=== PATIENT | male | born 1940 | race Caucasian/White ===

== ENCOUNTER → 2018-02-15 07:06 | Outpatient (CLI) | payer MEDICARE, BC, SELFPAY ==
[2018-02-15 09:54] LABS: Absolute Lymphocyte Count 3.13 X10^3/ul (0.83-4.51); Absolute Neutrophil Count 1.2 X10^3/uL (2.0-7.7); Basophil# 0.04 X10^3/uL; Basophil% 0.7 % (0-1); Eosinophil# 0.61 X10^3/uL; Eosinophils% 10.9 % (0-5); Hematocrit 41.2 % (40-54); Hemoglobin 14.2 g/dl (13.0-16.5); Lymphocyte # 3.13 X10^3/ul (4.0); Lymphocyte % 55.9 % (19-41); Mean Corp Hgb Conc 34.5 g/gl (32-36); Mean Corpuscular Hgb 31.6 pg (27.0-32.0); Mean Corpuscular Volume 91.8 fL (80-94); Mean Platelet Vol. 11.6 fl (6.2-12.0); Monocyte# 0.62 X10^3/uL; Monocyte% 11.1 % (0-10); Neutrophil # 1.18 X10^3/uL (2.7-7.7); Platelet Count 236 K/mm3 (150-450); RBC Distribution Width SD 43.1 fl (35.1-43.9); Red Blood Count 4.49 M/mm3 (4.6-6.2); White Blood Count 5.6 K/mm3 (4.4-11.0)
[2018-02-15 10:14] LABS: POSITIVE COUNT NO; POSITIVE DIFFERENTIAL NO; POSITIVE MORPHOLOGY NO
[2018-02-15 10:21] LABS: AST(SGOT) 29 U/L (15-37); Alanine Aminotransfer ALT/SGPT 26 U/L (16-61); Albumin, Serum 3.8 g/dL (3.2-5.0); Alkaline Phosphatase 76 U/L (45-117); Anion Gap 9 (5-15); BUN 24 mg/dL (7-18); BUN/Creat Ratio 23.3 RATIO (10-20); Calcium,Total 8.8 mg/dL (8.5-10.1); Chloride 104 mmol/L (98-107); Cholesterol 222 mg/dL (200); Creatinine, Serum 1.03 mg/dL (0.70-1.30); EST Glomerular Filtration Rate 75 mL/min (>60); Est Glom Filt Rate - Afr Amer 90 mL/min (>60); Globulin 3.8 g/dL (2.2-4.2); Glucose 103 mg/dL (74-106); High Density Lipoprotein 67 mg/dL; Potassium 4.1 mmol/L (3.5-5.1); Protein, Total 7.6 g/dL (6.4-8.2); Sodium Level 140 mmol/L (136-145); Triglycerides 67 mg/dL; Very Low Density Lipoprotein 13 mg/dL (5-40)
== END ==
PROVIDERS: Family Provider Family Medicine; PCP Family Medicine; Visit Provider Family Medicine
DX: I10 Essential (primary) hypertension (principal); E78.5 Hyperlipidemia, unspecified
CPT/HCPCS: 36415; 80053; 80061; 85025

== ENCOUNTER → 2019-01-31 07:01 | Outpatient (CLI) | payer MEDICARE, BC, SELFPAY ==
[2019-01-31 10:26] LABS: Basophil% 0.7 % (0-1); Eosinophils% 10.5 % (0-5); Hematocrit 38.6 % (40-54); Hemoglobin 12.7 g/dl (13.0-16.5); Lymphocyte # 2.52 X10^3/ul (4.0); Lymphocyte % 44.7 % (19-41); Mean Corp Hgb Conc 32.9 g/gl (32-36); Mean Corpuscular Hgb 29.4 pg (27.0-32.0); Mean Corpuscular Volume 89.4 fL (80-94); Mean Platelet Vol. 11.8 fl (6.2-12.0); Monocyte% 8.5 % (0-10); Neutrophil % 35.4 % (47-70); Platelet Count 255 K/mm3 (150-450); RBC Distribution Width CV 13.9 % (11.6-14.6); RBC Distribution Width SD 45.9 fl (35.1-43.9); Red Blood Count 4.32 M/mm3 (4.6-6.2); White Blood Count 5.6 K/mm3 (4.4-11.0)
[2019-01-31 10:27] LABS: Absolute Lymphocyte Count 2.52 X10^3/ul (0.83-4.51); Basophil# 0.04 X10^3/uL; Eosinophil# 0.59 X10^3/uL; Monocyte# 0.48 X10^3/uL; POSITIVE COUNT NO; POSITIVE DIFFERENTIAL NO; POSITIVE MORPHOLOGY NO
[2019-01-31 10:46] LABS: AST(SGOT) 25 U/L (15-37); Alanine Aminotransfer ALT/SGPT 23 U/L (16-61); Albumin, Serum 3.5 g/dL (3.2-5.0); Alkaline Phosphatase 100 U/L (45-117); Anion Gap 5 (5-15); BUN 22 mg/dL (7-18); BUN/Creat Ratio 23.7 RATIO (10-20); Calcium,Total 8.7 mg/dL (8.5-10.1); Chloride 109 mmol/L (98-107); Cholesterol 181 mg/dL (200); Creatinine, Serum 0.93 mg/dL (0.70-1.30); EST Glomerular Filtration Rate 84 mL/min (>60); Est Glom Filt Rate - Afr Amer 101 mL/min (>60); Globulin 3.5 g/dL (2.2-4.2); Glucose 93 mg/dL (74-106); High Density Lipoprotein 57 mg/dL; PSA,Total - Annual Screen 2.22 ng/mL (0.00-4.00); Sodium Level 143 mmol/L (136-145); Triglycerides 59 mg/dL; Very Low Density Lipoprotein 12 mg/dL (5-40)
== END ==
PROVIDERS: Family Provider Family Medicine; PCP Family Medicine; Referring Provider Family Medicine; Visit Provider Family Medicine
DX: M10.9 Gout, unspecified (principal); I10 Essential (primary) hypertension; E78.5 Hyperlipidemia, unspecified; Z12.5 Encounter for screening for malignant neoplasm of prostate
CPT/HCPCS: 36415; 80053; 80061; 84153; 84550; 85025; G0103

== ENCOUNTER → 2019-03-15 07:31 | Outpatient (CLI) | payer MEDICARE, BC, SELFPAY ==
[2017-03-15 02:50] VITALS: BMI 26.9
[2019-03-15 10:07] LABS: Uric Acid 6.2 mg/dL (3.5-7.2)
== END ==
PROVIDERS: Family Provider Family Medicine; PCP Family Medicine; Referring Provider Family Medicine; Visit Provider Family Medicine
DX: M10.9 Gout, unspecified (principal)
CPT/HCPCS: 36415; 84550

== ENCOUNTER → 2019-03-17 | Outpatient (CLI) | payer MEDICARE, BC, SELFPAY ==
[2017-03-15 02:50] VITALS: BMI 26.9
[2019-03-17 15:47] LABS: Absolute Lymphocyte Count 2.94 X10^3/ul (0.83-4.51); Absolute Neutrophil Count 2.3 X10^3/uL (2.0-7.7); Basophil# 0.04 X10^3/uL; Basophil% 0.7 % (0-1); Eosinophil# 0.31 X10^3/uL; Eosinophils% 5.1 % (0-5); Hematocrit 39.9 % (40-54); Hemoglobin 13.3 g/dl (13.0-16.5); Lymphocyte # 2.94 X10^3/ul (4.0); Lymphocyte % 48.3 % (19-41); Mean Corp Hgb Conc 33.3 g/gl (32-36); Mean Corpuscular Hgb 30.6 pg (27.0-32.0); Mean Corpuscular Volume 91.9 fL (80-94); Mean Platelet Vol. 11.3 fl (6.2-12.0); Monocyte% 8.2 % (0-10); Neutrophil # 2.29 X10^3/uL (2.7-7.7); Neutrophil % 37.5 % (47-70); Platelet Count 245 K/mm3 (150-450); RBC Distribution Width CV 14.8 % (11.6-14.6); RBC Distribution Width SD 49.8 fl (35.1-43.9); Red Blood Count 4.34 M/mm3 (4.6-6.2); White Blood Count 6.1 K/mm3 (4.4-11.0)
[2019-03-17 15:51] LABS: POSITIVE COUNT NO; POSITIVE DIFFERENTIAL NO; POSITIVE MORPHOLOGY NO
== END | disposition home or self-care (01) ==
LOC: LAB.FUTURE 13:34
PROVIDERS: Family Provider Family Medicine; PCP Family Medicine; Visit Provider Family Medicine
DX: D64.9 Anemia, unspecified (principal)
CPT/HCPCS: 36415; 85025

== ENCOUNTER → 2020-03-30 10:31 | Outpatient (CLI) | payer MEDICARE, BC, SELFPAY ==
[2020-03-30 12:17] LABS: Absolute Lymphocyte Count 3.31 X10^3/uL (0.83-4.51); Absolute Neutrophil Count 3.6 X10^3/uL (2.0-7.7); Basophil# 0.05 X10^3/uL; Basophil% 0.6 % (0-1); Eosinophil# 0.53 X10^3/uL; Eosinophils% 6.4 % (0-5); Hematocrit 41.4 % (40-54); Hemoglobin 13.9 g/dL (13.0-16.5); Lymphocyte # 3.31 X10^3/ul (4.0); Lymphocyte % 40.2 % (19-41); Mean Corp Hgb Conc 33.6 g/dL (32-36); Mean Corpuscular Hgb 32.2 pg (27.0-32.0); Mean Corpuscular Volume 95.8 fL (80-94); Mean Platelet Vol. 11.7 fl (6.2-12.0); Monocyte% 8.5 % (0-10); NRBC Flagged by Analyzer 0 % (0-5); Neutrophil # 3.62 X10^3/uL (2.7-7.7); Neutrophil % 44.1 % (47-70); Platelet Count 260 K/mm3 (150-450); RBC Distribution Width CV 12.9 % (11.6-14.6); RBC Distribution Width SD 44.3 fl (35.1-43.9); Red Blood Count 4.32 M/mm3 (4.6-6.2); White Blood Count 8.2 K/mm3 (4.4-11.0)
[2020-03-30 15:39] LABS: AST(SGOT) 21 U/L (15-37); Alanine Aminotransfer ALT/SGPT 29 U/L (16-61); Albumin, Serum 3.9 g/dL (3.2-5.0); Alkaline Phosphatase 85 U/L (45-117); Anion Gap 8 (5-15); BUN 23 mg/dL (7-18); BUN/Creat Ratio 22.1 RATIO (10-20); Calcium,Total 9.3 mg/dL (8.5-10.1); Chloride 105 mmol/L (98-107); Cholesterol 209 mg/dL (200); Creatinine, Serum 1.04 mg/dL (0.70-1.30); EST Glomerular Filtration Rate 73 mL/min (>60); Est Glom Filt Rate - Afr Amer 89 mL/min (>60); Globulin 3.8 g/dL (2.2-4.2); Glucose 100 mg/dL (74-106); High Density Lipoprotein 65 mg/dL; Potassium 4.2 mmol/L (3.5-5.1); Protein, Total 7.7 g/dL (6.4-8.2); Sodium Level 139 mmol/L (136-145); Triglycerides 110 mg/dL; Uric Acid 5.6 mg/dL (3.5-7.2); Very Low Density Lipoprotein 22 mg/dL (5-40)
== END ==
PROVIDERS: PCP Family Medicine; Visit Provider Family Medicine
DX: M10.9 Gout, unspecified (principal); I10 Essential (primary) hypertension; E78.5 Hyperlipidemia, unspecified; D64.9 Anemia, unspecified
CPT/HCPCS: 36415; 80053; 80061; 84550; 85025

== ENCOUNTER 2020-12-10 08:09 | Outpatient (RCR) | payer MEDICARE, BC, SELFPAY ==
[2017-03-15 02:50] VITALS: BMI 26.9
== END 2020-12-10 23:59 ==
LOC: IMMUN 08:09
PROVIDERS: PCP Family Medicine; Referring Provider Family Medicine; Visit Provider Family Medicine
DX: Z23 Encounter for immunization (principal)
CPT/HCPCS: 0011A; 0012A

== ENCOUNTER → 2021-05-03 10:50 | Outpatient (CLI) | payer MEDICARE, BC, SELFPAY ==
[2017-03-15 02:50] VITALS: BMI 26.9
[2021-05-05 08:07] LABS: PSA, Free 0.53 ng/mL; PSA, Free % 11.5 % (.); PSA, Total Ultrasensitive 4.6 ng/mL (0.0-4.0)
== END ==
PROVIDERS: PCP Family Medicine; Referring Provider Family Medicine; Visit Provider Family Medicine
DX: R97.20 Elevated prostate specific antigen [PSA] (principal)
CPT/HCPCS: 36415; 84153; 84154

== ENCOUNTER → 2022-04-22 | Outpatient (CLI) | payer MEDICARE, BC, SELFPAY ==
[2022-04-22 07:21] LABS: Absolute Lymphocyte Count 3.76 X10^3/uL (0.83-4.51); Absolute Neutrophil Count 2.2 X10^3/uL (2.0-7.7); Basophil# 0.07 X10^3/uL; Eosinophil# 0.55 X10^3/uL; Eosinophils% 7.6 % (0-5); Hematocrit 41.9 % (40-54); Hemoglobin 14.1 g/dL (13.0-16.5); Lymphocyte # 3.76 X10^3/ul (0.83-4.51); Mean Corp Hgb Conc 33.7 g/dL (32-36); Mean Corpuscular Hgb 31.7 pg (27.0-32.0); Mean Corpuscular Volume 94.2 fL (80-94); Mean Platelet Vol. 11.5 fl (6.2-12.0); Monocyte# 0.62 X10^3/uL; Monocyte% 8.6 % (0-10); NRBC Flagged by Analyzer 0 % (0-5); Neutrophil # 2.21 X10^3/uL (2.7-7.7); Neutrophil % 30.5 % (47-70); Platelet Count 240 K/mm3 (150-450); RBC Distribution Width CV 13.7 % (11.6-14.6); RBC Distribution Width SD 47.4 fl (35.1-43.9); Red Blood Count 4.45 M/mm3 (4.6-6.2); White Blood Count 7.2 K/mm3 (4.4-11.0)
[2022-04-22 07:49] LABS: ALB/GLOB Ratio 0.9 RATIO (0.9-2.4); AST(SGOT) 17 U/L (15-37); Alanine Aminotransfer ALT/SGPT 22 U/L (16-61); Albumin, Serum 3.5 g/dL (3.2-5.0); Alkaline Phosphatase 90 U/L (45-117); Anion Gap 6 (5-15); BUN 19 mg/dL (7-18); BUN/Creat Ratio 18.8 RATIO (10-20); Chloride 106 mmol/L (98-107); Cholesterol 240 mg/dL (200); Creatinine, Serum 1.01 mg/dL (0.70-1.30); EST Glomerular Filtration Rate 76 mL/min (>60); Est Glom Filt Rate - Afr Amer 91 mL/min (>60); Globulin 3.7 g/dL (2.2-4.2); Glucose 106 mg/dL (74-106); High Density Lipoprotein 56 mg/dL; Potassium 4.3 mmol/L (3.5-5.1); Protein, Total 7.2 g/dL (6.4-8.2); Sodium Level 140 mmol/L (136-145); Triglycerides 125 mg/dL; Uric Acid 6.2 mg/dL (3.5-7.2); Very Low Density Lipoprotein 25 mg/dL (5-40)
[2022-04-23 16:17] LABS: PSA, Free % 11.5 % (.); PSA, Total Ultrasensitive 6.1 ng/mL (0.0-4.0)
== END | disposition home or self-care (01) ==
PROVIDERS: PCP Family Medicine; Referring Provider Family Medicine; Visit Provider Family Medicine
DX: M10.9 Gout, unspecified (principal); I10 Essential (primary) hypertension; E78.5 Hyperlipidemia, unspecified; D64.9 Anemia, unspecified; R97.20 Elevated prostate specific antigen [PSA]
CPT/HCPCS: 36415; 80053; 80061; 84153; 84154; 84550; 85025

== ENCOUNTER → 2023-01-27 | Outpatient (CLI) | payer MEDICARE, BC, SELFPAY ==
--- NOTE | 2023-01-27 08:00 | VDLE_ITS ---
Reason For Study: LEG PAIN RIGHT LEFT CFV is compressible, spontaneous, phasic, GSV is normal. competent and demonstrates normal CFV is compressible, spontaneous, phasic, augmentation. competent, and demonstrates normal Procedure augmentation. This is a venous duplex using B-mode, color FV is compressible, spontaneous, phasic, flow and spectral Doppler. competent and demonstrates normal Exam performed in department. augmentation. The exam was diagnostic. POP V is compressible, spontaneous, phasic, competent and demonstrates normal augmentation. T/P Trunk is compressible. PTV is compressible. LT PerV is compressible. VL/Venous Duplex US, Unilateral Interpretation Summary Deep veins of the left lower extremity are patent and compressible segmentally. There is no evidence of left lower extremity deep vein thrombosis. The left great saphenous vein geena ears patent and compressible segmentally. Ordering Physician: aCndice Song Referring Physician: Candice Song Performed By: Sancho Christopher RVT
--- NOTE | 2023-01-27 08:03 | ART_ITS ---
Reason For Study: LEG PAIN Procedure A bilateral lower extremity continuous wave Doppler with analog waveform analysis and ankle brachial indexes. Left Segmental Pressures Left brachial= 162mmHg. Left posterior tibial artery = 89mmHg. Left dorsalis pedis artery = 94mmHg. Left digit = 47 mmHg. The left posterior tibial artery waveforms are monophasic. The left dorsalis pedis waveforms are monophasic. Right Segmental Pressures Right brachial= 165mmHg. Right posterior tibial artery = 172mmHg. Right dorsalis pedis artery = 190mmHg. Right digit = 95 mmHg. The right posterior tibial artery waveforms are triphasic. The right dorsalis pedis waveforms are triphasic. Indices The right ankle brachial index by the posterior tibial artery is 1.04. The right ankle brachial index by the dorsalis pedis is 1.15. The right digital-brachial index is 0.58. The left ankle brachial index by the posterior tibial artery is 0.54. The left ankle brachial index by the dorsalis pedis is 0.57. The left digital-brachial index is 0.28. VL/Ankle Brachial Index Interpretation Summary Right BIMAL 1.15, normal. Doppler/PVR waveforms of the right leg normal at rest. 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 Left BIMAL 0.57, severe arterial insufficiency. Doppler/PVR waveforms of the left ankle severely diminished at rest. Ordering Physician: Candice Song Referring Physician: CANDICE SONG MD Performed By: Sancho Christopher RVT
== END | disposition home or self-care (01) ==
LOC: CVS 07:54
PROVIDERS: PCP Family Medicine; Referring Provider Family Medicine; Visit Provider Family Medicine
DX: M79.662 Pain in left lower leg (principal); I73.9 Peripheral vascular disease, unspecified
CPT/HCPCS: 93922; 93971

== ENCOUNTER → 2023-02-11 | Outpatient (CLI) | payer MEDICARE, BC, SELFPAY ==
[2023-02-11 11:44] LABS: Creatinine, Serum 0.98 mg/dL (0.70-1.30); EST Glomerular Filtration Rate 78 mL/min (>60); Est Glom Filt Rate - Afr Amer 94 mL/min (>60)
== END | disposition home or self-care (01) ==
LOC: LAB 09:55
PROVIDERS: PCP Family Medicine; Referring Provider Physician Assistant; Visit Provider Physician Assistant
DX: I77.1 Stricture of artery (principal); E78.5 Hyperlipidemia, unspecified; I10 Essential (primary) hypertension
CPT/HCPCS: 36415; 82565

== ENCOUNTER → 2023-02-25 | Outpatient (CLI) | payer MEDICARE, BC, SELFPAY ==
--- NOTE | 2023-02-25 07:56 | CT_ITS ---
STUDY: CTA OF THE ABDOMINAL AORTA AND BILATERAL LOWER EXTREMITIES REASON FOR EXAM: Male, 82 years old. Claudication, acute onset LLE pain RADIATION DOSAGE (If Supplied By Facility): CTDIvol = ( 7.51 ) mGy, DLP = ( 1274.71 ) mGycm TECHNIQUE: Axial CT angiography multi-detector data acquisition was obtained from the dome of the liver to the level of the ankles following intravenous administration of IV 100mL Isovue-370. Axial images and MIP images were reconstructed from the axial data set. Post-processing of the angiographic images was performed, with multiplanar reformation and 3D reconstruction. Individualized dose optimization techniques were used for this CT. TECHNICAL QUALITY: Good COMPARISON: None. Descriptors of Narrowing: None (0%) Mild (< 50%) Moderate (50-70%) Severe (70-90%) Subtotal/Total Occlusion (90-100%) Non-Evaluable (technically non-diagnostic FINDINGS: Increased markings at the lung bases suggestive of bibasilar Diffuse fatty infiltration of the liver. There is a 6.8 cm x 6.1 cm cyst in the lower pole of the left kidney. Prostatic enlargement with indentation of the bladder base. Prostatic calcification. Prior left inguinal hernia repair. Small right inguinal hernia containing fat. Abdominal aorta: Atherosclerotic plaque formation of the abdominal aorta without evidence of aneurysmal dilatation. Celiac and superior mesenteric arteries: Mild atherosclerotic plaque at the origin of the superior mesenteric artery Inferior mesenteric artery: No demonstrated narrowing. Right renal artery(arteries): No demonstrated narrowing. Left renal artery(arteries): Mildly stenotic plaque formation at the origin of the left renal artery. Right common iliac artery: Scattered nonobstructive right common iliac artery plaque formation. Right external iliac artery: No demonstrated narrowing. Right internal iliac artery: No demonstrated narrowing. Left common iliac artery: Mild degree of nonstenotic calcific plaques. Left external iliac artery: No demonstrated narrowing. Left internal iliac artery: No demonstrated narrowing. RIGHT LOWER EXTREMITY Right common femoral artery: No demonstrated narrowing. Right profundus femoris: No demonstrated narrowing. Right superficial femoral: No demonstrated narrowing. Right popliteal artery: No demonstrated narrowing. Right tibioperoneal trunk: No demonstrated narrowing. Right anterior tibial artery: No demonstrated narrowing. Right posterior tibial artery: Mildly stenotic calcific plaques at its origin. Right peroneal artery: Stenotic plaques at the origin of the peroneal artery. LEFT LOWER EXTREMITY Left common femoral artery: No demonstrated narrowing. Left profundus femoris: No demonstrated narrowing. Left superficial femoral: No demonstrated narrowing. Left popliteal artery: Tight focal stenosis at the origin of the left popliteal artery. Left tibioperoneal trunk: No demonstrated narrowing. Left anterior tibial artery: Scattered stenotic sites in the mid and distal portion. Left posterior tibial artery: No demonstrated narrowing. Left peroneal artery: No demonstrated narrowing. CT/CTA Abd w/Runoff W/WO Contrast IMPRESSION: Tight stenosis in the proximal aspect of the left popliteal artery. Three-vessel runoff to both lower extremities. Electronically Signed: Ronen Panda MD at 15:39 EDT ,
== END | disposition home or self-care (01) ==
LOC: CT 07:52
PROVIDERS: PCP Family Medicine; Referring Provider Physician Assistant; Visit Provider Physician Assistant
DX: I73.9 Peripheral vascular disease, unspecified (principal); I77.1 Stricture of artery; I70.292 Other atherosclerosis of native arteries of extremities, left leg; I73.00 Raynaud's syndrome without gangrene
CPT/HCPCS: 75635; Q9967

== ENCOUNTER 2023-04-01 08:46 | Day surgery (SDC) | payer MEDICARE, BC, SELFPAY ==
[2023-03-31 08:04] VITALS: BMI 27.5
[2023-04-01] VITALS (9 sets, daily range): BP systolic 123–156; BP diastolic 57–68; PULSE 59–67; RESP 16; TEMP 36.5; O2SAT 98–100
[2023-04-01 08:59] LABS: Hematocrit 41.3 % (40-54); Hemoglobin 13.5 g/dL (13.0-16.5); Mean Corp Hgb Conc 32.7 g/dL (32-36); Mean Corpuscular Hgb 30.8 pg (27.0-32.0); Mean Corpuscular Volume 94.1 fL (80-94); Platelet Count 299 K/mm3 (150-450); RBC Distribution Width CV 13.2 % (11.6-14.6); RBC Distribution Width SD 44.7 fl (35.1-43.9); Red Blood Count 4.39 M/mm3 (4.6-6.2); White Blood Count 9.8 K/mm3 (4.4-11.0)
[2023-04-01 09:13] LABS: Anion Gap 2 (5-15); BUN 25 mg/dL (7-18); BUN/Creat Ratio 26.4 RATIO (10-20); Calcium,Total 9.3 mg/dL (8.5-10.1); Chloride 110 mmol/L (98-107); Creatinine, Serum 0.95 mg/dL (0.70-1.30); EST Glomerular Filtration Rate 81 mL/min (>60); Est Glom Filt Rate - Afr Amer 98 mL/min (>60); Estimated Creatinine Clearance 66.94 ml/min; Glucose 98 mg/dL (74-106); Potassium 4.4 mmol/L (3.5-5.1); Sodium Level 139 mmol/L (136-145)
--- NOTE | 2023-04-01 13:25 | OP.PCM_ITS ---
Report of Operation Date of Procedure: 04/01/23 Pre-Operative Diagnosis: atherosclerosis with claudication, left lower extremity Post-Operative Diagnosis: same Surgery/Procedure Performed:: aortogram, LLE runoff IVUS left TP trunk, SFA/popliteal artery atherectomy/angioplasty left popliteal Surgeon: Tevin Lopez Type of Anesthesia: Local and Sedation,Conscious Estimated Blood Loss (mL): 5 Description of Procedure: HPI: Patient is an 82-year-old male with abrupt onset short distance claudication and short segment popliteal artery occlusion felt to be potentially in situ thrombosis of plaque. He is taken now for angiography with possible intervention. Description of procedure: Upon obtaining form consent and verification correct patient procedure site patient taken to the [facility] where he was positioned prepped and draped in usual sterile fashion. Time was performed conscious sedation administered with Versed and fentanyl. Skin overlying the right common femoral artery is anesthetized with 1% lidocaine and the vessel accessed in retrograde fashion with micropuncture needle and wire under ultrasound guidance. Through the micropuncture sheath injection angiogram was performed revealed satisfactory placement with no extravasation or dissection. Through the micropuncture sheath a J-wire was advanced into the aorta and the micropuncture sheath exchanged for short 6 Peruvian sheath. Through the 6 [place]uvian sheath and Omni Flush catheter advanced abdominal aorta. Digital traction aortogram pelvic angiogram was performed and a Glidewire advanced through the catheter and used to navigate in the contralateral iliac system. The catheter was then advanced into the distal external iliac artery from which position sequential subtraction angiography left lower extremity was performed. This revealed short segment near total occlusion with proximal 99% stenosis of the above-knee popliteal artery with reconstitution of the popliteal and intact popliteal trifurcation. [place] this lesion was amenable to endovascular intervention so the patient was heparinized lasted over 3 minutes. The J-wire then advanced via the catheter and navigated into the proximal superficial femoral artery. The catheter and 6 short 6 Peruvian sheath were then withdrawn and a 6 Peruvian Ansell sheath advanced over the wire position the proximal superficial femoral artery. From this position a command 14 wire and a quick cross catheter we were able to navigate across the lesion maintaining position within true lumen. Once the catheter was advanced beyond the lesion the wire withdrawn hand-injection angiography performed confirming position with a true lumen beyond the lesion. Intravascular sound probe was then advanced over the wire and recorded pullback performed of the tibioperoneal trunk, SFA popliteal artery. This confirmed focal high-grade stenosis approximately 99% with plaque morphology which suggested soft atherosclerosis with no thrombus or significant calcification. An 0.014 Laurel wire was then catheter position in the the [employer] Laurel rotational atherectomy device was then brought in field prepped for manufactures instructions. This was advanced over the wire and engaged across the lesion for 2 passes. The device was then withdrawn and repeat angiography revealed satisfactory lesion response with no extravasation or dissection. Next a 6 mm x 20 angio sculpt scoring balloon was advanced over the wire and inflated for multiple inflations across the lesion. The balloon was then deflated and withdrawn and repeat angiography revealed satisfactory lesion response with no significant residual stenosis and no extravasation or dissection. Next a [employer] StellaRex paclitaxel coated angioplasty balloon was advanced in position, 6 mm x 40, and inflated to nominal for 2 minutes and then deflated withdrawn. Completion angiography revealed satisfactory lesion resolution with no extravasation or dissection. There is preserved runoff from the popliteal trifurcation. Next the long 6 Peruvian sheath was exchanged for a short 6 Peruvian sheath and a minx closure device deployed followed by 2 minutes of manual pressure. Patient was taken to the PCU for bedrest before discharged home.
[2023-04-01 14:15] LABS: ACT Activated Clotting Time 263 sec (74-137)
== END 2023-04-01 17:48 | disposition home or self-care (01) ==
LOC: CLSP 08:47 → PCU 13:45
PROVIDERS: PCP Family Medicine; Referring Provider Surgery Trauma Surgery; Visit Provider Surgery Trauma Surgery
DX: I70.222 Atherosclerosis of native arteries of extremities with rest pain, left leg (principal); M10.9 Gout, unspecified; E78.5 Hyperlipidemia, unspecified; I10 Essential (primary) hypertension; Z87.891 Personal history of nicotine dependence
CPT/HCPCS: 36200; 36245; 36415; 37225; 37252; 37253; 75625; 75710; 76937; 80048; 85027; 85347; 99152; 99153; C1724; C1725; C1753; C1760; C2623; J7040; Q9967; C1769; C1887

== ENCOUNTER → 2023-04-28 | Outpatient (CLI) | payer MEDICARE, BC, SELFPAY ==
--- NOTE | 2023-04-28 08:45 | ART_ITS ---
Reason For Study: S/P LLE angioplasty Procedure A bilateral lower extremity continuous wave Doppler with analog waveform analysis and ankle brachial indexes. Left Segmental Pressures Left brachial= 144mmHg. Left posterior tibial artery = 136mmHg. Left dorsalis pedis artery = 146mmHg. Left digit = 95 mmHg. The left dorsalis pedis waveforms are triphasic. The left posterior tibial artery waveforms are triphasic. Right Segmental Pressures Right brachial= 142mmHg. Right posterior tibial artery = 171mmHg. Right dorsalis pedis artery = 173mmHg. Right digit = 146 mmHg. The right dorsalis pedis waveforms are triphasic. The right posterior tibial artery waveforms are triphasic. Indices The right ankle brachial index by the dorsalis pedis is 1.2. The right ankle brachial index by the posterior tibial artery is 1.19. The right digital-brachial index is 1.01. The left ankle brachial index by the dorsalis pedis is 1.01. The left ankle brachial index by the posterior tibial artery is .94. The left digital-brachial index is .66. VL/Ankle Brachial Index Interpretation Summary Right BIMAL 1.2, normal. TBI and Doppler/PVR waveforms of the right leg normal at rest. Left BIMAL 1.01, normal. Doppler/PVR waveforms of the left leg normal at rest. TB I diminished, pedal/digit disease Ordering Physician: Kavitha Baca Performed By: Salomón Hummel RVT
--- NOTE | 2023-04-28 08:45 | ADUL_ITS ---
Reason For Study: S/P LLE angioplasty Left Velocities Ext Iliac Artery, dist = 84.9 cm./sec. Common Femoral Artery, mid = 76.6 cm./sec. Supf. Femoral Artery, prox = 103.9 cm./sec. Supf. Femoral Artery, mid = 194.5 cm./sec. Supf. Femoral Artery, dist = 97.9 cm./sec. Profunda Femoral Artery = 72.0 cm./sec. Popliteal Artery, mid = 77.8 cm./sec. Ant.Tibial Artery, prox = 62.2 cm./sec. Ant Tibial Artery, mid = 50.1 cm./sec. Ant. Tibial Artery, distal = 36.9 cm./sec. Post. Tibial Artery, prox = 51.2 cm./sec. Post Tibial Artery, mid = 24.8 cm./sec. Post Tibial Artery, dist. = 19.3 cm./sec. Peroneal Artery, prox = 89.7 cm./sec. Peroneal Artery, mid = 96.3 cm./sec. Peroneal Artery,dist. = 65.5 cm./sec. /US Art Duplex Unilat Lower Ext Interpretation Summary Left lower extremity arteries patent with normal velocities and no evidence of stenosis. Ordering Physician: Kavitha Baca Referring Physician: Kavitha Baca Performed By:
--- NOTE | 2023-04-28 08:45 | CDU_ITS ---
Reason For Study: carotid bruit Rt. Velocities/BP Lt. Velocities/BP Prox CCA 67.4/8.8 cm/sec. Prox CCA 74.0/7.7 cm/sec. Mid CCA 78.7/13.5 cm/sec. Mid CCA 70.4/10.2 cm/sec. Dist CCA 66.4/10.7 cm/sec. Dist CCA 58.1/6.5 cm/sec. Prox ICA 70.7/17.9 cm/sec. Prox ICA 326.8/91.4 cm/sec. Mid ICA 104.7/26.2 cm/sec. Mid ICA 363.5/66.4 cm/sec. Dist ICA 79.0/79.0/18.8 cm/sec. Dist ICA 102.8/20.6 cm/sec. Rt. ICA/CCA = 1.3. Lt. ICA/CCA = 5.2. Prox ECA 382.1/33.9 cm/sec. Prox ECA 77.7/5.3 cm/sec. Rt. Vert. 48.3/6.5 cm/sec. Lt. Vert. 59.6/14.2 cm/sec. Right Extracranial There is intimal thickening but no significant atherosclerotic plaque noted in the right common carotid artery. There is heterogeneous, irregular atherosclerotic plaque noted in the right internal carotid artery. There is heterogeneous, irregular atherosclerotic plaque noted in the right external carotid artery. Antegrade flow is noted in the right vertebral artery. Left Extracranial There is intimal thickening but no significant atherosclerotic plaque noted in the left common carotid artery. There is heterogeneous, irregular atherosclerotic plaque noted in the left internal carotid artery. There is heterogeneous, irregular atherosclerotic plaque noted in the left external carotid artery. Antegrade flow is noted in the left vertebral artery. Procedure Carotid Duplex 13424. This is a Carotid Duplex examination using B-mode, color flow and specral Doppler. The exam was diagnostic. Prelim called to Kavitha Baca's office. Exam performed in department. VL/Carotid Duplex Ultrasound Interpretation Summary Mild (<50%) stenosis right extracranial internal carotid. Severe (>70%) stenosis left extracranial internal carotid. Patent and antegrade vertebrals bilaterally. Ordering Physician: Kavitha Baca Performed By: Salomón Hummel RVT
== END | disposition home or self-care (01) ==
PROVIDERS: PCP Family Medicine; Referring Provider Physician Assistant; Visit Provider Physician Assistant
DX: I70.222 Atherosclerosis of native arteries of extremities with rest pain, left leg (principal); R09.89 Other specified symptoms and signs involving the circulatory and respiratory systems
CPT/HCPCS: 93880; 93922; 93926

== ENCOUNTER → 2023-05-20 | Outpatient (CLI) | payer MEDICARE, BC, SELFPAY ==
[2023-05-20 16:00] LABS: EST Glomerular Filtration Rate 62 mL/min (>60); Est Glom Filt Rate - Afr Amer 75 mL/min (>60)
== END | disposition home or self-care (01) ==
LOC: LAB 15:01
PROVIDERS: PCP Family Medicine; Referring Provider Surgery Trauma Surgery; Visit Provider Surgery Trauma Surgery
DX: I65.22 Occlusion and stenosis of left carotid artery (principal)
CPT/HCPCS: 36415; 82565

== ENCOUNTER → 2023-05-28 | Outpatient (CLI) | payer MEDICARE, BC, SELFPAY ==
--- NOTE | 2023-05-28 07:56 | CT_ITS ---
STUDY: CTA HEAD AND NECK WITH CONTRAST REASON FOR EXAM: Male, 82 years old. carotid stenosis RADIATION DOSAGE (If Supplied By Facility): CTDIvol = ( 31.25 ) mGy, DLP = ( 1624.74 ) mGycm TECHNIQUE: CT angiography was performed with a multi-detector CT scanner. Data acquisition was obtained from the skull base through the vertex following intravenous administration of IV 75mL Isovue-370. MIP images were reconstructed from the axial data set. Post-processing of the angiographic images was performed, with multiplanar reformation and 3D reconstruction. Individualized dose optimization techniques were used for this CT. COMPARISON: No relevant priors. FINDINGS: Normal bilateral petrous carotid arteries. There is calcified plaque formation of the right cavernous carotid artery, with a mild stenosis (less than 50%). There is calcified plaque formation of the left cavernous carotid artery, with a mild stenosis (less than 50%). Normal right A1 segments of the anterior cerebral artery. Normal left A1 segments of the anterior cerebral artery. Normal intact anterior communicating artery (ACOM). Normal bilateral A2 segments of the anterior cerebral arteries. Normal right M1 and M2 segments of the middle cerebral arteries, with a normal M1 bifurcation. Normal left M1 and M2 segments of the middle cerebral arteries, with a normal M1 bifurcation. Normal right posterior communicating artery (PCOM). Normal left posterior communicating artery (PCOM). Normal bilateral vertebral arteries. Normal basilar artery with a normal basilar bifurcation. The visualized bilateral superior cerebellar (SCA) arteries are normal. Normal bilateral P1, P2 and visualized P3 segments of the posterior cerebral arteries. There is no demonstrated aneurysm of the [place] of [place]. Partial opacification of the right maxillary sinus. Mild degree of cerebral atrophy. There is evidence of a cavum septum lucidum. This is a normal variant. Mild cerebellar atrophy. AORTIC ARCH: There is atherosclerotic calcific plaque formation of the aortic arch and great vessels arising from the aortic arch, without a hemodynamically significant stenosis. There is a normal origin of the brachiocephalic, left common carotid, and left subclavian arteries. RIGHT CAROTID ARTERIES: Normal right common carotid artery (CCA). Normal right common carotid bulb. There is extensive atherosclerotic plaque formation of the origin of the right internal carotid artery with an estimated stenosis of greater than 70%. Normal visualized cervical portion of the right internal carotid artery. Normal origin of the right external carotid artery (ECA). LEFT CAROTID ARTERIES: Calcific plaque is seen at the origin of the left common carotid artery. Normal left common carotid bulb. There is severe atherosclerotic plaque formation of the origin of the left internal carotid artery with a near complete occlusion. Normal visualized cervical portion of the left internal carotid artery. Normal origin of the left external carotid artery (ECA). VERTEBRAL ARTERIES: There is enhancement within the bilateral vertebral arteries with a small right vertebral artery, and a dominant left vertebral artery. CT/CTA Head AND Neck W/ Contrast IMPRESSION: Tight stenosis at the origin of the left internal carotid artery caused by combination of soft plaque and calcific plaque. 70% narrowing at the origin of the right internal carotid artery caused by calcified plaques. Electronically Signed: Ronen Panda MD at 10:30 EDT ,
== END | disposition home or self-care (01) ==
LOC: CT 07:49
PROVIDERS: PCP Family Medicine; Referring Provider Surgery Trauma Surgery; Visit Provider Surgery Trauma Surgery
DX: I65.29 Occlusion and stenosis of unspecified carotid artery (principal)
CPT/HCPCS: 70496; 70498; Q9967; A4216

== ENCOUNTER → 2023-06-26 | Outpatient (CLI) | payer MEDICARE, BC, SELFPAY ==
[2023-06-26 07:02] LABS: Absolute Lymphocyte Count 3.58 X10^3/uL (0.83-4.51); Absolute Neutrophil Count 3.2 X10^3/uL (2.0-7.7); Basophil# 0.04 X10^3/uL; Basophil% 0.5 % (0-1); Eosinophil# 0.47 X10^3/uL; Eosinophils% 5.9 % (0-5); Hematocrit 38.8 % (40-54); Hemoglobin 12.9 g/dL (13.0-16.5); Lymphocyte # 3.58 X10^3/ul (0.83-4.51); Lymphocyte % 45.2 % (19-41); Mean Corp Hgb Conc 33.2 g/dL (32-36); Mean Corpuscular Hgb 30.8 pg (27.0-32.0); Mean Corpuscular Volume 92.6 fL (80-94); Mean Platelet Vol. 11.3 fl (6.2-12.0); Monocyte# 0.57 X10^3/uL; Monocyte% 7.2 % (0-10); NRBC Flagged by Analyzer 0 % (0-5); Neutrophil # 3.24 X10^3/uL (2.7-7.7); Neutrophil % 40.9 % (47-70); Platelet Count 252 K/mm3 (150-450); RBC Distribution Width CV 13.4 % (11.6-14.6); RBC Distribution Width SD 45.6 fl (35.1-43.9); Red Blood Count 4.19 M/mm3 (4.6-6.2); White Blood Count 7.9 K/mm3 (4.4-11.0)
[2023-06-26 07:54] LABS: ALB/GLOB Ratio 0.9 RATIO (0.9-2.4); AST(SGOT) 32 U/L (15-37); Alanine Aminotransfer ALT/SGPT 53 U/L (16-61); Albumin, Serum 3.4 g/dL (3.2-5.0); Alkaline Phosphatase 99 U/L (45-117); Anion Gap 2 (5-15); BUN 22 mg/dL (7-18); BUN/Creat Ratio 23.5 RATIO (10-20); Calcium,Total 9.1 mg/dL (8.5-10.1); Chloride 109 mmol/L (98-107); Cholesterol 130 mg/dL (200); Creatinine, Serum 0.94 mg/dL (0.70-1.30); EST Glomerular Filtration Rate 82 mL/min (>60); Est Glom Filt Rate - Afr Amer 99 mL/min (>60); Globulin 3.6 g/dL (2.2-4.2); Glucose 103 mg/dL (74-106); High Density Lipoprotein 46 mg/dL; Potassium 4.1 mmol/L (3.5-5.1); Sodium Level 139 mmol/L (136-145); Triglycerides 77 mg/dL; Uric Acid 5.2 mg/dL (3.5-7.2); Very Low Density Lipoprotein 15 mg/dL (5-40)
[2023-06-27 11:08] LABS: PSA, Free 0.93 ng/mL; PSA, Free % 12.2 % (.)
== END | disposition home or self-care (01) ==
LOC: LAB 05:59
PROVIDERS: PCP Family Medicine; Referring Provider Family Medicine; Visit Provider Family Medicine
DX: M10.9 Gout, unspecified (principal); I10 Essential (primary) hypertension; E78.5 Hyperlipidemia, unspecified; D64.9 Anemia, unspecified; R97.20 Elevated prostate specific antigen [PSA]
CPT/HCPCS: 36415; 80053; 80061; 84153; 84154; 84550; 85025

== ENCOUNTER 2023-07-14 08:49 | Inpatient (IN) | payer MEDICARE, BC, SELFPAY ==
--- NOTE | 2023-07-02 08:31 | EKG12_ITS ---
Test Reason : PRE OP Blood Pressure : / mmHG Vent. Rate : 058 BPM Atrial Rate : 058 BPM P-R Int : 254 ms QRS Dur : 096 ms QT Int : 402 ms P-R-T Axes : 007 -06 040 degrees QTc Int : 394 ms Sinus bradycardia with 1st degree A-V block Low voltage QRS Inferior infarct , age undetermined Abnormal ECG Confirmed by RASHEEDA BURNS, COLIN ([id number]), video effects editor BERTA KUHN ([id number]) on 07/06/2023 1:56:12 PM Referred By: LUZ MARINA Confirmed By:COLIN VANESSA MD
[2023-07-02 09:09] LABS: Prothrombin Time (Protime)PT. 13.7 SECONDS (11.7-14.9)
[2023-07-02 09:10] LABS: Partial Thromboplast Time 29.3 Seconds (24.1-36.2)
[2023-07-14] VITALS (15 sets, daily range): BP systolic 89–123; BP diastolic 32–55; PULSE 41–69; RESP 10–17; TEMP 36.1–37.7; O2SAT 89–100; BMI 26.2; BMI 27.0
[2023-07-14] MEDS: Lactated Ringers 1,000 ML 15 ML IV ×2 (09:39→16:52)
[2023-07-14] MEDS: 0.9% Normal Saline (1000mL) 1,000 ML IV (09:58)
--- NOTE | 2023-07-14 11:00 | PLAQ_PTH ---
PATIENT: LENNIE MAXWELL LOC: ICU U#:[id number] AGE/SX: 82/M ROOM: ICU05 RE07/14/[address]: Dr. Tevin Lopez MD : 1940 BED: 1 DIS: 07/15/2023 SPEC #: [id number] RECD: 07/14/23 18:40 STATUS: MINNIE REDilan #: [id number] JONATHAN: 07/14/23 11:[address]: Tevin Lopez DEPT: SURGICAL PATHOLOGY RECD BY: Geovanny Zaman ENTERED: 07/15/23 10:44 SP TYPE: PLAQUE OTHR DR: Dr. Candice Song MD Tissues: PLAQUE Procedures: Decalcification bone/plaque Surgery Specimen Level III HEADER OPERATION: Carotid endarterectomy PRE-OP DIAGNOSIS: Left carotid stenosis TISSUE SUBMITTED: Left carotid plaque MICROSCOPIC DIAGNOSIS Left carotid artery plaque, endarterectomy: Calcified atheromatous plaque consistent with severe stenosis. AM:gin 07/20/2023 GROSS DESCRIPTION Received in fixative is one container labeled with the patient's name and designated left carotid plaque. The specimen consists of a previously opened Y-shaped piece of olguin-yellow indurated tissue measuring 3.5 cm in length and up to 0.8 cm in diameter. The specimen cuts with gritty sensation. Also present in the container are multiple pieces of olguin-yellow, indurated tissue measuring in aggregate 1.5 x 0.3 x 0.1 cm. Vp Data sections are submitted in one cassette after decalcification. / SJ:gin 07/15/2023 TC:5 CPT: 23890, 93134
--- NOTE | 2023-07-14 12:00 | NURSING ---
PT AND FAMILY UPDATED WITH SURGERY TIME
--- NOTE | 2023-07-14 13:14 | PCM.HP.STD ---
[facility] - General General Date of Admission: 07/14/23 HPI Narrative LENNIE MAXWELL, is a 82 M who presents with asymptomatic left ICA stenosis >70%. CTA confirmed degree of stenosis and revealed lesion accessible for CEA. He has not other high risk anatomic concerns so he presents now for left CEA for stroke risk reduction. [facility] Medical History (Updated 07/01/23 @ 10:48 by Joana Garcia) Anemia (~2018) Basal cell carcinoma Cancer Elevated PSA (~2020) Former smoker Gout High cholesterol History of diverticulitis Hyperlipemia Hypertension Prostate disease Raynaud disease (~2018) Wears glasses Home Medications lisinopril 10 mg tablet 10 mg PO DAILY HYPERTENSION 02/17/14 [History Last Taken 07/14/23] aspirin 81 mg chewable tablet 81 mg PO DAILY@0800 HEART HEALTH 03/15/17 [History Last Taken 07/13/23] multivitamin (Multiple Vitamins tablet) 1 ea PO DAILY SUPPLEMENT 03/15/17 [History Last Taken Unknown] clopidogrel 75 mg tablet (Plavix) 75 mg PO DAILY BLOOD THINNER #90 tabs 04/01/23 [Rx Last Taken 07/13/23] allopurinol 100 mg tablet 100 mg PO DAILY GOUT 07/01/23 [History Last Taken Unknown] cilostazol 50 mg tablet 50 mg PO BID VASODILATOR 07/01/23 [History Last Taken Unknown] rosuvastatin 10 mg tablet (Crestor) 10 mg PO DAILY HYPERLIPIDEMIA 07/01/23 [History Last Taken Unknown] Allergy/AdvReac Type Severity Reaction Status Date / Time No Known Allergies Allergy Verified 07/01/23 10:33 Family History Mother Cancer Father Myocardial infarction Heart disease Brother Afib DVT (deep venous thrombosis) Sister Afib Surgical History (Updated 07/01/23 @ 10:48 by Joana Garcia) H/O hernia repair History of angioplasty (~2020) History of appendectomy Hx of tonsillectomy Social History Smoking Status: Former smoker ROS Constitutional Constitutional: Denies chills, fever(s), frequent falls, lethargy or weakness Eyes Eyes: Denies blind spots, change in vision or loss of vision ENT HEENT: Denies bleeding gums, hoarseness or sore throat Cardiovascular Cardiovascular: Denies abdominal pain, bluish discoloration of hand/feet, chest pain with activity, claudication, cold extremities, cyanosis, dyspnea on exertion, erythema on extremities, irregular heart rhythm, leg edema, leg ulcers, numbness in extremities or weakness in extremities Respiratory/Chest Respiratory/Chest: Denies cough, excessive phlegm production, shortness of breath at rest, shortness of breath with exertion or wheezing Gastrointestinal Gastrointestinal: Denies anorexia, change in stool character, constipation, diarrhea, melena or rectal bleeding Genitourinary Genitourinary: Denies dysuria or hematuria Musculoskeletal Musculoskeletal: Denies abnormal gait Integumentary Integumentary: Reports other Details: ; Denies erythema, non-healing lesions or wounds Neurologic Neurologic: Denies abnormal speech, focal weakness, headache(s), loss of vision, numbness, paresthesias or sensory deficit Hematologic/Lymphatic Hematologic/Lymphatic: Denies easy bleeding, easy bruising or lymphadenopathy Vital Signs Vital Signs Vital Signs: 07/14/23 09:32 07/14/23 09:32 Temperature 97.0 F L Temperature Source Temporal Pulse Rate 69 Respiratory Rate 16 Respiratory Pattern Normal Blood Pressure 117/55 L Blood Pressure Mean 75 Blood Pressure Source Monitor Blood Pressure Position Semi-Fowlers Blood Pressure Location Left Arm Pulse Ox 100 Oxygen Delivery Method Room Air Weight Weight: 192 lb 14.472 oz Body Mass Index (BMI) 26.2 Physical Exam Const alert, oriented x3, no apparent distress and healthy appearing General Appearance: cooperative; Negative for combative or lethargic Orientation / Consciousness: awake Exam Limitations: no limitations HEENT Head and Scalp: normocephalic and atraumatic Eyes EOMs intact bilaterally General Eye: normal appearance of both eyes Neck full ROM and thyroid normal General: trachea midline; Negative for lymphadenopathy Thyroid: thyroid normal Resp normal respiratory effort and no use of accessory muscles Effort and Inspection: Negative for labored, stridor or audible wheezes Cardio regular rate and regular rhythm Back/Spine Cervical Spine: cervical ROM normal Extremity full ROM, normal capillary refill and no clubbing, cyanosis or edema Skin no rashes or lesions noted and no wounds Neuro oriented x3, CN's II-XII intact bilaterally, no focal motor deficits and no sensory deficits noted Psych thought process normal, cooperative, affect normal, speech normal and activity/motor behavior normal Assessment & Plan Assessment/Plan (1) Carotid stenosis, left: PLAN: -left CEA
[2023-07-14] MEDS: Heparin Injection (Vial) 5,000 UNIT/ML VIAL 5000 UNIT (13:30)
[2023-07-14] MEDS: Cefazolin 2 GM in 0.9% Normal Saline (100mL Bag) 100 ML IV (13:35)
[2023-07-14] MEDS: Bupivacaine Mpf 0.5% 30 ML VIAL (15:55)
--- NOTE | 2023-07-14 15:55 | PCM.OPRPT ---
Report of Operation Date of Procedure: 07/14/23 Pre-Operative Diagnosis: left carotid stenosis Post-Operative Diagnosis: same Surgery/Procedure Performed:: left carotid endarterectomy Surgeon: Tevin Lopez Type of Anesthesia: General Drains: 15 Fr PAULETTE Estimated Blood Loss (mL): 40 Fluids Replaced: 1500 Description of Procedure: HPI: Patient is an 82-year-old male with an asymptomatic left carotid artery stenosis which meets threshold for endarterectomy for stroke reduction. He presents now for elective left carotid endarterectomy. Description of procedure: Upon obtaining form consent and verification correct patient procedure site patient taken the operating where he was placed under general anesthesia. He was then positioned prepped and draped in usual sterile fashion and timeout was performed. Oblique incision made along the anterior border sternocleidomastoid but electrocautery was dissect down through the subcutaneous tissue to the level of platysma which was then divided.. Self-retaining retractors then put in position and further dissection carried down to the sternocleidomastoid which was freed along its anterior border exposing the jugular vein. Sharp dissection was then used to dissect free the anterior border the jugular vein with the facial vein identified, ligated with silk ties, and divided. The jugular vein was then retracted laterally exposing the carotid vessels. Sharp dissection was used to dissect free the common carotid artery with care taken to identify and protect the vagus nerve. A right angle was placed Vesseloops around the proximal vessel and attention turned to the distal vessels. Sharp dissection used to dissect free the internal carotid artery with care taken to identify and protect the hypoglossal and vagus nerve. The writing was placed a vessel loop on the distal internal carotid artery and the patient in heparinized allowed to circulate for 3 minutes. Sharp section and used dissect free the external carotid artery and a right angle used to place a vessel loop. Heparin dosing was then repeated based on ACT results and the vessel was clamped first the internal followed by the common external. A longitudinal arteriotomy was created 11 blade extended Zambrano scissors onto the internal carotid artery beyond the area of plaque. A 10 [place] shunt was then placed first distally in the internal then all the backbleed before placing into the common carotid artery. Patient was then interrogated Doppler found to be patent low resistance signal. We then performed her endarterectomy with a freer elevator with satisfactory endpoint distally on the internal and eversion endarterectomy of the external. The limb was then flushed with heparinized saline to clear debris in the distal endpoint tacked with 7-0 Prolene interrupted sutures. A bovine pericardial patch was brought in the field and secured in position with a 6-0 Prolene in a running fashion. Prior to completing suture line the shunt was removed and the vessels backbled. After completing suture line of the internal carotid artery was released allowed to backbleed into the bifurcation then reoccluded as origin. Clamps were then removed from the external and common carotid allowing 10 heartbeats of antegrade flow to flush into the external before reestablishing flow into the internal carotid artery. After clamps removed the vessel was inspected and satisfactory stasis observed. The patient was then reversed with protamine and a 15 [place] channel PAULETTE placed through a separate stab incision. The vessels were interrogated with Doppler with low resistance signal in the internal carotid artery and patent appropriate signal in the external carotid artery. The incision was again inspected hemostasis and then closed with 2-0 Vicryl, 3-0 Vicryl, 4 Monocryl and Dermabond for the skin. At the inclusion of case patient was awake from anesthesia moving all extremities to command. He was then taken the recovery room with dissipate admission in the intensive care unit for hemodynamic and neurologic monitoring.
[2023-07-14] MEDS: 0.9% Normal Saline (1000mL) 1,000 ML 100 ML IV (17:56)
[2023-07-14] MEDS: Acetaminophen 500 MG Tablet 1000 MG PO (20:36)
[2023-07-14] MEDS: Cefazolin 1 GM/50 ML BAG IV (20:38)
[2023-07-14] MEDS: Atorvastatin Calcium 20 MG Tablet PO (20:38)
[2023-07-15] VITALS (20 sets, daily range): BP systolic 94–135; BP diastolic 36–52; PULSE 45–63; RESP 11–18; TEMP 35.9–37; O2SAT 96–100; BMI 27.3; BMI 27.1
[2023-07-15] MEDS: Tamsulosin HCl 0.4 MG Capsule PO ×2 (00:33→16:54)
[2023-07-15] MEDS: 0.9% Normal Saline (1000mL) 1,000 ML 100 ML IV (05:58)
[2023-07-15] MEDS: Cefazolin 1 GM/50 ML BAG IV (06:00)
[2023-07-15] MEDS: Acetaminophen 500 MG Tablet 1000 MG PO ×2 (06:01→15:20)
[2023-07-15 08:43] LABS: ACT Activated Clotting Time 135 sec (74-137)
[2023-07-15 08:45] LABS: ACT Activated Clotting Time 257 sec (74-137)
[2023-07-15 08:47] LABS: ACT Activated Clotting Time 233 sec (74-137)
[2023-07-15] MEDS: Enoxaparin 40 MG/0.4 ML Syringe SC (09:45)
[2023-07-15] MEDS: Multivitamins,Therapeutic Tablet 1 TABLET PO (09:45)
[2023-07-15] MEDS: Clopidogrel Bisulfate 75 MG Tablet PO (09:45)
[2023-07-15] MEDS: Allopurinol 100 MG Tablet PO (09:45)
[2023-07-15] MEDS: Cilostazol 50 MG Tablet PO (09:45)
[2023-07-15] MEDS: Aspirin 81 MG TAB.CHEW PO (09:46)
--- NOTE | 2023-07-15 11:30 | CASEMGMT ---
RN?CM?SAMPLE MAKER ORIGINAL?CM?to room to meet with patient for initial transition planning/care coordination?assessment.?RN?CM?introduced self and role at [facility].? Pt voices understanding and consents to?assessment?at this time.? Pt sitting up in chair in room in no distress at this time.? Pt is A/O at this time and answers all questions appropriately.?? Care providers, pharmacy, and demographics verified/updated at this time. PCP:Dr Song Specialists: Dr Lopez-vascular, Dr Dunn-urology Preferred Pharmacy: [facility] [place] Insurance: Lucio GARCIA Prescription Benefit:?Yes-[employer] Living Will/HPOA:? Pt does not have a LW, but does have HCPOA, who is his , Darlene. Pt made aware if wishes to complete LW, SW can assist w/this. He denies wanting to complete at this time. LNOK: , Darlene Living Arrangements: Lives w/his , Darlene, in one-story home w/2 steps to enter w/railing on one side. . Denies difficulty w/stairs. Indep w/ADL's and manages his medications. Pt and share home mgnt tasks. They both get groceries. Transportation:?Pt states drives self and states no transportation concerns at this time.? also drives. DME: ? Denies using any DME and denies needs.? He states he does use a mouth guard @ HS to prevent grinding of teeth. HHC/SNF: No hx of either. Denies need for HHC and no needs identified. Pt wishes to return home and states has no concerns with going home at time of discharge.?CM?to follow for any discharge planning/needs.? Pt voices no concerns/needs at this time.? Advised pt to ask for?CM?if any questions/concerns/needs arise.? Voices understanding. PLAN:?Home ? Sana BSN?RN?CM
[2023-07-15 12:18] LABS: Hematocrit 33.7 % (40-54); Hemoglobin 11.6 g/dL (13.0-16.5); Mean Corp Hgb Conc 34.4 g/dL (32-36); Mean Corpuscular Hgb 31.6 pg (27.0-32.0); Mean Corpuscular Volume 91.8 fL (80-94); Platelet Count 179 K/mm3 (150-450); RBC Distribution Width CV 13.6 % (11.6-14.6); RBC Distribution Width SD 46.2 fl (35.1-43.9); Red Blood Count 3.67 M/mm3 (4.6-6.2); White Blood Count 5.7 K/mm3 (4.4-11.0)
[2023-07-15 12:19] LABS: Absolute Lymphocyte Count 1.25 X10^3/uL (0.83-4.51); Absolute Neutrophil Count 4.2 X10^3/uL (2.0-7.7); Basophil# 0.01 X10^3/uL; Basophil% 0.2 % (0-1); Eosinophil# 0.01 X10^3/uL; Eosinophils% 0.2 % (0-5); Lymphocyte # 1.25 X10^3/ul (0.83-4.51); Mean Platelet Vol. 11.1 fl (6.2-12.0); Monocyte# 0.15 X10^3/uL; Monocyte% 2.6 % (0-10); NRBC Flagged by Analyzer 0 % (0-5); Neutrophil # 4.24 X10^3/uL (2.7-7.7); Neutrophil % 74.8 % (47-70)
--- NOTE | 2023-07-15 13:06 | PCM.PN.SRG ---
Subjective Subjective Patient is doing well today. He reports minimal pain at the incision site. He denies any GARLAND, vision changes, difficulty eating/speaking, weakness, sensory deficit. He did have difficulty urinating overnight and a rogers catheter was placed. The catheter was removed again about 1 hour ago and he has not yet been able to urinate, no strong urge yet. He does have some difficulty with urination at baseline at home. His blood pressures were a bit low overnight, lisinopril was held today and they have improved. He denies any dizziness/lightheadedness. No issues getting up to the chair/ambulating. Objective Data Objective Data Vital Signs: Vital Signs Temp Pulse Resp BP Pulse Ox O2 Del Method O2 Flow Rate 96.7 F L 53 L 15 98/45 L 100 Room Air 2 07/15/23 12:00 07/15/23 12:00 07/15/23 12:00 07/15/23 12:00 07/15/23 12:00 07/15/23 12:00 07/15/23 03:06 Oxygen Flow Rate (L/min) 2 Oxygen Delivery Method Room Air Weight: 199 lb 11.821 oz Body Mass Index (BMI) 27.1 Intake & Output: Intake and Output for Last 24 Hours 07/13/23 07/14/23 07/15/23 23:59 23:59 23:59 Intake Total 1541.63 / 1761.63 1490 / 1490 Output Total 1000 / 1160 1210 / 1210 Balance 541.63 / 601.63 280 / 280 Lab / Micro Data 07/15/23 03:05 Labs: Laboratory Results - last 24 hr 07/14/23 13:56: Activated Clotting Time 135 07/14/23 14:26: Activated Clotting Time 257 H 07/14/23 14:52: Activated Clotting Time 233 H 07/15/23 03:05: WBC 5.7, RBC 3.67 L, Hgb 11.6 L, Hct 33.7 L, MCV 91.8, MCH 31.6, MCHC 34.4, RDW Std Deviation 46.2 H, RDW Coeff of Betzaida 13.6, Plt Count 179, MPV 11.1, Immature Gran % (Auto) 0.200, Neut % (Auto) 74.8 H, Lymph % (Auto) 22.0, [place] % (Auto) 2.6, Eos % (Auto) 0.2, Baso % (Auto) 0.2, Absolute Neuts (auto) 4.2, Absolute Lymphs (auto) 1.25, Nucleated RBC % 0 Physical Exam Const alert, oriented x3 and no apparent distress General Appearance: cooperative and comfortable HEENT normocephalic, head/scalp atraumatic, hearing grossly normal bilaterally and external ears normal Nose: external nose normal Eyes EOMs intact bilaterally General Eye: normal appearance of both eyes Neck Neck Narrative: L neck incision site with surgical glue intact. Minimal PAULETTE drain output. Mild expected swelling. No erythema, drainage, ecchymosis. Resp normal respiratory effort, no retractions and no use of accessory muscles Effort and Inspection: able to speak in complete sentences Cardio regular rhythm Rate: bradycardia Extremity no clubbing, cyanosis or edema Skin no rashes or lesions noted Trauma: no lacerations or abrasions Neuro oriented x3, CN's II-XII intact bilaterally, moves all extremities, no focal motor deficits and no sensory deficits noted Speech: speech normal Psych mental status grossly normal Appearance: grossly normal Attitude: calm and engaged Activity / Motor Behavior: appropriate eye contact Speech: normal speech Assessment & Plan Assessment/Plan (1) Carotid stenosis, left: PLAN: He is s/p L carotid endarterectomy 07/14/23. PAULETTE drain was removed without issue. Incision site is satisfactory in appearance. His pain is well controlled. Tolerating normal diet. Ambulating without difficulty. Will continue to hold lisinopril due to his lower blood pressures. Will plan to hold at discharge and have patient monitor pressures at home. Continue voiding trials and flomax. If unable to void, will replace rogers for discharge and will follow-up with this as an outpatient. Anticipate discharge this afternoon.
--- NOTE | 2023-07-15 16:18 | PCM.DC.SUM ---
Providers Date of Admission: 07/14/23 Primary Care Physician: Dr. Candice Song MD Reason For Visit: Carotid Endarterectomy Diagnosis Discharge Diagnosis (1) Carotid stenosis, left: Status: Chronic Code(s): I65.22 - Occlusion and stenosis of left carotid artery Plan: He is s/p L carotid endarterectomy 07/14/23. PAULETTE drain was removed without issue. Incision site is satisfactory in appearance. His pain is well controlled. Tolerating normal diet. Ambulating without difficulty. Will continue to hold lisinopril due to his lower blood pressures. Will plan to hold at discharge and have patient monitor pressures at home. Continue voiding trials and flomax. If unable to void, will replace rogers for discharge and will follow-up with this as an outpatient. Anticipate discharge this afternoon. Medications at Discharge Home Medications lisinopril 10 mg tablet 10 mg PO DAILY HYPERTENSION 02/17/14 aspirin 81 mg chewable tablet 81 mg PO DAILY@0800 HEART HEALTH 03/15/17 multivitamin (Multiple Vitamins tablet) 1 ea PO DAILY SUPPLEMENT 03/15/17 clopidogrel 75 mg tablet (Plavix) 75 mg PO DAILY BLOOD THINNER #90 tabs 04/01/23 allopurinol 100 mg tablet 100 mg PO DAILY GOUT 07/01/23 cilostazol 50 mg tablet 50 mg PO BID VASODILATOR 07/01/23 rosuvastatin 10 mg tablet (Crestor) 10 mg PO DAILY HYPERLIPIDEMIA 07/01/23 oxycodone 5 mg tablet 5 mg PO Q8H PRN pain 3 days #9 tabs 07/15/23 tamsulosin 0.4 mg capsule 0.4 mg PO DAILY@1730 30 days #30 caps 07/15/23 Hospital Course Operations - (Left carotid endarterectomy) Summary of Care Provided Hospital Course: Mr. Ozuna underwent left carotid endarterectomy on 07/14/2023. The surgery was without complication. Postoperatively, he was routinely admitted to the ICU for hemodynamic and neurologic monitoring. He has had lower than usual blood pressure following surgery. We have held his home lisinopril secondary to this, but he has not required any vasopressor support. He has remained neurologically stable throughout his admission. He denies any GARLAND, difficulty eating/speaking, focal motor weakness, sensory deficit, vision changes. He has had post-operative urinary retention for which a rogers catheter was placed yesterday evening. The rogers catheter was removed this afternoon, and he was able to urinate twice following this. There were some small blood clots noted and pink or tea-colored tinge to his urine, feel this is most likely secondary to irritation from the rogers itself. He reported some discomfort when the clots passed, but otherwise reported no pain. Patient is instructed to continue to monitor at home and discussed red flag symptoms which should lead him to present to the ER. He has been ambulating and up to chair without difficulty. He has tolerated a full diet. His pain has been well controlled. He is medically stable for discharge home with outpatient follow-up in our office in 2 weeks. Weight / BMI Weight Weight: 199 lb 11.821 oz Body Mass Index (BMI) 27.1 ABG / Lab / Microbiology Data 07/15/23 03:05 Laboratory: Laboratory Results - last 24 hr 07/14/23 13:56: Activated Clotting Time 135 07/14/23 14:26: Activated Clotting Time 257 H 07/14/23 14:52: Activated Clotting Time 233 H 07/15/23 03:05: WBC 5.7, RBC 3.67 L, Hgb 11.6 L, Hct 33.7 L, MCV 91.8, MCH 31.6, MCHC 34.4, RDW Std Deviation 46.2 H, RDW Coeff of Betza[place] 13.6, Plt Count 179, MPV 11.1, Immature Gran % (Auto) 0.200, Neut % (Auto) 74.8 H, Lymph % (Auto) 22.0, [place] % (Auto) 2.6, Eos % (Auto) 0.2, Baso % (Auto) 0.2, Absolute Neuts (auto) 4.2, Absolute Lymphs (auto) 1.25, Nucleated RBC % 0 D/C Instructions Discharge Diet: No restrictions May shower in (days): 1 Weight Bearing Status: Weight bearing as tolerated Lifting Restricted to (Lbs): 20 Lifting Restrictions: Do not lift greater than 20 pounds for 3 weeks Call your doctor if your incision/area has: Sudden Increased Bleeding, Increased Pain/ Swelling and Foul Smelling Discharge Call your doctor if you observe: Fever of 101 or Higher and Uncontrolled pain Additional Instructions: You have a small bandage at the base of your neck which you can remove tomorrow. This was where the surgical drain was removed. If you still notice some drainage from this site, you may re-cover with a band-aid; otherwise, you may leave this open to air. The incision itself is covered with surgical glue which will protect it as it heals. You do not need to keep a dressing over this. The surgical glue will peel off on its own over the next few weeks, do not pick at it. You may shower tomorrow, it is okay for soap and water to rinse over the incision. Pat to dry. Do not allow the incision site to be submerged in water as with a bath or swimming for 3 weeks. Do not lift greater than 20 pounds for 3 weeks. You had some blood noted in your urine after the urinary catheter was removed, this is most likely secondary to irritation from the urinary catheter. However, if you have difficulty with urination/are unable to urinate once you are home or notice persistent or worsening blood in your urine then you should present to the ER. You had some difficulty with urinary retention following surgery. We started a medication called Flomax (Tamsulosin) to help with this. Will will have you continue this medication at discharge, and recommend you discuss this with your PCP in follow-up. Your blood pressures were low following surgery so we have held your lisinopril. Monitor your blood pressures at home. If your systolic blood pressure (top number) is less than 140, continue to hold your lisinopril. If your systolic blood pressure (top number) is 140 or greater then you may restart your lisinopril at your usual dose. If you have any questions or concerns about this, please contact our office. You have been prescribed oxycodone 5mg tablets to be taken every 8 hours as needed for pain. You may take Tylenol with this medication as needed. Do not take with other prescription pain medications. Please follow-up in the office in 2 weeks. If you do not already have an appointment scheduled, please call the office at [phone] to do so. Please call or return to the office sooner with any concerns. Please Follow Up With: Tevin Lopez MD When: 2 weeks Meaningful Use Info Meaningful Use Diagnoses (Choose all that apply): None applicable Discharge Plan Admission Admit Date/Time: 07/14/23 08:49 Attending Provider: Tevin Lopez Primary Care Provider: Candice Song Discharge Orders/Prescriptions Prescriptions: New tamsulosin 0.4 mg Capsule 0.4 mg PO DAILY@1730 30 Days Qty: 30 0RF Continued multivitamin [Multiple Vitamins] 1 EACH tablet 1 ea PO DAILY aspirin 81 MG tablet,chewable 81 mg PO DAILY@0800 rosuvastatin [Crestor] 10 mg tablet 10 mg PO DAILY allopurinol 100 mg tablet 100 mg PO DAILY Patient Comments: TAKE 1 TABLET BY MOUTH EVERY DAY cilostazol 50 mg tablet 50 mg PO BID Rx Instructions: TAKE 1 TABLET BY MOUTH TWICE A DAY clopidogrel [Plavix] 75 mg tablet 75 mg PO DAILY Qty: 90 1RF Held lisinopril 10 MG tablet 10 mg PO DAILY Hold Instructions: Resume on 07/19/23. Check your blood pressure daily. Continue to hold until your systolic blood pressure (top number) is greater than or equal to 140. Contact the office with any questions or concerns. Patient Comments: Other Ambulatory Orders: 12 Lead EKG (Routine) Timeframe: [id number] Location: None Selected Ordered By: Dr. Meng Ware Referrals / Follow Up: Candice Song MD [Primary Care Provider] - Disposition Disposition (needs filled in before D/C Order can be placed): Home, Self Care
== END 2023-07-15 17:50 | disposition home or self-care (01) | DRG 39 ==
LOC: ACINP 08:53 → ICU 13:48
PROVIDERS: Anesthesiology; Admitting Provider Surgery Trauma Surgery; PCP Family Medicine; Referring Provider Surgery Trauma Surgery; Visit Provider Surgery Trauma Surgery
PROC: 03CL0ZZ Extirpation of Matter from Left Internal Carotid Artery, Open Approach (ICD-10-PCS; CPT 35301; principal; 2023-07-14 10:40)
DX: I65.22 Occlusion and stenosis of left carotid artery (principal); E78.5 Hyperlipidemia, unspecified; I10 Essential (primary) hypertension; Z87.891 Personal history of nicotine dependence; Z79.82 Long term (current) use of aspirin
CPT/HCPCS: 36415; 85025; 85347; 85610; 85730; 86850; 86900; 86901; 88304; 88311; 93005; 94668; 97161; 97802; 99252; A4648; J7030; J7040; J7120; G0463; J2405

== ENCOUNTER → 2023-09-30 | Outpatient (CLI) | payer MEDICARE, BC, SELFPAY ==
--- NOTE | 2023-09-30 08:53 | ADUL_ITS ---
Reason For Study: S/P Atherectomy/angioplasty left popliteal Left Velocities Ext Iliac Artery, dist = 118.3 cm./sec. Common Femoral Artery, mid = 126.7 cm./sec. Supf. Femoral Artery, prox = 88.3 cm./sec. Supf. Femoral Artery, mid = 238.9 cm./sec. Supf. Femoral Artery, dist = 120.5 cm./sec. Profunda Femoral Artery = 85.7 cm./sec. Popliteal Artery, mid = 65.8 cm./sec. Post. Tibial Artery, prox = 74.6 cm./sec. Post Tibial Artery, mid = 28.7 cm./sec. Post Tibial Artery, dist. = 5.6 cm./sec. Peroneal Artery, prox = 111.2 cm./sec. Peroneal Artery, mid = 96.6 cm./sec. Peroneal Artery,dist. = 42.8 cm./sec. Ant.Tibial Artery, prox = 49.3 cm./sec. Ant Tibial Artery, mid = 27.8 cm./sec. Ant. Tibial Artery, distal = 26.1 cm./sec. Procedure Exam performed in department. /US Art Duplex Unilat Lower Ext Interpretation Summary Left lower extremity arteries patent with mid superficial femoral artery stenos is >50% Ordering Physician: Kavitha Alvares Referring Physician: Candice Ruth Performed By: Michelle Nova RVT
--- NOTE | 2023-09-30 08:53 | ART_ITS ---
Reason For Study: S/P Atherectomy/angioplasty left popliteal Procedure A bilateral lower extremity continuous wave Doppler with analog waveform analysis and ankle brachial indexes. Left Segmental Pressures Left brachial= 134mmHg. Left posterior tibial artery = 100mmHg. Left dorsalis pedis artery = 93mmHg. Left digit = 46 mmHg. The left dorsalis pedis waveforms are biphasic. The left posterior tibial artery waveforms are biphasic. Right Segmental Pressures Right brachial= 138mmHg. Right posterior tibial artery = 138mmHg. Right dorsalis pedis artery = 153mmHg. Right digit = 81 mmHg. The right dorsalis pedis waveforms are triphasic. The right posterior tibial artery waveforms are triphasic. Indices The right ankle brachial index by the dorsalis pedis is 1.11. The right ankle brachial index by the posterior tibial artery is 1.00. The right digital-brachial index is 0.59. The left ankle brachial index by the dorsalis pedis is 0.67. The left ankle brachial index by the posterior tibial artery is 0.72. The left digital-brachial index is 0.33. VL/Ankle Brachial Index Interpretation Summary Right BIMAL 1.11, normal. Doppler/PVR waveforms of the right ankle normal at rest . 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 Left BIMAL 0.72, moderate arterial insufficiency. Doppler/PVR waveforms of the le ft ankle moderately diminished at rest. Ordering Physician: Kavitha Alvares Referring Physician: Candice Song Performed By: Michelle Nova RVT
== END | disposition home or self-care (01) ==
LOC: CVS 08:53
PROVIDERS: PCP Family Medicine; Referring Provider Physician Assistant; Visit Provider Physician Assistant
DX: I73.9 Peripheral vascular disease, unspecified (principal); Z48.812 Encounter for surgical aftercare following surgery on the circulatory system
CPT/HCPCS: 93922; 93926

== ENCOUNTER → 2024-01-25 | Outpatient (CLI) | payer MEDICARE, BC, SELFPAY ==
--- NOTE | 2024-01-25 08:00 | CDU_ITS ---
Reason For Study: S/P Lt CEA Rt. Velocities/BP Lt. Velocities/BP Prox CCA 67.4/8.8 cm/sec. Prox CCA 80.6/10.2 cm/sec. Mid CCA 75.9/13.5 cm/sec. Mid CCA 82.8/11.3 cm/sec. Dist CCA 57/9.7 cm/sec. Dist CCA 75.1/8 cm/sec. Prox ICA 106.5/18.8 cm/sec. Prox ICA 48.5/7.8 cm/sec. Mid ICA 119.3/24.3 cm/sec. Mid ICA 124.7/24.3 cm/sec. Dist ICA 84.6/18.8 cm/sec. Dist ICA 80.9/13.3 cm/sec. Rt. ICA/CCA = 1.57. Lt. ICA/CCA = 1.51. Prox ECA 240.5 cm/sec. Prox ECA 253.1 cm/sec. Rt. Vert. 51.3/8.8 cm/sec. Lt. Vert. 59.7/13.5 cm/sec. Right Extracranial There is homogeneous, smooth atherosclerotic plaque noted in the right common carotid artery. There is heterogeneous, irregular atherosclerotic plaque noted in the right internal carotid artery. There is heterogeneous, irregular atherosclerotic plaque noted in the right external carotid artery. Antegrade flow is noted in the right vertebral artery. Left Extracranial There is homogeneous, smooth atherosclerotic plaque noted in the left common carotid artery. There is homogeneous, smooth atherosclerotic plaque noted in the left internal carotid artery. There is heterogeneous, irregular atherosclerotic plaque noted in the left external carotid artery. Antegrade flow is noted in the left vertebral artery. Procedure Carotid Duplex 14010. This is a Carotid Duplex examination using B-mode, color flow and specral Doppler. Exam performed in department. VL/Carotid Duplex Ultrasound Interpretation Summary Mild (<50%) stenosis right extracranial internal carotid. Mild (<50%) stenosis left extracranial internal carotid. Patent and antegrade vertebrals bilaterally. Ordering Physician: Kavitha Alvares Referring Physician: Candice Song Performed By: Michelle Nova RVT
== END | disposition home or self-care (01) ==
LOC: CVS 07:49
PROVIDERS: PCP Family Medicine; Visit Provider Physician Assistant
DX: Z48.812 Encounter for surgical aftercare following surgery on the circulatory system (principal)
CPT/HCPCS: 93880

== ENCOUNTER → 2024-03-23 | Outpatient (CLI) | payer MEDICARE, BC, SELFPAY ==
--- NOTE | 2024-03-23 12:48 | ART_ITS ---
Reason For Study: PAD left popliteal intervention Procedure A bilateral lower extremity continuous wave Doppler with analog waveform analysis and ankle brachial indexes. Left Segmental Pressures Left brachial= 129mmHg. Left posterior tibial artery = 94mmHg. Left dorsalis pedis artery = 99mmHg. Left digit = 89 mmHg. The left dorsalis pedis waveforms are biphasic. The left posterior tibial artery waveforms are biphasic. Right Segmental Pressures Right brachial= 138mmHg. Right posterior tibial artery = 139mmHg. Right dorsalis pedis artery = 147mmHg. Right digit = 106 mmHg. The right dorsalis pedis waveforms are triphasic. The right posterior tibial artery waveforms are triphasic. Indices The right ankle brachial index by the dorsalis pedis is 1.07. The right ankle brachial index by the posterior tibial artery is 1.01. The left ankle brachial index by the posterior tibial artery is .68. The left dorsalis pedis index post exercise is .72. VL/Ankle Brachial Index Interpretation Summary Right BIMAL 1.07, normal. Doppler/PVR waveforms of the right ankle normal at rest . Left BIMAL 0.72, moderate arterial insufficiency. Doppler/PVR waveforms of the le ft ankle moderately diminished at rest. Ordering Physician: Tevin Lopez Referring Physician: Candice Song Performed By: RENÉ MEDINA T RDMS
--- NOTE | 2024-03-23 12:48 | ADUL_ITS ---
Reason For Study: PAD, S/P ANGIOPLASTY LEFT POPLITEAL Left Velocities Ext Iliac Artery, dist = 114.9 cm./sec. Common Iliac Artery, dist = 102.1 cm./sec. Supf. Femoral Artery, prox = 100.8 cm./sec. Supf. Femoral Artery, mid = 238.9 cm./sec. Supf. Femoral Artery, dist = 120.4 cm./sec. Profunda Femoral Artery = 146.9 cm./sec. Popliteal Artery, mid = 51.2 cm./sec. Post. Tibial Artery, prox = 69.8 cm./sec. Post Tibial Artery, mid = 105.1 cm./sec. Post Tibial Artery, dist. = 15.0 cm./sec. Peroneal Artery, prox = 90.4 cm./sec. Peroneal Artery, mid = 103.9 cm./sec. Peroneal Artery,dist. = 105 cm./sec. Ant.Tibial Artery, prox = 44.6 cm./sec. Ant Tibial Artery, mid = 436.8 cm./sec. Ant. Tibial Artery, distal = 80.2 cm./sec. Procedure Exam performed in department. /US Art Duplex Unilat Lower Ext Interpretation Summary Left superficial femoral artery with 50-75% stenosis. Ordering Physician: Tevin Lopez Referring Physician: Tevin Lopez MD Performed By: Love Christopher RVT
== END | disposition home or self-care (01) ==
LOC: CVS 12:45
PROVIDERS: PCP Family Medicine; Referring Provider Surgery Trauma Surgery; Visit Provider Surgery Trauma Surgery
DX: I73.9 Peripheral vascular disease, unspecified (principal)
CPT/HCPCS: 93922; 93926

== ENCOUNTER → 2024-06-21 | Outpatient (CLI) | payer MEDICARE, BC, SELFPAY ==
[2024-06-21 12:03] LABS: Absolute Lymphocyte Count 3.53 X10^3/uL (0.83-4.51); Absolute Neutrophil Count 4.7 X10^3/uL (2.0-7.7); Basophil# 0.07 X10^3/uL; Basophil% 0.7 % (0-1); Eosinophils% 6.2 % (0-5); Hematocrit 40.7 % (40-54); Hemoglobin 13.3 g/dL (13.0-16.5); Lymphocyte # 3.53 X10^3/ul (0.83-4.51); Lymphocyte % 36.6 % (19-41); Mean Corp Hgb Conc 32.7 g/dL (32-36); Mean Corpuscular Hgb 30.5 pg (27.0-32.0); Mean Corpuscular Volume 93.3 fL (80-94); Mean Platelet Vol. 11.2 fl (6.2-12.0); Monocyte# 0.66 X10^3/uL; Monocyte% 6.8 % (0-10); NRBC Flagged by Analyzer 0 % (0-5); Neutrophil # 4.74 X10^3/uL (2.7-7.7); Neutrophil % 49.3 % (47-70); Platelet Count 215 K/mm3 (150-450); RBC Distribution Width CV 13.5 % (11.6-14.6); RBC Distribution Width SD 46.3 fl (35.1-43.9); Red Blood Count 4.36 M/mm3 (4.6-6.2); White Blood Count 9.6 K/mm3 (4.4-11.0)
[2024-06-21 12:27] LABS: ALB/GLOB Ratio 0.9 RATIO (0.9-2.4); AST(SGOT) 22 U/L (15-37); Alanine Aminotransfer ALT/SGPT 25 U/L (16-61); Albumin, Serum 3.4 g/dL (3.2-5.0); Alkaline Phosphatase 99 U/L (45-117); Anion Gap 5 (5-15); BUN 21 mg/dL (7-18); BUN/Creat Ratio 20.8 RATIO (10-20); Calcium,Total 9.5 mg/dL (8.5-10.1); Chloride 103 mmol/L (98-107); Cholesterol 172 mg/dL (200); Creatinine, Serum 1.01 mg/dL (0.70-1.30); EST Glomerular Filtration Rate 75 mL/min (>60); Est Glom Filt Rate - Afr Amer 91 mL/min (>60); Globulin 3.9 g/dL (2.2-4.2); Glucose 92 mg/dL (74-106); High Density Lipoprotein 65 mg/dL; Potassium 4.4 mmol/L (3.5-5.1); Protein, Total 7.3 g/dL (6.4-8.2); Sodium Level 138 mmol/L (136-145); Triglycerides 133 mg/dL; Uric Acid 5.6 mg/dL (3.5-7.2); Very Low Density Lipoprotein 27 mg/dL (5-40)
[2024-06-22 13:08] LABS: PSA, Free 1.12 ng/mL; PSA, Free % 12.6 % (.)
== END | disposition home or self-care (01) ==
PROVIDERS: PCP Family Medicine; Referring Provider Family Medicine; Visit Provider Family Medicine
DX: M10.9 Gout, unspecified (principal); I10 Essential (primary) hypertension; E78.5 Hyperlipidemia, unspecified; D64.9 Anemia, unspecified; R97.20 Elevated prostate specific antigen [PSA]
CPT/HCPCS: 36415; 80053; 80061; 84153; 84154; 84550; 85025

== ENCOUNTER → 2024-07-29 | Outpatient (CLI) | payer MEDICARE, BC, SELFPAY ==
--- NOTE | 2024-07-29 07:49 | CDU_ITS ---
Reason For Study: S/P Lt CEA Rt. Velocities/BP Lt. Velocities/BP Prox CCA 65.5/10.7 cm/sec. Prox CCA 80.5/8.1 cm/sec. Mid CCA 61.7/10.7 cm/sec. Mid CCA 84.9/9 cm/sec. Dist CCA 57.9/7.8 cm/sec. Dist CCA 61.3/8.1 cm/sec. Prox ICA 72.9/13.5 cm/sec. Prox ICA 41.5/6.6 cm/sec. Mid ICA 115.6/22.5 cm/sec. Mid ICA 122.9/29.8 cm/sec. Dist ICA 63/11.3 cm/sec. Dist ICA 78.4/16.8 cm/sec. Rt. ICA/CCA = 1.87. Lt. ICA/CCA = 1.45. Prox ECA 239.2 cm/sec. Prox ECA 175.9 cm/sec. Rt. Vert. 53.2/6.9 cm/sec. Lt. Vert. 59.7/16.8 cm/sec. Right Extracranial There is homogeneous, smooth atherosclerotic plaque noted in the right common carotid artery. There is heterogeneous, irregular atherosclerotic plaque noted in the right internal carotid artery. There is heterogeneous, irregular atherosclerotic plaque noted in the right external carotid artery. Antegrade flow is noted in the right vertebral artery. Left Extracranial There is homogeneous, smooth atherosclerotic plaque noted in the left common carotid artery. There is homogeneous, smooth atherosclerotic plaque noted in the left internal carotid artery. There is homogeneous, smooth atherosclerotic plaque noted in the left external carotid artery. Antegrade flow is noted in the left vertebral artery. Procedure Carotid Duplex 98892. This is a Carotid Duplex examination using B-mode, color flow and specral Doppler. Exam performed in department. VL/Carotid Duplex Ultrasound Interpretation Summary Mild (<50%) stenosis right extracranial internal carotid. Mild (<50%) stenosis left extracranial internal carotid. Patent and antegrade vertebrals bilaterally. Ordering Physician: Kavitha Alvares Referring Physician: Candice Song Performed By: Michelle Nova RVT
== END | disposition home or self-care (01) ==
LOC: CVS 07:48
PROVIDERS: PCP Family Medicine; Referring Provider Physician Assistant; Visit Provider Physician Assistant
DX: Z48.812 Encounter for surgical aftercare following surgery on the circulatory system (principal)
CPT/HCPCS: 93880

== ENCOUNTER → 2024-09-29 | Outpatient (CLI) | payer MEDICARE, BC, SELFPAY ==
--- NOTE | 2024-09-29 08:45 | ADUL_ITS ---
Reason For Study: S/P Angioplasty Lt Pop Left Velocities Common Iliac Artery, dist = 87.7 cm./sec. Common Femoral Artery, mid = 96.4 cm./sec. Supf. Femoral Artery, prox = 100.8 cm./sec. Supf. Femoral Artery, mid = 200.1 cm./sec. Supf. Femoral Artery, dist = 77.9 cm./sec. Profunda Femoral Artery = 72.2 cm./sec. Popliteal Artery, mid = 51.4 cm./sec. Post. Tibial Artery, prox = 42.8 cm./sec. Post Tibial Artery, mid = 26.4 cm./sec. Post Tibial Artery, dist. = 7.2 cm./sec. Peroneal Artery, prox = 102.1 cm./sec. Peroneal Artery, mid = 55.1 cm./sec. Peroneal Artery,dist. = 56.4 cm./sec. Ant.Tibial Artery, prox = 76.9 cm./sec. Ant Tibial Artery, mid = 361.2 cm./sec. Ant. Tibial Artery, distal = 50.2 cm./sec. Procedure Exam performed in department. /US Art Duplex Unilat Lower Ext Interpretation Summary Patent left lower extremity arteries with no focal stenosis identified. Ordering Physician: Kavitha Alvares Referring Physician: Kavitha Alvares Performed By: Michelle Nova RVT and Student
--- NOTE | 2024-09-29 08:45 | ART_ITS ---
Reason For Study: S/P Angioplasty Lt Pop Procedure A bilateral lower extremity continuous wave Doppler with analog waveform analysis and ankle brachial indexes. Left Segmental Pressures Left brachial= 136mmHg. Left posterior tibial artery = 124mmHg. Left dorsalis pedis artery = 131mmHg. The left dorsalis pedis waveforms are triphasic. The left posterior tibial artery waveforms are biphasic. Right Segmental Pressures Right brachial= 135mmHg. Right posterior tibial artery = 150mmHg. Right dorsalis pedis artery = 164mmHg. The right dorsalis pedis waveforms are triphasic. The right posterior tibial artery waveforms are triphasic. Indices The right ankle brachial index by the dorsalis pedis is 1.21. The right ankle brachial index by the posterior tibial artery is 1.10. The left ankle brachial index by the dorsalis pedis is 0.96. The left ankle brachial index by the posterior tibial artery is 0.91. VL/Ankle Brachial Index Interpretation Summary Right BIMAL 1.21, normal. Doppler/PVR waveforms of the right ankle normal at rest . Left BIMAL 0.96, mild arterial insufficiency. Doppler/PVR waveforms of the left a nkle normal at rest. Ordering Physician: Kavitha Alvares Referring Physician: Candice Song MD Performed By: Michelle Nova RVT and Student
== END | disposition home or self-care (01) ==
LOC: CVS 08:42
PROVIDERS: PCP Family Medicine; Referring Provider Physician Assistant; Visit Provider Physician Assistant
DX: Z48.812 Encounter for surgical aftercare following surgery on the circulatory system (principal); I70.222 Atherosclerosis of native arteries of extremities with rest pain, left leg
CPT/HCPCS: 93922; 93926

== ENCOUNTER → 2024-11-29 | Outpatient (CLI) | payer MEDICARE, BC, SELFPAY ==
[2024-11-29 16:11] LABS: Absolute Lymphocyte Count 2.97 X10^3/uL (0.83-4.51); Absolute Neutrophil Count 7.3 X10^3/uL (2.0-7.7); Basophil# 0.05 X10^3/uL; Basophil% 0.4 % (0-1); Eosinophil# 0.55 X10^3/uL; Eosinophils% 4.6 % (0-5); Hematocrit 40.6 % (40-54); Hemoglobin 12.9 g/dL (13.0-16.5); Lymphocyte # 2.97 X10^3/ul (0.83-4.51); Mean Corp Hgb Conc 31.8 g/dL (32-36); Mean Corpuscular Hgb 30.1 pg (27.0-32.0); Mean Corpuscular Volume 94.9 fL (80-94); Mean Platelet Vol. 11.3 fl (6.2-12.0); Monocyte# 0.98 X10^3/uL; Monocyte% 8.2 % (0-10); NRBC Flagged by Analyzer 0 % (0-5); Neutrophil # 7.32 X10^3/uL (2.7-7.7); Neutrophil % 61.5 % (47-70); Platelet Count 293 K/mm3 (150-450); RBC Distribution Width CV 13.7 % (11.6-14.6); Red Blood Count 4.28 M/mm3 (4.6-6.2); White Blood Count 11.9 K/mm3 (4.4-11.0)
[2024-11-29 16:27] LABS: Erythrocyte Sedimentation Rate 26 mm/hr (0-20)
== END | disposition home or self-care (01) ==
LOC: BFHLAB 13:29
PROVIDERS: PCP Family Medicine; Visit Provider Family Medicine
DX: M35.3 Polymyalgia rheumatica (principal)
CPT/HCPCS: 36415; 85025; 85652; 86140

== ENCOUNTER 2024-12-06 11:16 | Day surgery (SDC) | payer MEDICARE, BC, SELFPAY ==
--- NOTE | 2024-12-01 15:49 | PAT.ANE_ITS ---
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 When Was Last Pacemaker Check QUESTION #4 FULL TEXT: You/Your Family Experience fever (hyperthermia) with Anesthesia Last Oral Intake Last Oral intake: Last Oral Intake NPO since Meds taken in AM with sips of water? Meds patient instructed to take am of surgery PONV PONV - guitar technician: PONV - guitar technician Female No 12/01/24 15:29 HX of Motion Sickness No 12/01/24 15:29 HX of N/V After Surgery No 12/01/24 15:29 Non-Smoker Yes 12/01/24 15:29 Duration of Surgery greater No 12/01/24 15:29 than 60 minutes Number of Risk Factors 1 12/01/24 15:29 PONV Score Low Risk 12/01/24 15:29 Height & Weight Height & Weight: Anesthesia: Height & Weight Height 6 ft 02/26/24 08:55 Respiratory Assessment Respiratory Assessment - guitar technician: Respiratory Tract Infection Hx - guitar technician Hx Respiratory Tract Infection No 12/01/24 15:29 STOP Sleep Apnea STOP Sleep Apnea - guitar technician: STOP Sleep Apnea - guitar technician Hx Hypertension Yes: CONTROLLED ON MED 12/01/24 15:29 Hx Sleep Apnea No 12/01/24 15:29 CPAP BIPAP Do you snore loudly (louder No 12/01/24 15:29 than talking or can be heard Do you often feel tired/ No 12/01/24 15:29 fatigued/ sleepy during daytime? Has anyone observed you stop No 12/01/24 15:29 breathing during sleep? STOP Results Negative 12/01/24 15:29 QUESTION #5 FULL TEXT : Do you snore loudly (louder than talking or can be heard through closed doors)? 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 Specify any problems Hx of Preganancy in last 3 N/A 12/01/24 15:29 Months Nurse Filling Out Transfusion VCHRISTIN 12/01/24 15:29 & Questions: Date: 12/01/24 12/01/24 15:29 Time: 15:30 12/01/24 15:29 Patient unable to answer at this time (ie. confused, unrespo /Reproduction History /Reproductive History - guitar technician: /Reproductive Hx- guitar technician Hx Now Gestational Age (in weeks): EDC: Hx Hx Para Hx Section SAB PFSH Medical History (Updated 12/01/24 @ 15:29 by Iram Haddad) Alcohol use History of steroid therapy Back pain History of pain when walking Wears glasses Cancer Prostate disease High cholesterol History of diverticulitis Former smoker Carotid stenosis, left Carotid bruit Atherosclerosis of [place] arteries of extremities with rest pain, left leg Claudication of left lower extremity Basal cell carcinoma Elevated PSA (~2020) Anemia (~2019) Raynaud disease (~2019) Gout Hyperlipemia Hypertension Home Medications ?Medication ?Instructions ?Recorded ?Last Taken ?Type lisinopril 10 mg tablet 10 mg PO DAILY HYPERTENSION 02/17/14 07/14/23 History aspirin 81 mg chewable tablet 81 mg PO DAILY@0800 HEAR T HEALTH 03/15/17 12/01/24 History multivitamin (Multiple Vitamins 1 ea PO DAILY SUPPLEME NT 03/15/17 Unknown History tablet) allopurinol 100 mg tablet 100 mg PO DAILY GOUT 09/20/2 3 Unknown History hydrocortisone 2.5 % topical cream 1 applic DE BID-QID PRN 02/26/24 Unknown Rx with perineal applicator hemorrhoids #30 grams (Proctozone-HC) vitamins A,C,B-qdym-xpijju 2,148 1 tab PO BID 11/02/24 Unknown History mcg-113 mg-45 mg-17.4 mg tablet (PreserVision AREDS) prednisone 20 mg tablet 20 mg PO DAILY 12/01/24 Unkn own History Allergy/AdvReac Type Severity Reaction Status Date / Time No Known Allergies Allergy Verified 12/01/24 15:20 Family History Mother Cancer Father Myocardial infarction Heart disease Brother Afib DVT (deep venous thrombosis) Sister Afib Surgical History (Updated 12/01/24 @ 15:29 by Iram Haddad) History of carotid endarterectomy History of angioplasty (~2020) H/O hernia repair History of appendectomy Hx of tonsillectomy Social History Smoking Status: Former smoker Audit: Pertinent Findings Pertinent Findings EKG Perinent findings: sinus rhythm with 1st degree heart block Recommendation Anesthesia Recommendation Anesthesia recommendation: OPTIMIZED for anesthesia
[2024-12-06] VITALS (8 sets, daily range): BP systolic 125–152; BP diastolic 62–71; PULSE 53–87; RESP 16–18; TEMP 36.1–36.2; O2SAT 96–100; BMI 25.1
--- NOTE | 2024-12-06 12:16 | PRE.ANES_ITS ---
ASA Classification* ASA Classification ASA Classification: 3 Assessment & Plan Anesthesia* Anesthesia Assessment Anesthesia Assessment: Discussed sedation and/or anesthesia options, risks, benefits, and alternatives with patient/parents/legal guardian/POA. Questions invited. The patient/parents/legal guardian/POA seems to understand and agrees to proceed with anesthesia plan. Reviewed the physical assessment, medical history, allergy history and patient home medications list prior to surgery/procedure/anesthetic and documented any changes. Performed airway and anesthesia risk assessments. Anesthesia Type Anesthesia Type: MAC History Source History Obtained from:: Patient and Chart Anesthesia Focused Assessment* Temperature: 97.0 F Pulse Rate: 87 Blood Pressure: 152/71 Respiratory Rate: 16 Pulse Ox: 100 Oxygen Delivery Method: Room Air Airway Assessment Mouth opens: >3 cm Mallampati Score: II Teeth Condition: Caps/Crowns (Couple of crowns. They are tight.) Neck Range of motion (ROM): Full ROM Focused Labs Anesthesia Preop lab: CBC WBC 11.9 K/mm3 (4.4-11.0) H 11/29/24 13:30 5 RBC 4.28 M/mm3 (4.6-6.2) L 11/29/24 13:30 11/29/24 Hgb 12.9 g/dL (13.0-16.5) L 11/29/24 13:30 5 Hct 40.6 % (40-54) 11/29/24 13:30 11/29/24 Plt Count 293 K/mm3 (150-450) 11/29/24 13:30 11/29/24 CHEMISTRY Potassium 4.4 mmol/L (3.5-5.1) 06/21/24 09:10 06/21/24 Sodium 138 mmol/L (136-145) 06/21/24 09:10 06/21/24 BUN 21 mg/dL (7-18) H 06/21/24 09:10 06/21/24 Creatinine 1.01 mg/dL (0.70-1.30) 06/21/24 09:10 06/21/24 Glucose 92 mg/dL (74-106) 06/21/24 09:10 06/21/24 TSH 1.89 uIU/mL (0.358-3.74) 06/18/16 09:58 COAG PT 13.7 SECONDS (11.7-14.9) 07/02/23 08:44 Pre-Assessment Diagnosis/Proposed Procedure Planned Operative Procedure(s): TEMPORAL ARTERY BX?right side Anesthesia History 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 When Was Last Pacemaker Check QUESTION #4 FULL TEXT: You/Your Family Experience fever (hyperthermia) with Anesthesia Last Oral Intake Last Oral intake: Last Oral Intake NPO since 00:00 12/06/24 11:40 Meds taken in AM with sips of Yes 12/06/24 11:40 water? 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 Female No 12/01/24 15:29 HX of Motion Sickness No 12/01/24 15:29 HX of N/V After Surgery No 12/01/24 15:29 Non-Smoker Yes 12/01/24 15:29 Duration of Surgery greater No 12/01/24 15:29 than 60 minutes Number of Risk Factors 1 12/01/24 15:29 PONV Score Low Risk 12/01/24 15:29 Height & Weight Height & Weight: Anesthesia: Height & Weight Height 6 ft 12/06/24 11:40 Weight: 84 kg 12/06/24 11:40 Body Mass Index (BMI) 25.1 12/06/24 11:40 Respiratory Assessment Respiratory Assessment - advertisement compositor: Respiratory Tract Infection Hx - advertisement compositor Hx Respiratory Tract Infection No 12/01/24 15:29 STOP Sleep Apnea STOP Sleep Apnea - advertisement compositor: STOP Sleep Apnea - advertisement compositor Hx Hypertension Yes: CONTROLLED ON MED 12/01/24 15:29 Hx Sleep Apnea No 12/01/24 15:29 CPAP BIPAP Do you snore loudly (louder No 12/01/24 15:29 than talking or can be heard Do you often feel tired/ No 12/01/24 15:29 fatigued/ sleepy during daytime? Has anyone observed you stop No 12/01/24 15:29 breathing during sleep? STOP Results Negative 12/01/24 15:29 QUESTION #5 FULL TEXT : Do you snore loudly (louder than talking or can be heard through closed doors)? 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 Specify any problems Hx of Preganancy in last 3 N/A 12/01/24 15:29 Months Nurse Filling Out Transfusion VCHRISTIN 12/01/24 15:29 & Questions: Date: 12/01/24 12/01/24 15:29 Time: 15:30 12/01/24 15:29 Patient unable to answer at this time (ie. 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, left leg Claudication of left lower extremity Basal cell carcinoma Elevated PSA (~2020) Anemia (~2018) Raynaud disease (~2018) Gout Hyperlipemia Hypertension Home Medications ?Medication ?Instructions ?Recorded ?Last Taken ?Type lisinopril 10 mg tablet 10 mg PO DAILY HYPERTENSION 02/17/14 07/14/23 History aspirin 81 mg chewable tablet 81 mg PO DAILY@0800 HEAR T HEALTH 03/15/17 12/01/24 History multivitamin (Multiple Vitamins 1 ea PO DAILY SUPPLEME NT 03/15/17 Unknown History tablet) allopurinol 100 mg tablet 100 mg PO DAILY GOUT 3 Unknown History vitamins A,C,M-iydq-gsucbg 2,148 1 tab PO BID 11/02/24 Unknown History mcg-113 mg-45 mg-17.4 mg tablet (PreserVision AREDS) prednisone 20 mg tablet 20 mg PO DAILY 12/01/2411/13 History rosuvastatin 10 mg tablet 40 mg PO QDAY 12/05/24 Unkno wn History Allergy/AdvReac Type Severity Reaction Status Date / Time No Known Allergies Allergy Verified 12/06/24 11:34 Family History Mother Cancer Father Myocardial infarction Heart disease Brother Afib DVT (deep venous thrombosis) Sister Afib Surgical History History of carotid endarterectomy History of angioplasty (~2020) H/O hernia repair History of appendectomy Hx of tonsillectomy Social History Smoking Status: Former smoker Review of Systems (Anesthesia) ROS Narrative System reviewed and no additional complaints, except as documented.
--- NOTE | 2024-12-06 12:31 | PCM.HP.BLA ---
History and Physical Date of Admission: 12/06/24 Intake Vital Signs 02/26/2408:55 12/05/2508:32 Height 6 ft 6 ft Weight: 191 lb BMI 25.9 BP 180/71 H Blood Pressure Location Rt brachial Position Sitting Respiration 16 Intake Visit Reasons: TEMPORAL ARTERY Chief Complaint: temporal artery biopsy Fur Blower Operator Required: No Is patient in pain?: No Allergies No Known Allergies Allergy (Verified 12/05/24 09:33) Medications ?Medication ?Instructions ?Recorded ?Confirmed ?Type lisinopril 10 mg tablet 10 mg PO DAILY HYPERTENSION 02/17/14 12/05/24 History aspirin 81 mg chewable tablet 81 mg PO DAILY@0800 HEART HEALTH 03/15/17 12/05/24 History multivitamin (Multiple Vitamins 1 ea PO DAILY SUPPLEMENT 03/15/17 12/05/24 History tablet) allopurinol 100 mg tablet 100 mg PO DAILY GOUT 07/01/23 12/05/24 History vitamins A,C,K-hbks-dbvgai 2,148 1 tab PO BID 11/02/24 12/05/24 History mcg-113 mg-45 mg-17.4 mg tablet (PreserVision AREDS) prednisone 20 mg tablet 20 mg PO DAILY 12/01/24 12/05/24 History rosuvastatin 10 mg tablet 10 mg PO QDAY 12/05/24 12/05/24 History Have you fallen in the past year?: No PFSH Medical History (Updated 12/05/24 @ 09:[address] Rikki Clemente MD) Alcohol use History of steroid therapy Back pain History of pain when walking Wears glasses Cancer Prostate disease High cholesterol History of diverticulitis Former smoker Carotid stenosis, left Carotid bruit Atherosclerosis of [place] arteries of extremities with rest pain, left leg Claudication of left lower extremity Basal cell carcinoma Elevated PSA (~2020) Anemia (~2018) Raynaud disease (~2018) Gout Hyperlipemia Hypertension Surgical History (Updated 12/01/24 @ 15:29 by Iram Haddad) History of carotid endarterectomy History of angioplasty (~2020) H/O hernia repair History of appendectomy Hx of tonsillectomy Family History Mother CancerFather Myocardial infarction Heart diseaseBrother Afib DVT (deep venous thrombosis)Sister Afib Social History Smoking Status: Former smoker HPI HPI HPI: Patient is an 83-year-old male here for temporal artery biopsy. He is here to rule out giant cell arteritis. He is not having any vision changes or headaches. He has been started on steroids. ROS General General: No weight change, appetite, fatigue, colon cancer, breast cancer or weakness HEENT HEENT: Yes eye injury and eye surgery; No difficulty swallowing, swollen glands or hoarseness Endo Endocrine: No thyroid disease, diabetes mellitus, thyroid cancer, Hair loss, heat intolerance or cold intolerance Skin Skin: No rash or changing moles Breast Breast: No left breast lump, right breast lump, nipple discharge, breast pain, abnormal mammogram, abnormal US or breast enlargement Musc Musculoskeletal: Yes gout; No back problems, arthritis, rheumatoid arthritis or joint pain Cardio Cardiovascular: Yes high blood pressure; No murmur, pacemaker, heart disease, atrial fibrillation, heart attack, heart stent, palpitations, shortness of breat with exertion or chest pain Psych Psychiatric: No depression, anxiety or hearing voices Resp Respiratory: No shortness of breath, No sleep apnea, No cough, No COPD, No asthma, No emphysema and No wheezing Gastro Gastrointestinal: No abdominal pain, No nausea or vomiting, No diarrhea, No constipation, No blood in stool, No acid reflux, No hemorrhoids, No ulcers, No gallbladder problem and No black,tarry stools Michele Hematologic: Yes blood thinners, No blood disorders, No bleeding, No anemia and No blood clots Neuro Neurologic: No system reviewed and no additional complaints, except as documented, No as per HPI, No abnormal gait, No abnormal hearing, No abnormal movements, No abnormal speech, No behavioral changes, No burning sensations, No confusion, No convulsions, No disequilibrium, No dizziness, No localized weakness, No frequent falls, No headache(s), No lack of coordination, No loss of vision, No memory loss, No numbness, No other visual disturbances, No radicular pain, No restless legs, No sensory deficit, No syncope, No tingling, No tremor(s), No weakness and No other Exam Const General: cooperative Orientation: alert and oriented x3 HENMT Head: normal to inspection Neck Neck: normal visual inspection and full ROM Chest Chest palpation & inspection: normal inspection of the chest Resp Effort & Inspection: normal respiratory effort Auscultation: clear to auscultation bilaterally Cardio Rate: regular rate Rhythm: regular rhythm GI Inspection: non-distended Palpation: soft and nontender Skin General: no rashes or lesions noted Neuro General: patient alert and patient oriented x3 Extrem General: full ROM Psych Appearance: grossly normal Mental Status: mental status grossly normal Assessment and Plan Assessment and Plan (1) Polymyalgia rheumatica: Status: Acute Plan: The patient was diagnosed with polymyalgia rheumatica but they would like to rule out giant cell arteritis. He was sent here for temporal artery biopsy. He is not having any headaches or vision changes. I discussed performing a right temporal artery biopsy. I discussed the procedure in detail as well as the risks including but not limited to bleeding, infection, injury to nerve. Patient understands the risks and is willing to proceed. Patient is holding his aspirin. Rikki Clemente MD Pager: [facility] [address] [place] [address], [address] [place] [address] Office: I have examined the patient and the H&P has been reviewed. There are no clinical changes since date of exam.
[2024-12-06] MEDS: Lidocaine 1% (20 ml mdv) 20 ML Vial (13:25)
--- NOTE | 2024-12-06 13:34 | OP.PCM_ITS ---
Operative Report (Standard) Operative Information Date of Procedure: 12/06/24 Pre-Operative Diagnosis: Polymyalgia rheumatica Post-Operative Diagnosis: Same Surgery/Procedure Performed: Right temporal artery biopsy alteration specialist: Yes Forestry Aide: Stephy Diaz Tasks completed by first officer and flight instructor: Opening, Closing and Retracting Type of Anesthesia: Local MAC RN Documented Start/Stop Times: Operation Date: 12/06/24 14:00 Case Time Into Pre-Op 12/06/24 11:19 Anesthesia Start 12/06/24 12:58 Into Room 12/06/24 12:58 Procedure Start 12/06/24 13:13 Procedure End 12/06/24 13:28 Procedure Start Time: 13:13 Procedure Stop Time: 13:28 Select all DRAINS/GRAFTS/IMPLANTS that apply: None Estimated Blood Loss: Minimal Specimen collected: Yes Description of specimen(s) removed: Right temporal artery segment Description of surgery: Patient was brought back the operating room and MAC anesthesia was induced. The right anabaptist was inspected and shaved of hair. The ultrasound was used to localize the right temporal artery and it was marked along its course. Next the right anabaptist was prepped and draped in usual sterile fashion. An incision was marked and then injected with local anesthetic. Incision was made and deepened to the fascia which was incised. The artery was identified and at its proximal end it was clipped. At its distal end it was clipped doubly. All of his tributaries were clipped and then it was removed sharply. There was no bleeding and there was good hemostasis. The cavity was irrigated and suctioned dry. The skin was closed with interrupted 4-0 Monocryl sutures as well as a running 4-0 Monocryl suture and then Dermabond was applied. Patient was taken to PACU in stable condition and tolerated the procedure well. Surgical Findings: None Complications Complications: No Admit VTE Documentation VTE Mechan Device Prophylaxis: SCD's
--- NOTE | 2024-12-06 13:36 | DCINST_ITS ---
Discharge Instructions Diet Discharge Diet: Light diet - advance as tolerated Activity Discharge Activity: May Drive (In 2 to 3 days) and May Shower Lifting Restrictions: 15 lbs for 1 week Additional Activity Instructions:: Alternate ibuprofen and Tylenol for pain control. Resume aspirin on Dressing / Incision Call your doctor if your incision/area has: Continuous Slow Oozing, Sudden Increased Bleeding, Increased Pain/ Swelling, Increased Redness, Foul Smelling Discharge and Swelling at the incision site Call your doctor if you observe: Fever of 101 or Higher Cleanse incision/area with: Soap & Water Follow Up Care Please Follow Up With: Rikki Clemente MD When: Please call to schedule 2 week follow up appointment. [phone] Test Results: Test results from this visit will be discussed in further detail at your follow- up appointment, if applicable. Discharge Plan Admission Attending Provider: Rikki Clemente Primary Care Provider: Candice Song Instructions Print Language: Vietnamese Discharge Orders/Prescriptions Prescriptions: No Action PreserVision AREDS 2,148 mcg-113 mg-45 mg-17.4mg tablet 1 tab PO BID Rx Instructions: administer with AM and PM meals rosuvastatin 10 mg tablet 40 mg PO QDAY lisinopril 10 MG tablet 10 mg PO DAILY Patient Comments: multivitamin [Multiple Vitamins] 1 EACH tablet 1 ea PO DAILY aspirin 81 MG tablet,chewable 81 mg PO DAILY@0800 allopurinol 100 mg tablet 100 mg PO DAILY Patient Comments: TAKE 1 TABLET BY MOUTH EVERY DAY prednisone 20 mg tablet 20 mg PO DAILY Referrals / Follow Up: Candice Song MD [Primary Care Provider] - Disposition Disposition (needs filled in before D/C Order can be placed): Home, Self Care
--- NOTE | 2024-12-06 13:42 | PCM.POST.ANE ---
Anesthesia: Postop Eval I Current Vital Signs Temperature: 97.2 F Pulse Rate: 61 Blood Pressure: 127/62 Respiratory Rate: 16 Pulse Ox: 97 Oxygen Delivery Method: Room Air Assessment Airway patent: Yes Spontaneous unlabored respirations: Yes Mental status: Awake and Calm nausea: No Vomiting: No Anesthesia Complication: No Fluid Hydration Crystalloid volume administer (ml): 10 Total IV fluid infused: 10 Progress Note Anesthesia document: Postop Eval 1 completed: Yes
--- NOTE | 2024-12-06 14:00 | TEM_PTH ---
PATIENT: LENNIE MAXWELL [place] [facility] [id number] AGE/SX: 83/M ROOM: RE12/06/[address]: Dr. Rikki Clemente MD : 1940 BED: DIS: 12/06/2024 SPEC #: [id number] RECD: 12/06/24 17:01 STATUS: MINNIE RENETTA #: [id number] JONATHAN: 12/06/24 14:[address]: Rikki Clemente DEPT: SURGICAL PATHOLOGY RECD BY: Geovanny Zaman ENTERED: 12/07/24 08:32 SP TYPE: TEMPORAL OTHR DR: Dr. Candice Song MD Tissues: Temporal region Procedures: Elastin Stain (control) Special Stain Group I Surgery Specimen Level IV HEADER OPERATION: Temporal artery biopsy PRE-OP DIAGNOSIS: Polymyalgia rheumatica TISSUE SUBMITTED: Right temporal artery segment MICROSCOPIC DIAGNOSIS Right temporal artery segment, biopsy: Negative for giant cell arteritis. Mild intimal hyperplasia and medial calcifications. See comment. CHRISTIN 12/08/2024 COMMENT Elastic stain with matched control was used in the evaluation of this case. Clinical correlation and appropriate follow up are necessary. MICROSCOPIC DESCRIPTION Slides are reviewed. GROSS DESCRIPTION Received in fixative is one container labeled with the patient's name and designated Right temporal artery segment. The specimen consists of a tubular piece of olguin-pink soft tissue measuring 1.8 cm in length and 0.3 cm in diameter. The specimen is totally submitted in one cassette. 12/07/2024 TC:5 CPT:12765,56573
--- NOTE | 2024-12-06 19:02 | POSTOPAN2_ITS ---
Anesthesia Postop Eval I Sum Postop Eval Completion status Anesthesia document: Postop Eval 1 completed: Yes Anesthesia Postop Eval I Summary Anesthesia Postop Eval I Summary: Anesthesia Postop Eval I: Assessment Summary Airway patent Yes 12/06/24 13:43 PARTS SALES [email or web address] Spontaneous unlabored Yes 12/06/24 13:43 PARTS SALES COUNTERPERSON.[email or web address] respirations Mental status Awake,Calm 12/06/24 13:43 PARTS SALES COUNTERPERSON.[email or web address] nausea No 12/06/24 13:43 PARTS SALES COUNTERPERSON.[email or web address] Vomiting No 12/06/24 13:43 PARTS SALES [email or web address].[email or web address] Anesthesia Postop Eval I: Fluid Summary Crystalloid volume administer 10 12/06/24 13:43 PARTS SALES COUNTERPERSON.GDOTT (ml) Colloids volume administered ( ml) Blood Product volume administered (ml) Total IV fluid infused 10 12/06/24 13:43 PARTS SALES [email or web address].[email or web address] Anesthesia Postop Eval I: Summary Notes Anesthesia Complication No 12/06/24 13:43 PARTS SALES [email or web address].[email or web address] Anesthesia Complication Comment: Post-operative progress note Anesthesia: Postop Eval II Evaluation Mental status: Awake and Calm Pain Level: 1 nausea: No Vomiting: No Complications Anesthesia Complication: No
--- NOTE | 2024-12-06 19:02 | PCM.POSTANE2 ---
Anesthesia Postop Eval I Sum Postop Eval Completion status Anesthesia document: Postop Eval 1 completed: Yes Anesthesia Postop Eval I Summary Anesthesia Postop Eval I Summary: Anesthesia Postop Eval I: Assessment Summary Airway patent Yes 12/06/24 13:43 SOFTWARE QUALITY ASSURANCE ENGINEER.[email or web address] Spontaneous unlabored Yes 12/06/24 13:43 SOFTWARE QUALITY ASSURANCE ENGINEER.[email or web address] respirations Mental status Awake,Calm 12/06/24 13:43 SOFTWARE QUALITY ASSURANCE ENGINEER.GDOTT nausea No 12/06/24 13:43 SOFTWARE QUALITY ASSURANCE ENGINEER.GDOTT Vomiting No 12/06/24 13:43 SOFTWARE QUALITY ASSURANCE ENGINEER.GDOTT Anesthesia Postop Eval I: Fluid Summary Crystalloid volume administer 10 12/06/24 13:43 SOFTWARE QUALITY ASSURANCE ENGINEER.GDOTT (ml) Colloids volume administered ( ml) Blood Product volume administered (ml) Total IV fluid infused 10 12/06/24 13:43 SOFTWARE QUALITY ASSURANCE ENGINEER.GDOTT Anesthesia Postop Eval I: Summary Notes Anesthesia Complication No 12/06/24 13:43 SOFTWARE QUALITY ASSURANCE ENGINEER.GDOTT Anesthesia Complication Comment: Post-operative progress note Anesthesia: Postop Eval II Evaluation Mental status: Awake and Calm Pain Level: 1 nausea: No Vomiting: No Complications Anesthesia Complication: No
== END 2024-12-06 14:24 | disposition home or self-care (01) ==
LOC: SDC 11:17 → AC 11:19
PROVIDERS: PCP Family Medicine; Referring Provider Surgery; Visit Provider Surgery
PROC: (CPT 37609; principal; 2024-12-06 13:45)
DX: M35.3 Polymyalgia rheumatica (principal); E78.00 Pure hypercholesterolemia, unspecified; I10 Essential (primary) hypertension; Z87.891 Personal history of nicotine dependence
CPT/HCPCS: 37609; 00352; 88305; 88312; A4648; A4216; J2405

== ENCOUNTER → 2024-12-15 | Outpatient (CLI) | payer MEDICARE, BC, SELFPAY ==
[2024-12-15 17:50] LABS: Erythrocyte Sedimentation Rate 10 mm/hr (0-20)
[2024-12-15 18:49] LABS: CRP 5.38 mg/L (0.0-3.0)
== END | disposition home or self-care (01) ==
LOC: MTLAB 14:35
PROVIDERS: PCP Family Medicine; Referring Provider Family Medicine; Visit Provider Family Medicine
DX: M35.3 Polymyalgia rheumatica (principal)
CPT/HCPCS: 36415; 85652; 86140

== ENCOUNTER → 2025-05-26 | Outpatient (CLI) | payer MEDICARE, BC, SELFPAY ==
--- OUTSIDE RECORDS SUMMARY | 2025-05-26 06:04 | XMS RPT_ITS | CCD ---
Author Organization [facility] Team Providers Care Heel Padder Name Role Phone Dr. Candice Song Primary Care Provider [phone] Dr. Tevin Lopez Attending Provider [phone] Candice Song Referring Provider [phone] RASHAD Baca Attending Provider Dr. Candice Song Referring Provider [phone] Tevin Lopez Referring Provider [phone]) [phone] Dr. Tevin Lopez Other Provider Dr. Candice Song Primary Care Provider [phone] Dr. Tevin Lopez Attending Provider [phone] RASHAD Baca Referring Provider Dr. Candice Song Primary Care Provider [phone] Dr. Candice Song Referring Provider [phone] RASHAD Alvares Attending Provider [phone] RASHAD Alvares Referring Provider [phone] Dr. Candice Song Primary Care Provider [phone] Dr. Tevin Lopez Admit Provider Dr. Tevin Lopez Attending Provider [phone] Dr. Tevin Lopez Referring Provider [phone] Tevin Lopez Other Provider RASHAD Alvares Attending Provider [phone] Candice Song Referring Provider Dr. Candice Song Primary Care Provider [phone] Dr. Candice Song Referring Provider [phone] Dr. Tevin Lopez Attending Provider Tevin Lopez Attending Unavailable Miedel, Candice Primary Care Unavailable Loa Tevin Referring Unavailable Miedel, Candice Primary Care Unavailable Alvares, Kavitha Attending Unavailable Miedel, Candice Primary Care Unavailable Calabretta, Rikki Referring Unavailable Calabretta, Rikki Attending Unavailable Calabretta, Rikki Consulting Unavailable Miedel, Candice Primary Care Unavailable Calabretta, Rikki Attending Unavailable Miedel, Candice Referring Unavailable Miedel, Candice Primary Care Unavailable Alvares, Kavitha Attending Unavailable Alvares, Kavitha Referring Unavailable Miedel, Candice Attending Unavailable Miedel, Williamson Primary Care Unavailable Miedel, Candice Primary Care Unavailable Calabretta, Rikki Referring Unavailable Calabretta Rikki Attending Unavailable Miedel, Candice Attending Unavailable Miedel, Candice Primary Care Unavailable Miedel, Candice Referring Unavailable Miedel, Candice Primary Care Unavailable Alvares, Kavitha Referring Unavailable Alvares, Kavitha Attending Unavailable John, Tevin Attending Unavailable Miedel, Candice Primary Care Unavailable Alvares, Kavitha Referring Unavailable Miedel, Candice Primary Care Unavailable Miedel, Candice Referring Unavailable Alvares, Kavitha Attending Unavailable Miedel, Candice Primary Care Unavailable Miedel, Candice Referring Unavailable Calabretta Rikki Attending Unavailable Tevin Lopez Attending Unavailable Miedel, Candice Primary Care Unavailable Alvares, Kavitha Referring Unavailable Miedel, Candice Primary Care Unavailable Miedel, Candice Referring Unavailable Becki Portillo Attending Unavailable Tevin Lopez Attending Unavailable Miedel, Candice Primary Care Unavailable Alvares, Kavitha Referring Unavailable John, Tevin Attending Unavailable Miedel, Candice Primary Care Unavailable John Tevin Referring Unavailable Miedel, Candice Primary Care Unavailable Miedel, Candice Referring Unavailable Miedel, Candice Attending Unavailable Dr. Candice Song MD Primary Care Provider [phone] Kavitha Schafer Attending Provider [phone] Kavitha Schafer Referring Provider [phone] John BURNS, Dr. Abarca Attending Provider [phone] Nohemi BURNS, Dr. Harvey Referring Provider [phone] Nohemi BURNS, Dr. Harvey Attending Provider [phone] Chyna BURNS, Dr. Brandt Attending Provider [phone] Chyna BURNS, Dr. Brandt Referring Provider [phone] Chyna BURNS, Dr. Brandt Other Provider Medications Current Medications Medication Drug Class(es) Dates Sig (Normalized) Sig (Original) allopurinol 100 mg oral tablet (4 sources) Xanthine Oxidase Inhibitor Start: 07-01-2023 take 1 tablet by mouth once daily Allopurinol 100 mg tablet Active 100 mg PO DAILY July 01, 2023 12:00am ascorbic acid 113 mg / beta carotene 7160 mg / cuprous oxide 0.4 mg / dl-alpha tocopheryl acetate 100 unt / zinc oxide 17.4 mg oral tablet (1 source) Vitamin C Start: 11-02-2024 Vitamins A,C,A-Hicj-Zcjtbv (Preservision Areds) 2,148 mcg-113 mg-45 mg-17.4mg tablet Active 1 {tbl} PO TWICE A DAY November 02, 2024 1:00am administer with AM and PM meals aspirin 81 mg chewable tablet (11 sources) Platelet Aggregation Inhibitor, Nonsteroidal Anti-inflammatory Drug Start: 03-15-2017 take 1 tablet by mouth once daily Aspirin 81 MG tablet,chewable Active 81 mg PO DAILY@0800 March 15, 2017 12:00am lisinopril 10 mg oral tablet (11 sources) Angiotensin Converting Enzyme Inhibitor Start: 02-17-2014 take 1 tablet by mouth once daily Lisinopril 10 MG tablet Active 10 mg PO DAILY February 17, 2014 12:00am Multivitamin (Multiple Vitamins) 1 EACH tablet (11 sources) Start: 03-15-2017 take 1 tablet by mouth once daily Multivitamin (Multiple Vitamins) 1 EACH tablet Active 1 NMA PO DAILY March 15, 2017 12:00am Start: 03-15-2017 take 1 tablet by lili th once daily Multivitamin (Multiple Vitamins) 1 EACH tablet Active 1 EACH PO DAILY March 14, 2017 11:00pm Start: 03-15-2017 take 1 tablet by lili th once daily Multivitamin (Multiple Vitamins) 1 EACH tablet Active 1 EACH PO DAILY March 15, 2017 12:00am predniSONE 20 mg oral tablet (1 source) Start: 12-01-2024 take 1 tablet by mouth once daily Prednisone 20 mg tablet Active 20 mg PO DAILY December 01, 2024 1:00am rosuvastatin calcium 40 mg oral tablet (8 sources) HMG-CoA Reductase Inhibitor Start: 12-13-2024 take 1 tablet by mouth once daily Rosuvastatin 40 mg tablet Active 40 mg PO daily December 13, 2024 1:00am Start: 12-05-2024 End: 12-13-2024 take 4 tablets by mouth once daily Rosuvastatin 10 mg tablet Discontinued 40 mg PO daily December 05, 2024 1:00am December 13, 2024 3:07pm Start: 10-21-2023 End: 11-02-2024 take 1 tablet by mouth once daily Rosuvastatin (Crestor) 40 mg tablet Discontinued 40 mg PO DAILY October 21, 2023 1:00am November 02, 2024 12:53pm Start: 07-01-2023 End: 02-26-2024 take 1 tablet by mouth once daily Rosuvastatin (Crestor) 10 mg tablet Discontinued 10 mg PO DAILY July 01, 2023 12:00am February 26, 2024 8:59am Completed/Discontinued Medications Medication Drug Class(es) Dates Sig (Normalized) Sig (Original) cilostazol 50 mg oral tablet (20 sources) Phosphodiesterase 3 Inhibitor Start: 02-11-2023 End: 11-02-2024 take 1 tablet by mouth twice daily Cilostazol 50 mg tablet Discontinued 0 .ROUTE .COMPLEX 180 June 09, 2023 7:22am July 01, 2023 10:38am TAKE 1 TABLET BY MOUTH TWICE A DAY clopidogrel 75 mg oral tablet (11 sources) P2Y12 Platelet Inhibitor Start: 04-01-2023 End: 03-30-2024 take 1 tablet by mouth once daily Clopidogrel (Plavix) 75 mg tablet Discontinued 75 mg PO DAILY October 02, 2023 10:27am Ely 19th, 2024 2:48pm gemfibrozil 600 mg oral tablet (16 sources) Peroxisome Proliferator Receptor alpha Agonist Start: 02-17-2014 End: 02-11-2023 take 1 tablet by mouth once daily Gemfibrozil 600 MG tablet Discontinued 600 mg PO DAILY February 17, 2014 12:00am February 11, 2023 8:25am hydrocortisone 25 mg/ml topical cream (1 source) Corticosteroid Start: 02-26-2024 End: 12-05-2024 Hydrocortisone (Proctozone-Hc) 2.5 % cream with perineal applicator Discontinued 1 NMA RC 2 to 4 times per day as needed for hemorrhoids February 26, 2024 12:00am December 05, 2024 10:33am oxyCODONE hydrochloride 5 mg oral tablet (3 sources) Opioid Agonist Start: 07-15-2023 End: 07-18-2023 take 1 tablet by mouth every eight hours as needed for pain Oxycodone 5 mg tablet Discontinued 5 mg PO Q8H as needed for pain 06 14July 15, 2023 July 17, 2023 12:00am July 18, 2023 12:33am tamsulosin hydrochloride 0.4 mg oral capsule (3 sources) alpha-Adrenergic Rm Start: 07-15-2023 End: 07-29-2023 take 1 capsule by mouth once daily Tamsulosin 0.4 mg Capsule Discontinued 0.4 mg PO DAILY@1730 30 July 15, 2023 12:00am July 29, 2023 9:44am Problems Problem Classification Problem Date Documented Da te Episodic/Chronic Disorders of lipid metabolism (9 sources) Hyperlipidemia; Translations: [Hyperlipidemia, unspecified] 02-11-2023 Chronic Essential hypertension (9 sources) Hypertensive disorder; Translations: [Essential (primary) hypertension] 02-11-2023 Chronic Comment on above: CONTROLLED ON MED Gout and other crystal arthropathies (1 source) Gout, unspecified; Translations: [Gout, unspecified] Onset: 07-11-2024 Chronic Hemorrhoids (1 source) Hemorrhoids; Translations: [Unspecified hemorrhoids] 02-26-2024 Episodic Occlusion or stenosis of precerebral arteries (9 sources) Left carotid artery stenosis; Translations: [Occlusion and stenosis of left carotid artery] 05-20-2023 Chronic Other aftercare (7 sources) Surgical follow-up; Translations: [Encounter for surgical aftercare following surgery on the circulatory system] 04-23-2023 Episodic Other aftercare (1 source) Encounter for surgical aftercare following surgery on the circulatory system; Translations: [Encounter for surgical aftercare following surgery on the circulatory system] Onset: 11-02-2024 Episodic Other circulatory disease (9 sources) Arterial insufficiency; Translations: [Stricture of artery] 02-11-2023 Chronic Other circulatory disease (9 sources) Raynaud's disease; Translations: [Raynaud's syndrome without gangrene] 02-11-2023 Chronic Other circulatory disease (6 sources) Stricture of artery; Translations: [Stricture of artery] 02-11-2023 Chronic Other circulatory disease (2 sources) Disorder of carotid artery; Translations: [Disorder of arteries and arterioles, unspecified] 11-02-2024 Chronic Other circulatory disease (7 sources) Carotid bruit; Translations: [Other specified symptoms and signs involving the circulatory and respiratory systems] 04-23-2023 Episodic Other circulatory disease (4 sources) Other specified symptoms and signs involving the circulatory and respiratory systems; Translations: [Other symptoms involving cardiovascular system] 04-23-2023 Episodic Other connective tissue disease (1 source) Polymyalgia rheumatica; Translations: [Polymyalgia rheumatica] Onset: 12-29-2024 Chronic Other connective tissue disease (3 sources) Polymyalgia rheumatica; Translations: [Polymyalgia rheumatica] 12-05-2024 Chronic Peripheral and visceral atherosclerosis (20 sources) Intermittent claudication; Translations: [Peripheral vascular disease, unspecified] Onset: 03-30-2024 02-11-2023 Chronic Results Test Name Value Interpretation Reference Range Facility Surgery Visit Reporton 12-20 Surgery Visit Report [facility] [address] [place] [address] OFFICE VISIT Date of Service: 12/20/24 MR#: [id number] Acct: [id number] Name: LENNIE MAXWELL Rep #: [id number] : 1940 Provider: Dr. Rikki salazar MD Age/Sex: 83/M Location: [facility] Status: Signed Intake Vital Signs 12/06/24 11:40 Height 6 ft Intake Visit Reasons: S/P TEMPORAL ARTERY BIOPSY 12-06 Chief Complaint: temporal artery biopsy f/u Behavioral Health Technician Required: No Is patient in pain?: No Allergies No Known Allergies Allergy (Verified 12/20/24 13:08) Medications ???Medication ???Instructions ???Recorded ???Confirmed ???Type lisinopril 10 mg tablet 10 mg PO DAILY HYPERTENSION 12/20/24 History aspirin 81 mg chewable tablet 81 mg PO DAILY@0800 [facility]ART [facility] 0 03/15/17 12/20/24 History multivitamin (Multiple Vitamins 1 ea PO DAILY SUPPLEMENT 03/15/17 12/20/24 History tablet) allopurinol 100 mg tablet 100 mg PO DAILY GOUT 07/01/2312/10 History vitamins A,C,F-tmxj-irpkdr 2,148 1 tab PO BID 11/02/24 12/20/24 His tory mcg-113 mg-45 mg-17.4 mg tablet (PreserVision AREDS) prednisone 20 mg tablet 20 mg PO DAILY 12/01/24 12/20/24 H istory rosuvastatin 40 mg tablet 40 mg PO QDAY #90 tabs 12/13/24 Rx Have you fallen in the past year?: No Subjective Details: Patient doing well after temporal artery biopsy Objective Details: Incision healing well Coding Level of Care Code Global Post Op Diagnoses Polymyalgia rheumatica M35.3 [facility] Medical History Alcohol use History of steroid therapy Back pain History of pain when walking Wears glasses Cancer Prostate disease High cholesterol History of diverticulitis Former smoker Carotid stenosis, left Carotid bruit Atherosclerosis 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 of extremities with rest pain, left leg Claudication of left lower extremity Basal cell carcinoma Elevated PSA ( 2020) Anemia ( 2019) Raynaud disease ( 2019) Gout Hyperlipemia Hypertension Surgical History (Updated 12/20/24 @ 13:09 by Blanca Burch) History of biopsy of temporal artery History of carotid endarterectomy History of angioplasty ( 2020) H/O hernia repair History of appendectomy Hx of tonsillectomy Family History Mother Cancer Father Myocardial infarction Heart disease Brother Afib DVT (deep venous thrombosis) Sister Afib Social History Smoking Status: Former smoker Assessment and Plan (No Qualifiers) Assessment and Plan (1) Polymyalgia rheumatica: Status: Acute Plan: Biopsy of the right temporal artery was negative for giant cell arteritis. Follow-up as needed. Activity as tolerated. Rikki Clemente MD Pager: [facility] [address] [place] [address] [address] [place] [address] Office: 12/20/24 1320 Date Rikki Clemente MD [facility] Signature: Date (if applicable) CC: Normal [facility] CRPon 12-15-2024 C-REACTIVE PROT 5.38 mg/L High 0.0-3.0 [facility] Comment on above: Performed By: #### L 101.9900, L501.6710 ####[facility] [id number] [place], [place], [id number] CRP [Mass/Vol]Ordered By: Cuba Song on 12-15-2024 C-Reactive Protein Extended Range 5.38 mg/L High 0.0-3.0 [facility] Erythrocyte Sed Rateon 12-15 SED RATE 10 mm/hr Normal 0-20 [facility] Comment on above: Performed By: #### L 101.9900, L501.6710 #### [facility] Laboratory [address] [place], [place], [address] Erythrocyte sedimentation ra teOrdered By: Candice Sogn on 12-15-2024 ESR (Bld) [Velocity] 10 mm/h 0-20 [facility] Discharge Instructionon 11-13 Discharge Instruction [facility] Medical Records Department [address] [place] [address] Instructions for Home/Discharge Instructions 12/06/24 1336 MR#: [id number] Acct: [id number] Name: LENNIE MAXWELL Rep #: [id number] : 1940 83 From: Rikki Clemente MD PCP: Dr. Candice Song MD Status:REG [facility] Discharge Instructions Diet Discharge Diet: Light diet - advance as tolerated Activity Discharge Activity: May Drive (In 2 to 3 days) and May Shower Lifting Restrictions: 15 lbs for 1 week Additional Activity Instructions:: Alternate ibuprofen and Tylenol for pain control. Resume aspirin on Dressing / Incision Call your doctor if your incision/area has: Continuous Slow Oozing, Sudden Increased Bleeding, Increased Pain/ Swelling, Increased Redness, Foul Smelling Discharge and Swelling at the incision site Call your doctor if you observe: Fever of 101 or Higher Cleanse incision/area with: Soap Water Follow Up Care Please Follow Up With: Rikki Clemente MD When: Please call to schedule 2 week follow up appointment. [phone] Test Results: Test results from this visit will be discussed in further detail at your follow-up appointment, if applicable. Discharge Plan Admission Attending Provider: Rikki Clemente Primary Care Provider: Candice Song Instructions Print Language: Polish Discharge Orders/Prescriptions Prescriptions: No Action PreserVision AREDS 2,148 mcg-113 mg-45 mg-17.4mg tablet 1 tab PO BID Rx Instructions: administer with AM and PM meals rosuvastatin 10 mg tablet 40 mg PO QDAY lisinopril 10 MG tablet 10 mg PO DAILY Patient Comments: multivitamin [Multiple Vitamins] 1 EACH tablet 1 ea PO DAILY aspirin 81 MG tablet,chewable 81 mg PO DAILY@0800 allopurinol 100 mg tablet 100 mg PO DAILY Patient Comments: TAKE 1 TABLET BY MOUTH EVERY DAY prednisone 20 mg tablet 20 mg PO DAILY Referrals / Follow Up: Candice Song MD [Primary Care Provider] - Disposition Disposition (needs filled in before D/C Order can be placed): Home, Self Care 12/06/24 4845 Rikki Clemente MD CC: Dr. Candice Song MD Signed Normal [facility] Elastin Stain (control)on Elastin Stain (control) -------- Patient Age/Sex Location Account Attending Physician LENNIE MAXWELL 83/M [facility] [id number] Dr. Rikki Clemente MD Specimen: [id number] Received: 12/06/24 Status: MINNIE Dayron Num: [id number] Spec Type: TEMPORAL Subm Dr: Dr. Rikki Clemente MD HEADER OPERATION: Temporal artery biopsy PRE-OP DIAGNOSIS: Polymyalgia rheumatica TISSUE SUBMITTED: Right temporal artery segment MICROSCOPIC DIAGNOSIS Right temporal artery segment, biopsy: Negative for giant cell arteritis. Mild intimal hyperplasia and medial calcifications. See comment. . 12/08/2024 COMMENT Elastic stain with matched control was used in the evaluation of this case. Clinical correlation and appropriate follow up are necessary. MICROSCOPIC DESCRIPTION Slides are reviewed. GROSS DESCRIPTION Received in fixative is one container labeled with the patient's name and designated Right temporal artery segment. The specimen consists of a tubular piece of olguin-pink soft tissue measuring 1.8 cm in length and 0.3 cm in diameter. The specimen is totally submitted in one cassette. . 12/07/2024 TC:5 [facility]:[id number] Patient Age/Sex Location Account Attending Physician LENNIE MAXWELL 83/[address] [facility] [id number] Dr. Rikki Clemente MD Signed (signature on file) Dr. Kumar Charles MD 12/08/24 1318 Normal [facility] Comment on above: Performed By: #### P ELASTIC ####[facility] [id number] [facility] [place], [address] MR/POSTOP.ANE 12-06-2024 MR/POSTOP.[facility] Medical Records Department [address] [place] [address] Anesthesia Postop Eval I 12/06/24 1342 MR#: [id number] Acct: [id number] Name: LENNIE MAXWELL Rep #: [id number] : 1940 83 From: Theresa King PCP: Dr. Candice Song MD Status:REG SDC Y Race: C Location: [place] [address] Anesthesia: Postop Eval I Current Vital Signs Temperature: 97.2 F Pulse Rate: 61 Blood Pressure: 127/62 Respiratory Rate: 16 Pulse Ox: 97 Oxygen Delivery Method: Room Air Assessment Airway patent: Yes Spontaneous unlabored respirations: Yes Mental status: Awake and Calm nausea: No Vomiting: No Anesthesia Complication: No Fluid Hydration Crystalloid volume administer (ml): 10 Total IV fluid infused: 10 Progress Note Anesthesia document: Postop Eval 1 completed: Yes 12/06/24 1343 Date Theresa Davisignspenser Signature: Date CC: Signed Normal [facility] MR/[id number] 12-06-2024 MR/POSTOPAN2 [facility] Medical Records Department [address] [place] [address] Anesthesia Postop Eval II 12/06/241901 MR#: [id number] Acct: [id number] Name: LENNIE MAXWELL Rep #: [id number] : 1940 83 From: Meng Ware MD PCP: Dr. Candice Song MD Status:DEP [facility] Y Race: C Location: [facility] Anesthesia Postop Eval I Sum Postop Eval Completion status Anesthesia document: Postop Eval 1 completed: Yes Anesthesia Postop Eval I Summary Anesthesia Postop Eval I Summary: Anesthesia Postop Eval I: Assessment Summary Airway patent Yes 12/06/24 13:43 [email or web address] Spontaneous unlabored Yes 12/06/24 13:43 LENO [email or web address] respirations Mental status Awake,Calm 12/06/24 13:43 LENO [email or web address] nausea No 12/06/24 13:43 LENO [email or web address].GDOTT Vomiting No 12/06/24 13:43 LENO [email or web address] Anesthesia Postop Eval I: Fluid Summary Crystalloid volume administer 10 12/06/24 13:43 LENO [email or web address].GDOTT (ml) Colloids volume administered ( ml) Blood Product volume administered (ml) Total IV fluid infused 10 12/06/24 13:43 LENO [email or web address] Anesthesia Postop Eval I: Summary Notes Anesthesia Complication No 12/06/24 13:43 LENO [email or web address].GDOTT Anesthesia Complication Comment: Post-operative progress note Anesthesia: Postop Eval II Evaluation Mental status: Awake and Calm Pain Level: 1 nausea: No Vomiting: No Complications Anesthesia Complication: No 12/06/241901 Date Meng Ware MD Cosigner Signature: Date CC: Signed Normal [facility] Operative Reporton Operative Report [facility] Medical Records Department [address] [place] [address] Operative Report 12/06/24 1334 MR#: [id number] Acct: [id number] Name: LENNIE MAXWELL Rep #: [id number] : 1940 83 From: Rikki Clemente MD PCP: Dr. Candice Song MD Status:[facility] Location: [place] [address] Operative Report (Standard) Operative Information Date of Procedure: 12/06/24 Pre-Operative Diagnosis: Polymyalgia rheumatica Post-Operative Diagnosis: Same Surgery/Procedure Performed: Right temporal artery biopsy primer charger: Yes Instructor Traffic Safety: Stephy Diaz Tasks completed by therapeutic assistant: Opening, Closing and Retracting Type of Anesthesia: Local MAC RN Documented Start/Stop Times: Operation Date: 12/06/24 14:00 Case Time Into Pre-Op 12/06/24 11:19 Anesthesia Start 12/06/24 12:58 Into Room 12/06/24 12:58 Procedure Start 12/06/24 13:13 Procedure End 12/06/24 13:28 Procedure Start Time: 13:13 Procedure Stop Time: 13:28 Select all DRAINS/GRAFTS/IMPLANTS that apply: None Estimated Blood Loss: Minimal Specimen collected: Yes Description of specimen(s) removed: Right temporal artery segment Description of surgery: Patient was brought back the operating room and MAC anesthesia was induced. The right muslim was inspected and shaved of hair. The ultrasound was used to localize the right temporal artery and it was marked along its course. Next the right muslim was prepped and draped in usual sterile fashion. An incision was marked and then injected with local anesthetic. Incision was made and deepened to the fascia which was incised. The artery was identified and at its proximal end it was clipped. At its distal end it was clipped doubly. All of his tributaries were clipped and then it was removed sharply. There was no bleeding and there was good hemostasis. The cavity was irrigated and suctioned dry. The skin was closed with interrupted 4-0 Monocryl sutures as well as a running 4-0 Monocryl suture and then Dermabond was applied. Patient was taken to PACU in stable condition and tolerated the procedure well. Surgical Findings: None Complications Complications: No Admit VTE Documentation VTE Mechan Device Prophylaxis: SCD's 12/06/24 1336 Cosigner Signature (if applicable): CC: Dr. Rikki Clemente MD; Dr. Candice Song MD; Dr. Ernst Burrows MD Signed Normal [facility] Surgery Visit Reporton 12-05 Surgery Visit Report [facility] [address] [place] [address] OFFICE VISIT Date of Service: 12/05/24 MR#: [id number] Acct: [id number] Name: LENNIE MAXWELL Rep #: [id number] : 1940 Provider: Dr. Rikki salazar MD Age/Sex: 83/M Location: [facility] Status: Signed Intake Vital Signs 02/26/24 08:55 12/05/24 09:32 Height 6 ft 6 ft Weight: 191 lb BMI 25.9 BP 180/71 H Blood Pressure Location Rt brachial Position Sitting Respiration 16 Intake Visit Reasons: TEMPORAL ARTERY Chief Complaint: temporal artery biopsy Behavioral Health Technician Required: No Is patient in pain?: No Allergies No Known Allergies Allergy (Verified 12/05/24 09:33) Medications ???Medication ???Instructions ???Recorded ???Confirmed ???Type lisinopril 10 mg tablet 10 mg PO DAILY HYPERTENSION 12/05/24 History aspirin 81 mg chewable tablet 81 mg PO DAILY@0800 HEART HEALTH 0 03/15/17 12/05/24 History multivitamin (Multiple Vitamins 1 ea PO DAILY SUPPLEMENT 03/15/17 12/05/24 History tablet) allopurinol 100 mg tablet 100 mg PO DAILY GOUT 07/01/2311/13 History vitamins A,C,P-pkjp-kszlkq 2,148 1 tab PO BID 11/02/24 12/05/24 His tory mcg-113 mg-45 mg-17.4 mg tablet (PreserVision AREDS) prednisone 20 mg tablet 20 mg PO DAILY 12/01/24 12/05/24 H istory rosuvastatin 10 mg tablet 10 mg PO QDAY 12/05/24 12/05/24 Hi story Have you fallen in the past year?: No PFSH Medical History (Updated 12/05/24 @ 09:[address] Rikki Clemente MD) Alcohol use History of steroid therapy Back pain History of pain when walking Wears glasses Cancer Prostate disease High cholesterol History of diverticulitis Former smoker Carotid stenosis, left Carotid bruit Atherosclerosis 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 of extremities with rest pain, left leg Claudication of left lower extremity Basal cell carcinoma Elevated PSA ( 2020) Anemia ( 2018) Raynaud disease ( 2018) Gout Hyperlipemia Hypertension Surgical History (Updated 12/01/24 @ 15:29 by Iram Haddad) History of carotid endarterectomy History of angioplasty ( 2020) H/O hernia repair History of appendectomy Hx of tonsillectomy Family History Mother Cancer Father Myocardial infarction Heart disease Brother Afib DVT (deep venous thrombosis) Sister Afib Social History Smoking Status: Former smoker HPI HPI HPI: Patient is an 83-year-old male here for temporal artery biopsy. He is here to rule out giant cell arteritis. He is not having any vision changes or headaches. He has been started on steroids. ROS General General: No weight change, appetite, fatigue, colon cancer, breast cancer or weakness HEENT HEENT: Yes eye injury and eye surgery; No difficulty swallowing, swollen glands or hoarseness Endo Endocrine: No thyroid disease, diabetes mellitus, thyroid cancer, Hair loss, heat intolerance or cold intolerance Skin Skin: No rash or changing moles Breast Breast: No left breast lump, right breast lump, nipple discharge, breast pain, abnormal mammogram, abnormal US or breast enlargement Musc Musculoskeletal: Yes gout; No back problems, arthritis, rheumatoid arthritis or joint pain Cardio Cardiovascular: Yes high blood pressure; No murmur, pacemaker, heart disease, atrial fibrillation, heart attack, heart stent, palpitations, shortness of breat with exertion or chest pain Psych Psychiatric: No depression, anxiety or hearing voices Resp Respiratory: No shortness of breath, No sleep apnea, No cough, No COPD, No asthma, No emphysema and No wheezing Gastro Gastrointestinal: No abdominal pain, No nausea or vomiting, No diarrhea, No constipation, No blood in stool, No acid reflux, No hemorrhoids, No ulcers, No gallbladder problem and No black,tarry stools Michele Hematologic: Yes blood thinners, No blood disorders, No bleeding, No anemia and No blood clots Neuro Neurologic: No system reviewed and no additional complaints, except as documented, No as per HPI, No abnormal gait, No abnormal hearing, No abnormal movements, No abnormal speech, No behavioral changes, No burning sensations, No confusion, No convulsions, No disequilibrium, No dizziness, No localized weakness, No frequent falls, No headache(s), No lack of coordination, No loss of vision, No memory loss, No numbness, No other visual disturbances, No radicular pain, No restless legs, No sensory deficit, No syncope, No tingling, No tremor(s), No weakness and No other Exam Const General: cooperative Orientation: alert and oriented x3 HENMT Head: normal to inspection Neck Neck: normal visual inspection and full ROM Chest Chest palpation inspection (more content not included)... Normal [facility] MR/PAT.ANEon 12-01-2024 MR/PAT.[facility] Medical Records Department [address] [place] [address] PAT - Anesthesia 12/01/24 1549 MR#: [id number] Acct: [id number] Name: LENNIE MAXWELL Rep #: [id number] : 1940 83 From: Everton Hand MD PCP: Dr. Candice Song MD Status:[place] [facility] [place]: C [place] [facility] [place]-Assessment Diagnosis/Proposed Procedure Planned Operative Procedure(s): TEMPORAL ARTERY BX Anesthesia History Anesthesia History - manager transit: Anesthesia History - manager transit Hx Hospitalization No 12/01/24 15:29 Any Problems With Anesthesia No 12/01/24 15:29 Cholinesterase deficiency No 12/01/24 15:29 You/Your Family Experience No 12/01/24 15:29 fever (hyperthermia) with Relationship Recent Exposure to Contagious No 07/14/23 09:32 Disease Does patient have nerve No 12/01/24 15:29 stimulator Patient instructed to have device shut off --Does patient have Pacemaker or ICD? When Was Last Pacemaker Check QUESTION #4 FULL TEXT: You/Your Family Experience fever (hyperthermia) with Anesthesia Last Oral Intake Last Oral intake: Last Oral Intake NPO since Meds taken in AM with sips of water? Meds patient instructed to take am of surgery PONV PONV - manager transit: PONV - manager transit Female No 12/01/24 15:29 HX of Motion Sickness No 12/01/24 15:29 HX of N/V After Surgery No 12/01/24 15:29 Non-Smoker Yes 12/01/24 15:29 Duration of Surgery greater No 12/01/24 15:29 than 60 minutes Number of Risk Factors 1 12/01/24 15:29 PONV Score Low Risk 12/01/24 15:29 Height Weight Height Weight: Anesthesia: Height Weight Height 6 ft 02/26/24 08:55 Respiratory Assessment Respiratory Assessment - manager transit: Respiratory Tract Infection Hx - manager transit Hx Respiratory Tract Infection No 12/01/24 15:29 STOP Sleep Apnea STOP Sleep Apnea - manager transit: STOP Sleep Apnea - manager transit Hx Hypertension Yes: CONTROLLED ON MED 12/01/24 15:29 Hx Sleep Apnea No 12/01/24 15:29 CPAP BIPAP Do you snore loudly (louder No 12/01/24 15:29 than talking or can be heard Do you often feel tired/ No 12/01/24 15:29 fatigued/ sleepy during daytime? Has anyone observed you stop No 12/01/24 15:29 breathing during sleep? STOP Results Negative 12/01/24 15:29 QUESTION #5 FULL TEXT : Do you snore loudly (louder than talking or can be heard through closed doors)? 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 Specify any problems Hx of Preganancy in last 3 N/A 12/01/24 15:29 Months Nurse Filling Out Transfusion VCHRISTIN 12/01/24 15:29 Questions: Date: 12/01/24 12/01/24 15:29 Time: 15:30 12/01/24 15:29 Patient unable to answer at this time (ie. confused, unrespo /Reproduction History /Reproductive History - manager transit: /Reproductive Hx- manager transit Hx Now Gestational Age (in weeks): EDC: Hx Hx Para Hx Section SAB PFSH Medical History (Updated 12/01/24 @ 15:29 by Iram Haddad) Alcohol use History of steroid therapy Back pain History of pain when walking Wears glasses Cancer Prostate disease High cholesterol History of diverticulitis Former smoker Carotid stenosis, left Carotid bruit Atherosclerosis 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 of extremities with rest pain, left leg Claudication of left lower extremity Basal cell carcinoma Elevated PSA ( 2020) Anemia ( 2018) Raynaud disease ( 2018) Gout Hyperlipemia Hypertension Home Medications ???Medication ???Instructions ???Recorded ???Last Taken ???Type lisinopril 10 mg tablet 10 mg PO DAILY HYPERTENSION 07/14/23 History aspirin 81 mg chewable tablet 81 mg PO DAILY@0800 HEART HEALTH 0 03/15/17 12/01/24 History multivitamin (Multiple Vitamins 1 ea PO DAILY SUPPLEMENT 03/15/17 Unknown History tablet) allopurinol 100 mg tabl (more content not included)... Normal [facility] Absolute neutrophil countOrd ered By: Candice Song on 11-29-2024 Neutrophils (Bld) [#/Vol] 7.3 10*3/uL 2.0-7.7 [facility] Basophil percentageOrdered B y: Candice Song on 11-29-2024 Basophils/100 WBC (Bld) 0.4 % 0-1 [facility] C-reactive protein measureme nt by high sensitivity methodOrdered By: Candice Song on 11-29-2024 C-Reactive Protein Extended Range 24.50 mg/L High 0.0-3.0 [facility] Comment on above: C-Reactive Protein ( CRP) provides useful information for thediagnosis, therapy and monitoring of inflammatory processesand associated diseases. For the evaluation of Relative Riskfor Cardiovascular Disease, a High Sensitivity CRP (HSCRP)should be ordered. CBC W/Diff, Automatedon 11-12 Absolute Lymph 2.97 X10 3/uL Normal 0.83-4.51 [facility] Comment on above: Performed By: #### L 101.9900, L501.6710, L100.0100 ####[facility] [address] [place], [address] Absolute Neut 7.3 X10 3/uL Normal 2.0-7.7 [facility] Comment on above: Performed By: #### L 101.9900, L501.6710, L100.0100 ####[facility] [address] [place], [address] Basophils/100 WBC (Bld) 0.4 % Normal 0-1 [facility] Comment on above: Performed By: #### L 101.9900, L501.6710, L100.0100 ####[facility] [address] [place], [address] Eosinophils/100 WBC (Bld) 4.6 % Normal 0-5 [facility] Comment on above: Performed By: #### L 101.9900, L501.6710, L100.0100 ####[facility] [address] [place], [address] Erythrocyte distribution width (RBC) [Ratio] 13.7 % Normal 11.6-14.6 [facility] Comment on above: Performed By: #### L 101.9900, L501.6710, L100.0100 ####[facility] [address] [place], [address] Hematocrit (Bld) [Volume fraction] 40.6 % Normal 40-54 [facility] Comment on above: Performed By: #### L 101.9900, L501.6710, L100.0100 ####[facility] [address] [place], [address] Hemoglobin (Bld) [Mass/Vol] 12.9 g/dL Low 13.0-16.5 [facility] Comment on above: Performed By: #### L 101.9900, L501.6710, L100.0100 ####[facility] [address] [place], [address] IG% 0.300 Normal 0.0-0.9 [facility] Comment on above: Result Comment: IG% - Immature Granulocytes (promyelocytes, myelocytes and metamyelocytes) > 1% indicates that a LEFT SHIFT is Present. Performed By: #### L 101.9900, L501.6710, L100.0100 ####[facility] [address] [place], [address] Lymphocytes/100 WBC (Bld) 25.0 % Normal 19-41 [facility] Comment on above: Performed By: #### L 101.9900, L501.6710, L100.0100 ####[facility] [address] [place], [address] MCH (RBC) [Entitic mass] 30.1 pg Normal 27.0-32.0 [facility] Comment on above: Performed By: #### L 101.9900, L501.6710, L100.0100 ####[facility] [address] [place], [address] MCHC (RBC) [Mass/Vol] 31.8 g/dL Low 32-36 [facility] Comment on above: Performed By: #### L 101.9900, L501.6710, L100.0100 ####[facility] [address] [place], [address] MCV (RBC) [Entitic vol] 94.9 fL High 80-94 [facility] Comment on above: Performed By: #### L 101.9900, L501.6710, L100.0100 ####[facility] [address] [place], [address] Monocytes/100 WBC (Bld) 8.2 % Normal 0-10 [facility] Comment on above: Performed By: #### L 101.9900, L501.6710, L100.0100 ####[facility] [address] [place], [address] Neutrophils/100 WBC (Bld) 61.5 % Normal 47-70 [facility] Comment on above: Performed By: #### L 101.9900, L501.6710, L100.0100 ####[facility] [address] [place], [address] Nucleated RBC (Bld) [#/Vol] 0 10*3/uL Normal 0-5 [facility] Comment on above: Performed By: #### L 101.9900, L501.6710, L100.0100 ####[facility] [address] [place], [address] Platelet mean volume (Bld) [Entitic vol] 11.3 fL Normal 6.2-12.0 [facility] Comment on above: Performed By: #### L 101.9900, L501.6710, L100.0100 ####[facility] [address] [place], [address] Platelets (Bld) [#/Vol] 293 10*3/uL Normal 150-450 [facility] Comment on above: Performed By: #### L 101.9900, L501.6710, L100.0100 ####[facility] [address] [place], [address] RBC (Bld) [#/Vol] 4.28 10*6/uL Low 4.6-6.2 [facility] Comment on above: Performed By: #### L 101.9900, L501.6710, L100.0100 ####[facility] [address] [place], [address] RDW SD 48.0 fl High 35.1-43.9 [facility] Comment on above: Performed By: #### L 101.9900, L501.6710, L100.0100 ####[facility] [address] [place], [address] WBC (Bld) [#/Vol] 11.9 10*3/uL High 4.4-11.0 [facility] Comment on above: Performed By: #### L 101.9900, L501.6710, L100.0100 ####[facility] [address] [place], [address] CRPon 11-29-2024 C-REACTIVE PROT 24.50 mg/L High 0.0-3.0 [facility] Comment on above: Result Comment: C-Re active Protein (CRP) provides useful information for the diagnosis, therapy and monitoring of inflammatory processes and associated diseases. For the evaluation of Relative Risk for Cardiovascular Disease, a High Sensitivity CRP (HSCRP) should be ordered. Performed By: #### L 101.9900, L501.6710, L100.0100 ####[facility] [address] [place], [address] Eosinophil percentageOrdered By: Candice Song on 11-29-2024 Eosinophils/100 WBC (Bld) 4.6 % 0-5 [facility] Erythrocyte Sed Rateon 11-29 SED RATE 26 mm/hr High 0-20 [facility] Comment on above: Performed By: #### L 101.9900, L501.6710, L100.0100 ####[facility] [address] [place], [address] Erythrocyte distribution wid th ratioOrdered By: Candice Song on 11-29-2024 Erythrocyte distribution width (RBC) [Ratio] 13.7 % 11.6-14.6 [facility] Erythrocyte distribution wid th standard deviationOrdered By: Candice Song on 11-29-2024 Erythrocyte distribution width (RBC) [Entitic vol] 48.0 fL High 35.1-43.9 [facility] Erythrocyte sedimentation ra teOrdered By: Candice Song on 11-29-2024 ESR (Bld) [Velocity] 26 mm/h High 0-20 [facility] Hematocrit Auto (Bld) [Volum e fraction]Ordered By: Candice Song on 11-29-2024 Hematocrit (Bld) [Volume fraction] 40.6 % 40-54 [facility] Hemoglobin measurementOrdere d By: Candice Song on 11-29-2024 Hemoglobin (Bld) [Mass/Vol] 12.9 g/dL Low 13.0-16.5 [facility] Immature granulocytes/100 WB C Auto (Bld)Ordered By: Candice Song on 11-29-2024 Immature granulocytes/100 WBC (Bld) 0.300 % 0.0-0.9 [facility] Comment on above: IG% - Immature Granu locytes (promyelocytes, myelocytes and metamyelocytes) > 1% indicates that a LEFT SHIFT is Present. Lymphocytes Auto (Unsp spec) [#/Vol]Ordered By: Candice Song on 11-29-2024 Lymphocytes (Bld) [#/Vol] 2.97 10*3/uL 0.83-4.51 [facility] Lymphocytes/100 WBC Auto (Un sp spec)Ordered By: Candice Song on 11-29-2024 Lymphocytes/100 WBC (Bld) 25.0 % 19-41 [facility] MCV (mean corpuscular volume ) determinationOrdered By: Candice Song on 11-29-2024 MCV (RBC) [Entitic vol] 94.9 fL High 80-94 [facility] Mean corpuscular hemoglobin (MCH) determinationOrdered By: Candice Song on 11-29-2024 MCH (RBC) [Entitic mass] 30.1 pg 27.0-32.0 [facility] Mean corpuscular hemoglobin concentration (MCHC) determinationOrdered By: Candice Song on 11-29-2024 MCHC (RBC) [Mass/Vol] 31.8 g/dL Low 32-36 [facility] Mean platelet volume determi nationOrdered By: Candice Song on 11-29-2024 Platelet mean volume (Bld) [Entitic vol] 11.3 fL 6.2-12.0 [facility] Monocyte percentageOrdered B y: Candice Song on 11-29-2024 Monocytes/100 WBC (Bld) 8.2 % 0-10 [facility] Neutrophil percentageOrdered By: Candice Song on 11-29-2024 Neutrophils/100 WBC (Bld) 61.5 % 47-70 [facility] Nucleated red blood cell per centageOrdered By: Candice Song on 11-29-2024 Nucleated RBC/100 WBC (Bld) [Ratio] 0 % 0-5 [facility] Platelet countOrdered By: [place] Song on 11-29-2024 Platelets (Bld) [#/Vol] 293 10*3/uL 150-450 [facility] RBC Auto (Bld) [#/Vol]Ordere d By: Candice Song on 11-29-2024 RBC (Bld) [#/Vol] 4.28 10*6/uL Low 4.6-6.2 [facility] White blood cell (WBC) count Ordered By: Candice Song on 11-29-2024 WBC (Bld) [#/Vol] 11.9 10*3/uL High 4.4-11.0 [facility] MR/BMS.José 11-02-2024 MR/BMS.ALECIAS [facility] [address] [place], [place] [address] OFFICE VISIT Date of Service: 11/02/24 MR#: [id number] Acct: [id number] Name: LENNIE MAXWELL Rep #: [id number] : 1940 Provider: RASHAD Albright Age/Sex: 83/M Location: [facility] [place] Status: Signed Intake Vital Signs 02/26/24 08:55 11/02/24 11:35 Height 6 ft Weight: 193 lb BP 169/66 H Blood Pressure Location Lt brachial Position Sitting Respiration 14 Pulse 65 Pulse Source Monitor Temp 97.5 F L Temp Source Temporal Pulse Oximetry (%) 99 Oxygen Delivery Method room air Intake Visit Reasons: DISCUSS CHOLESTEROL MEDS Is patient in pain?: Yes Pain scale (1-10): 2 Allergies No Known Allergies Allergy (Verified 11/02/24 11:36) Medications ???Medication ???Instructions ???Recorded ???Confirmed ???Type lisinopril 10 mg tablet 10 mg PO DAILY HYPERTENSION 02/17/14 11/02/24 History aspirin 81 mg chewable tablet 81 mg PO DAILY@0800 HEART HEALTH 03/15/17 11/02/24 History multivitamin (Multiple Vitamins 1 ea PO DAILY SUPPLEMENT 03/15/17 11/02/24 History tablet) allopurinol 100 mg tablet 100 mg PO DAILY GOUT 07/01/23 11/02/24 History hydrocortisone 2.5 % topical cream 1 applic [place] BID-QID PRN 02/26/24 11/02/24 Rx with perineal applicator hemorrhoids #30 grams (Proctozone-HC) vitamins A,C,A-bzni-glvpzf 2,148 2 tab PO BID 11/02/24 11/02/24 History mcg-113 mg-45 mg-17.4 mg tablet (PreserVision AREDS) Have you fallen in the past year?: No PFSH Medical History (Updated 11/02/24 @ 12:47 by RASHAD Albright) Carotid bruit Claudication of left lower extremity Atherosclerosis 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 of extremities with rest pain, left leg Wears glasses Cancer Prostate disease High cholesterol History of diverticulitis Former smoker Carotid stenosis, left Basal cell carcinoma Elevated PSA ( 2020) Anemia ( 2019) Raynaud disease ( 2019) Gout Hyperlipemia Hypertension Surgical History History of angioplasty ( 2020) H/O hernia repair History of appendectomy Hx of tonsillectomy Family History Mother Cancer Father Myocardial infarction Heart disease Brother Afib DVT (deep venous thrombosis) Sister Afib Social History Smoking Status: Former smoker HPI HPI HPI: LENNIE MAXWELL, is a 83 M who presents to the office today for annual follow-up of his carotid disease s/p L CEA (07/14/23) PAD s/p left popliteal atherectomy/DCB (04/01/23) for lifestyle limiting claudication. In general, he has been doing very well. He has not had any recurrence of his LLE claudication. He continues to enjoy a very regular walking regimen, typically walking multiple miles a day without limitation. He also denies any episodes of neurologic symptoms concerning for CVA/TIA including unilateral weakness or numbness/paresthesias, vision changes, dysarthria, facial drooping. His last carotid duplex was 07/2024 and showed mild <50% stenosis of the bilateral ICAs. His last arterial studies were 09/29/24 and showed L BIMAL 0.96 with triphasic waveforms, R BIMAL 1.21 with triphasic waveforms, and arterial duplex without any evidence of stenosis. He continues to take daily ASA without any adverse bleeding. He had been taking rosuvastatin 40mg daily for the last year. In July, he began to develop generalized achiness and muscle soreness and this has continued to progressively worsen over the last few months. He now takes ibuprofen several times a day to manage these generalized muscle aches. He questions if this could be from the statin. He reports that years ago he had been on Lipitor and did not recall having trouble with that, though unclear why that was stopped. ROS General General: No weight change, appetite, fatigue, colon cancer, breast cancer or weakness HEENT HEENT: Yes eye injury and eye surgery; No difficulty swallowing, swollen glands or hoarseness Endo Endocrine: No thyroid disease, diabetes mellitus, thyroid cancer, Hair loss, heat intolerance or cold intolerance Skin Skin: No rash or changing moles Musc Musculoskeletal: Yes gout; No back problems, arthritis, rheumatoid arthritis or joint pain Cardio Cardiovascular: Yes high blood pressure; No murmur, pacemaker, heart disease, atrial fibrillation, heart attack, heart stent, palpitations, shortness of breat with exertion or chest pain Psych Psychiatric: No depression, anxiety or hearing voices Resp Respiratory: No shortness of breath, No sleep apnea, No cough, No COPD, No asthma, No emphysema and No wheezing Gastro Gastrointestinal: No abdominal pain, No nausea or vomiting, No diarrhea, No const (more content not included)... Normal [facility] Ankle Brachial Indexon 09-29 Ankle Brachial Index [facility] [place] [address] Ankle Brachial Index 09/29/24 0848 MR#: [id number] Acct: [id number] Name: LENNIE MAXWELL Rep #: [id number] : 1940 83 From: Tevin Lopez MD Attending Dr: RASHAD Albright Status: REG CLI Ordering Dr: Kavitha Alvares Date: 09/29/24 Location: [facility] Sex: M C Admitted: Reason For Study: S/P Angioplasty Lt Pop Procedure A bilateral lower extremity continuous wave Doppler with analog waveform analysis and ankle brachial indexes. Left Segmental Pressures Left brachial= 136mmHg. Left posterior tibial artery = 124mmHg. Left dorsalis pedis artery = 131mmHg. The left dorsalis pedis waveforms are triphasic. The left posterior tibial artery waveforms are biphasic. Right Segmental Pressures Right brachial= 135mmHg. Right posterior tibial artery = 150mmHg. Right dorsalis pedis artery = 164mmHg. The right dorsalis pedis waveforms are triphasic. The right posterior tibial artery waveforms are triphasic. Indices The right ankle brachial index by the dorsalis pedis is 1.21. The right ankle brachial index by the posterior tibial artery is 1.10. The left ankle brachial index by the dorsalis pedis is 0.96. The left ankle brachial index by the posterior tibial artery is 0.91. VL/Ankle Brachial Index Interpretation Summary Right BIMAL 1.21, normal. Doppler/PVR waveforms of the right ankle normal at rest. Left BIMAL 0.96, mild arterial insufficiency. Doppler/PVR waveforms of the left ankle normal at rest. Ordering Physician: Kavitha Alvares Referring Physician: Candice Song MD Performed By: Michelle Nova RVT and Student 09/29/241852 Date Tevin Lopez MD CC: RASHAD Albright; Dr. Candice Song MD Date Dictated: 09/29/2448 Date Transcribed: 09/29/241852 Hander In: Signed Normal [facility] US Art Duplex Unilat Lower E xton 09-29-2024 US Art Duplex Unilat Lower Ext [facility] [address] [place] [address] US Art Duplex Unilat Lower Ext 09/29/24 0901 MR#: [id number] Acct: [id number] Name: LENNIE MAXWELL Rep #: [id number] : 1940 83 From: Tevin Lopez MD Attending Dr: RASHAD Albright Status: REG CLI Ordering Dr: Kavitha Alvares Date: 09/29/24 Location: [facility] Sex: M C Admitted: Reason For Study: S/P Angioplasty Lt Pop Left Velocities Common Iliac Artery, dist = 87.7 cm./sec. Common Femoral Artery, mid = 96.4 cm./sec. Supf. Femoral Artery, prox = 100.8 cm./sec. Supf. Femoral Artery, mid = 200.1 cm./sec. Supf. Femoral Artery, dist = 77.9 cm./sec. Profunda Femoral Artery = 72.2 cm./sec. Popliteal Artery, mid = 51.4 cm./sec. Post. Tibial Artery, prox = 42.8 cm./sec. Post Tibial Artery, mid = 26.4 cm./sec. Post Tibial Artery, dist. = 7.2 cm./sec. Peroneal Artery, prox = 102.1 cm./sec. Peroneal Artery, mid = 55.1 cm./sec. Peroneal Artery,dist. = 56.4 cm./sec. Ant.Tibial Artery, prox = 76.9 cm./sec. Ant Tibial Artery, mid = 361.2 cm./sec. Ant. Tibial Artery, distal = 50.2 cm./sec. Procedure Exam performed in department. VL/US Art Duplex Unilat Lower Ext Interpretation Summary Patent left lower extremity arteries with no focal stenosis identified. Ordering Physician: Kavitha Alvares Referring Physician: Kavitha Alvares Performed By: Michelle Nova RVT and Student 09/29/241855 Date Tevin Lopez MD CC: RASHAD Albright; Dr. Candice Song MD Date Dictated: 09/29/24900 Date Transcribed: 09/29/241855 Hander In: Signed Normal [facility] Carotid Duplex Ultrasoundon 07-29-2024 Carotid Duplex Ultrasound [facility] [address] [place] [address] Carotid Duplex Ultrasound 07/29/24811 MR#: [id number] Acct: [id number] Name: LENNIE MAXWELL Rep #: [id number] : 1940 83 From: Tevin Lopez MD Attending Dr: RASHAD Albright Status: REG CLI Ordering Dr: Kavitha Alvares Date: 07/29/24 Location: [facility] Sex: M C Admitted: Reason For Study: S/P Lt CEA Rt. Velocities/BP Lt. Velocities/BP Prox CCA 65.5/10.7 cm/sec. Prox CCA 80.5/8.1 cm/sec. Mid CCA 61.7/10.7 cm/sec. Mid CCA 84.9/9 cm/sec. Dist CCA 57.9/7.8 cm/sec. Dist CCA 61.3/8.1 cm/sec. Prox ICA 72.9/13.5 cm/sec. Prox ICA 41.5/6.6 cm/sec. Mid ICA 115.6/22.5 cm/sec. Mid ICA 122.9/29.8 cm/sec. Dist ICA 63/11.3 cm/sec. Dist ICA 78.4/16.8 cm/sec. Rt. ICA/CCA = 1.87. Lt. ICA/CCA = 1.45. Prox ECA 239.2 cm/sec. Prox ECA 175.9 cm/sec. Rt. Vert. 53.2/6.9 cm/sec. Lt. Vert. 59.7/16.8 cm/sec. Right Extracranial There is homogeneous, smooth atherosclerotic plaque noted in the right common carotid artery. There is heterogeneous, irregular atherosclerotic plaque noted in the right internal carotid artery. There is heterogeneous, irregular atherosclerotic plaque noted in the right external carotid artery. Antegrade flow is noted in the right vertebral artery. Left Extracranial There is homogeneous, smooth atherosclerotic plaque noted in the left common carotid artery. There is homogeneous, smooth atherosclerotic plaque noted in the left internal carotid artery. There is homogeneous, smooth atherosclerotic plaque noted in the left external carotid artery. Antegrade flow is noted in the left vertebral artery. Procedure Carotid Duplex 69409. This is a Carotid Duplex examination using B-mode, color flow and specral Doppler. Exam performed in department. VL/Carotid Duplex Ultrasound Interpretation Summary Mild (<50%) stenosis right extracranial internal carotid. Mild (<50%) stenosis left extracranial internal carotid. Patent and antegrade vertebrals bilaterally. Ordering Physician: Kavitha Alvares Referring Physician: Candice Song Performed By: Willinger, Michelle, RVT 08/02/24 154 Date Tevin Lopez MD CC: RASHAD Albright; Dr. Candice Song MD Date Dictated: 07/29/24811 Date Transcribed: 08/02/241548 Hander In: Signed Normal [facility] PSA Total+%Freeon 06-22-2024 PSA, FREE 1.12 ng/mL Normal N/A [facility] Comment on above: Result Comment: Marino DYER methodology. Performed By: #### L 501.1400, L500.4100, L100.0100, L500.4050, L3110.0500 ####[facility] [address], [address] PSA, FREE % 12.6 Normal . [facility] Comment on above: Result Comment: The table below lists the probability of prostate cancer for men with non-suspicious MAYRA results and total PSA between 4 and 10 ng/mL, by patient age (Catalona et al, MURPHY 1998, 279:1542). % Free PSA 50-64 yr 65-75 yr 0.00-10.00% 56% 55% 10.01-15.00% 24% 35% 15.01-20.00% 17% 23% 20.01-25.00% 10% 20% >25.00% 5% 9% Please note: Giovanni et al did not make specific recommendations regarding the use of percent free PSA for any other population of men. Performed at: [address] [id number] [employer]: Robinson Mendoza PhD, Phone: [phone] Performed By: #### L 501.1400, L500.4100, L100.0100, L500.4050, L3110.0500 ####[facility] [address] [place], [address] PSA, TOTAL ULTR 8.900 ng/mL Abnormal 0.000-4.000 [facility] Comment on above: Result Comment: Marino DYER methodology. According to the [place] [employer], Serum PSA should decrease and remain at undetectable levels after radical prostatectomy. The AUA defines biochemical recurrence as an initial PSA value 0.200 ng/mL or greater followed by a subsequent confirmatory PSA value 0.200 ng/mL or greater. Values obtained with different assay methods or kits cannot be used interchangeably. Results cannot be interpreted as absolute evidence of the presence or absence of malignant disease. Performed By: #### L 501.1400, L500.4100, L100.0100, L500.4050, L3110.0500 ####[facility] [address] [place], [address] CBC W/Diff, Automatedon 09 0-2023 Absolute Lymph 3.53 X10 3/uL Normal 0.83-4.51 [facility] Comment on above: Performed By: #### L 501.1400, L500.4100, L100.0100, L500.4050, L3110.0500 ####[facility] [address] [place], [address] Absolute Neut 4.7 X10 3/uL Normal 2.0-7.7 [facility] Comment on above: Performed By: #### L 501.1400, L500.4100, L100.0100, L500.4050, L3110.0500 ####[facility] [address] [place], [address] Basophils/100 WBC (Bld) 0.7 % Normal 0-1 [facility] Comment on above: Performed By: #### L 501.1400, L500.4100, L100.0100, L500.4050, L3110.0500 ####[facility] [address] [place], [address] Eosinophils/100 WBC (Bld) 6.2 % High 0-5 [facility] Comment on above: Performed By: #### L 501.1400, L500.4100, L100.0100, L500.4050, L3110.0500 ####[facility] [address] [place], [address] Erythrocyte distribution width (RBC) [Ratio] 13.5 % Normal 11.6-14.6 [facility] Comment on above: Performed By: #### L 501.1400, L500.4100, L100.0100, L500.4050, L3110.0500 ####[facility] [address] [place], [address] Hematocrit (Bld) [Volume fraction] 40.7 % Normal 40-54 [facility] Comment on above: Performed By: #### L 501.1400, L500.4100, L100.0100, L500.4050, L3110.0500 ####[facility] [address] [place], [address] Hemoglobin (Bld) [Mass/Vol] 13.3 g/dL Normal 13.0-16.5 [facility] Comment on above: Performed By: #### L 501.1400, L500.4100, L100.0100, L500.4050, L3110.0500 ####[facility] [address] [place], [address] IG% 0.400 Normal 0.0-0.9 [facility] Comment on above: Result Comment: IG% - Immature Granulocytes (promyelocytes, myelocytes and metamyelocytes) > 1% indicates that a LEFT SHIFT is Present. Performed By: #### L 501.1400, L500.4100, L100.0100, L500.4050, L3110.0500 ####[facility] [address] [place], [address] Lymphocytes/100 WBC (Bld) 36.6 % Normal 19-41 [facility] Comment on above: Performed By: #### L 501.1400, L500.4100, L100.0100, L500.4050, L3110.0500 ####[facility] [address] [place], [address] MCH (RBC) [Entitic mass] 30.5 pg Normal 27.0-32.0 [facility] Comment on above: Performed By: #### L 501.1400, L500.4100, L100.0100, L500.4050, L3110.0500 ####[facility] [address] [place], [address] MCHC (RBC) [Mass/Vol] 32.7 g/dL Normal 32-36 [facility] Comment on above: Performed By: #### L 501.1400, L500.4100, L100.0100, L500.4050, L3110.0500 ####[facility] [address] [place], [address] MCV (RBC) [Entitic vol] 93.3 fL Normal 80-94 [facility] Comment on above: Performed By: #### L 501.1400, L500.4100, L100.0100, L500.4050, L3110.0500 ####[facility] [address] [place], [address] Monocytes/100 WBC (Bld) 6.8 % Normal 0-10 [facility] Comment on above: Performed By: #### L 501.1400, L500.4100, L100.0100, L500.4050, L3110.0500 ####[facility] [address] [place], [address] Neutrophils/100 WBC (Bld) 49.3 % Normal 47-70 [facility] Comment on above: Performed By: #### L 501.1400, L500.4100, L100.0100, L500.4050, L3110.0500 ####[facility] [address] [place], [address] Nucleated RBC (Bld) [#/Vol] 0 10*3/uL Normal 0-5 [facility] Comment on above: Performed By: #### L 501.1400, L500.4100, L100.0100, L500.4050, L3110.0500 ####[facility] [address] [place], [address] Platelet mean volume (Bld) [Entitic vol] 11.2 fL Normal 6.2-12.0 [facility] Comment on above: Performed By: #### L 501.1400, L500.4100, L100.0100, L500.4050, L3110.0500 ####[facility] [address] [place], [address] Platelets (Bld) [#/Vol] 215 10*3/uL Normal 150-450 [facility] Comment on above: Performed By: #### L 501.1400, L500.4100, L100.0100, L500.4050, L3110.0500 ####[facility] [address] [place], [address] RBC (Bld) [#/Vol] 4.36 10*6/uL Low 4.6-6.2 [facility] Comment on above: Performed By: #### L 501.1400, L500.4100, L100.0100, L500.4050, L3110.0500 ####[facility] [address] [place], [address] RDW SD 46.3 fl High 35.1-43.9 [facility] Comment on above: Performed By: #### L 501.1400, L500.4100, L100.0100, L500.4050, L3110.0500 ####[facility] [address] [place], [address] WBC (Bld) [#/Vol] 9.6 10*3/uL Normal 4.4-11.0 [facility] Comment on above: Performed By: #### L 501.1400, L500.4100, L100.0100, L500.4050, L3110.0500 ####[facility] [address] [place], [address] Comprehensive Metabolic Prof ilon 06-21-2024 Albumin [Mass/Vol] 3.4 g/dL Normal 3.2-5.0 [facility] Comment on above: Performed By: #### L 501.1400, L500.4100, L100.0100, L500.4050, L3110.0500 ####[facility] [address] [place], [address] Albumin/Globulin [Mass ratio] 0.9 {ratio} Normal 0.9-2.4 [facility] Comment on above: Performed By: #### L 501.1400, L500.4100, L100.0100, L500.4050, L3110.0500 ####[facility] [address] [place], [address] ALK P 99 U/L Normal 45-117 [facility] Comment on above: Performed By: #### L 501.1400, L500.4100, L100.0100, L500.4050, L3110.0500 ####[facility] [address] [place], [address] ALT [Catalytic activity/Vol] 25 U/L Normal 16-61 [facility] Comment on above: Performed By: #### L 501.1400, L500.4100, L100.0100, L500.4050, L3110.0500 ####[facility] [address] [place], [address] AST [Catalytic activity/Vol] 22 U/L Normal 15-37 [facility] Comment on above: Performed By: #### L 501.1400, L500.4100, L100.0100, L500.4050, L3110.0500 ####[facility] [address] [place], [address] Bilirubin [Mass/Vol] 0.80 mg/dL Normal 0.20-1.00 [facility] Comment on above: Result Comment: For patients on eltrombopag therapy, use of Dimension [place] TBIL is not recommended. Performed By: #### L 501.1400, L500.4100, L100.0100, L500.4050, L3110.0500 ####[facility] [address] [place], [address] BUN/CRE 20.8 RATIO High 10-20 [facility] Comment on above: Performed By: #### L 501.1400, L500.4100, L100.0100, L500.4050, L3110.0500 ####[facility] [address] [place], [address] CA,Total 9.5 mg/dL Normal 8.5-10.1 [facility] Comment on above: Performed By: #### L 501.1400, L500.4100, L100.0100, L500.4050, L3110.0500 ####[facility] [address] [place], [address] Chloride [Moles/Vol] 103 mmol/L Normal 98-107 [facility] Comment on above: Performed By: #### L 501.1400, L500.4100, L100.0100, L500.4050, L3110.0500 ####[facility] [address] [place], [address] CO2 [Moles/Vol] 30.0 mmol/L Normal 21.0-32.0 [facility] Comment on above: Performed By: #### L 501.1400, L500.4100, L100.0100, L500.4050, L3110.0500 ####[facility] [address] [place], [address] Creatinine [Mass/Vol] 1.01 mg/dL Normal 0.70-1.30 [facility] Comment on above: Result Comment: The validity of the calculated GFR GFRAA in patients over 70 years has not been determined. Clinical correlation is essential. Performed By: #### L 501.1400, L500.4100, L100.0100, L500.4050, L3110.0500 ####[facility] [address] [place], [address] EST GFR - AA 91 mL/min Normal >60 [facility] Comment on above: Result Comment: Afri can [place] GFR Calc Performed By: #### L 501.1400, L500.4100, L100.0100, L500.4050, L3110.0500 ####[facility] [address] [place], [address] GAP 5 Normal 5-15 [facility] Comment on above: Performed By: #### L 501.1400, L500.4100, L100.0100, L500.4050, L3110.0500 ####[facility] [address] [place], [address] GFR/1.73 sq M.predicted among non-blacks MDRD (S/P/Bld) [Vol rate/Area] 75 mL/min/{1.73_m2} Normal >60 [facility] Comment on above: Result Comment: Non- GFR Calc Performed By: #### L 501.1400, L500.4100, L100.0100, L500.4050, L3110.0500 ####[facility] [address] [place], [address] Globulin (S) [Mass/Vol] 3.9 g/dL Normal 2.2-4.2 [facility] Comment on above: Performed By: #### L 501.1400, L500.4100, L100.0100, L500.4050, L3110.0500 ####[facility] [address] [place], [address] Glucose [Mass/Vol] 92 mg/dL Normal 74-106 [facility] Comment on above: Performed By: #### L 501.1400, L500.4100, L100.0100, L500.4050, L3110.0500 ####[facility] [address] [place], [address] Potassium [Moles/Vol] 4.4 mmol/L Normal 3.5-5.1 [facility] Comment on above: Performed By: #### L 501.1400, L500.4100, L100.0100, L500.4050, L3110.0500 ####[facility] [address] [place], [address] Sodium [Moles/Vol] 138 mmol/L Normal 136-145 [facility] Comment on above: Performed By: #### L 501.1400, L500.4100, L100.0100, L500.4050, L3110.0500 ####[facility] [address] [place], [address] T PROT 7.3 g/dL Normal 6.4-8.2 [facility] Comment on above: Performed By: #### L 501.1400, L500.4100, L100.0100, L500.4050, L3110.0500 ####[facility] [address] [place], [address] Urea nitrogen [Mass/Vol] 21 mg/dL High 7-18 [facility] Comment on above: Performed By: #### L 501.1400, L500.4100, L100.0100, L500.4050, L3110.0500 ####[facility] [address] [place], [address] Lipid Profileon 06-21-2024 Cholesterol [Mass/Vol] 172 mg/dL Normal 200 [facility] Comment on above: Result Comment: <200 mg/dL Desirable 200-240 mg/dL Borderline >240 mg/dL High Risk Performed By: #### L 501.1400, L500.4100, L100.0100, L500.4050, L3110.0500 ####[facility] [address] [place], [address] Cholesterol in HDL [Mass/Vol] 65 mg/dL Normal [facility] Comment on above: Result Comment: The drugs N-Acetylcysteine and Metamizole may falsely depress this assay. Reference Range HDL <40 mg/dL Low HDL Cholesterol HDL >or= 60 mg/dL High HDL Cholesterol Performed By: #### L 501.1400, L500.4100, L100.0100, L500.4050, L3110.0500 ####[facility] [address] [place], [address] Cholesterol in LDL [Mass/Vol] 80 mg/dL Normal 0-130 [facility] Comment on above: Performed By: #### L 501.1400, L500.4100, L100.0100, L500.4050, L3110.0500 ####[facility] [address] [place], [address] Cholesterol in VLDL [Mass/Vol] 27 mg/dL Normal 5-40 [facility] Comment on above: Performed By: #### L 501.1400, L500.4100, L100.0100, L500.4050, L3110.0500 ####[facility] [address] [place], [address] Triglyceride [Mass/Vol] 133 mg/dL Normal [facility] Comment on above: Result Comment: The drugs N-Acetylcysteine and Metamizole may falsely depress this assay. Serum Triglycerides Reference Interval Normal <150 mg/dL Borderline high 150 - 199 mg/dL High 200 - 499 mg/dL Very High > or = 500 mg/dL Performed By: #### L 501.1400, L500.4100, L100.0100, L500.4050, L3110.0500 ####[facility] [address] [place], [address] Uric Acidon 06-21-2024 URIC 5.6 mg/dL Normal 3.5-7.2 [facility] Comment on above: Result Comment: The drugs N-Acetylcysteine and Metamizole may falsely depress this assay. Performed By: #### L 501.1400, L500.4100, L100.0100, L500.4050, L3110.0500 ####[facility] [address] [place], [address] Ankle Brachial Indexon 03-23 Ankle Brachial Index [facility] [address] [place] [address] Ankle Brachial Index 03/23/24 1250 MR#: [id number] Acct: [id number] Name: LENNIE MAXWELL Rep #: [id number] : 1940 83 From: Tevin Lopez MD Attending Dr: Dr. Tevin Lopez MD Status: HIGINIO GASPAR Ordering Dr: Tevin Lopez MD Date: 03/23/24 Location: [facility] Sex: M C Admitted: Reason For Study: PAD left popliteal intervention Procedure A bilateral lower extremity continuous wave Doppler with analog waveform analysis and ankle brachial indexes. Left Segmental Pressures Left brachial= 129mmHg. Left posterior tibial artery = 94mmHg. Left dorsalis pedis artery = 99mmHg. Left digit = 89 mmHg. The left dorsalis pedis waveforms are biphasic. The left posterior tibial artery waveforms are biphasic. Right Segmental Pressures Right brachial= 138mmHg. Right posterior tibial artery = 139mmHg. Right dorsalis pedis artery = 147mmHg. Right digit = 106 mmHg. The right dorsalis pedis waveforms are triphasic. The right posterior tibial artery waveforms are triphasic. Indices The right ankle brachial index by the dorsalis pedis is 1.07. The right ankle brachial index by the posterior tibial artery is 1.01. The left ankle brachial index by the posterior tibial artery is .68. The left dorsalis pedis index post exercise is .72. VL/Ankle Brachial Index Interpretation Summary Right BIMAL 1.07, normal. Doppler/PVR waveforms of the right ankle normal at rest. Left BIMAL 0.72, moderate arterial insufficiency. Doppler/PVR waveforms of the left ankle moderately diminished at rest. Ordering Physician: Tevin Lopez Referring Physician: Candice Song Performed By: RENÉ MEDINA Alfonso RDGA 03/24/241657 Date Tevin Lopez MD CC: Dr. Tevin Lopez MD; Dr. Candice Song MD Date Dictated: 03/23/24 1250 Date Transcribed: 03/24/241657 Hander In: Signed Normal [facility] Art Duplex Unilat Lower E xton 03-23-2024 Art Duplex Unilat Lower Ext [facility] [address] [place] [address] [place] Art Duplex Unilat Lower Ext 03/23/24 1250 MR#: [id number] Acct: [id number] Name: LENNIE MAXWELL Rep #: [id number] : 1940 83 From: Tevin Lopez MD Attending Dr: Dr. Tevin Lopez MD Status: REG C CHASITY Ordering Dr: Tevin Lopez MD Date: 03/23/24 Location: [facility] Sex: M C Admitted: Reason For Study: PAD, S/P ANGIOPLASTY LEFT POPLITEAL Left Velocities Ext Iliac Artery, dist = 114.9 cm./sec. Common Iliac Artery, dist = 102.1 cm./sec. Supf. Femoral Artery, prox = 100.8 cm./sec. Supf. Femoral Artery, mid = 238.9 cm./sec. Supf. Femoral Artery, dist = 120.4 cm./sec. Profunda Femoral Artery = 146.9 cm./sec. Popliteal Artery, mid = 51.2 cm./sec. Post. Tibial Artery, prox = 69.8 cm./sec. Post Tibial Artery, mid = 105.1 cm./sec. Post Tibial Artery, dist. = 15.0 cm./sec. Peroneal Artery, prox = 90.4 cm./sec. Peroneal Artery, mid = 103.9 cm./sec. Peroneal Artery,dist. = 105 cm./sec. Ant.Tibial Artery, prox = 44.6 cm./sec. Ant Tibial Artery, mid = 436.8 cm./sec. Ant. Tibial Artery, distal = 80.2 cm./sec. Procedure Exam performed in department. /US Art Duplex Unilat Lower Ext Interpretation Summary Left superficial femoral artery with 50-75% stenosis. Ordering Physician: Tevin Lopez Referring Physician: Tevin Lopez MD Performed By: René Medina RVT 03/24/241701 Date Tevin Lopez MD CC: Dr. Tevin Lopez MD; Dr. Candice Song MD Date Dictated: 03/23/24 1250 Date Transcribed: 03/24/241701 Hander In: Signed Normal [facility] Surgery Visit Reporton 02-25 Surgery Visit Report [facility] [address] [place], [place] [address] OFFICE VISIT Date of Service: 02/26/24 MR#: [id number] Acct: [id number] Name: LENNIE MAXWELL Rep #: [id number] : 1940 Provider: Dr. Becki mueller MD Age/Sex: 83/M Location: [facility] Status: Signed Intake Vital Signs 07/15/23 09:44 02/26/24 08:55 Height 6 ft 6 ft Weight: 187 lb BMI 25.3 BP 196/67 H Blood Pressure Location Rt brachial Position Sitting Respiration 16 Intake Visit Reasons: NON THROMBOSED HEMORRHOID Chief Complaint: non thrombosed hemorrhoid Behavioral Health Technician Required: No Is patient in pain?: No Allergies No Known Allergies Allergy (Verified 02/26/24 08:59) Medications ???Medication ???Instructions ???Recorded ???Confirmed ???Type lisinopril 10 mg tablet 10 mg PO DAILY HYPERTENSION 02/17/14 02/26/24 History aspirin 81 mg chewable tablet 81 mg PO DAILY@0800 [facility] 03/15/17 02/26/24 History multivitamin (Multiple Vitamins 1 ea PO DAILY SUPPLEMENT 03/15/17 02/26/24 History tablet) allopurinol 100 mg tablet 100 mg PO DAILY GOUT 07/01/23 02/26/24 History cilostazol 50 mg tablet 50 mg PO BID VASODILATOR 07/01/23 02/26/24 History clopidogrel 75 mg tablet (Plavix) 75 mg PO DAILY BLOOD THINNER #90 10/02/23 02/26/24 Rx tabs rosuvastatin 40 mg tablet (Crestor) 40 mg PO DAILY #90 tabs 10/21/23 02/26/24 Rx hydrocortisone 2.5 % topical cream 1 applic [place] BID-QID PRN 02/26/24 02/26/24 Rx with perineal applicator hemorrhoids #30 grams (Proctozone-HC) [employer] Medical History Wears glasses Cancer Prostate disease High cholesterol History of diverticulitis Former smoker Carotid stenosis, left Basal cell carcinoma Elevated PSA ( 2020) Anemia ( 2019) Raynaud disease ( 2019) Gout Hyperlipemia Hypertension Surgical History History of angioplasty ( 2020) H/O hernia repair History of appendectomy Hx of tonsillectomy Family History Mother Cancer Father Myocardial infarction Heart disease Brother Afib DVT (deep venous thrombosis) Sister Afib Social History Smoking Status: Former smoker HPI HPI HPI: 83-year-old male presents due to hemorrhoid. Patient states he noticed about 2 to 3 weeks ago send felt a bulge at his anus patient had been previously following elevated PSA so he that he possibly had metastatic prostate cancer as he denied any pain at this area. Patient did see his PCP who told him this was likely just a hemorrhoid. Patient has been trying Preparation H [id number] however patient was unsure about using since he does not really have any symptoms denies any pain any bleeding or irritation. Patient states he has bowel moods daily denies any constipation or prolonged time on the toilet, patient does admit to occasionally straining. ROS General General: No weight change, appetite, fatigue, colon cancer or breast cancer HEENT HEENT: No difficulty swallowing, eye injury, eye surgery, swollen glands or hoarseness Endo Endocrine: No thyroid disease, diabetes mellitus, thyroid cancer, Hair loss, heat intolerance or cold intolerance Skin Skin: No rash or changing moles Musc Musculoskeletal: Yes gout; No back problems, arthritis, rheumatoid arthritis or joint pain Cardio Cardiovascular: No murmur, pacemaker, heart disease, atrial fibrillation, high blood pressure, heart attack, heart stent, palpitations, shortness of breat with exertion or chest pain Psych Psychiatric: No depression, anxiety or hearing voices Resp Respiratory: No shortness of breath, No sleep apnea, No cough, No COPD, No asthma, No emphysema and No wheezing Gastro Gastrointestinal: No abdominal pain, No nausea or vomiting, No diarrhea, No constipation, No blood in stool, No acid reflux, Yes hemorrhoids, No ulcers, No gallbladder problem and No black,tarry stools Michele Hematologic: Yes blood thinners, No blood disorders, Yes bleeding, Yes anemia and No blood clots Neuro Neurologic: No numbness and No tingling Exam Const General: cooperative, healthy appearing, comfortable and no acute distress HENNY Head: normocephalic and atraumatic Neck Neck: supple Resp Effort Inspection: normal respiratory effort Cardio Rate: regular rate GI Inspection: non-distended Palpation: soft Other: MAYRA: External hemorrhoid on the right about 2-4 o'clock, soft, nontender???may communicate with internal tissue but the majority of the hemorrhoid is external. Skin General: no rashes or lesions noted Neuro General: CN's II-XI intact bilaterally Extrem General: normal to inspection P (more content not included)... Normal [facility] Carotid Duplex Ultrasoundon 01-25-2024 Carotid Duplex Ultrasound [facility] [address] [place] [address] Carotid Duplex Ultrasound 01/25/24 0822 MR#: [id number] Acct: [id number] Name: LENNIE MAXWELL Rep #: [id number] : 1940 83 From: Tevin Lopez MD Attending Dr: RASHAD Albright Status: REG CLI Ordering Dr: Kavitha Alvares Date: 01/25/24 Location: CVS Sex: M C Admitted: Reason For Study: S/P Lt CEA Rt. Velocities/BP Lt. Velocities/BP Prox CCA 67.4/8.8 cm/sec. Prox CCA 80.6/10.2 cm/sec. Mid CCA 75.9/13.5 cm/sec. Mid CCA 82.8/11.3 cm/sec. Dist CCA 57/9.7 cm/sec. Dist CCA 75.1/8 cm/sec. Prox ICA 106.5/18.8 cm/sec. Prox ICA 48.5/7.8 cm/sec. Mid ICA 119.3/24.3 cm/sec. Mid ICA 124.7/24.3 cm/sec. Dist ICA 84.6/18.8 cm/sec. Dist ICA 80.9/13.3 cm/sec. Rt. ICA/CCA = 1.57. Lt. ICA/CCA = 1.51. Prox ECA 240.5 cm/sec. Prox ECA 253.1 cm/sec. Rt. Vert. 51.3/8.8 cm/sec. Lt. Vert. 59.7/13.5 cm/sec. Right Extracranial There is homogeneous, smooth atherosclerotic plaque noted in the right common carotid artery. There is heterogeneous, irregular atherosclerotic plaque noted in the right internal carotid artery. There is heterogeneous, irregular atherosclerotic plaque noted in the right external carotid artery. Antegrade flow is noted in the right vertebral artery. Left Extracranial There is homogeneous, smooth atherosclerotic plaque noted in the left common carotid artery. There is homogeneous, smooth atherosclerotic plaque noted in the left internal carotid artery. There is heterogeneous, irregular atherosclerotic plaque noted in the left external carotid artery. Antegrade flow is noted in the left vertebral artery. Procedure Carotid Duplex 42669. This is a Carotid Duplex examination using B-mode, color flow and specral Doppler. Exam performed in department. VL/Carotid Duplex Ultrasound Interpretation Summary Mild (<50%) stenosis right extracranial internal carotid. Mild (<50%) stenosis left extracranial internal carotid. Patent and antegrade vertebrals bilaterally. Ordering Physician: Kavitha Alvares Referring Physician: Candice Song Performed By: Michelle Nvoa RVT 01/26/24 1328 Date Tevin Lopez MD CC: RASHAD Albright; Dr. Candice Song MD Date Dictated: 01/25/24821 Date Transcribed: 01/26/241327 Hander In: [place] August [facility] Absolute lymphocyte countOrd ered By: Tevin Lopez on 07-15-2023 Lymphocytes Auto (Unsp spec) [#/Vol] 1.25 10*3/uL 0.83-4.51 [facility] Basophil percentageOrdered B y: Tevin Lopez on 07-15-2023 Basophils/100 WBC (Bld) 0.2 % 0-1 [facility] Eosinophils/100 WBC (Bld) 0.2 % 0-5 [facility] Lymphocytes/100 WBC (Bld) 22.0 % 19-41 [facility] Monocytes/100 WBC (Bld) 2.6 % 0-10 [facility] Neutrophils (Bld) [#/Vol] 4.2 10*3/uL 2.0-7.7 [facility] Neutrophils/100 WBC (Bld) 74.8 % 47-70 [facility] WBC (Bld) [#/Vol] 5.7 10*3/uL 4.4-11.0 [facility] Blood erythrocytes count (nu mber/volume)Ordered By: Tevin Lopez on 07-15-2023 RBC (Bld) [#/Vol] 3.67 10*6/uL 4.6-6.2 [facility] Blood hemoglobin measurement (mass/volume)Ordered By: Tevin Lopez on 07-15-2023 Hemoglobin (Bld) [Mass/Vol] 11.6 g/dL 13.0-16.5 [facility] Blood platelet mean volumeOr dered By: Tevin Lopez on 07-15-2023 Platelet mean volume (Bld) [Entitic vol] 11.1 fL 6.2-12.0 [facility] Determination of erythrocyte mean corpuscular volume (MCV)Ordered By: Tevin Lopez on 07-15-2023 MCV (RBC) [Entitic vol] 91.8 fL 80-94 [facility] Hematocrit Auto (Bld) [Volum e fraction]Ordered By: Tevin Lopez on 07-15-2023 Hematocrit (Bld) [Volume fraction] 33.7 % 40-54 [facility] Laboratory - Hematology and Cell countsOrdered By: Tevin Lopez on 07-15-2023 Erythrocyte distribution width (RBC) [Entitic vol] 46.2 fL 35.1-43.9 [facility] Erythrocyte distribution width (RBC) [Ratio] 13.6 % 11.6-14.6 [facility] Immature granulocytes/100 WBC (Bld) 0.200 % 0.0-0.9 [facility] Comment on above: IG% - Immature Granu locytes (promyelocytes, myelocytes and metamyelocytes) > 1% indicates that a LEFT SHIFT is Present. MCH (RBC) [Entitic mass] 31.6 pg 27.0-32.0 [facility] Nucleated RBC/100 WBC (Bld) [Ratio] 0 % 0-5 [facility] MCHC Auto (RBC) [Mass/Vol]Or dered By: Tevin Lopez on 07-15-2023 MCHC (RBC) [Mass/Vol] 34.4 g/dL 32-36 [facility] Platelets bldOrdered By: Taniya Lopez on 07-15-2023 Platelets (Bld) [#/Vol] 179 10*3/uL 150-450 [facility] No Panel InformationOrdered By: Tevin Lopez on 07-14-2023 Activated Clotting Time 233 sec 74-137 [facility] INR in Blood by Coagulation assayOrdered By: Meng Ware on 07-02-2023 INR Coag (Bld) [Relative time] 1.0 {INR} [facility] Laboratory - CoagulationOrde red By: Meng Ware on 07-02-2023 aPTT Coag (Bld) [Time] 29.3 s 24.1-36.2 [facility] PT Coag (PPP) [Time] 13.7 s 11.7-14.9 [facility] Absolute lymphocyte countOrd ered By: Candice Song on 06-26-2023 Lymphocytes Auto (Unsp spec) [#/Vol] 3.58 10*3/uL 0.83-4.51 [facility] Basophil percentageOrdered B y: Candice Song on 06-26-2023 Basophils/100 WBC (Bld) 0.5 % 0-1 [facility] Bilirubin [Mass/Vol] 0.40 mg/dL 0.20-1.00 [facility] Comment on above: For patients on eltr ombopag therapy, use of Dimension [place] TBIL is not recommended. Chloride [Moles/Vol] 109 mmol/L 98-107 [facility] Cholesterol [Mass/Vol] 130 mg/dL <200 [facility] Comment on above: <200 mg/dL Desirable 200-240 mg/dL Borderline >240 mg/dL High Risk Eosinophils/100 WBC (Bld) 5.9 % 0-5 [facility] Glucose [Mass/Vol] 103 mg/dL 74-106 [facility] Comment on above: Fasting Glucose resu lt from 100 to 125 mg/dL suggests IMPAIRED HOMEOSTASIS per A.D.A. criteria. Neutrophils (Bld) [#/Vol] 3.2 10*3/uL 2.0-7.7 [facility] Neutrophils/100 WBC (Bld) 40.9 % 47-70 [facility] Potassium [Moles/Vol] 4.1 mmol/L 3.5-5.1 [facility] Protein [Mass/Vol] 7.0 g/dL 6.4-8.2 [facility] Sodium [Moles/Vol] 139 mmol/L 136-145 [facility] Triglyceride [Mass/Vol] 77 mg/dL <199 [facility] Comment on above: The drugs N-Acetylcy steine and Metamizole may falsely depress this assay.Serum Triglycerides Reference Interval Normal <150 mg/dL Borderline high 150 - 199 mg/dL High 200 - 499 mg/dL Very High > or = 500 mg/dL WBC (Bld) [#/Vol] 7.9 10*3/uL 4.4-11.0 [facility] Blood erythrocytes count (nu mber/volume)Ordered By: Candice Song on 06-26-2023 RBC (Bld) [#/Vol] 4.19 10*6/uL 4.6-6.2 [facility] Blood hemoglobin measurement (mass/volume)Ordered By: Candice Song on 06-26-2023 Hemoglobin (Bld) [Mass/Vol] 12.9 g/dL 13.0-16.5 [facility] Blood lymphocytes/100 leukoc ytesOrdered By: Candice Song on 06-26-2023 Lymphocytes/100 WBC (Bld) 45.2 % 19-41 [facility] Blood monocytes/100 leukocyt esOrdered By: Candice Song on 06-26-2023 Monocytes/100 WBC (Bld) 7.2 % 0-10 [facility] Blood platelet mean volumeOr dered By: Candice Song on 06-26-2023 Platelet mean volume (Bld) [Entitic vol] 11.3 fL 6.2-12.0 [facility] Determination of erythrocyte mean corpuscular volume (MCV)Ordered By: Candice Song on 06-26-2023 MCV (RBC) [Entitic vol] 92.6 fL 80-94 [facility] Hematocrit Auto (Bld) [Volum e fraction]Ordered By: Candice Song on 06-26-2023 Hematocrit (Bld) [Volume fraction] 38.8 % 40-54 [facility] Laboratory - Chemistry and C hemistry - challengeOrdered By: Candice Song on 06-26-2023 ALP [Catalytic activity/Vol] 99 U/L 45-117 [facility] ALT [Catalytic activity/Vol] 53 U/L 16-61 [facility] CO2 [Moles/Vol] 28.0 mmol/L 21.0-32.0 [facility] Globulin (S) [Mass/Vol] 3.6 g/dL 2.2-4.2 [facility] Urea nitrogen/Creatinine [Mass ratio] 23.5 mg/mg 10-20 [facility] Laboratory - Hematology and Cell countsOrdered By: Candice Song on 06-26-2023 Erythrocyte distribution width (RBC) [Entitic vol] 45.6 fL 35.1-43.9 [facility] Erythrocyte distribution width (RBC) [Ratio] 13.4 % 11.6-14.6 [facility] Immature granulocytes/100 WBC (Bld) 0.300 % 0.0-0.9 [facility] Comment on above: IG% - Immature Granu locytes (promyelocytes, myelocytes and metamyelocytes) > 1% indicates that a LEFT SHIFT is Present. MCH (RBC) [Entitic mass] 30.8 pg 27.0-32.0 [facility] Nucleated RBC/100 WBC (Bld) [Ratio] 0 % 0-5 [facility] MCHC Auto (RBC) [Mass/Vol]Or dered By: Candice Song on 06-26-2023 MCHC (RBC) [Mass/Vol] 33.2 g/dL 32-36 [facility] No Panel InformationOrdered By: Candice Song on 06-26-2023 Estimated GFR (MDRD) Amer 99 mL/min >60 [facility] Comment on above: GFR Calc Estimated GFR (MDRD) Non-Af Amer 82 mL/min >60 [facility] Comment on above: Non- GFR Calc Percent Free Prostate Specific Ag 0.93 ng/mL N/A [facility] Comment on above: Cindy ECLIA methodol ogy. Prostate Specific Ag, Ultra-Sensitv 7.630 ng/mL 0.000-4.000 [facility] Comment on above: Cindy ECLIA methodol ogy.According to the [place] [employer], Serum PSAshould decrease and remain at undetectable levels afterradical prostatectomy. The AUA defines biochemicalrecurrence as an initial PSA value 0.200 ng/mL or greaterfollowed by a subsequent confirmatory PSA value 0.200 ng/mLor greater. Values obtained with different assay methods orkits cannot be used interchangeably. Results cannot beinterpreted as absolute evidence of the presence or absenceof malignant disease. Platelets bldOrdered By: Kendell Song on 06-26-2023 Platelets (Bld) [#/Vol] 252 10*3/uL 150-450 [facility] Serum or plasma albumin harrison urement (mass/volume)Ordered By: Candice Song on 06-26-2023 Albumin [Mass/Vol] 3.4 g/dL 3.2-5.0 [facility] Serum or plasma albumin/glob ulin mass ratioOrdered By: Candice Song on 06-26-2023 Albumin/Globulin [Mass ratio] 0.9 {ratio} 0.9-2.4 [facility] Serum or plasma calcium harrison urement (mass/volume)Ordered By: Candice Song on 06-26-2023 Calcium [Mass/Vol] 9.1 mg/dL 8.5-10.1 [facility] Serum or plasma cholesterol in HDL measurement (mass/volume)Ordered By: Candice Song on 06-26-2023 Cholesterol in HDL [Mass/Vol] 46 mg/dL >40 [facility] Comment on above: The drugs N-Acetylcy steine and Metamizole may falsely depress this assay. Reference Range HDL <40 mg/dL Low HDL Cholesterol HDL >or= 60 mg/dL High HDL Cholesterol Serum or plasma cholesterol in VLDL measurement (mass/volume)Ordered By: Candice Song on 06-26-2023 Cholesterol in VLDL [Mass/Vol] 15 mg/dL 5-40 [facility] Serum or plasma creatinine m easurement (mass/volume)Ordered By: Candice Song on 06-26-2023 Creatinine [Mass/Vol] 0.94 mg/dL 0.70-1.30 [facility] Comment on above: The validity of the calculated GFR & GFRAA in patients over 70 years has not been determined. Clinical correlation is essential. Serum or plasma free prostat e specific antigen/total prostate specific antigen ratioOrdered By: Candice Song on 06-26-2023 Free PSA/Total PSA [Mass fraction] 12.2 % . [facility] Comment on above: The table below list s the probability of prostate cancer formen with non-suspicious MAYRA results and total PSA between4 and 10 ng/mL, by patient age (Giovanni et al, MURPHY 1998,279:1542). % Free PSA 50-64 yr 65-75 yr 0.00-10.00% 56% 55% 10.01-15.00% 24% 35% 15.01-20.00% 17% 23% 20.01-25.00% 10% 20% >25.00% 5% 9%Please note: Giovanni et al did not make specific recommendations regarding the use of percent free PSA for any other population of men.Performed at: - [facility] [id number] Director: Robinson Mendoza PhD, Phone: [phone] Serum or plasma low density lipoprotein (LDL) cholesterol measurement (mass/volume)Ordered By: Candice Song on 06-26-2023 Cholesterol in LDL [Mass/Vol] 69 mg/dL 0-130 [facility] Serum or plasma urea nitroge n measurement (mass/volume)Ordered By: Candice Song on 06-26-2023 Urea nitrogen [Mass/Vol] 22 mg/dL 7-18 [facility] Serum or plasma uric acid me asurement (mass/volume)Ordered By: Candice Song on 06-26-2023 Urate [Mass/Vol] 5.2 mg/dL 3.5-7.2 [facility] Comment on above: The drugs N-Acetylcy steine and Metamizole may falsely depress this assay. Thin prep Papanicolaou smear with manual screeningOrdered By: Candice Song on 06-26-2023 Thin prep Papanicolaou smear with manual screening 32 U/L 15-37 [facility] Thin prep Papanicolaou smear with manual screening 2 5-15 [facility] No Panel InformationOrdered By: Tevin Lopez on 05-20-2023 Estimated GFR (MDRD) Amer 75 mL/min >60 [facility] Comment on above: GFR Calc Estimated GFR (MDRD) Non-Af Amer 62 mL/min >60 [facility] Comment on above: Non- GFR Calc Serum or plasma creatinine m easurement (mass/volume)Ordered By: Tevin Lopez on 05-20-2023 Creatinine [Mass/Vol] 1.20 mg/dL 0.70-1.30 [facility] Comment on above: The validity of the calculated GFR & GFRAA in patients over 70 years has not been determined. Clinical correlation is essential. Basophil percentageOrdered B y: Dr. Lopez on 04-01-2023 Chloride [Moles/Vol] 110 mmol/L 98-107 [facility] Glucose [Mass/Vol] 98 mg/dL 74-106 [facility] Potassium [Moles/Vol] 4.4 mmol/L 3.5-5.1 [facility] Sodium [Moles/Vol] 139 mmol/L 136-145 [facility] WBC (Bld) [#/Vol] 9.8 10*3/uL 4.4-11.0 [facility] Blood erythrocytes count (nu mber/volume)Ordered By: Dr. Lopez on 04-01-2023 RBC (Bld) [#/Vol] 4.39 10*6/uL 4.6-6.2 [facility] Blood hemoglobin measurement (mass/volume)Ordered By: Dr. Lopez on 04-01-2023 Hemoglobin (Bld) [Mass/Vol] 13.5 g/dL 13.0-16.5 [facility] Blood platelet mean volumeOr dered By: Dr. Lopez on 04-01-2023 Platelet mean volume (Bld) [Entitic vol] 11.0 fL 6.2-12.0 [facility] Determination of erythrocyte mean corpuscular volume (MCV)Ordered By: Dr. Lopez on 04-01-2023 MCV (RBC) [Entitic vol] 94.1 fL 80-94 [facility] Hematocrit Auto (Bld) [Volum e fraction]Ordered By: Dr. Lopez on 04-01-2023 Hematocrit (Bld) [Volume fraction] 41.3 % 40-54 [facility] Laboratory - Chemistry and C hemistry - challengeOrdered By: Dr. Lopez on 04-01-2023 CO2 [Moles/Vol] 27.0 mmol/L 21.0-32.0 [facility] Urea nitrogen/Creatinine [Mass ratio] 26.4 mg/mg 10-20 [facility] Laboratory - Hematology and Cell countsOrdered By: Dr. Lopez on 04-01-2023 Erythrocyte distribution width (RBC) [Entitic vol] 44.7 fL 35.1-43.9 [facility] Erythrocyte distribution width (RBC) [Ratio] 13.2 % 11.6-14.6 [facility] MCH (RBC) [Entitic mass] 30.8 pg 27.0-32.0 [facility] MCHC Auto (RBC) [Mass/Vol]Or dered By: Dr. Lopez on 04-01-2023 MCHC (RBC) [Mass/Vol] 32.7 g/dL 32-36 [facility] No Panel InformationOrdered By: Dr. Lopez on 04-01-2023 Activated Clotting Time 263 sec 74-137 [facility] Estimated Creatinine Clearance Calc 66.94 ml/min [facility] Estimated GFR (MDRD) Amer 98 mL/min >60 [facility] Comment on above: GFR Calc Estimated GFR (MDRD) Non-Af Amer 81 mL/min >60 [facility] Comment on above: Non- GFR Calc Platelets bldOrdered By: Dr. Lopez on 04-01-2023 Platelets (Bld) [#/Vol] 299 10*3/uL 150-450 [facility] Serum or plasma calcium harrison urement (mass/volume)Ordered By: Dr. Lopez on 04-01-2023 Calcium [Mass/Vol] 9.3 mg/dL 8.5-10.1 [facility] Serum or plasma creatinine m easurement (mass/volume)Ordered By: Dr. Lopez on 04-01-2023 Creatinine [Mass/Vol] 0.95 mg/dL 0.70-1.30 [facility] Comment on above: The validity of the calculated GFR & GFRAA in patients over 70 years has not been determined. Clinical correlation is essential. Serum or plasma urea nitroge n measurement (mass/volume)Ordered By: Dr. Lopez on 04-01-2023 Urea nitrogen [Mass/Vol] 25 mg/dL 7-18 [facility] Thin prep Papanicolaou smear with manual screeningOrdered By: Dr. Lopez on 04-01-2023 Thin prep Papanicolaou smear with manual screening 2 5-15 [facility] No Panel InformationOrdered By: Kavitha Baca on 02-11-2023 Estimated GFR (MDRD) Amer 94 mL/min >60 [facility] Comment on above: GFR Calc Estimated GFR (MDRD) Non-Af Amer 78 mL/min >60 [facility] Comment on above: Non- GFR Calc Serum or plasma creatinine m easurement (mass/volume)Ordered By: Kavitha Baca on 02-11-2023 Creatinine [Mass/Vol] 0.98 mg/dL 0.70-1.30 [facility] Comment on above: The validity of the calculated GFR & GFRAA in patients over 70 years has not been determined. Clinical correlation is essential. Absolute lymphocyte counton 04-22-2022 Lymphocytes Auto (Unsp spec) [#/Vol] 3.76 10*3/uL 0.83-4.51 [facility] Work Phone: Basophil percentageon 2021 Basophils/100 WBC (Bld) 1.0 % 0-1 [facility] Work Phone: Bilirubin [Mass/Vol] 0.40 mg/dL 0.20-1.00 [facility] Work Phone: Comment on above: For patients on eltr ombopag therapy, use of Dimension [place] TBIL is not recommended. Chloride [Moles/Vol] 106 mmol/L 98-107 [facility] Work Phone: Cholesterol [Mass/Vol] 240 mg/dL <200 [facility] Work Phone: Comment on above: <200 mg/dL Desirable 200-240 mg/dL Borderline >240 mg/dL High Risk Eosinophils/100 WBC (Bld) 7.6 % 0-5 [facility] Work Phone: Glucose [Mass/Vol] 106 mg/dL 74-106 [facility] Work Phone: Comment on above: Fasting Glucose resu lt from 100 to 125 mg/dL suggests IMPAIRED HOMEOSTASIS per A.D.A. criteria. Neutrophils (Bld) [#/Vol] 2.2 10*3/uL 2.0-7.7 [facility] Work Phone: Neutrophils/100 WBC (Bld) 30.5 % 47-70 [facility] Work Phone: Potassium [Moles/Vol] 4.3 mmol/L 3.5-5.1 [facility] Work Phone: Protein [Mass/Vol] 7.2 g/dL 6.4-8.2 [facility] Work Phone: Sodium [Moles/Vol] 140 mmol/L 136-145 [facility] Work Phone: Triglyceride [Mass/Vol] 125 mg/dL <199 [facility] Work Phone: Comment on above: The drugs N-Acetylcy steine and Metamizole may falsely depress this assay.Serum Triglycerides Reference Interval Normal <150 mg/dL Borderline high 150 - 199 mg/dL High 200 - 499 mg/dL Very High > or = 500 mg/dL WBC (Bld) [#/Vol] 7.2 10*3/uL 4.4-11.0 [facility] Work Phone: Blood erythrocytes count (nu mber/volume)on 04-22-2022 RBC (Bld) [#/Vol] 4.45 10*6/uL 4.6-6.2 [facility] Work Phone: Blood hemoglobin measurement (mass/volume)on 04-22-2022 Hemoglobin (Bld) [Mass/Vol] 14.1 g/dL 13.0-16.5 [facility] Work Phone: Blood lymphocytes/100 leukoc yteson 04-22-2022 Lymphocytes/100 WBC (Bld) 52.0 % 19-41 [facility] Work Phone: Blood monocytes/100 leukocyt eson 04-22-2022 Monocytes/100 WBC (Bld) 8.6 % 0-10 [facility] Work Phone: Blood platelet mean volumeon 04-22-2022 Platelet mean volume (Bld) [Entitic vol] 11.5 fL 6.2-12.0 [facility] Work Phone: Determination of erythrocyte mean corpuscular volume (MCV)on 04-22-2022 MCV (RBC) [Entitic vol] 94.2 fL 80-94 [facility] Work Phone: Hematocrit Auto (Bld) [Volum e fraction]on 04-22-2022 Hematocrit (Bld) [Volume fraction] 41.9 % 40-54 [facility] Work Phone: Laboratory - Chemistry and C hemistry - challengeon 04-22-2022 ALP [Catalytic activity/Vol] 90 U/L 45-117 [facility] Work Phone: ALT [Catalytic activity/Vol] 22 U/L 16-61 [facility] Work Phone: CO2 [Moles/Vol] 28.0 mmol/L 21.0-32.0 [facility] Work Phone: Globulin (S) [Mass/Vol] 3.7 g/dL 2.2-4.2 [facility] Work Phone: Urea nitrogen/Creatinine [Mass ratio] 18.8 mg/mg 10-20 [facility] Work Phone: Laboratory - Hematology and Cell countson 04-22-2022 Erythrocyte distribution width (RBC) [Entitic vol] 47.4 fL 35.1-43.9 [facility] Work Phone: Erythrocyte distribution width (RBC) [Ratio] 13.7 % 11.6-14.6 [facility] Work Phone: Immature granulocytes/100 WBC (Bld) 0.300 % 0.0-0.9 [facility] Work Phone: Comment on above: IG% - Immature Granu locytes (promyelocytes, myelocytes and metamyelocytes) > 1% indicates that a LEFT SHIFT is Present. MCH (RBC) [Entitic mass] 31.7 pg 27.0-32.0 [facility] Work Phone: Nucleated RBC/100 WBC (Bld) [Ratio] 0 % 0-5 [facility] Work Phone: MCHC Auto (RBC) [Mass/Vol]on 04-22-2022 MCHC (RBC) [Mass/Vol] 33.7 g/dL 32-36 [facility] Work Phone: No Panel Informationon 04-22 Estimated GFR (MDRD) Amer 91 mL/min >60 [facility] Work Phone: Comment on above: GFR Calc Estimated GFR (MDRD) Non-Af Amer 76 mL/min >60 [facility] Work Phone: Comment on above: Non- GFR Calc Percent Free Prostate Specific Ag 0.70 ng/mL N/A [facility] Work Phone: Comment on above: Cindy ECLIA methodol ogy. Prostate Specific Antigen Total 6.1 ng/mL 0.0-4.0 [facility] Work Phone: Comment on above: Cindy ECLIA methodol ogy.According to the [place] [employer], Serum PSAshould decrease and remain at undetectable levels afterradical prostatectomy. The AUA defines biochemicalrecurrence as an initial PSA value 0.2 ng/mL or greaterfollowed by a subsequent confirmatory PSA value 0.2 ng/mLor greater. Values obtained with different assay methods orkits cannot be used interchangeably. Results cannot beinterpreted as absolute evidence of the presence or absenceof malignant disease. Platelets bldon 04-22-2022 Platelets (Bld) [#/Vol] 240 10*3/uL 150-450 [facility] Work Phone: Serum or plasma albumin harrison urement (mass/volume)on 04-22-2022 Albumin [Mass/Vol] 3.5 g/dL 3.2-5.0 [facility] Work Phone: Serum or plasma albumin/glob ulin mass ratioon 04-22-2022 Albumin/Globulin [Mass ratio] 0.9 {ratio} 0.9-2.4 [facility] Work Phone: Serum or plasma calcium harrison urement (mass/volume)on 04-22-2022 Calcium [Mass/Vol] 9.0 mg/dL 8.5-10.1 [facility] Work Phone: Serum or plasma cholesterol in HDL measurement (mass/volume)on 04-22-2022 Cholesterol in HDL [Mass/Vol] 56 mg/dL >40 [facility] Work Phone: Comment on above: The drugs N-Acetylcy steine and Metamizole may falsely depress this assay. Reference Range HDL <40 mg/dL Low HDL Cholesterol HDL >or= 60 mg/dL High HDL Cholesterol Serum or plasma cholesterol in VLDL measurement (mass/volume)on 04-22-2022 Cholesterol in VLDL [Mass/Vol] 25 mg/dL 5-40 [facility] Work Phone: Serum or plasma creatinine m easurement (mass/volume)on 04-22-2022 Creatinine [Mass/Vol] 1.01 mg/dL 0.70-1.30 [facility] Work Phone: Comment on above: The validity of the calculated GFR & GFRAA in patients over 70 years has not been determined. Clinical correlation is essential. Serum or plasma free prostat e specific antigen/total prostate specific antigen ratioon 04-22-2022 Free PSA/Total PSA [Mass fraction] 11.5 % . [facility] Work Phone: Comment on above: The table below list s the probability of prostate cancer formen with non-suspicious MAYRA results and total PSA between4 and 10 ng/mL, by patient age (Gioavnni et al, MURPHY 1998,279:1542). % Free PSA 50-64 yr 65-75 yr 0.00-10.00% 56% 55% 10.01-15.00% 24% 35% 15.01-20.00% 17% 23% 20.01-25.00% 10% 20% >25.00% 5% 9%Please note: Giovanni et al did not make specific recommendations regarding the use of percent free PSA for any other population of men.Performed at: [facility] [id number] Director: Robinson Mendoza PhD, Phone: [phone] Serum or plasma low density lipoprotein (LDL) cholesterol measurement (mass/volume)on 04-22-2022 Cholesterol in LDL [Mass/Vol] 159 mg/dL 0-130 [facility] Work Phone: Serum or plasma urea nitroge n measurement (mass/volume)on 04-22-2022 Urea nitrogen [Mass/Vol] 19 mg/dL 7-18 [facility] Work Phone: Serum or plasma uric acid me asurement (mass/volume)on 04-22-2022 Urate [Mass/Vol] 6.2 mg/dL 3.5-7.2 [facility] Work Phone: Comment on above: The drugs N-Acetylcy steine and Metamizole may falsely depress this assay. Thin prep Papanicolaou smear with manual screeningon 04-22-2022 Thin prep Papanicolaou smear with manual screening 17 U/L 15-37 [facility] Work Phone: Thin prep Papanicolaou smear with manual screening 6 5-15 [facility] Work Phone: Vital Signs Date Time Vital Sign Value Performing Clinician Faci lity 12-06-2024 13:50-0500 Body temperature 97 [degF] Dr. Candice Song MD Work Phone: [facility] 12-06-2024 13:50-0500 Diastolic blood pressure 66 mm[Hg] Dr. Candice Song MD Work Phone: [facility] 12-06-2024 13:50-0500 Heart rate 56 /min Dr. Candice Song MD Work Phone: [facility] 12-06-2024 13:50-0500 Respiratory rate 16 /min Dr. Candice Song MD Work Phone: [facility] 12-06-2024 13:50-0500 SaO2% (BldA) [Mass fraction] 97 % Dr. Candice Song MD Work Phone: [facility] 12-06-2024 13:50-0500 Systolic blood pressure 147 mm[Hg] Dr. Candice Song MD Work Phone: [facility] 12-06-2024 11:40-0500 Body height 182.[address] Candice Song MD Work Phone: [facility] 12-06-2024 11:40-0500 Body mass index (BMI) [Ratio] 25.1 kg/m2 Dr. Candice Song MD Work Phone: [facility] 12-06-2024 11:40-0500 Body weight [address] Candice Song MD Work Phone: [facility] 12-05-2024 09:32-0500 Body mass index (BMI) [Ratio] 25.9 kg/m2 Dr. Candice Song MD Work Phone: [facility] 12-05-2024 09:32-0500 Body weight 86.[address] Candice Song MD Work Phone: [facility] 12-05-2024 09:32-0500 Diastolic blood pressure 71 mm[Hg] Dr. Candice Song MD Work Phone: [facility] 12-05-2024 09:32-0500 Respiratory rate 16 /min Dr. Candice Song MD Work Phone: [facility] 12-05-2024 09:32-0500 Systolic blood pressure 180 mm[Hg] Dr. Candice Song MD Work Phone: [facility] 11-02-2024 11:35-0500 Body temperature 97.5 [degF] Dr. Candice Song MD Work Phone: [facility] 11-02-2024 11:35-0500 Body weight 87.[address] Candice Song MD Work Phone: [facility] 11-02-2024 11:35-0500 Diastolic blood pressure 66 mm[Hg] Dr. Candice Song MD Work Phone: [facility] 11-02-2024 11:35-0500 Heart rate 65 /min Dr. Candice Song MD Work Phone: [facility] 11-02-2024 11:35-0500 Respiratory rate 14 /min Dr. Candice Song MD Work Phone: [facility] 11-02-2024 11:35-0500 SaO2% (BldA) [Mass fraction] 99 % Dr. Candice Song MD Work Phone: [facility] 11-02-2024 11:35-0500 Systolic blood pressure 169 mm[Hg] Dr. Candice Song MD Work Phone: [facility] 10-21-2023 15:28-0500 Body temperature 97.7 [degF] Dr. Candice Song Work Phone: [facility] 10-21-2023 15:28-0500 Body weight 84.[address] Candice Song Work Phone: [facility] 10-21-2023 15:28-0500 Diastolic blood pressure 62 mm[Hg] Dr. Candice Song Work Phone: [facility] 10-21-2023 15:28-0500 Heart rate 75 /min Dr. Candice Song Work Phone: [facility] 10-21-2023 15:28-0500 Respiratory rate 16 /min Dr. Candice Song Work Phone: [facility] 10-21-2023 15:28-0500 SaO2% (BldA) [Mass fraction] 99 % Dr. Candice Song Work Phone: [facility] 10-21-2023 15:28-0500 Systolic blood pressure 107 mm[Hg] Dr. Candice Song Work Phone: [facility] 07-29-2023 09:00-0400 Body temperature 97.5 [degF] Dr. Candice Song Work Phone: [facility] 07-29-2023 09:00-0400 Body weight 89.[address] Candice Song Work Phone: [facility] 07-29-2023 09:00-0400 Diastolic blood pressure 61 mm[Hg] Dr. Candice Song Work Phone: [facility] 07-29-2023 09:00-0400 Heart rate 70 /min Dr. Candice Song Work Phone: [facility] 07-29-2023 09:00-0400 Respiratory rate 16 /min Dr. Candice Song Work Phone: [facility] 07-29-2023 09:00-0400 Systolic blood pressure 130 mm[Hg] Dr. Candice Song Work Phone: [facility] 07-15-2023 16:00-0400 Body temperature 97 [degF] Dr. Candice Song Work Phone: [facility] 07-15-2023 16:00-0400 Diastolic blood pressure 47 mm[Hg] Dr. Candice Song Work Phone: [facility] 07-15-2023 16:00-0400 Heart rate 56 /min Dr. Candice Song Work Phone: [facility] 07-15-2023 16:00-0400 Respiratory rate 14 /min Dr. Candice Song Work Phone: [facility] 07-15-2023 16:00-0400 SaO2% (BldA) [Mass fraction] 99 % Dr. Candice Song Work Phone: [facility] 07-15-2023 16:00-0400 Systolic blood pressure 122 mm[Hg] Dr. Candice Song Work Phone: [facility] 07-15-2023 09:44-0400 Body height 182.[address] Candice Song Work Phone: [facility] 07-15-2023 09:44-0400 Body weight 90.[address] Candice Song Work Phone: [facility] 07-15-2023 06:00-0400 Body mass index (BMI) [Ratio] 27.1 kg/m2 Dr. Candice Song Work Phone: [facility] 07-15-2023 03:06-0400 Inhaled oxygen flow rate 2 L/min Dr. Candice Song Work Phone: [facility] 05-20-2023 14:28-0400 Body temperature 98 [degF] Dr. Candice Song Work Phone: [facility] 05-20-2023 14:28-0400 Body weight 89.[address] Candice Song Work Phone: [facility] 05-20-2023 14:28-0400 Diastolic blood pressure 62 mm[Hg] Dr. Candice Song Work Phone: [facility] 05-20-2023 14:28-0400 Heart rate 75 /min Dr. Candice Song Work Phone: [facility] 05-20-2023 14:28-0400 Respiratory rate 16 /min Dr. Candice Song Work Phone: [facility] 05-20-2023 14:28-0400 SaO2% (BldA) [Mass fraction] 99 % Dr. Candice Song Work Phone: [facility] 05-20-2023 14:28-0400 Systolic blood pressure 113 mm[Hg] Dr. Candice Song Work Phone: [facility] 04-23-2023 13:32-0400 Body temperature 98.8 [degF] Dr. Candice Song Work Phone: [facility] 04-23-2023 13:32-0400 Body weight 90.[address] Candice Song Work Phone: [facility] 04-23-2023 13:32-0400 Diastolic blood pressure 61 mm[Hg] Dr. Candice Song Work Phone: [facility] 04-23-2023 13:32-0400 Heart rate 70 /min Dr. Candice Song Work Phone: [facility] 04-23-2023 13:32-0400 Respiratory rate 16 /min Dr. Candice Song Work Phone: [facility] 04-23-2023 13:32-0400 SaO2% (BldA) [Mass fraction] 98 % Dr. Candice Song Work Phone: [facility] 04-23-2023 13:32-0400 Systolic blood pressure 122 mm[Hg] Dr. Candice Song Work Phone: [facility] 04-01-2023 17:27-0400 Diastolic blood pressure 59 mm[Hg] Dr. Candice Song Work Phone: [facility] 04-01-2023 17:27-0400 Heart rate 63 /min Dr. Candice Song Work Phone: [facility] 04-01-2023 17:27-0400 Respiratory rate 16 /min Dr. Candice Song Work Phone: [facility] 04-01-2023 17:27-0400 SaO2% (BldA) [Mass fraction] 99 % Dr. Candice Song Work Phone: [facility] 04-01-2023 17:27-0400 Systolic blood pressure 123 mm[Hg] Dr. Candice Song Work Phone: [facility] 04-01-2023 13:30-0400 Body temperature 97.7 [degF] Dr. Candice Song Work Phone: [facility] 04-01-2023 09:13-0400 Body height 182.[address] Candice Song Work Phone: [facility] 04-01-2023 09:13-0400 Body weight 92.[address] Candice Song Work Phone: [facility] 03-31-2023 08:04-0400 Body mass index (BMI) [Ratio] 27.5 kg/m2 Dr. Candice Song Work Phone: [facility] 03-05-2023 15:09-0400 Body weight 92.[address] Candice Song Work Phone: [facility] 03-05-2023 15:09-0400 Diastolic blood pressure 67 mm[Hg] Dr. Candice Song Work Phone: [facility] 03-05-2023 15:09-0400 Heart rate 64 /min Dr. Candice Song Work Phone: [facility] 03-05-2023 15:09-0400 Respiratory rate 18 /min Dr. Candice Song Work Phone: [facility] 03-05-2023 15:09-0400 SaO2% (BldA) [Mass fraction] 99 % Dr. Candice Song Work Phone: [facility] 03-05-2023 15:09-0400 Systolic blood pressure 138 mm[Hg] Dr. Candice Song Work Phone: [facility] 02-11-2023 09:02-0400 Body weight 92.[address] Candice Song Work Phone: [facility] 02-11-2023 09:02-0400 Diastolic blood pressure 77 mm[Hg] Dr. Candice Song Work Phone: [facility] 02-11-2023 09:02-0400 Heart rate 58 /min Dr. Candice Song Work Phone: [facility] 02-11-2023 09:02-0400 Respiratory rate 16 /min Dr. Candice Song Work Phone: [facility] 02-11-2023 09:02-0400 Systolic blood pressure 155 mm[Hg] Dr. Candice Song Work Phone: [facility] Encounters Encounter Date Encounter Type Care Provider Facility Start: 12-20-2024 End: 12-20-[address] Rikki Clemente MD -[facility] Work Phone: Start: 12-20-2024 End: 12-20-2024 ambulatory Candice Song Facility:[facility] Start: 12-15-2024 End: 12-15-[address] Candice Song MD Work Phone: [facility] Work Phone: Start: 12-15-2024 End: 12-15-[address] Candice Song MD -Laboratory, [place] Work Phone: Start: 12-15-2024 End: 12-15-2024 ambulatory Candice Miveronica Facility:[facility] Start: 12-06-2024 ambulatory Candice Mikhushi Facility: [facility] Start: 12-06-2024 Non-patient / Non-visit Dr. Rikki Clemente MD -[facility] Start: 12-06-2024 End: 12-06-2024 Admission to same day surgery center Dr. Rikki Clemente MD -[facility] Start: 12-06-2024 End: 12-06-2024 ambulatory [facility] Facility:[facility] Start: 12-05-2024 End: 12-05-[address] Rikki Clemente MD -[facility] Work Phone: Start: 12-05-2024 End: 12-05-2024 ambulatory Candice Nohemi Facility:[facility] Start: 11-29-2024 End: 11-29-[address] Candice Song MD -Laboratory, [facility] Start: 11-29-2024 End: 11-29-2024 ambulatory CandicePsychiatric Facility:[facility] Start: 11-02-2024 End: 11-02-2024 Patient encounter procedure Kavitha SOLORZANO -[facility] Work Phone: Start: 11-02-2024 End: 11-02-2024 ambulatory Candiceannabel Song Facility:[facility] Start: 09-29-20[facility] Start: 09-29-2024 Non-patient / Non-visit Dr. Tevin Lopez MD -[facility] Start: 09-29-2024 End: 09-29-2024 Patient encounter procedure Kavitha SOLORZANO -Cardiovascular Services Work Phone: Start: 09-29-2024 End: 09-29-2024 ambulatory Candice Miedel Facility:[facility] Start: 07-29-2024 ambulatory [facility] Start: 07-29-2024 End: 07-29-2024 ambulatory [facility] Facility:[facility] Start: 06-21-2024 End: 06-21-2024 ambulatory [facility] Facility:[facility] Start: 03-23-2024 ambulatory [facility] Start: 03-23-2024 End: 03-23-2024 ambulatory [facility] Facility:[facility] Start: 02-26-2024 End: 02-26-2024 ambulatory Candice Mikhushi Facility:[facility] Start: 01-25-2024 Non-patient / Non-visit Dr. Candice Song Work Phone: [facility] Start: 01-25-2024 End: 01-25-[address] Candice Song Work Phone: [facility] Work Phone: Start: 01-25-2024 End: 01-25-[address] [facility] Start: 01-25-2024 End: 01-25-2024 ambulatory Candice Song Facility:[facility] Start: 10-21-2023 End: 10-21-[address] Candice Song Work Phone: [facility] Work Phone: Start: 09-30-2023 Non-patient / Non-visit Dr. Candice Song Work Phone: [facility] Start: 09-30-2023 End: 09-30-[address] Candice Song Work Phone: [facility] Work Phone: Start: 09-30-2023 End: 09-30-[address] Candice Song Work Phone: [facility]-Cardiovascular Services Work Phone: Start: 07-29-2023 End: 07-29-[address] Candice Song Work Phone: [facility] Work Phone: Start: 07-15-2023 Non-patient / Non-visit Dr. Candice Song Work Phone: [facility] Start: 07-14-2023 Non-patient / Non-visit Dr. Candice Song Work Phone: [facility] Start: 07-14-2023 End: 07-15-2023 Evaluation and management of inpatient Dr. Candice Song Work Phone: [facility]-Intensive Care Unit Work Phone: Start: 06-26-2023 End: 06-26-[address] Candice Song Work Phone: [facility] Work Phone: Start: 06-26-2023 End: 06-26-[address] Candice Song Work Phone: [facility]-Laboratory Work Phone: Start: 05-28-2023 End: 05-28-[address] Candice Song Work Phone: [facility] Work Phone: Start: 05-28-2023 End: 05-28-[address] Candice Song Work Phone: [facility]-Cat Scan, [facility] Work Phone: Start: 05-20-2023 End: 05-20-[address] Candice Song Work Phone: [facility] Work Phone: Start: 05-20-2023 End: 05-20-[address] Candice Song Work Phone: [facility] Work Phone: Start: 04-28-2023 Non-patient / Non-visit Dr. Candice Song Work Phone: [facility] Start: 04-28-2023 End: 04-28-[address] Candice Song Work Phone: [facility] Work Phone: Start: 04-28-2023 End: 04-28-[address] Candice Song Work Phone: [facility]-Cardiovascular Services Work Phone: Start: 04-23-2023 End: 04-23-[address] Candice Song Work Phone: [facility] Surgery Work Phone: Start: 04-01-2023 Non-patient / Non-visit Dr. Candice Song Work Phone: [facility] Start: 04-01-2023 End: 04-01-2023 Admission to same day surgery center Dr. Candice Song Work Phone: [facility]-Media Relations Specialist/Special Procedures Start: 04-01-2023 End: 04-01-[address] Candice Song Work Phone: [facility] Work Phone: Start: 03-05-2023 End: 03-05-[address] Candice Song Work Phone: [facility] Vascular Surgery Start: 02-25-2023 End: 02-25-[address] Candice Song Work Phone: [facility] Start: 02-11-2023 End: 02-11-[address] Candice Song Work Phone: [facility] Work Phone: Start: 02-11-2023 End: 02-11-[address] Candice Song Work Phone: [facility]-Laboratory Start: 02-11-2023 End: 02-11-[address] Candice Song Work Phone: [facility] Start: 01-27-2023 Non-patient / Non-visit Dr. Candice Song Work Phone: [facility] Start: 01-27-2023 End: 01-27-[address] Candice Song Work Phone: [facility] Work Phone: Start: 01-27-2023 End: 01-27-[address] Candice Song Work Phone: [facility]-Cardiovascular Services Start: 04-22-2022 End: 04-22-2022 Patient encounter procedure [facility]-Laboratory Procedures Date Procedure Procedure Detail Performing Clinician Start: 07-14-[address] Candice Song Work Phone: Start: 05-28-2023 CT angiography of he ad and neck Dr. Candice Song Work Phone: Start: 02-25-2023 CT of abdominal aort a with contrast Dr. Candice Song Work Phone: Plan of Treatment Date Care Activity Detail Author Start: 12-06-2024 Anesthesia major vessels neck simple ligation ANESTH NECK VESSEL SURGERY [facility] Start: 12-06-2024 Ligation/biopsy temporal artery LIGATION/BX TEMPORAL ARTERY [facility] Start: 12-06-2024 Patient discharge [facility] Start: 07-15-2023 Patient discharge [facility] Start: 07-15-2023 End: 07-15-2023 [facility] Start: 07-15-2023 [facility] Start: 07-14-2023 Ambulation without limitation [facility] Start: 07-14-2023 Assessment of risk of venous thromboembolism [facility] Start: 07-14-2023 Catheterization of vein [facility] Start: 07-14-2023 Continuous pulse oximetry [facility] Start: 07-14-2023 Deep breathing and coughing exercises [facility] Start: 07-14-2023 Elevation of head of bed [facility] Start: 07-14-2023 Incentive spirometry [facility] Start: 07-14-2023 Insertion of catheter into peripheral vein [facility] Start: 07-14-2023 Measuring intake and output [facility] Start: 07-14-2023 Notification of physician [facility] Start: 07-14-2023 Oxygen therapy [facility] Start: 07-14-2023 Patient referral to dietitian [facility] Start: 07-14-2023 Providing care according to standard [facility] Start: 07-14-2023 Provision of activity privileges [facility] Start: 07-14-2023 Referral to occupational therapist [facility] Start: 07-14-2023 Referral to service [facility] Start: 07-14-2023 Vital signs measurements [facility] Start: 07-14-2023 [facility] Start: 07-14-2023 Following clinical pathway protocol [facility] Start: 07-14-2023 Admission procedure [facility] Start: 07-14-2023 Insertion of catheter into artery [facility] Start: 07-14-2023 Maintenance of invasive device [facility] Start: 04-01-2023 Admission procedure [facility] Start: 04-01-2023 Bedrest [facility] Start: 04-01-2023 Notification of physician [facility] Start: 04-01-2023 Patient discharge [facility] Start: 04-01-2023 Provision of activity privileges [facility] Start: 04-01-2023 Scheduling [facility] Start: 04-01-2023 Taking patient vital signs [facility] Start: 04-01-2023 Vascular disease risk assessment [facility] Start: 04-01-2023 [facility] Ankle brachial pressure index [facility] CT of abdominal aort a with contrast [facility] CTA Head vessels and Neck vessels W contrast IV [facility] Electrocardiographic procedure [facility] Patient referral [facility] Work Phone: US Carotid arteries [facility] US Lower extremity artery [facility] Immunizations Immunization Date Immunization Notes Care Provider Fa cility 01-07-2021 Covid ([facility]) [facility] Payers Date Payer Category Payer Self-pay [id number] 2016 Unknown [id number] 2006 Medicare [id number] Unknown [id number] [id number] Unknown [id number] 2.16.8 [id number] Unknown [id number] 2.16.8 [id number] Unknown [id number] 2.16.8 [id number] Unknown [id number] 2.16.8 [id number] Unknown [id number] 2.16.8 [id number] Unknown [id number] 2.16.8 [id number] Unknown [id number] 2.16.8 [id number] Unknown [id number] 2.16.8 [id number] Unknown [id number] 2.16.8 [id number] Unknown [id number] 2.16.8 [id number] Unknown [id number] 2.16.8 [id number] Unknown [id number] 2.16.8 [id number] Unknown [id number] 2.16.8 [id number] Unknown [id number] 2.16.8 [id number] Unknown [id number] 2.16.8 [id number] Unknown [id number] 2.16.8 [id number] Social History Date Type Detail Facility Start: 03-15-2017 End: 10-21-2023 Tobacco smoking status NHIS Unknown if ever smoked [facility] Start: 1940 Sex Assigned At Male [facility]: [facility] Start: 12-29-2024 Sex Male (finding) [facility] Medical Equipment Procedure Code Equipment Code Equipment Origin al Text Equipment Identifier Dates Endarterectomy, carotid Cardiovascular patch, animal-derived ()[id number] FDA Start: 07-14-2023 Endarterectomy, carotid Ligation clip, metallic ()[id number] FDA Start: 07-14-2023 Endarterectomy, carotid Ligation clip, metallic ()[id number] FDA Start: 07-14-2023 Biopsy, artery, temporal Ligation clip, metallic ()[id number] FDA Start: 12-06-2024 Biopsy, artery, temporal Ligation clip, metallic ()[id number] FDA Start: 12-06-2024 ([id number]) Wound hydrogel dressing, non-antimicrobial ()[id number] FDA Start: 04-01-2023 Goals Date Patient Goal Desired Activity /State Functional Status Date Assessment Result Facility 07-15-2023 Functional status Chair [facility] Work Phone: Mental Status Date Assessment Result Facility 12-06-2024 Cognitive function Level Of Cons ciousness Awake;Alert;Appropriate [facility] Work Phone: 07-15-2023 Cognitive function Voice/Name [facility] Work Phone: Clinical Notes 11-02-2024 to 12-06-2024 Note Date & Type Note Facility 12-06-2024 Note [facility] Medical Records Department [address] [place] [address] History Physical Exam 12/06/24 1231 MR#: [id number] Acct: [id number] Name: LENNIE MAXWELL Rep #: [id number] : 1940 83 From: Rikki Clemente MD PCP: Dr. Candice Song MD Status:[facility] Location: [place] [address] History and Physical Date of Admission: 12/06/24 Intake Vital Signs 02/26/2408:55 12/05/2508:32 Height 6 ft 6 ft Weight: 191 lb BMI 25.9 BP 180/71 H Blood Pressure Location Rt brachial Position Sitting Respiration 16 Intake Visit Reasons: TEMPORAL ARTERY Chief Complaint: temporal artery biopsy Behavioral Health Technician Required: No Is patient in pain?: No Allergies No Known Allergies Allergy (Verified 12/05/24 09:33) Medications ???Medication ???Instructions ???Recorded ???Confirmed ???Type lisinopril 10 mg tablet 10 mg PO DAILY HYPERTENSION 02/17/14 12/05/24 Hist ory aspirin 81 mg chewable tablet 81 mg PO DAILY@0800 HEART HEALTH 03/15/17 12/05/24 History multivitamin (Multiple Vitamins 1 ea PO DAILY SUPPLEMENT 03/15/17 12/05/24 History tablet) allopurinol 100 mg tablet 100 mg PO DAILY GOUT 07/01/23 12/05/24 History vitamins A,C,L-xans-rmmdlw 2,148 1 tab PO BID 11/02/24 12/05/24 History mcg-113 mg-45 mg-17.4 mg tablet (PreserVision AREDS) prednisone 20 mg tablet 20 mg PO DAILY 12/01/24 12/05/24 History rosuvastatin 10 mg tablet 10 mg PO QDAY 12/05/24 12/05/24 History Have you fallen in the past year?: No PFSH Medical History (Updated 12/05/24 @ 09:[address] Rikki Clemente MD) Alcohol use History of steroid therapy Back pain History of pain when walking Wears glasses Cancer Prostate disease High cholesterol History of diverticulitis Former smoker Carotid stenosis, left Carotid bruit Atherosclerosis 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 of extremities with rest pain, left leg Claudication of left lower extremity Basal cell carcinoma Elevated PSA ( 2020) Anemia ( 2019) Raynaud disease ( 2019) Gout Hyperlipemia Hypertension Surgical History (Updated 12/01/24 @ 15:29 by Iram Haddad) History of carotid endarterectomy History of angioplasty ( 2020) H/O hernia repair History of appendectomy Hx of tonsillectomy Family History Mother CancerFather Myocardial infarction Heart diseaseBrother Afib DVT (deep venous thrombosis)Sister Afib Social History Smoking Status: Former smoker HPI HPI HPI: Patient is an 83-year-old male here for temporal artery biopsy. He is here to rule out giant cell arteritis. He is not having any vision changes or headaches. He has been started on steroids. ROS General General: No weight change, appetite, fatigue, colon cancer, breast cancer or weakness HEENT HEENT: Yes eye injury and eye surgery; No difficulty swallowing, swollen glands or hoarseness Endo Endocrine: No thyroid disease, diabetes mellitus, thyroid cancer, Hair loss, heat intolerance or cold intolerance Skin Skin: No rash or changing moles Breast Breast: No left breast lump, right breast lump, nipple discharge, breast pain, abnormal mammogram, abnormal US or breast enlargement Musc Musculoskeletal: Yes gout; No back problems, arthritis, rheumatoid arthritis or joint pain Cardio Cardiovascular: Yes high blood pressure; No murmur, pacemaker, heart disease, atrial fibrillation, heart attack, heart stent, palpitations, shortness of breat with exertion or chest pain Psych Psychiatric: No depression, anxiety or hearing voices Resp Respiratory: No shortness of breath, No sleep apnea, No cough, No COPD, No asthma, No emphysema and No wheezing Gastro Gastrointestinal: No abdominal pain, No nausea or vomiting, No diarrhea, No constipation, No blood in stool, No acid reflux, No hemorrhoids, No ulcers, No gallbladder problem and No black,tarry stools Michele Hematologic: Yes blood thinners, No blood disorders, No bleeding, No anemia and No blood clots Neuro Neurologic: No system reviewed and no additional complaints, except as documented, No as per HPI, No abnormal gait, No abnormal hearing, No abnormal movements, No abnormal speech, No behavioral changes, No burning sensations, No confusion, No convulsions, No disequilibrium, No dizziness, No localized weakness, No frequent falls, No headache(s), No lack of coordination, No loss of vision, No memory loss, No numbness, No other visual disturbances, No radicular pain, No restless legs, No sensory deficit, No syncope, No tingling, No tremor(s), No weakness and No other Exam Const General: cooperative Orientation: alert and oriented x3 HENMT Head: normal to inspection Neck Neck: normal visual inspection and full ROM Chest Chest palpation ins (more content not included)... [facility] 01-22-2025 Evaluation note Diagnosis Onset Date Resolution Carotid artery disease acute Ja nuary 2024 11:15am PAD (peripheral artery disease) acute November 02 11:15am Polymyalgia rheumatica acute Fe bruary 2024 9:20am Polymyalgia rheumatica acute [facility] 2024 1:05pm [facility] Work Phone: Evaluation noteNo assessment information available [facility] Work Phone: Evaluation note* Diagnosis Onset Date Resolution Status Arterial insufficiency acute Claudication of left lower extremity acute [facility] Work Phone: Evaluation note* Diagnosis Onset Date Resolution Status Arterial insufficiency acute Claudication of left lower extremity acute Atherosclerosis of [place] ar teries of extremities with rest pain, left leg chronic [facility] Work Phone: Evaluation note* Diagnosis Onset Date Resolution Status Arterial insufficiency acute Claudication of left lower extremity acute Atherosclerosis of [place] ar teries of extremities with rest pain, left leg chronic Carotid bruit acute Atherosclerosis of [place] ar teries of extremities with rest pain, left leg chronic [facility] Work Phone: Evaluation note* Diagnosis Onset Date Resolution Status Arterial insufficiency acute Claudication of left lower extremity acute Atherosclerosis of [place] ar teries of extremities with rest pain, left leg chronic Carotid bruit acute Atherosclerosis of [place] ar teries of extremities with rest pain, left leg chronic Carotid stenosis, left chron ic [facility] Work Phone: Evaluation note* Diagnosis Onset Date Resolution Status Atherosclerosis of [place] ar teries of extremities with rest pain, left leg chronic Carotid bruit acute Atherosclerosis of [place] ar teries of extremities with rest pain, left leg chronic Carotid stenosis, left chron ic [facility] Work Phone: Evaluation note* Diagnosis Onset Date Resolution Status Arterial insufficiency acute [facility] Work Phone: Evaluation note* Diagnosis Onset Date Resolution Status Atherosclerosis of [place] ar teries of extremities with rest pain, left leg chronic [facility] Work Phone: Reason for referral (narrative)No reason for referral [facility] Work Phone: Advance Directives Advance Directive Response Recorded Date/ Time Living Will Yes March 15, 2017 3 :01am Power of Dampener Yes March 15, 2017 3:01am Advance Directive Response Recorded Date/ Time Advance Directives on File No April 01, 2023 9:13am Advance Directives Yes April 01 9:13am Living Will Yes April 01, 2023 9:13am Power of Dampener Yes April 01 9:13am Advance Directive Response Recorded Date/ Time Advance Directives on File No April 01, 2023 9:13am Advance Directives Yes April 01 9:13am Living Will Yes July 01, 2023 10:38am Power of Dampener Yes June 10:38am Advance Directive Response Recorded Date/ Time Name of Medical Power of Dampener Darlene Sotelo on, July 14, 2023 4:19pm Advance Directives Yes April 01 8:13am Living Will No July 14 4:19pm Power of Dampener Yes July 14, 023 4:19pm Advance Directive Response Recorded Date/ Time Advance Directives Yes April 01 9:13am Living Will No July 14 5:19pm Power of Dampener Yes July 14 023 5:19pm Advance Directive Response Recorded Date/ Time Living Will No July 14 5:19pm Do you have a Healthcare Pow er of Dampener? Yes July 14, 2023 5:19pm Living Will Yes December 01, 025 4:29pm Do you have a Healthcare Pow er of Dampener? 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 of extremities with rest pain, left leg Chief Complaint CALF PAIN LEFT L ARTERIAL INSUFFICIENCY E-ORDER CLAUDICATION OF LEFT LOWER EXTREMITY DISCUSS RESULTS STRICTURE OF ARTERY STRICTURE OF ARTERY 3 WK POST OP Other specified symptoms and signs involving the c Reason for Visit Arterial insufficien cy Claudication of left lower extremity Atherosclerosis 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 of extremities with rest pain, left leg Carotid bruit Atherosclerosis 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 of extremities with rest pain, left leg Chief Complaint CALF PAIN LEFT L ARTERIAL INSUFFICIENCY E-ORDER CLAUDICATION OF LEFT LOWER EXTREMITY DISCUSS RESULTS STRICTURE OF ARTERY STRICTURE OF ARTERY 3 WK POST OP Other specified symptoms and signs involving the c TEST RESULTS/CAROTID Reason for Visit Arterial insufficien cy Claudication of left lower extremity Atherosclerosis 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 of extremities with rest pain, left leg Carotid bruit Atherosclerosis 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 of extremities with rest pain, left leg Carotid stenosis, left Chief Complaint L ARTERIAL INSUFFICI ENCY E-ORDER CLAUDICATION OF LEFT LOWER EXTREMITY DISCUSS RESULTS STRICTURE OF ARTERY STRICTURE OF ARTERY 3 WK POST OP Other specified symptoms and signs involving the c TEST RESULTS/CAROTID OCCLUSION/STENOSIS OF CAROTID ARTERY Reason for Visit Arterial insufficien cy Claudication of left lower extremity Atherosclerosis 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 of extremities with rest pain, left leg Carotid bruit Atherosclerosis 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 of extremities with rest pain, left leg Carotid stenosis, left Chief Complaint DISCUSS RESULTS STRICTURE OF ARTERY STRICTURE OF ARTERY 3 WK POST OP Other specified symptoms and signs involving the c TEST RESULTS/CAROTID OCCLUSION/STENOSIS OF CAROTID ARTERY Reason for Visit Atherosclerosis of n ative arteries of extremities with rest pain, left leg Carotid bruit Atherosclerosis 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 of extremities with rest pain, left leg Carotid stenosis, left Chief Complaint Carotid Endarterecto my Carotid Endarterectomy Carotid Endarterectomy 2 W POST-OP I73.9 Z48.812 Reason for Visit Arterial insufficien cy Chief Complaint Discuss test results , recurrent symptoms Z48.812 aftercare Reason for Visit Atherosclerosis of n ative arteries of extremities with rest pain, left leg Chief Complaint Admit Date SURGICAL AFTERCARE September 29, 2024 8:41am DISCUSS CHOLESTEROL MEDS November 02, 11:15am TEMPORAL ARTERY December 05, 2024 9:20am S/P TEMPORAL ARTERY BIOPSY 12-06December 202024 1:05pm Reason for Visit Admit Date Carotid artery disease November 02 11:15am PAD (peripheral artery disease) November 02, 2024 11:15am Polymyalgia rheumatica December 05 9:20am Polymyalgia rheumatica December 20, 2024 1:05pm Family History Relationship Condition Age at Onset Recorded Date/T noris mother Malignant neoplasm Unknown father Myocardial infarction Unknown Cardiac disease Unknown brother Atrial fibrillation Unknown Deep vein thrombosis (DVT) Unknown sister Atrial fibrillation Unknown Summary Purpose Additional Source Comments Goals (unrecognized section and content) Goals may be documented in a n alternate sectionGoals may be documented in an alternate sectionGoals may be documented in an alternate sectionGoals may be documented in an alternate sectionGoals may be documented in an alternate sectionGoals may be documented in an alternate sectionGoals may be documented in an alternate sectionGoals may be documented in an alternate sectionGoals may be documented in an alternate section Care Teams (unrecognized sec tion and content) Team Status: Active Member Role Status Dates Dr. Candice Song MD Family Provider Active Dr. Candice Song MD Primary Care Provider Active Team Status: Active Member Role Status Dates Dr. Candice Song MD Primary Care Provider Active Dr. Tevin Lopez MD Attending Provider Active Team Status: Inactive Member Role Status Dates Dr. Candice Song MD Primary Care Prov ider, Attending Provider, Referring Provider Active Team Status: Inactive Member Role Status Dates Dr. Candice Song MD Primary Care Provider, Referrin g Provider Active RASHAD Soares Attending Provider Active Team Status: Inactive Member Role Status Dates Dr. Candice Song MD Primary Care Provider Active RASHAD Soares Attending Provider, Referring Provider Active Team Status: Active Member Role Status Dates Dr. Candice Song MD Primary Care Provider, Referrin g Provider Active Dr. Tvein Lopez MD Attending Provider Active Team Status: Inactive Member Role Status Dates Dr. Candice Song MD Primary Care Provider, Referrin g Provider Active Dr. Tevin Lopez MD Attending Provider Active Team Status: Inactive Member Role Status Dates Dr. Candice Song MD Primary Care Provider Active Dr. Tevin Lopez MD Attending Provider, Referring Pro vider Active Team Status: Active Member Role Status Dates Dr. Candice Song MD Primary Care Provider Active Dr. Tevin Lopez MD Attending Provider, Referring Provider, Other Provider Active Team Status: Active Member Role Status Dates Dr. Candice Song MD Primary Care Provider Active Dr. Tevin Lopez MD Attending Provider Active RASHAD Soares Referring Provider Active Team Status: Inactive Member Role Status Dates Dr. Candice Song MD Primary Care Provider, Referrin g Provider Active RASHAD Albright Attending Provider Active Team Status: Active Member Role Status Dates Dr. Candice Song MD Primary Care Provider Active Dr. Tevin Lopez MD Attending Provider Active RASHAD Albright Referring Provider Active Team Status: Inactive Member Role Status Dates Dr. Candice Song MD Primary Care Provider Active RASHAD Albright Attending Provider, Referring Provid er Active Team Status: Active Member Role Status Dates Dr. Candice Song MD Primary Care Provider Active Dr. Tevin Lopez MD Admit Provider, Att ending Provider, Referring Provider, Other Provider Active Team Status: Active Member Role Status Dates Dr. Candice Song MD Primary Care Provider Active Dr. Tevin Lopez MD Admit Provider, Ref erring Provider, Other Provider Active RASHAD Albright Attending Provider Active Team Status: Inactive Member Role Status Dates Dr. Candice Song MD Primary Care Provider Active Dr. Tevin Lopez MD Admit Provider, Att ending Provider, Referring Provider Active Team Status: Inactive Member Role Status Dates Dr. Candice Song MD Primary Care Provider Active RASHAD Albright Attending Provider Active Team Status: Active Member Role Status Dates Dr. Candice Song MD Primary Care Provider Active Team Status: Inactive Member Role Status Dates Dr. Candice Song MD Primary Care Provider Active Start: September 29, 2024 End: September 29, 2024 RASHAD Albright Attending Provider Active Star t: September 29, 2024 End: September 29, 2024 RASHAD Albright Referring Provider Active Star t: September 29, 2024 End: September 29, 2024 Team Status: Active Member Role Status Dates Dr. Candice Song MD Primary Care Provider Active Start: September 29, 2024 Dr. Tevin Lopez MD Attending Provider Active S tart: September 29, 2024 RASHAD Albright Referring Provider Active Star t: September 29, 2024 Team Status: Inactive Member Role Status Dates Dr. Candiec Song MD Primary Care Provider Active Start: November 02, 2024 End: November 02, 2024 Dr. Candice Song MD Referring Provider Active Start: November 02, 2024 End: November 02, 2024 RASHAD Albright Attending Provider Active Star t: November 02, 2024 End: November 02, 2024 Team Status: Inactive Member Role Status Dates Dr. Candice Song MD Primary Care Provider Active Start: November 29, 2024 End: November 29, 2024 Dr. Candice Song MD Attending Provider Active Start: November 29, 2024 End: November 29, 2024 Team Status: Inactive Member Role Status Dates Dr. Candice Song MD Primary Care Provider Active Start: December 05, 2024 End: December 05, 2024 Dr. Candice Song MD Referring Provider Active Start: December 05, 2024 End: December 05, 2024 Dr. Rikki Clemente MD Attending Provider Active Start: December 05, 2024 End: December 05, 2024 Team Status: Inactive Member Role Status Dates Dr. Candice Song MD Primary Care Provider Active Start: December 06, 2024 End: December 06, 2024 Dr. Rikki Clemente MD Attending Provider Active Start: December 06, 2024 End: December 06, 2024 Dr. Rikki Clemente MD Referring Provider Active Start: December 06, 2024 End: December 06, 2024 Team Status: Active Member Role Status Dates Dr. Candice Song MD Primary Care Provider Active Start: December 06, 2024 Dr. Rikki Clemente MD Attending Provider Active Start: December 06, 2024 Dr. Rikki Clemente MD Referring Provider Active Start: December 06, 2024 Dr. Rikki Clemente MD Other Provider Active Start: December 06, 2024 Team Status: Inactive Member Role Status Dates Dr. Candice Song MD Primary Care Provider Active Start: December 15, 2024 End: December 15, 2024 Dr. Candice Song MD Attending Provider Active Start: December 15, 2024 End: December 15, 2024 Dr. Candice Song MD Referring Provider Active Start: December 15, 2024 End: December 15, 2024 Team Status: Inactive Member Role Status Dates Dr. Candice Song MD Primary Care Provider Active Start: December 20, 2024 End: December 20, 2024 Dr. Candice Song MD Referring Provider Active Start: December 20, 2024 End: December 20, 2024 Dr. Rikki Clemente MD Attending Provider Active Start: December 20, 2024 End: December 20, 2024 (unrecognized sect ion and content) No Status Records Found INFORMATION SOURCE (unrecogn ized section and content) DATE CREATED AUTHOR 12/31/2024 [facility] FOR RECORDS PERTAINING TO PATIENTS WHO ARE OR HAVE BEEN ENROLLED IN A CHEMICAL DEPENDENCY/SUBSTANCEABUSE PROGRAM, SOME INFORMATION MAY BE OMITTED. This clinical summary was aggregated from multiple sources. Caution should be exercised in using it in the provision of clinical care. This summary normalizes information from multiple sources, and as a consequence, information in this document may materially change the coding, format and clinical context of patient data. In addition, data may be omitted in some cases. CLINICAL DECISIONS SHOULD BE BASED ON THE PRIMARY CLINICAL RECORDS. [employer] provides no warranty or guarantee of the accuracy or completeness of information in this document.
[2025-05-26 07:45] LABS: AST(SGOT) 26 U/L (<=37); Alanine Aminotransfer ALT/SGPT 23 U/L (<=46); Albumin, Serum 4.1 g/dL (3.4-4.8); Alkaline Phosphatase 79 U/L (40-129); Anion Gap 11 (5-15); BUN 19 mg/dL (4-19); BUN/Creat Ratio 19.9 RATIO (10-20); Calcium,Total 9.1 mg/dL (7.6-11.0); Carbon Dioxide 25.6 mmol/L (21.0-32.0); Chloride 103 mmol/L (98-108); Globulin 2.7 g/dL (2.2-4.2); Glucose 96 mg/dL (70-99); Potassium 3.9 mmol/L (3.3-5.1)
[2025-05-26 07:49] LABS: Hematocrit 39.0 % (40-54); Hemoglobin 13.5 g/dL (13.0-16.5); Immature Granulocytes Count 0.030 X10^3/uL (0.0-0.0); Mean Corp Hgb Conc 34.6 g/dL (32-36); Mean Corpuscular Volume 94.2 fL (80-94); Mean Platelet Vol. 10.5 fl (6.2-12.0); NRBC Flagged by Analyzer 0 % (0-5); Platelet Count 223 K/mm3 (150-450); RBC Distribution Width CV 13.5 % (11.6-14.6); RBC Distribution Width SD 47.2 fl (35.1-43.9); Red Blood Count 4.14 M/mm3 (4.6-6.2); White Blood Count 9.8 K/mm3 (4.4-11.0)
[2025-05-26 09:20] LABS: CRP 3.17 mg/L (0.0-3.0); Cholesterol 181 mg/dL (<=200); Low Density Lipoprotein Calc. 67 mg/dL; Triglycerides 177 mg/dL; Uric Acid 5.2 mg/dL (3.5-7.2); Very Low Density Lipoprotein 35 mg/dL (5-40); cholesterol:hdl ratio screen 2.29
[2025-05-28 09:08] LABS: PSA, Free 0.73 ng/mL; PSA, Free % 5.3 % (.); PSA, Total Ultrasensitive 13.700 ng/mL (0.000-4.000)
== END | disposition home or self-care (01) ==
LOC: LAB 06:01
PROVIDERS: PCP Family Medicine; Referring Provider Family Medicine; Visit Provider Family Medicine
DX: M10.9 Gout, unspecified (principal); I10 Essential (primary) hypertension; E78.5 Hyperlipidemia, unspecified; D64.9 Anemia, unspecified; R97.20 Elevated prostate specific antigen [PSA]; M35.3 Polymyalgia rheumatica
CPT/HCPCS: 36415; 80053; 80061; 84153; 84154; 84550; 85025; 85652; 86140

== ENCOUNTER → 2025-07-25 | Outpatient (CLI) | payer MEDICARE, BC, SELFPAY ==
--- NOTE | 2025-07-25 07:58 | MRI_ITS ---
PROCEDURE: PELVIS W/WO CONTRAST, 07/25/2025 REASON FOR EXAM: ELEVATED PSA LEVELS. PSA 13.7 on unspecified date, per technologist report. TECHNIQUE: Multisequence multiplanar MRI pelvis was performed with and without IV contrast. IV Contrast: 17 mL Clariscan COMPARISON: None FINDINGS: Prostate size: 5.8 x 4.1 x 5.5 cm, estimated volume 68.0 mL. Per the above provided PSA, PSA density is 0.201 ng/mL. Transition zone: PI-RADS 2 findings. Peripheral Zone: Background changes of likely prostatitis (PI-RADS 2). Additional lesions as below: *Lesion 1: Centered in the RIGHT anterior and posterior peripheral zone apex extending into the RIGHT posteromedial/posterolateral posterior peripheral zone midgland, 2.5 cm (for example, series 12, image 20-21).. *T2 score: 5. *DWI score: 5. *DCE: Positive. *Overall PI-RADS: PI-RADS 5. *Extracapsular extension:No gross extracapsular extension, however, there is capsular abutment well over 1 cm which increases the risk of occult early/microscopic extracapsular extension. Note that this includes the region of the RIGHT neurovascular bundle, which appears grossly unremarkable. *Lesion 2: LEFT posteromedial/posterolateral peripheral zone far apex, 1.2 cm (series 12, image 21).. *T2 score: 4. *DWI score: 3. *DCE: Negative. *Overall PI-RADS: 3. *Extracapsular extension:No gross extracapsular extension, however, there is capsular abutment greater than 1 cm which increases the risk of occult early/microscopic extracapsular extension. Note that this includes the region of the LEFT neurovascular bundle, which appears grossly unremarkable. Neurovascular bundles: As above. Seminal vesicles: Unremarkable. Bladder: Underdistended and suboptimally evaluated. Very mild mass-effect by the enlarged prostate. Mild trabeculation suggesting chronic bladder outlet obstruction. Lymph nodes: Unremarkable. Bones: No destructive or frankly suspicious bony lesions identified on nondedicated evaluation. Other: Diverticulosis. Bilateral inguinal hernia repair with mesh. MRI/Pelvis W/WO Contrast IMPRESSION: 1. 2.5 cm PI-RADS 5 lesion centered in the RIGHT peripheral zone apex extending into the RIGHT posterior peripheral zone midgland (lesion 1). 2. 1.2 cm PI-RADS 3 lesion in the LEFT posterior peripheral zone far apex (lesi on 2). 3. No gross extracapsular extension, however, there is capsular abutment greate r than 1 cm by both lesions, particularly on the RIGHT, which increases the risk of occult early/microscopic extracapsular exten mary. Note that this includes the regions of the bilateral neurovascular bundles, which appear grossly unremarkable although ear ly/microscopic involvement is difficult to entirely exclude. 4. No overt pelvic lymphadenopathy. 5. Additional description as above. Reading Location: [id number]
== END | disposition home or self-care (01) ==
LOC: OPMRI 07:55
PROVIDERS: PCP Family Medicine; Referring Provider Urology; Visit Provider Urology
DX: R97.20 Elevated prostate specific antigen [PSA] (principal)
CPT/HCPCS: 72197; A9575; A4216

== ENCOUNTER → 2025-07-31 | Outpatient (CLI) | payer MEDICARE, BC, SELFPAY ==
--- NOTE | 2025-07-31 07:46 | ART_ITS ---
Reason For Study Reason For Study: S/P L Pop Angioplasty Procedure A bilateral lower extremity continuous wave Doppler with analog waveform analysis and ankle brachial indexes. Left Segmental Pressures Left brachial= 191mmHg. Left posterior tibial artery = 201mmHg. Left dorsalis pedis artery = 212mmHg. Left digit = 116 mmHg. The left dorsalis pedis waveforms are biphasic. The left posterior tibial artery waveforms are triphasic. Right Segmental Pressures Right brachial= 200mmHg. Right posterior tibial artery = 208mmHg. Right dorsalis pedis artery = 232mmHg. Right digit = 109 mmHg. The right dorsalis pedis waveforms are triphasic. The right posterior tibial artery waveforms are triphasic. Indices The right ankle brachial index by the dorsalis pedis is 1.16. The right ankle brachial index by the posterior tibial artery is 1.04. The right digital-brachial index is 0.55. The left ankle brachial index by the dorsalis pedis is 1.06. The left ankle brachial index by the posterior tibial artery is 1.01. The left digital-brachial index is 0.58. VL/Ankle Brachial Index Interpretation Summary Right BIMAL 1.16, normal. Doppler/PVR waveforms of the right leg normal at rest. 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 Left BIMAL 1.06, normal. Doppler/PVR waveforms of the left leg normal at rest. TB I diminished, pedal/digit disease vs spasm. Ordering Physician: Kavitha Alvares Referring Physician: KAVITHA ALVARES PA Performed By: RAYSA MOFFETT RVT
--- NOTE | 2025-07-31 07:46 | ADUL_ITS ---
Reason For Study Reason For Study: S/P L Pop Angioplasty Left Velocities Ext Iliac Artery, dist = 94.5 cm./sec. Common Femoral Artery, mid = 109.5 cm./sec. Supf. Femoral Artery, prox = 87.5 cm./sec. Supf. Femoral Artery, mid = 209.8 cm./sec. Supf. Femoral Artery, dist = 85.5 cm./sec. Profunda Femoral Artery = 73.6 cm./sec. Popliteal Artery, mid = 45.1 cm./sec. Post. Tibial Artery, prox = 38.0 cm./sec. Post Tibial Artery, mid = 425.4 cm./sec. Post Tibial Artery, dist. = 57.0 cm./sec. Peroneal Artery, prox = 41.7 cm./sec. Peroneal Artery, mid = 41.2 cm./sec. Peroneal Artery,dist. = 55.4 cm./sec. Ant.Tibial Artery, prox = 64.5 cm./sec. Ant Tibial Artery, mid = 389.9 cm./sec. Ant. Tibial Artery, distal = 29.6 cm./sec. Procedure Exam performed in department. /US Art Duplex Unilat Lower Ext Interpretation Summary Left superficial femoral artery with >50% stenosis. Left anterior tibial artery with >50% stenosis Ordering Physician: Kavitha Alvares Referring Physician: Candice Song MD Performed By: Brandee Kimble and Student, RVT
--- NOTE | 2025-07-31 07:46 | CDU_ITS ---
Reason For Study Reason For Study: S/P L CEA Rt. Velocities/BP Lt. Velocities/BP Prox CCA 67.4/6.9 cm/sec. Prox CCA 92.8/10.6 cm/sec. Mid CCA 61.0/11.9 cm/sec. Mid CCA 86.7/11.8 cm/sec. Dist CCA 56.3/11.0 cm/sec. Dist CCA 72.0/11.8 cm/sec. Prox ICA 83.3/13.9 cm/sec. Prox ICA 93.2/18.1 cm/sec. Mid ICA 108.9/23.0 cm/sec. Mid ICA 126.4/23.3 cm/sec. Dist ICA 61.1/12.7 cm/sec. Dist ICA 90.4/16.7 cm/sec. Rt. ICA/CCA = 1.8. Lt. ICA/CCA = 1.5. Prox ECA 285.1/0.0 cm/sec. Prox ECA 177.8/0.0 cm/sec. Rt. Vert. 55.6/9.5 cm/sec. Lt. Vert. 97.9/19.4 cm/sec. Right Extracranial There is homogeneous, smooth atherosclerotic plaque noted in the right common carotid artery. There is heterogeneous, irregular atherosclerotic plaque noted in the right internal carotid artery. There is heterogeneous, irregular atherosclerotic plaque noted in the right external carotid artery. Antegrade flow is noted in the right vertebral artery. Left Extracranial There is homogeneous, smooth atherosclerotic plaque noted in the left common carotid artery. There is heterogeneous, irregular atherosclerotic plaque noted in the left internal carotid artery. There is homogeneous, smooth atherosclerotic plaque noted in the left external carotid artery. Antegrade flow is noted in the left vertebral artery. Procedure Carotid Duplex 55485. This is a Carotid Duplex examination using B-mode, color flow and specral Doppler. Exam performed in department. VL/Carotid Duplex Ultrasound Interpretation Summary Mild (<50%) stenosis right extracranial internal carotid. Moderate (50-69%) stenosis left extracranial internal carotid. Patent and antegrade vertebrals bilaterally. Ordering Physician: Kavitha Alvares Referring Physician: Kavitha Alvares Performed By: Brandee Kimble and Student, T
--- OUTSIDE RECORDS SUMMARY | 2025-07-31 07:47 | XMS RPT_ITS | CCD ---
Author Organization [facility] Care Team Providers Care Medical Illustrator Name Role Phone Dr. Candice Song Primary Care Provider [phone] Dr. Tevin Lopez Attending Provider [phone] Dr. Candice Song Referring Provider [phone] RASHAD Baca Attending Provider Dr. Candice Song Referring Provider [phone] Tevin Lopez Referring Provider [phone]([facility]) [phone] Dr. Tevin Lopez Other Provider Dr. Candice Song Primary Care Provider [phone] Dr. Tevin Lopez Attending Provider [phone] RASHAD Baca Referring Provider Dr. Candice Song Primary Care Provider [phone] Dr. Candice Song Referring Provider [phone] RASHAD Alvares Attending Provider [phone] RASHAD Alvares Referring Provider [phone] Dr. Candice Song Primary Care Provider [phone] Dr. Tevin Lopez Admit Provider Dr. Tevin Lopez Attending Provider [phone] Dr. Tevin Lopez Referring Provider [phone] Tevin Lopez Other Provider RASHAD Alvares Attending Provider [phone])[phone] Candice Song Referring Provider [phone] Candice Song Primary Care Provider [phone] Dr. Candice Song Referring Provider Dr. Tevin Lopez Attending Provider Nohemi BURNS, Dr. Harvey Primary Care Provider Dia SOLORZANO, Kavitha Attending Provider [phone] Dia SOLORZANO, Kavitha Referring Provider [phone] John BURNS, Dr. Abarca Attending Provider [phone] Nohemi BURNS, Dr. Harvey Referring Provider Nohemi BURNS, Dr. Harvey Attending Provider [phone] Chyna BURNS, Dr. Brandt Attending Provider Chyna BURNS, Dr. Brandt Referring Provider Chyna BURNS, Dr. Brandt Other Provider Nohemi BURNS, Dr. Harvey Primary Care Provider Nohemi BURNS, Dr. Harvey Attending Provider [phone] Nohemi BURNS, Dr. Harvey Referring Provider [phone] Lanny COMPLIANCE ANALYST-CLennie Attending Provider Miedel, Candice Primary Care Unavailable Miedel, Candice Referring Unavailable Rikki Clemente Attending Unavailable Miedel, Candice Primary Care Unavailable Alvares, Kavitha Referring Unavailable Alvares, Kavitha Attending Unavailable Miedel, Candice Primary Care Unavailable Alvares, Kavitha Referring Unavailable Alvares, Kavitha Attending Unavailable Miedel, Candice Primary Care Unavailable MonaJosé Manuel Referring Unavailable José Manuel Dunn Attending Unavailable Miedel, Candice Primary Care Unavailable Chaunceyabrchris Rikki Referring Unavailable CalabrRikki perez Attending Unavailable Rikki Clemente Consulting Unavailable Miedel, Candice Primary Care Unavailable Miedel, Candice Referring Unavailable Lennie Ca NP Attending Unavailable Miedel, Candice Primary Care Unavailable Miedel, Candice Referring Unavailable CalabrRikki perez Attending Unavailable Miedel, Candice Primary Care Unavailable Alvares, Kavitha Attending Unavailable Alvares, Kavitha Referring Unavailable Miedel, Candice Primary Care Unavailable Alvares, Kavitha Referring Unavailable Alvares, Kavitha Attending Unavailable Miedel, Candice Primary Care Unavailable Miedel, Candice Attending Unavailable Miedel, Candice Primary Care Unavailable Rikki Clemente Referring Unavailable Rikki Clemente Attending Unavailable Tevin Lopez Attending Unavailable Miedel, Candice Primary Care Unavailable Alvares, Kavitha Referring Unavailable Tevin Lopez Attending Unavailable Miedel, Candice Primary Care Unavailable Alvares, Kavitha Referring Unavailable Miedel, Candice Primary Care Unavailable Miedel, Candice Referring Unavailable Alvares, Kavitha Attending Unavailable Miedel, Candice Primary Care Unavailable Miedel, Candice Referring Unavailable Miedel, Candice Attending Unavailable Miedel, Candice Attending Unavailable Miedel, Candice Primary Care Unavailable Miedel, Candice Referring Unavailable Medications Current Medications Medication Drug Class(es) Dates Sig (Normalized) Sig (Original) allopurinol 100 mg oral tablet (6 sources) Xanthine Oxidase Inhibitor Start: 07-01-2023 take 1 tablet by mouth once daily Allopurinol 100 mg tablet Active 100 mg PO DAILY July 01, 2023 12:00am GOUT ascorbic acid 113 mg / beta carotene 7160 mg / cuprous oxide 0.4 mg / dl-alpha tocopheryl acetate 100 unt / zinc oxide 17.4 mg oral tablet (3 sources) Vitamin C Start: 11-02-2024 Vitamins A,C,S-Vefz-Miayrs (Preservision Areds) 2,148 mcg-113 mg-45 mg-17.4mg tablet Active 1 {tbl} PO TWICE A DAY November 02, 2024 1:00am administer with AM and PM meals aspirin 81 mg chewable tablet (13 sources) Platelet Aggregation Inhibitor, Nonsteroidal Anti-inflammatory Drug Start: 03-15-2017 take 1 tablet by mouth once daily Aspirin 81 MG tablet,chewable Active 81 mg PO DAILY@0800 March 15, 2017 12:00am [facility] lisinopril 10 mg oral tablet (13 sources) Angiotensin Converting Enzyme Inhibitor Start: 02-17-2014 take 1 tablet by mouth once daily Lisinopril 10 MG tablet Active 10 mg PO DAILY February 17, 2014 12:00am HYPERTENSION Multivitamin (Multiple Vitamins) 1 EACH tablet (13 sources) Start: 03-15-2017 take 1 tablet by mouth once daily Multivitamin (Multiple Vitamins) 1 EACH tablet Active 1 NMA PO DAILY March 15, 2017 12:00am SUPPLEMENT Start: 03-15-2017 take 1 tablet by illi th once daily Multivitamin (Multiple Vitamins) 1 [...] 2017 12:00am predniSONE 20 mg oral tablet (3 sources) Start: 12-01-2024 take 1 tablet by mouth once daily Prednisone 20 mg tablet Active 20 mg PO DAILY December 01, 2024 1:00am rosuvastatin calcium 40 mg oral tablet (16 sources) HMG-CoA Reductase Inhibitor Start: 12-13-2024 take [...] 01, 2023 12:00am February 26, 2024 8:59am HYPERLIPIDEMIA Completed/Discontinued Medications Medication Drug Class(es) Dates Sig (Normalized) Sig (Original) cilostazol 50 mg oral tablet (20 sources) Phosphodiesterase 3 Inhibitor Start: 02-11-2023 End: 01-22-2025 take 1 tablet by mouth twice daily Cilostazol 50 mg tablet Discontinued 0 .ROUTE .COMPLEX 180 3 June 09, 2023 7:22am July 01, 2023 10:38am TAKE 1 TABLET BY MOUTH TWICE A DAY clopidogrel 75 mg oral tablet (15 sources) P2Y12 Platelet Inhibitor Start: 04-01-2023 End: 03-30-2024 take 1 tablet by mouth once daily Clopidogrel (Plavix) 75 mg tablet Discontinued 75 mg PO DAILY 90 1 October 02, 2023 10:27am March 30, 2024 2:48pm BLOOD THINNER gemfibrozil 600 mg oral tablet (18 sources) Peroxisome Proliferator Receptor alpha Agonist Start: 02-17-2014 End: 02-11-2023 take 1 tablet by mouth once daily Gemfibrozil 600 MG tablet Discontinued 600 mg PO DAILY February 17, 2014 12:00am February 11, 2023 8:25am hydrocortisone 25 mg/ml topical cream (3 sources) Corticosteroid Start: 02-26-2024 End: 12-05-2024 Hydrocortisone (Proctozone-Hc) 2.5 % cream with perineal applicator Discontinued 1 NMA RC 2 to 4 times per day as needed for hemorrhoids 30 0 February 26, 2024 12:00am December 05, 2024 10:33am oxyCODONE hydrochloride 5 mg oral tablet (5 sources) Opioid Agonist Start: 07-15-2023 End: 07-18-2023 take 1 tablet by mouth every eight hours as needed for pain Oxycodone 5 mg tablet Discontinued 5 mg PO Q8H as needed for pain 9 3 0 July 15, 2023 July 17, 2023 12:00am July 18, 2023 12:33am Stenosis of left carotid artery Occlusion and stenosis of left carotid artery tamsulosin hydrochloride 0.4 mg oral capsule (5 sources) alpha-Adrenergic Rm Start: 07-15-2023 End: 07-29-2023 take 1 capsule by mouth once daily Tamsulosin 0.4 mg Capsule Discontinued 0.4 mg PO DAILY@1730 30 30 0 July 15, 2023 12:00am July 29, 2023 9:44am Problems Problem Classification Problem Date Documented Da te Episodic/Chronic Disorders of lipid metabolism (11 sources) Hyperlipidemia; Translations: [Hyperlipidemia, unspecified] 02-11-2023 Chronic Essential hypertension (11 sources) Hypertensive disorder; Translations: [Essential (primary) hypertension] 02-11-2023 Chronic Comment on above: CONTROLLED ON MED Gout and other crystal arthropathies (1 source) Gout, unspecified; Translations: [Gout, unspecified] Onset: 06-01-2025 Chronic Hemorrhoids (3 sources) Hemorrhoids; Translations: [Unspecified hemorrhoids] 02-26-2024 Episodic Immunizations and screening for infectious disease (3 sources) Requires diphtheria, tetanus and pertussis vaccination; Translations: [Encounter for immunization] Onset: 06-11-2025 06-11-2025 Episodic Occlusion or stenosis of precerebral arteries (11 sources) Left carotid artery stenosis; Translations: [Occlusion and stenosis of left carotid artery] 05-20-2023 Chronic Other aftercare (9 sources) Surgical follow-up; Translations: [Encounter for surgical aftercare following surgery on the circulatory system] 04-23-2023 Episodic Other aftercare (2 sources) Encounter for surgical aftercare following surgery on the circulatory system; Translations: [Encounter for surgical aftercare following surgery on the circulatory system] Onset: 11-02-2024 Episodic Other circulatory disease (11 sources) Arterial insufficiency; Translations: [Stricture of artery] 02-11-2023 Chronic Other circulatory disease (11 sources) Raynaud's disease; Translations: [Raynaud's syndrome without gangrene] 02-11-2023 Chronic Other circulatory disease (6 sources) Stricture of artery; Translations: [Stricture of artery] 02-11-2023 Chronic Other circulatory disease (4 sources) Disorder of carotid artery; Translations: [Disorder of arteries and arterioles, unspecified] 11-02-2024 Chronic Other circulatory disease (9 sources) Carotid bruit; Translations: [Other specified symptoms and signs involving the circulatory and respiratory systems] 04-23-2023 Episodic Other circulatory disease (4 sources) Other specified symptoms and signs involving the circulatory and respiratory systems; Translations: [Other symptoms involving cardiovascular system] 04-23-2023 Episodic Other connective tissue disease (5 sources) Polymyalgia rheumatica; Translations: [Polymyalgia rheumatica] 12-05-2024 Chronic Other connective tissue disease (1 source) Polymyalgia rheumatica; Translations: [Polymyalgia rheumatica] Onset: 12-29-2024 Chronic Other screening for suspected conditions (not mental disorders or infectious disease) (1 source) Elevated prostate specific antigen [PSA]; Translations: [Elevated prostate specific antigen [PSA]] Onset: 07-25-2025 Episodic Peripheral and visceral atherosclerosis (20 sources) Intermittent claudication; Translations: [Peripheral vascular disease, unspecified] 02-11-2023 Chronic Results Test Name Value Interpretation Reference Range Facility Pelvis W/WO Contraston 07-25 Pelvis W/WO Contrast [facility] [address] [place] [address] Pelvis W/WO Contrast MR#: [id number] Acct: [id number] Name: LENNIE MAXWELL Rep #: [id number] : 1940 M 84 From: Myke Gomes MD PCP: Dr. Candice Song MD Status: REG CLI Study: Pelvis W/WO Contrast Date of Exam: 07/25/25 Exam# [id number] Ordering Dr: José Manuel Dunn MD PROCEDURE: PELVIS W/WO CONTRAST, 07/25/2025 REASON FOR EXAM: ELEVATED PSA LEVELS. PSA 13.7 on unspecified date, per technologist report. TECHNIQUE: Multisequence multiplanar MRI pelvis was performed with and without IV contrast. IV Contrast: 17 mL Clariscan COMPARISON: None FINDINGS: Prostate size: 5.8 x 4.1 x 5.5 cm, estimated volume 68.0 mL. Per the above provided PSA, PSA density is 0.201 ng/mL. Transition zone: PI-RADS 2 findings. Peripheral Zone: Background changes of likely prostatitis (PI-RADS 2). Additional lesions as below: *Lesion 1: Centered in the RIGHT anterior and posterior peripheral zone apex extending into the RIGHT posteromedial/posterolat eral posterior peripheral zone midgland, 2.5 cm (for example, series 12, image 20-21).. *T2 score: 5. *DWI score: 5. *DCE: Positive. *Overall PI-RADS: PI-RADS 5. *Extracapsular extension:No gross extracapsular extension, however, there is capsular abutment well over 1 cm which increases the risk of occult early/microscopic extracapsular extension. Note that this includes the region of the RIGHT neurovascular bundle, which appears grossly unremarkable. *Lesion 2: LEFT posteromedial/posterolat eral peripheral zone far apex, 1.2 cm (series 12, image 21).. *T2 score: 4. *DWI score: 3. *DCE: Negative. *Overall PI-RADS: 3. *Extracapsular extension:No gross extracapsular extension, however, there is capsular abutment greater than 1 cm which increases the risk of occult early/microscopic extracapsular extension. Note that this includes the region of the LEFT neurovascular bundle, which appears grossly unremarkable. Neurovascular bundles: As above. Seminal vesicles: Unremarkable. Bladder: Underdistended and suboptimally evaluated. Very mild mass-effect by the enlarged prostate. Mild trabeculation suggesting chronic bladder outlet obstruction. Lymph nodes: Unremarkable. Bones: No destructive or frankly suspicious bony lesions identified on nondedicated evaluation. Other: Diverticulosis. Bilateral inguinal hernia repair with mesh. MRI/Pelvis W/WO Contrast IMPRESSION: 1. 2.5 cm PI-RADS 5 lesion centered in the RIGHT peripheral zone apex extending into the RIGHT posterior peripheral zone midgland (lesion 1). 2. 1.2 cm PI-RADS 3 lesion in the LEFT posterior peripheral zone far apex (lesion 2). 3. No gross extracapsular extension, however, there is capsular abutment greater than 1 cm by both lesions, particularly on the RIGHT, which increases the risk of occult early/microscopic extracapsular extension. Note that this includes the regions of the bilateral neurovascular bundles, which appear grossly unremarkable although early/microscopic involvement is difficult to entirely exclude. 4. No overt pelvic lymphadenopathy. 5. Additional description as above. Reading Location: [id number] CC: Dr. Candice Song MD; Dr. José Manuel Dunn MD Brickm[employer] Contractor: Signed Normal [facility] Visit Reporton 0 06-11-2025 Urgent Care Visit Report [facility] [address], [address] [place] [address] OFFICE VISIT Date of Service: 06/11/25 MR#: [id number] Acct: [id number] Name: LENNIE MAXWELL Rep #: [id number] : 1940 Provider: ROB love Age/Sex: 84/M Location: [facility] Status: Signed with Addenda ADDENDUM by Liza Smith on 06/11/25 at 1236 Office Procedure Documentation entered by Liza Smith MA 06/11/25 12:36: Immunizations Boostrix Tdap 2.5 Lf unit-8 mcg-5 Lf/0.5 mL intramuscular syringe Performing Provider: Lennie Ca NP, ROB Performing Location: [facility] Administered by: Liza Smith MA on 06/11/25 12:35 Dose Route Admin Location Dispensed Lot Number Expiration Date NDC Man ufacturer 0.5 mL IM Left Deltoid 0.5 mL [id number] 12/02/26 20155-110-88 [employer] VIS Given Date VIS Provided VIS Publication Date 06/11/25 Single Vaccine 24 Eligibility Eligibility Date Funding Source Not Applicable Date cc: Dr. Candice Song MD * Signed Intake Vital Signs 12/06/24 11:40 06/11/25 11:52 Height 6 ft 6 ft Weight: 198 lb BMI 26.8 BP 140/62 H Blood Pressure Location Rt brachial Position Sitting Pulse 75 Pulse Source Monitor Temp 98.0 F Temp Source Oral Pulse Oximetry (%) 96 Oxygen Delivery Method room air Intake Visit Reasons: STEPPED ON ANGUS PIN L FOOT Chief Complaint: Stepped on Angus Pin Accompanied by: Self Allergies No Known Allergies Allergy (Verified 06/11/25 12:09) Medications ???Medication ???Instructions ???Recorded ???Confirmed ???Type lisinopril 10 mg tablet 10 mg PO DAILY HYPERTENSION 06/11/25 History aspirin 81 mg chewable tablet 81 mg PO DAILY@0800 [facility] 0 03/15/17 06/11/25 History multivitamin (Multiple Vitamins 1 ea PO DAILY SUPPLEMENT 03/15/17 06/11/25 History tablet) allopurinol 100 mg tablet 100 mg PO DAILY GOUT 07/01/2305/14 History vitamins A,C,M-hgky-gwgopx 2,148 1 tab PO BID 11/02/24 06/11/25 His tory mcg-113 mg-45 mg-17.4 mg tablet (PreserVision AREDS) prednisone 20 mg tablet 20 mg PO DAILY 12/01/24 06/11/25 H istory rosuvastatin 40 mg tablet 40 mg PO QDAY #90 tabs 12/13/24 Rx Have you fallen in the past year?: No Nurse's Note: Stepped on a angus pin with left foot. Happened today. [facility] Medical History (Updated 06/11/25 @ 12:33 by Lennie Ca COMPLIANCE ANALYST, COMPLIANCE ANALYST-C) Alcohol use History of steroid therapy Back pain History of pain when walking Wears glasses Cancer Prostate disease High cholesterol History of diverticulitis Former smoker Carotid stenosis, left Carotid bruit Atherosclerosis 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, left leg Claudication of left lower extremity Basal cell carcinoma Elevated PSA ( 2020) Anemia ( 2018) Raynaud disease ( 2018) Gout Hyperlipemia Hypertension Surgical History (Updated 12/20/24 @ 13:09 by Blanca Burch) History of biopsy of temporal artery History of carotid endarterectomy History of angioplasty ( 2020) H/O hernia repair History of appendectomy Hx of tonsillectomy Family History Mother Cancer Father Myocardial infarction Heart disease Brother Afib DVT (deep venous thrombosis) Sister Afib Social History Smoking Status: Former smoker HPI HPI Chief Complaint: Stepped on Angus Pin Details: LENNIE MAXWELL, is a 84 M who presents to the office today for concerns stepping on a angus pin. He denies fever or chills. He states he able to walk on his foot without significant issue. He denies numbness or tingling. He denies any decrease in range of motion. ROS Const Constitutional: No body ache, chills, fatigue, fever(s) or headache(s) ENT ENT: No headache(s) Skin Skin: No redness Neuro Neurology: No headache(s) Endo Endocrine: No fatigue Exam Const General: cooperative, healthy appearing, comfortable and no acute distress Orientation: alert and awake Skin General: no ecchymosis, no erythema, no petechiae and other (left bottom of foot) Coding Level of Care Code Off vis,est,level 2 Diagnoses Need for Tdap vaccination Z23 Assessment and Plan Assessment and Plan (1) Need for Tdap vaccination: Status: Acute Plan: He stepped on a angus pin. There is no obvious signs of infection on his right bottom of his foot. There is no indication for antibiotics. Will give Tdap vaccination. Encouraged to get plenty of rest, drink lots of clear liquids, and use Tylenol or Ibuprofen (unless contraindicated) for fever and comfort. Patient also educated on other symptomatic management technique (more content not included)... Normal [facility] PSA Total+%Freeon 05-28-2025 PSA, FREE 0.73 ng/mL Normal N/A [facility] Comment on above: Result Comment: Marino DYER methodology. Performed By: #### L 101.9900, L100.0100, L500.4100, L501.1400, L501.6710, L3110.0500, L500.4050 ####[facility] [address] [place], [address] PSA, FREE % 5.3 Normal . [facility] Comment on above: Result Comment: The table below lists the probability of prostate cancer for men with non-suspicious MAYRA results and total PSA between 4 and 10 ng/mL, by patient age (Giovanni et al, MURPHY 1998, 279:1542). % Free PSA 50-64 yr 65-75 yr 0.00-10.00% 56% 55% 10.01-15.00% 24% 35% 15.01-20.00% 17% 23% 20.01-25.00% 10% 20% >25.00% 5% 9% Please note: Giovanni et al did not make specific recommendations regarding the use of percent free PSA for any other population of men. Performed at: [facility] [address] [place] [id number] Criminal Justice Social Worker: Robinson Mendoza PhD, Phone: [phone] Performed By: #### L 101.9900, L100.0100, L500.4100, L501.1400, L501.6710, L3110.0500, L500.4050 ####[facility] [id number] [place], [place], [id number] PSA, TOTAL ULTR 13.700 ng/mL Abnormal 0.000-4.000 [facility] Comment on above: Result Comment: Marino walter ECLIA methodology. According to the [place] [employer], Serum PSA should decrease and [...] of malignant disease. Performed By: #### L 101.9900, L100.0100, L500.4100, L501.1400, L501.6710, L3110.0500, L500.4050 ####[facility] [address] [place], [place], [id number] Absolute lymphocyte countOrd ered By: Candice Song on 05-26-2025 Lymphocytes Auto (Unsp spec) [#/Vol] 4.26 10*3/uL 0.83-4.51 [facility] Absolute neutrophil countOrd ered By: Candice Song on 05-26-2025 Neutrophils (Bld) [#/Vol] 4.4 10*3/uL 2.0-7.7 [facility] Anion gap in Serum or Plasma Ordered By: Candice Song on 05-26-2025 Anion gap [Moles/Vol] 11 mmol/L 02-23 [facility] Automated lymphocyte count a s percentage of total leukocytesOrdered By: Candice Song on 05-26-2025 Lymphocytes/100 WBC Auto (Unsp spec) 43.6 % High - [facility] BUN/creatinine ratioOrdered By: Candice Song on 05-26-2025 Urea nitrogen/Creatinine [Mass ratio] 19.9 mg/mg 10- [facility] Basophil percentageOrdered B y: Candice Song on 05-26-2025 Basophils/100 WBC (Bld) 0.5 % 0-1 [facility] Bilirubin, totalOrdered By: Candice Song on 05-26-2025 Bilirubin [Mass/Vol] 0.74 mg/dL 0.00-1.30 [facility] CBC W/Diff, Automatedon 05-12 Absolute Lymph 4.26 X10 3/uL Normal 0.83-4.51 [facility] Comment on above: Performed By: #### L 101.9900, L100.0100, L500.4100, L501.1400, L501.6710, L3110.0500, L500.4050 ####[facility] [address] [place], [address] Absolute Neut 4.4 X10 3/uL Normal 2.0-7.7 [facility] Comment on above: Performed By: #### L 101.9900, L100.0100, L500.4100, L501.1400, L501.6710, L3110.0500, L500.4050 ####[facility] [address] [place], [address] Basophils/100 WBC (Bld) 0.5 % Normal 0-1 [facility] Comment on above: Performed By: #### L 101.9900, L100.0100, L500.4100, L501.1400, L501.6710, L3110.0500, L500.4050 ####[facility] [address] [place], [address] Eosinophils/100 WBC (Bld) 3.4 % Normal 0-5 [facility] Comment on above: Performed By: #### L 101.9900, L100.0100, L500.4100, L501.1400, L501.6710, L3110.0500, L500.4050 ####[facility] [address] [place], [address] Erythrocyte distribution width (RBC) [Ratio] 13.5 % Normal 11.6-14.6 [facility] Comment on above: Performed By: #### L 101.9900, L100.0100, L500.4100, L501.1400, L501.6710, L3110.0500, L500.4050 ####[facility] [address] [place], [address] Hematocrit (Bld) [Volume fraction] 39.0 % Low 40-54 [facility] Comment on above: Performed By: #### L 101.9900, L100.0100, L500.4100, L501.1400, L501.6710, L3110.0500, L500.4050 ####[facility] [address] [place], [address] Hemoglobin (Bld) [Mass/Vol] 13.5 g/dL Normal 13.0-16.5 [facility] Comment on above: Performed By: #### L 101.9900, L100.0100, L500.4100, L501.1400, L501.6710, L3110.0500, L500.4050 ####[facility] [address] [place], [address] IG% 0.300 Normal 0.0-0.9 [facility] Comment on above: Result Comment: IG% - Immature Granulocytes (promyelocytes, myelocytes and metamyelocytes) > 1% indicates that a LEFT SHIFT is Present. Performed By: #### L 101.9900, L100.0100, L500.4100, L501.1400, L501.6710, L3110.0500, L500.4050 ####[facility] [address] [place], [address] Lymphocytes/100 WBC (Bld) 43.6 % High 19-41 [facility] [facility] Comment on above: Performed By: #### L 101.9900, L100.0100, L500.4100, L501.1400, L501.6710, L3110.0500, L500.4050 ####[facility] [address] [place], [address] MCH (RBC) [Entitic mass] 32.6 pg High 27.0-32.0 [facility] Comment on above: Performed By: #### L 101.9900, L100.0100, L500.4100, L501.1400, L501.6710, L3110.0500, L500.4050 ####[facility] [address] [place], [address] MCHC (RBC) [Mass/Vol] 34.6 g/dL Normal 32-36 [facility] Comment on above: Performed By: #### L 101.9900, L100.0100, L500.4100, L501.1400, L501.6710, L3110.0500, L500.4050 ####[facility] [address] [place], [address] MCV (RBC) [Entitic vol] 94.2 fL High 80-94 [facility] Comment on above: Performed By: #### L 101.9900, L100.0100, L500.4100, L501.1400, L501.6710, L3110.0500, L500.4050 ####[facility] [address] [place], [address] Monocytes/100 WBC (Bld) 6.8 % Normal 0-10 [facility] Comment on above: Performed By: #### L 101.9900, L100.0100, L500.4100, L501.1400, L501.6710, L3110.0500, L500.4050 ####[facility] [address] [place], [address] Neutrophils/100 WBC (Bld) 45.4 % Low 47-70 [facility] Comment on above: Performed By: #### L 101.9900, L100.0100, L500.4100, L501.1400, L501.6710, L3110.0500, L500.4050 ####[facility] [address] [place], [address] Nucleated RBC (Bld) [#/Vol] 0 10*3/uL Normal 0-5 [facility] Comment on above: Performed By: #### L 101.9900, L100.0100, L500.4100, L501.1400, L501.6710, L3110.0500, L500.4050 ####[facility] [address] [place], [address] Platelet mean volume (Bld) [Entitic vol] 10.5 fL Normal 6.2-12.0 [facility] Comment on above: Performed By: #### L 101.9900, L100.0100, L500.4100, L501.1400, L501.6710, L3110.0500, L500.4050 ####[facility] [address] [place], [address] Platelets (Bld) [#/Vol] 223 10*3/uL Normal 150-450 [facility] Comment on above: Performed By: #### L 101.9900, L100.0100, L500.4100, L501.1400, L501.6710, L3110.0500, L500.4050 ####[facility] [address] [place], [address] RBC (Bld) [#/Vol] 4.14 10*6/uL Low 4.6-6.2 [facility] Comment on above: Performed By: #### L 101.9900, L100.0100, L500.4100, L501.1400, L501.6710, L3110.0500, L500.4050 ####[facility] [address] [place], [place], [phone] RDW SD 47.2 fl High 35.1-43.9 [facility] Comment on above: Performed By: #### L 101.9900, L100.0100, L500.4100, L501.1400, L501.6710, L3110.0500, L500.4050 ####[facility] [address] [place], [place], [id number] WBC (Bld) [#/Vol] 9.8 10*3/uL Normal 4.4-11.0 [facility] Comment on above: Performed By: #### L 101.9900, L100.0100, L500.4100, L501.1400, L501.6710, L3110.0500, L500.4050 ####[facility] [address] [place], [place], [id number] CRPon 05-26-2025 C-REACTIVE PROT 3.17 mg/L High 0.0-3.0 [facility] Comment on above: Performed By: #### L 101.9900, L100.0100, L500.4100, L501.1400, L501.6710, L3110.0500, L500.4050 ####[facility] [address] [place], [place], [address] Calculated very low density lipoprotein (VLDL) cholesterol measurementOrdered By: Candice Song on 05-26-2025 Calculated very low density lipoprotein (VLDL) cholesterol measurement 35 mg/dL 5-40 [facility] Carbon dioxide, total [Moles /volume] in Central venous bloodOrdered By: Candice Song on 05-26-2025 CO2 [Moles/Vol] 25.6 mmol/L 21.0-32.0 [facility] Chloride assayOrdered By: Cuba Song on 05-26-2025 Chloride [Moles/Vol] 103 mmol/L 98-108 [facility] Comprehensive Metabolic Prof ilon 05-26-2025 Albumin [Mass/Vol] 4.1 g/dL Normal 3.4-4.8 [facility] Comment on above: Performed By: #### L 101.9900, L100.0100, L500.4100, L501.1400, L501.6710, L3110.0500, L500.4050 ####[facility] [address] [place], [address] Albumin/Globulin [Mass ratio] 1.5 {ratio} Normal 0.9-2.4 [facility] Comment on above: Performed By: #### L 101.9900, L100.0100, L500.4100, L501.1400, L501.6710, L3110.0500, L500.4050 ####[facility] [address] [place], [address] ALK PHOS 79 U/L Normal 40-129 [facility] Comment on above: Performed By: #### L 101.9900, L100.0100, L500.4100, L501.1400, L501.6710, L3110.0500, L500.4050 ####[facility] [address] [place], [address] ALT [Catalytic activity/Vol] 23 U/L Normal <=46 [facility] Comment on above: Performed By: #### L 101.9900, L100.0100, L500.4100, L501.1400, L501.6710, L3110.0500, L500.4050 ####[facility] [address] [place], [address] AST [Catalytic activity/Vol] 26 U/L Normal <=37 [facility] Comment on above: Performed By: #### L 101.9900, L100.0100, L500.4100, L501.1400, L501.6710, L3110.0500, L500.4050 ####[facility] [address] [place], [address] Bilirubin [Mass/Vol] 0.74 mg/dL Normal 0.00-1.30 [facility] Comment on above: Performed By: #### L 101.9900, L100.0100, L500.4100, L501.1400, L501.6710, L3110.0500, L500.4050 ####[facility] [address] [place], [address] BUN/CRE 19.9 RATIO Normal 10-20 [facility] Comment on above: Performed By: #### L 101.9900, L100.0100, L500.4100, L501.1400, L501.6710, L3110.0500, L500.4050 ####[facility] [address] [place], [address] Calcium [Mass/Vol] 9.1 mg/dL Normal 7.6-11.0 [facility] Comment on above: Performed By: #### L 101.9900, L100.0100, L500.4100, L501.1400, L501.6710, L3110.0500, L500.4050 ####[facility] [address] [place], [address] Chloride [Moles/Vol] 103 mmol/L Normal 98-108 [facility] Comment on above: Performed By: #### L 101.9900, L100.0100, L500.4100, L501.1400, L501.6710, L3110.0500, L500.4050 ####[facility] [address] [place], [address] CO2 [Moles/Vol] 25.6 mmol/L Normal 21.0-32.0 [facility] Comment on above: Performed By: #### L 101.9900, L100.0100, L500.4100, L501.1400, L501.6710, L3110.0500, L500.4050 ####[facility] [address] [place], [address] Creatinine [Mass/Vol] 0.93 mg/dL Normal 0.70-1.20 [facility] Comment on above: Performed By: #### L 101.9900, L100.0100, L500.4100, L501.1400, L501.6710, L3110.0500, L500.4050 ####[facility] [address] [place], [address] GAP 11 Normal 5-15 [facility] Comment on above: Performed By: #### L 101.9900, L100.0100, L500.4100, L501.1400, L501.6710, L3110.0500, L500.4050 ####[facility] [address] [place], [address] GFR/1.73 sq M.predicted among non-blacks MDRD (S/P/Bld) [Vol rate/Area] 81 mL/min/{1.73_m2} Normal >60 [facility] Comment on above: Result Comment: mL/m in/1.73m2 CKD-EPI Creatinine Equation (2020) Performed By: #### L 101.9900, L100.0100, L500.4100, L501.1400, L501.6710, L3110.0500, L500.4050 ####[facility] [address] [place], [address] Globulin (S) [Mass/Vol] 2.7 g/dL Normal 2.2-4.2 [facility] Comment on above: Performed By: #### L 101.9900, L100.0100, L500.4100, L501.1400, L501.6710, L3110.0500, L500.4050 ####[facility] [address] [place], [address] Glucose [Mass/Vol] 96 mg/dL Normal 70-99 [facility] Comment on above: Performed By: #### L 101.9900, L100.0100, L500.4100, L501.1400, L501.6710, L3110.0500, L500.4050 ####[facility] [address] [place], [address] Potassium [Moles/Vol] 3.9 mmol/L Normal 3.3-5.1 [facility] Comment on above: Performed By: #### L 101.9900, L100.0100, L500.4100, L501.1400, L501.6710, L3110.0500, L500.4050 ####[facility] [address] [place], [address] Sodium [Moles/Vol] 139 mmol/L Normal 133-145 [facility] Comment on above: Performed By: #### L 101.9900, L100.0100, L500.4100, L501.1400, L501.6710, L3110.0500, L500.4050 ####[facility] [address] [place], [address] T PROT 6.8 g/dL Normal 5.9-8.4 [facility] Comment on above: Performed By: #### L 101.9900, L100.0100, L500.4100, L501.1400, L501.6710, L3110.0500, L500.4050 ####[facility] [address] [place], [address] Urea nitrogen [Mass/Vol] 19 mg/dL Normal 4-19 [facility] Comment on above: Performed By: #### L 101.9900, L100.0100, L500.4100, L501.1400, L501.6710, L3110.0500, L500.4050 ####[facility] [address] [place], [address] Eosinophil percentageOrdered By: Candice Song on 05-26-2025 Eosinophils/100 WBC (Bld) 3.4 % 0-5 [facility] Erythrocyte Sed Rateon 05-26 SED RATE 6 mm/hr Normal 0-20 [facility] Comment on above: Performed By: #### L 101.9900, L100.0100, L500.4100, L501.1400, L501.6710, L3110.0500, L500.4050 ####[facility] [address] [place], [address] Erythrocyte distribution wid th ratioOrdered By: Candice Song on 05-26-2025 Erythrocyte distribution width (RBC) [Ratio] 13.5 % 11.6-14.6 [facility] Erythrocyte distribution wid th standard deviationOrdered By: Candice Song on 05-26-2025 Erythrocyte distribution width (RBC) [Ratio] 47.2 fl High 35.1-43.9 [facility] Erythrocyte sedimentation ra teOrdered By: Candice Song on 05-26-2025 ESR (Bld) [Velocity] 6 mm/h 0-20 [facility] Glomerular filtration rate ( GFR) estimation/1.73 sq m using serum, plasma, or whole bOrdered By: Candice Song on 05-26-2025 GFR/1.73 sq M.predicted among non-blacks MDRD (S/P/Bld) [Vol rate/Area] 81 mL/min/{1.73_m2} >60 [facility] Comment on above: mL/min/1.73m2 CKD-EP I Creatinine Equation (2020) Hematocrit Auto (Bld) [Volum e fraction]Ordered By: Candice Song on 05-26-2025 Hematocrit (Bld) [Volume fraction] 39.0 % Low 40-54 [facility] Hemoglobin measurementOrdere d By: Candice Song on 05-26-2025 Hemoglobin (Bld) [Mass/Vol] 13.5 g/dL 13.0-16.5 [facility] Immature granulocytes/100 WB C Auto (Bld)Ordered By: Candice Song on 05-26-2025 Immature granulocytes/100 WBC (Bld) 0.300 % 0.0-0.9 [facility] Comment on above: IG% - Immature Granu locytes (promyelocytes, myelocytes and metamyelocytes) > 1% indicates that a LEFT SHIFT is Present. LDL calc ser/plasOrdered By: Candice Song on 05-26-2025 Cholesterol in LDL [Mass/Vol] 67 mg/dL [facility] Comment on above: Mbkwirfujw=925-847 m g/dL & Higher Wago=060 mg/dL or greaterFriedwald Equation for LDL-C Laboratory - Chemistry and C hemistry - challengeOrdered By: Candice Song on 05-26-2025 AST [Catalytic activity/Vol] 26 U/L <38 [facility] Lipid Profileon 05-26-2025 CHOL:HDL 2.29 Normal [facility] Comment on above: Performed By: #### L 101.9900, L100.0100, L500.4100, L501.1400, L501.6710, L3110.0500, L500.4050 ####[facility] [address] [place], [address] Cholesterol [Mass/Vol] 181 mg/dL Normal <=200 [facility] Comment on above: Result Comment: Chol esterol level, Desirable <200 mg/dL Borderline high cholesterol 200-239 mg/dL High cholesterol >=240 mg/dL Recommendations of the NCEP Adult Treatment Panel for the following risk-cutoff thresholds for the [place] population. Performed By: #### L 101.9900, L100.0100, L500.4100, L501.1400, L501.6710, L3110.0500, L500.4050 ####[facility] [address] [place], [address] Cholesterol in HDL [Mass/Vol] 79 mg/dL Normal [facility] Comment on above: Result Comment: [place] onal Cholesterol Education Program (NCEP) guidelines: <40 mg/dL: Low HDL-cholesterol (major risk factor for CHD) >= 60 mg/dL: High HDL-cholesterol (negative risk factor for CHD) HDL-cholesterol is affected by a number of factors, e.g. smoking, exercise, hormones, sex and age. Performed By: #### L 101.9900, L100.0100, L500.4100, L501.1400, L501.6710, L3110.0500, L500.4050 ####[facility] [address] [place], [address] Cholesterol in LDL [Mass/Vol] 67 mg/dL Normal [facility] Comment on above: Result Comment: Bord sctqfy=428-169 mg/dL Higher Cgqa=335 mg/dL or greater Friedwald Equation for LDL-C Performed By: #### L 101.9900, L100.0100, L500.4100, L501.1400, L501.6710, L3110.0500, L500.4050 ####[facility] [address] [place], [place], [phone](449) Cholesterol in VLDL [Mass/Vol] 35 mg/dL Normal 5-40 [facility] Comment on above: Performed By: #### L 101.9900, L100.0100, L500.4100, L501.1400, L501.6710, L3110.0500, L500.4050 ####[facility] [address] [place], [place], [phone]) Triglyceride [Mass/Vol] 177 mg/dL Normal [facility] Comment on above: Result Comment: The drugs N-Acetylcysteine and Metamizole may falsely depress this assay. Normal range: <150 mg/dL Borderline High: 150-199 mg/dL High: 200-499 mg/dL Very High: >500 mg/dL Performed By: #### L 101.9900, L100.0100, L500.4100, L501.1400, L501.6710, L3110.0500, L500.4050 ####[facility] [address] [place], [place], [phone] MCV (mean corpuscular volume ) determinationOrdered By: Candice Sogn on 05-26-2025 MCV (RBC) [Entitic vol] 94.2 fL High 80-94 [facility] Mean corpuscular hemoglobin (MCH) determinationOrdered By: Candice Song on 05-26-2025 MCH (RBC) [Entitic mass] 32.6 pg High 27.0-32.0 [facility] Mean corpuscular hemoglobin concentration (MCHC) determinationOrdered By: Candice Song on 05-26-2025 MCHC (RBC) [Mass/Vol] 34.6 g/dL 32-36 [facility] Mean platelet volume determi nationOrdered By: Candice Song on 05-26-2025 Platelet mean volume (Bld) [Entitic vol] 10.5 fL 6.2-12.0 [facility] Monocyte percentageOrdered B y: Candice Song on 05-26-2025 Monocytes/100 WBC (Bld) 6.8 % 0-10 [facility] Neutrophil percentageOrdered By: Candice Song on 05-26-2025 Neutrophils/100 WBC (Bld) 45.4 % Low 47-70 [facility] Nucleated red blood cell per centageOrdered By: Candice Song on 05-26-2025 Nucleated RBC/100 WBC (Bld) [Ratio] 0 % 0-5 [facility] Platelet countOrdered By: Cuba Song on 05-26-2025 Platelets (Bld) [#/Vol] 223 10*3/uL 150-450 [facility] Potassium measurement (mass/ volume)Ordered By: Candice Song on 05-26-2025 Potassium (Unsp spec) [Mass/Vol] 3.9 mmol/L 3.3-5.1 [facility] RBC Auto (Bld) [#/Vol]Ordere d By: Candice Song on 05-26-2025 RBC (Bld) [#/Vol] 4.14 10*6/uL Low 4.6-6.2 [facility] Screening total cholesterol/ high density lipoprotein (HDL) cholesterol ratioOrdered By: Candice Song on 05-26-2025 Cholesterol.total/Maren sterol in HDL [Mass ratio] 2.29 {ratio} [facility] Serum creatinine measurement (mass/volume)Ordered By: Candice Song on 05-26-2025 Creatinine [Mass/Vol] 0.93 mg/dL 0.70-1.20 [facility] Serum globulin measurementOr dered By: Candice Song on 05-26-2025 Globulin (S) [Mass/Vol] 2.7 g/dL 2.2-4.2 [facility] Serum glucose measurement (m ass/volume)Ordered By: Candice Song on 05-26-2025 Glucose [Mass/Vol] 96 mg/dL 70-99 [facility] Serum or plasma C reactive p rotein measurement (mass/volume)Ordered By: Candice Song on 05-26-2025 CRP [Mass/Vol] 3.17 mg/L High 0.0-3.0 [facility] Serum or plasma alanine pickett otransferase (ALT) measurementOrdered By: Candice Song on 05-26-2025 ALT [Catalytic activity/Vol] 23 U/L <47 [facility] Serum or plasma albumin harrison urement (mass/volume)Ordered By: Candice Song on 05-26-2025 Albumin [Mass/Vol] 4.1 g/dL 3.4-4.8 [facility] Serum or plasma albumin/glob ulin mass ratioOrdered By: Candice Song on 05-26-2025 Albumin/Globulin [Mass ratio] 1.5 {ratio} 0.9-2.4 [facility] Serum or plasma alkaline roseanne sphatase measurementOrdered By: Candice Song on 05-26-2025 ALP [Catalytic activity/Vol] 79 U/L 40-129 [facility] Serum or plasma calcium harrison urement (mass/volume)Ordered By: Candice Song on 05-26-2025 Calcium [Mass/Vol] 9.1 mg/dL 7.6-11.0 [facility] Serum or plasma cholesterol in HDL measurement (mass/volume)Ordered By: Candice Song on 05-26-2025 Cholesterol in HDL [Mass/Vol] 79 mg/dL >40 [facility] Comment on above: National Cholesterol Education Program (NCEP) guidelines:<40 mg/dL: Low HDL-cholesterol (major risk factor for CHD)>= 60 mg/dL: High HDL-cholesterol (negative risk factor for CHD)HDL-cholesterol is affected by a number of factors, e.g. smoking, exercise, hormones, sex and age. Serum or plasma cholesterol measurement (mass/volume)Ordered By: Candice Song on 05-26-2025 Cholesterol [Mass/Vol] 181 mg/dL <201 [facility] Comment on above: Cholesterol level, D esirable <200 mg/dLBorderline high cholesterol 200-239 mg/dLHigh cholesterol >=240 mg/dLRecommendations of the NCEP Adult Treatment Panel for the following risk-cutoff thresholds for the [place] population. Serum or plasma free prostat e specific antigen (PSA)/total PSA mass ratioOrdered By: Candice Song on 05-26-2025 Free PSA/Total PSA [Mass fraction] 5.3 % . [facility] Comment on above: The table below [...] any other population of men.Performed at: - [facility] [id number] Director: Robinson Mendoza PhD, Phone: [phone] Serum or plasma urea nitroge n measurement (mass/volume)Ordered By: Candice Song on 05-26-2025 Urea nitrogen [Mass/Vol] 19 mg/dL 4-19 [facility] Serum or plasma uric acid me asurement (mass/volume)Ordered By: Candice Song on 05-26-2025 Urate [Mass/Vol] 5.2 mg/dL 3.5-7.2 [facility] Comment on above: The drugs N-Acetylcy steine and Metamizole may falsely depress this assay. Sodium levelOrdered By: Nadeem Song on 05-26-2025 Sodium [Moles/Vol] 139 mmol/L 133-145 [facility] Total proteinOrdered By: Kendell Song on 05-26-2025 Protein [Mass/Vol] 6.8 g/dL 5.9-8.4 [facility] Triglycerides measurementOrd ered By: Candice Song on 05-26-2025 Triglyceride [Mass/Vol] 177 mg/dL <199 [facility] Comment on above: The drugs N-Acetylcy steine and Metamizole may falsely depress this assay. Normal range: <150 mg/dLBorderline High: 150-199 mg/dLHigh: 200-499 mg/dLVery High: >500 mg/dL Uric Acidon 05-26-2025 URIC 5.2 mg/dL Normal 3.5-7.2 [facility] Comment on above: Result Comment: The drugs N-Acetylcysteine and Metamizole may falsely depress this assay. Performed By: #### L 101.9900, L100.0100, L500.4100, L501.1400, L501.6710, L3110.0500, L500.4050 ####[facility] [address] [place], [place], [phone] White blood cell (WBC) count Ordered By: Candice Song on 05-26-2025 WBC (Bld) [#/Vol] 9.8 10*3/uL 4.4-11.0 [facility] Surgery Visit Reporton 12-20 Surgery Visit Report [facility] [address] [place] [address] OFFICE VISIT Date of Service: 12/20/24 MR#: [id number] Acct: [id number] Name: LENNIE MAXWELL Rep #: [id number] : 1940 Provider: Dr. Rikki salazar MD Age/Sex: 83/M Location: [facility] Status: Signed Intake Vital Signs 12/06/24 11:40 Height 6 ft Intake Visit Reasons: S/P TEMPORAL ARTERY BIOPSY 12-06 Chief Complaint: temporal artery biopsy f/u Campaign Director Required: No Is patient in pain?: No [...] mg PO DAILY GOUT 07/01/2312/10 History vitamins A,C,E-yoym-utvqna 2,148 1 tab PO BID 11/02/24 12/20/24 [...] Global Post Op Diagnoses Polymyalgia rheumatica M35.3 [facility] Medical History Alcohol use History of steroid therapy Back pain History of pain when walking Wears glasses Cancer Prostate disease High cholesterol History of diverticulitis Former smoker Carotid stenosis, left Carotid bruit Atherosclerosis 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, left leg Claudication of left lower extremity Basal cell carcinoma Elevated PSA ( 2020) Anemia ( 2019) Raynaud disease ( 2018) Gout Hyperlipemia Hypertension Surgical History (Updated 12/20/24 [...] Activity as tolerated. Rikki Clemente MD Pager: [facility] [address] [place] [address] [address] [place] [address] Office: 12/20/24 1320 Date [facility] Date (if applicable) CC: Normal [facility] CRPon 12-15-2024 C-REACTIVE PROT 5.38 mg/L High 0.0-3.0 [facility] Comment on above: Performed By: #### L 101.9900, L501.6710 ####[facility] [address] [facility] [place], [address] CRP [Mass/Vol]Ordered By: Cuba Song on 12-15-2024 C-Reactive Protein Extended Range 5.38 mg/L High 0.0-3.0 [facility] Erythrocyte Sed Rateon 12-15 SED RATE 10 mm/hr Normal 0-20 [facility] Comment on above: Performed By: #### L 101.9900, L501.6710 ####[facility] [address] [place], [address] Erythrocyte sedimentation ra teOrdered By: Candice Song on 12-15-2024 ESR (Bld) [Velocity] 10 mm/h 0-20 [facility] Discharge Instructionon 11-13 Discharge Instruction [facility] Medical Records Department [address] [place] [address] Instructions for Home/Discharge Instructions 12/06/24 1336 MR#: [id number] Acct: [id number] Name: LENNIE MAXWELL Rep #: [id number] : 1940 83 From: Rikki Clemente MD PCP: Dr. Candice Song MD Status:REG [facility] Discharge Instructions Diet Discharge Diet: Light diet [...] to schedule 2 week follow up appointment. [phone] Test Results: Test results from this visit will be discussed in further detail at your follow-up appointment, if applicable. Discharge Plan Admission Attending Provider: Rikki Clemente Primary Care Provider: Candice Song Instructions Print Language: Belarusian Discharge Orders/Prescriptions Prescriptions: No Action PreserVision AREDS [...] can be placed): Home, Self Care 12/06/24 3487 Rikki Clemente MD CC: Dr. Candice Song MD Signed Normal [facility] Elastin Stain (control)on Elastin Stain (control) -------- Patient Age/Sex Location Account Attending Physician LENNIE MAXWELL 83/M [facility] [id number] Dr. Rikki Clemente MD Specimen: [id number] Received: 12/06/24 Status: MINNIE Padgett Num: [id number] Spec Type: TEMPORAL Subm Dr: Dr. Rikki [...] labeled with the patient's name and designated "Right temporal artery segment." The specimen consists of a tubular piece of olguin-pink soft tissue measuring 1.8 cm in length and 0.3 cm in diameter. The specimen is totally submitted in one cassette. . 12/07/2024 TC:5 CPT:64648,30811 Patient Age/Sex Location Account Attending Physician LENNIE MAXWELL 83/M [facility] [id number] Dr. Rikki Clemente MD Signed (signature on file) Dr. Kumar Charles MD 12/08/24 1318 Normal [facility] Comment on above: Performed By: #### P ELASTIC #### [facility] [address] [facility] [place], [address] MR/POSTOP.ANE 12-06-2024 MR/POSTOP.[facility] Medical Records Department [address] [place] [address] Anesthesia Postop Eval I 12/06/24 1342 MR#: [id number] Acct: [id number] Name: LENNIE MAXWELL Rep #: [id number] : 1940 83 From: Theresa King PCP: Dr. Candice Song MD Status:REG SDC Y Race: C Location: [place] [address] Anesthesia: Postop Eval I Current Vital Signs [...] Anesthesia document: Postop Eval 1 completed: Yes 12/06/241342 Date Theresa Higgins Signature: Date CC: Signed Normal [facility] MR/SMNGJWZD4te 12-06-2024 MR/POSTOPAN2 [facility] Medical Records Department [address] [place] [address] Anesthesia Postop Eval II 12/06/241901 MR#: [id number] Acct: [id number] Name: LENNIE MAXWELL Rep #: [id number] : 1940 83 From: Meng Ware MD PCP: Dr. Candice Song MD Status:DEP [facility] Y Race: C [place] [facility] Anesthesia Postop Eval I Sum Postop Eval Completion status Anesthesia document: Postop Eval 1 completed: Yes Anesthesia Postop Eval I Summary Anesthesia Postop Eval I Summary: Anesthesia Postop Eval I: Assessment Summary Airway patent Yes 12/06/24 13:43 CASKET UPHOLSTERER.GDOTT Spontaneous unlabored Yes 12/06/24 13:43 CASKET UPHOLSTERER.GDOTT respirations Mental status Awake,Calm 12/06/24 13:43 CASKET UPHOLSTERER.GDOTT nausea No 12/06/24 13:43 CASKET UPHOLSTERER.GDOTT Vomiting No 12/06/24 13:43 CASKET UPHOLSTERER.GDOTT Anesthesia Postop Eval I: Fluid Summary Crystalloid volume administer 10 12/06/24 13:43 CASKET UPHOLSTERER.GDOTT (ml) Colloids volume administered ( ml) Blood Product volume administered (ml) Total IV fluid infused 10 12/06/24 13:43 CASKET UPHOLSTERER.GDOTT Anesthesia Postop Eval I: Summary Notes Anesthesia Complication No 12/06/24 13:43 CASKET UPHOLSTERER.GDOTT Anesthesia Complication Comment: Post-operative progress note Anesthesia: Postop Eval II Evaluation Mental status: Awake and Calm Pain Level: 1 nausea: No Vomiting: No Complications Anesthesia Complication: No 12/06/241901 Date Meng Ware MD Cosigner Signature: Date CC: Signed Normal [facility] Operative Reporton Operative Report [facility] Medical Records Department [address] [place] [address] Operative Report 12/06/24 1334 MR#: [id number] Acct: [id number] Name: LENNIE MAXWELL Rep #: [id number] : 1940 83 From: Rikki Clemente MD PCP: Dr. Candice Song MD Status:[facility] Location: [place] [address] Operative Report (Standard) Operative Information Date of Procedure: 12/06/24 Pre-Operative Diagnosis: Polymyalgia rheumatica Post-Operative Diagnosis: Same Surgery/Procedure Performed: Right temporal artery biopsy transfer operator: Yes Vocational Director: Stephy Diaz Tasks completed by rn first assistant: Opening, Closing and Retracting Type of [...] and MAC anesthesia was induced. The right religion was inspected and shaved of hair. The ultrasound was used to localize the right temporal artery and it was marked along its course. Next the right religion was prepped and draped in usual sterile [...] MD; Dr. Ernst Burrows MD Signed Normal [facility] Surgery Visit Reporton 12-05 Surgery Visit Report [facility] [address] [place] [address] OFFICE VISIT Date of Service: 12/05/24 MR#: [id number] Acct: [id number] Name: LENNIE MAXWELL Rep #: [id number] : 1940 Provider: Dr. Rikki salazar MD Age/Sex: 83/M Location: [facility] Status: Signed Intake Vital Signs 02/26/24 08:55 12/05/24 09:32 Height 6 ft 6 ft Weight: 191 lb BMI 25.9 BP 180/71 H Blood Pressure Location Rt brachial Position Sitting Respiration 16 Intake Visit Reasons: TEMPORAL ARTERY Chief Complaint: temporal artery biopsy Campaign Director Required: No Is patient in pain?: No [...] mg PO DAILY GOUT 07/01/2311/13 History vitamins A,C,E-ymot-fvopoe 2,148 1 tab PO BID 11/02/24 12/05/24 [...] Carotid stenosis, left Carotid bruit Atherosclerosis 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, left [...] palpation inspection (more content not included)... Normal [facility] MR/PAT.ANEon 12-01-2024 MR/PAT.[facility] Medical Records Department [address] [place] [address] PAT - Anesthesia 12/01/24 1549 MR#: [id number] Acct: [id number] Name: LENNIE MAXWELL Rep #: [id number] : 1940 83 From: Everton Hand MD PCP: Dr. Candice Song MD Status:PRE [facility] Y Race: C [place] [facility] Pre-Assessment Diagnosis/Proposed Procedure Planned Operative Procedure(s): TEMPORAL ARTERY BX Anesthesia History Anesthesia History - health associate: Anesthesia History - health associate Hx Hospitalization No 12/01/24 15:29 Any Problems [...] take am of surgery PONV PONV - health associate: PONV - health associate Female No 12/01/24 15:29 HX of Motion Sickness No 12/01/24 15:29 HX of N/V After Surgery No 12/01/24 15:29 Non-Smoker Yes 12/01/24 15:29 Duration of Surgery greater No 12/01/24 15:29 than 60 minutes Number of Risk Factors 1 12/01/24 15:29 PONV Score Low Risk 12/01/24 15:29 Height Weight Height Weight: Anesthesia: Height Weight Height 6 ft 02/26/24 08:55 Respiratory Assessment Respiratory Assessment - health associate: Respiratory Tract Infection Hx - health associate Hx Respiratory Tract Infection No 12/01/24 15:29 STOP Sleep Apnea STOP Sleep Apnea - health associate: STOP Sleep Apnea - health associate Hx Hypertension Yes: CONTROLLED ON MED 12/01/24 [...] Tobacco Use History Tobacco Use History - health associate: Tobacco Use History - health associate Tobacco Use Smoking Status Former smoker 12/01/24 15:29 Hx Tobacco Use No 12/01/24 15:29 Years Smoking Packs Smoked per Day Smoking Cessation Date was No - quit smoking greater 12/01/24 15:29 within the last 15 years than 15 years ago Hx Smoking Cessation Date 10/12/74 12/01/24 15:29 Hx Smoking Cessation Counseling Hematologic Medial History Hematologic Hx - 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 Specify any problems Hx of Preganancy in last 3 N/A 12/01/24 15:29 Months Nurse Filling Out Transfusion VCHRISTIN 12/01/24 15:29 Questions: Date: 12/01/24 12/01/24 15:29 Time: 1530 12/01/24 15:29 Patient unable to answer at this time (ie. 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 Normal [facility] Absolute neutrophil countOrd ered By: Candice Song on 11-29-2024 Neutrophils (Bld) [#/Vol] 7.3 10*3/uL 2.0-7.7 [facility] Basophil percentageOrdered B y: Candice Song on 11-29-2024 Basophils/100 WBC (Bld) 0.4 % 0-1 [facility] C-reactive protein measureme nt by high sensitivity methodOrdered By: Candice Song on 02-18-2025 C-Reactive Protein Extended Range 24.50 mg/L High 0.0-3.0 [facility] Comment on above: C-Reactive Protein ( CRP) provides useful information for thediagnosis, therapy and monitoring of inflammatory processesand associated diseases. For the evaluation of Relative Riskfor Cardiovascular Disease, a High Sensitivity CRP (HSCRP)should be ordered. CBC W/Diff, Automatedon 11-12 Absolute Lymph 2.97 X10 3/uL Normal 0.83-4.51 [facility] Comment on above: Performed By: #### L 100.0100, L501.6710, L101.9900 ####[facility] [address] [place], [address] Absolute Neut 7.3 X10 3/uL Normal 2.0-7.7 [facility] Comment on above: Performed By: #### L 100.0100, L501.6710, L101.9900 ####[facility] [address] [place], [address] Basophils/100 WBC (Bld) 0.4 % Normal 0-1 [facility] Comment on above: Performed By: #### L 100.0100, L501.6710, L101.9900 ####[facility] [address] [place], [address] Eosinophils/100 WBC (Bld) 4.6 % Normal 0-5 [facility] Comment on above: Performed By: #### L 100.0100, L501.6710, L101.9900 ####[facility] [address] [place], [address] Erythrocyte distribution width (RBC) [Ratio] 13.7 % Normal 11.6-14.6 [facility] Comment on above: Performed By: #### L 100.0100, L501.6710, L101.9900 ####[facility] [address] [place], [address] Hematocrit (Bld) [Volume fraction] 40.6 % Normal 40-54 [facility] Comment on above: Performed By: #### L 100.0100, L501.6710, L101.9900 ####[facility] [address] [place], [address] Hemoglobin (Bld) [Mass/Vol] 12.9 g/dL Low 13.0-16.5 [facility] Comment on above: Performed By: #### L 100.0100, L501.6710, L101.9900 ####[facility] [address] [place], [address] IG% 0.300 Normal 0.0-0.9 [facility] Comment on above: Result Comment: IG% - Immature Granulocytes (promyelocytes, myelocytes and metamyelocytes) > 1% indicates that a LEFT SHIFT is Present. Performed By: #### L 100.0100, L501.6710, L101.9900 ####[facility] [address] [place], [address] Lymphocytes/100 WBC (Bld) 25.0 % Normal 19-41 [facility] Comment on above: Performed By: #### L 100.0100, L501.6710, L101.9900 ####[facility] [address] [place], [address] MCH (RBC) [Entitic mass] 30.1 pg Normal 27.0-32.0 [facility] Comment on above: Performed By: #### L 100.0100, L501.6710, L101.9900 ####[facility] [address] [place], [address] MCHC (RBC) [Mass/Vol] 31.8 g/dL Low 32-36 [facility] Comment on above: Performed By: #### L 100.0100, L501.6710, L101.9900 ####[facility] [address] [place], [address] MCV (RBC) [Entitic vol] 94.9 fL High 80-94 [facility] Comment on above: Performed By: #### L 100.0100, L501.6710, L101.9900 ####[facility] [address] [place], [address] Monocytes/100 WBC (Bld) 8.2 % Normal 0-10 [facility] Comment on above: Performed By: #### L 100.0100, L501.6710, L101.9900 ####[facility] [address] [place], [address] Neutrophils/100 WBC (Bld) 61.5 % Normal 47-70 [facility] Comment on above: Performed By: #### L 100.0100, L501.6710, L101.9900 ####[facility] [address] [place], [address] Nucleated RBC (Bld) [#/Vol] 0 10*3/uL Normal 0-5 [facility] Comment on above: Performed By: #### L 100.0100, L501.6710, L101.9900 ####[facility] [address] [place], [address] Platelet mean volume (Bld) [Entitic vol] 11.3 fL Normal 6.2-12.0 [facility] Comment on above: Performed By: #### L 100.0100, L501.6710, L101.9900 ####[facility] [address] [place], [address] Platelets (Bld) [#/Vol] 293 10*3/uL Normal 150-450 [facility] Comment on above: Performed By: #### L 100.0100, L501.6710, L101.9900 ####[facility] [address] [place], [address] RBC (Bld) [#/Vol] 4.28 10*6/uL Low 4.6-6.2 [facility] Comment on above: Performed By: #### L 100.0100, L501.6710, L101.9900 ####[facility] [address] [place], [address] RDW SD 48.0 fl High 35.1-43.9 [facility] Comment on above: Performed By: #### L 100.0100, L501.6710, L101.9900 ####[facility] [address] [place], [address] WBC (Bld) [#/Vol] 11.9 10*3/uL High 4.4-11.0 [facility] Comment on above: Performed By: #### L 100.0100, L501.6710, L101.9900 ####[facility] [address] [place], [address] CRPon 11-29-2024 C-REACTIVE PROT 24.50 mg/L High 0.0-3.0 [facility] Comment on above: Result Comment: C-Re active Protein (CRP) provides useful information for the diagnosis, therapy and monitoring of inflammatory processes and associated diseases. For the evaluation of Relative Risk for Cardiovascular Disease, a High Sensitivity CRP (HSCRP) should be ordered. Performed By: #### L 100.0100, L501.6710, L101.9900 ####[facility] [address] [place], [address] Eosinophil percentageOrdered By: Candice Song on 11-29-2024 Eosinophils/100 WBC (Bld) 4.6 % 0-5 [facility] Erythrocyte Sed Rateon 11-29 SED RATE 26 mm/hr High 0-20 [facility] Comment on above: Performed By: #### L 100.0100, L501.6710, L101.9900 ####[facility] [address] [place], [address] Erythrocyte distribution wid th ratioOrdered By: Candice Song on 11-29-2024 Erythrocyte distribution width (RBC) [Ratio] 13.7 % 11.6-14.6 [facility] Erythrocyte distribution wid th standard deviationOrdered By: Candice Song on 11-29-2024 Erythrocyte distribution width (RBC) [Entitic vol] 48.0 fL High 35.1-43.9 [facility] Erythrocyte sedimentation ra teOrdered By: Candice Song on 11-29-2024 ESR (Bld) [Velocity] 26 mm/h High 0-20 [facility] Hematocrit Auto (Bld) [Volum e fraction]Ordered By: Candice Song on 11-29-2024 Hematocrit (Bld) [Volume fraction] 40.6 % 40-54 [facility] Hemoglobin measurementOrdere d By: Candice Song on 11-29-2024 Hemoglobin (Bld) [Mass/Vol] 12.9 g/dL Low 13.0-16.5 [facility] Immature granulocytes/100 WB C Auto (Bld)Ordered By: Candicetyra Song on 11-29-2024 Immature granulocytes/100 WBC (Bld) 0.300 % 0.0-0.9 [facility] Comment on above: IG% - Immature Granu locytes (promyelocytes, myelocytes and metamyelocytes) > 1% indicates that a LEFT SHIFT is Present. Lymphocytes Auto (Unsp spec) [#/Vol]Ordered By: Candice Song on 11-29-2024 Lymphocytes (Bld) [#/Vol] 2.97 10*3/uL 0.83-4.51 [facility] Lymphocytes/100 WBC Auto (Un sp spec)Ordered By: Candice Song on 11-29-2024 Lymphocytes/100 WBC (Bld) 25.0 % 19-41 [facility] MCV (mean corpuscular volume ) determinationOrdered By: Candice Song on 11-29-2024 MCV (RBC) [Entitic vol] 94.9 fL High 80-94 [facility] Mean corpuscular hemoglobin (MCH) determinationOrdered By: Candice Song on 11-29-2024 MCH (RBC) [Entitic mass] 30.1 pg 27.0-32.0 [facility] Mean corpuscular hemoglobin concentration (MCHC) determinationOrdered By: Candice Song on 11-29-2024 MCHC (RBC) [Mass/Vol] 31.8 g/dL Low 32-36 [facility] Mean platelet volume determi nationOrdered By: Candice Song on 11-29-2024 Platelet mean volume (Bld) [Entitic vol] 11.3 fL 6.2-12.0 [facility] Monocyte percentageOrdered B y: Candice Song on 11-29-2024 Monocytes/100 WBC (Bld) 8.2 % 0-10 [facility] Neutrophil percentageOrdered By: Candice Song on 11-29-2024 Neutrophils/100 WBC (Bld) 61.5 % 47-70 [facility] Nucleated red blood cell per centageOrdered By: Candice Song on 11-29-2024 Nucleated RBC/100 WBC (Bld) [Ratio] 0 % 0-5 [facility] Platelet countOrdered By: Cuba Song on 11-29-2024 Platelets (Bld) [#/Vol] 293 10*3/uL 150-450 [facility] RBC Auto (Bld) [#/Vol]Ordere d By: Candice Song on 11-29-2024 RBC (Bld) [#/Vol] 4.28 10*6/uL Low 4.6-6.2 [facility] White blood cell (WBC) count Ordered By: Candice Song on 11-29-2024 WBC (Bld) [#/Vol] 11.9 10*3/uL High 4.4-11.0 [facility] MR/BMSAvel 11-02-2024 MR/MADELINE [facility] [address] [place] [address] OFFICE VISIT Date of Service: 11/02/24 MR#: [id number] Acct: [id number] Name: LENNIE MAXWELL Rep #: [id number] : 1940 Provider: RASHAD Albright Age/Sex: 83/M Location: [facility] Status: Signed Intake Vital Signs 02/26/24 08:55 [...] hydrocortisone 2.5 % topical cream 1 applic [place] BID-QID PRN 02/26/24 11/02/24 Rx with perineal applicator hemorrhoids #30 grams (Proctozone-HC) vitamins A,C,H-dmhx-bpjwez 2,148 2 tab PO BID 11/02/24 11/02/24 History mcg-113 mg-45 mg-17.4 mg tablet (PreserVision AREDS) Have you fallen in the past year?: No PFSH Medical History (Updated 11/02/24 @ 12:47 by RASHAD Albright) Carotid bruit Claudication of left lower extremity Atherosclerosis 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, left leg Wears glasses Cancer Prostate disease High cholesterol History of diverticulitis Former smoker Carotid stenosis, left Basal cell carcinoma Elevated PSA ( 2020) Anemia ( 2019) Raynaud disease ( 2018) Gout Hyperlipemia Hypertension Surgical History History of [...] No const (more content not included)... Normal [facility] Ankle Brachial Indexon 09-29 Ankle Brachial Index [facility] [address] 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 Procedure Exam performed in department. /US Art Duplex Unilat Lower Ext Interpretation Summary Patent left lower extremity arteries with no focal stenosis identified. Ordering Physician: Kavitha Alvares Referring Physician: Kavitha Alvares Performed By: Michelle Nova RVT and Student 09/29/241855 Date Tevin Lopez MD CC: RASHAD Albright; Dr. 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 [address] Carotid Duplex Ultrasound 07/29/24811 MR#: [id number] Acct: [id number] Name: LENNIE MAXWELL Rep #: [id number] : [id number] From: Tevin Lopez MD Attending Dr: RASHAD Albright Status: REG CLI Ordering Dr: Kavitha Alvares Date: 07/29/24 Location: [facility] Sex: M C Admitted: Reason [...] the left vertebral artery. Procedure Carotid Duplex 55623. This is a Carotid Duplex examination using B-mode, color flow and specral Doppler. Exam performed in department. VL/Carotid Duplex Ultrasound Interpretation Summary Mild (<50%) stenosis right extracranial internal carotid. Mild (<50%) stenosis left extracranial internal carotid. Patent and antegrade vertebrals bilaterally. Ordering Physician: Kavitha Alvares Referring Physician: Candice Song Performed By: Michelle Nova RVT 08/02/24 154 Date Tevin Lopez MD CC: RASHAD Albright; Dr. Candice Song MD Date Dictated: 07/29/24811 Date Transcribed: 08/02/241548 [employer]: Signed Normal [facility] Absolute lymphocyte countOrd ered By: Tevin Lopez on 07-15-2023 Lymphocytes Auto (Unsp spec) [#/Vol] 1.25 10*3/uL 0.83-4.51 [facility] Basophil percentageOrdered B y: Tevin Lopez on 07-15-2023 Basophils/100 WBC (Bld) 0.2 % 0-1 [facility] Eosinophils/100 WBC (Bld) 0.2 % 0-5 [facility] Lymphocytes/100 WBC (Bld) 22.0 % 19-41 [facility] Monocytes/100 WBC (Bld) 2.6 % 0-10 [facility] Neutrophils (Bld) [#/Vol] 4.2 10*3/uL 2.0-7.7 [facility] Neutrophils/100 WBC (Bld) 74.8 % 47-70 [facility] WBC (Bld) [#/Vol] 5.7 10*3/uL 4.4-11.0 [facility] Blood erythrocytes count (nu mber/volume)Ordered By: Tevin Lopez on 07-15-2023 RBC (Bld) [#/Vol] 3.67 10*6/uL 4.6-6.2 [facility] Blood hemoglobin measurement (mass/volume)Ordered By: Tevin Lopez on 07-15-2023 Hemoglobin (Bld) [Mass/Vol] 11.6 g/dL 13.0-16.5 [facility] Blood platelet mean volumeOr dered By: Tevin Lpoez on 07-15-2023 Platelet mean volume (Bld) [Entitic vol] 11.1 fL 6.2-12.0 [facility] Determination of erythrocyte mean corpuscular volume (MCV)Ordered By: Tevin Lopez on 07-15-2023 MCV (RBC) [Entitic vol] 91.8 fL 80-94 [facility] Hematocrit Auto (Bld) [Volum e fraction]Ordered By: Tevin Lopez on 07-15-2023 Hematocrit (Bld) [Volume fraction] 33.7 % 40-54 [facility] Laboratory - Hematology and Cell countsOrdered By: Tevin Lopez on 07-15-2023 Erythrocyte distribution width (RBC) [Entitic vol] 46.2 fL 35.1-43.9 [facility] Erythrocyte distribution width (RBC) [Ratio] 13.6 % 11.6-14.6 [facility] Immature granulocytes/100 WBC (Bld) 0.200 % 0.0-0.9 [facility] Comment on above: IG% - Immature Granu locytes (promyelocytes, myelocytes and metamyelocytes) > 1% indicates that a LEFT SHIFT is Present. MCH (RBC) [Entitic mass] 31.6 pg 27.0-32.0 [facility] Nucleated RBC/100 WBC (Bld) [Ratio] 0 % 0-5 [facility] MCHC Auto (RBC) [Mass/Vol]Or dered By: Tevin Lopez on 07-15-2023 MCHC (RBC) [Mass/Vol] 34.4 g/dL 32-36 [facility] Platelets bldOrdered By: Taniya Lopez on 07-15-2023 Platelets (Bld) [#/Vol] 179 10*3/uL 150-450 [facility] No Panel InformationOrdered By: Tevin Lopez on 07-14-2023 Activated Clotting Time 233 sec 74-137 [facility] INR in Blood by Coagulation assayOrdered By: Meng Ware on 07-02-2023 INR Coag (Bld) [Relative time] 1.0 {INR} [facility] Laboratory - CoagulationOrde red By: Meng Ware on 07-02-2023 aPTT Coag (Bld) [Time] 29.3 s 24.1-36.2 [facility] PT Coag (PPP) [Time] 13.7 s 11.7-14.9 [facility] Absolute lymphocyte countOrd ered By: Candice Song on 06-26-2023 Lymphocytes Auto (Unsp spec) [#/Vol] 3.58 10*3/uL 0.83-4.51 [facility] Basophil percentageOrdered B y: Candice Song on 06-26-2023 Basophils/100 WBC (Bld) 0.5 % 0-1 [facility] Bilirubin [Mass/Vol] 0.40 mg/dL 0.20-1.00 [facility] Comment on above: For patients on eltr ombopag therapy, use of Dimension [place] TBIL is not recommended. Chloride [Moles/Vol] 109 mmol/L 98-107 [facility] Cholesterol [Mass/Vol] 130 mg/dL <200 [facility] Comment on above: <200 mg/dL Desirable 200-240 mg/dL Borderline >240 mg/dL High Risk Eosinophils/100 WBC (Bld) 5.9 % 0-5 [facility] Glucose [Mass/Vol] 103 mg/dL 74-106 [facility] Comment on above: Fasting Glucose resu lt from 100 to 125 mg/dL suggests IMPAIRED HOMEOSTASIS per A.D.A. criteria. Neutrophils (Bld) [#/Vol] 3.2 10*3/uL 2.0-7.7 [facility] Neutrophils/100 WBC (Bld) 40.9 % 47-70 [facility] Potassium [Moles/Vol] 4.1 mmol/L 3.5-5.1 [facility] Protein [Mass/Vol] 7.0 g/dL 6.4-8.2 [facility] Sodium [Moles/Vol] 139 mmol/L 136-145 [facility] Triglyceride [Mass/Vol] 77 mg/dL <199 [facility] Comment on above: The drugs N-Acetylcy steine and Metamizole may falsely depress this assay.Serum Triglycerides Reference Interval Normal <150 mg/dL Borderline high 150 - 199 mg/dL High 200 - 499 mg/dL Very High > or = 500 mg/dL WBC (Bld) [#/Vol] 7.9 10*3/uL 4.4-11.0 [facility] Blood erythrocytes count (nu mber/volume)Ordered By: Candice Song on 06-26-2023 RBC (Bld) [#/Vol] 4.19 10*6/uL 4.6-6.2 [facility] Blood hemoglobin measurement (mass/volume)Ordered By: Candice Song on 06-26-2023 Hemoglobin (Bld) [Mass/Vol] 12.9 g/dL 13.0-16.5 [facility] Blood lymphocytes/100 leukoc ytesOrdered By: Candice Song on 06-26-2023 Lymphocytes/100 WBC (Bld) 45.2 % 19-41 [facility] Blood monocytes/100 leukocyt esOrdered By: Candice Song on 06-26-2023 Monocytes/100 WBC (Bld) 7.2 % 0-10 [facility] Blood platelet mean volumeOr dered By: Candice Song on 06-26-2023 Platelet mean volume (Bld) [Entitic vol] 11.3 fL 6.2-12.0 [facility] Determination of erythrocyte mean corpuscular volume (MCV)Ordered By: Candice Song on 06-26-2023 MCV (RBC) [Entitic vol] 92.6 fL 80-94 [facility] Hematocrit Auto (Bld) [Volum e fraction]Ordered By: Candice Song on 06-26-2023 Hematocrit (Bld) [Volume fraction] 38.8 % 40-54 [facility] Laboratory - Chemistry and C hemistry - challengeOrdered By: Candice Song on 06-26-2023 ALP [Catalytic activity/Vol] 99 U/L 45-117 [facility] ALT [Catalytic activity/Vol] 53 U/L 16-61 [facility] CO2 [Moles/Vol] 28.0 mmol/L 21.0-32.0 [facility] Globulin (S) [Mass/Vol] 3.6 g/dL 2.2-4.2 [facility] Urea nitrogen/Creatinine [Mass ratio] 23.5 mg/mg 10-20 [facility] - Hematology and Cell countsOrdered By: Candice Song on 06-26-2023 Erythrocyte distribution width (RBC) [Entitic vol] 45.6 fL 35.1-43.9 [facility] Erythrocyte distribution width (RBC) [Ratio] 13.4 % 11.6-14.6 [facility] Immature granulocytes/100 WBC (Bld) 0.300 % 0.0-0.9 [facility] Comment on above: IG% - Immature Granu locytes (promyelocytes, myelocytes and metamyelocytes) > 1% indicates that a LEFT SHIFT is Present. MCH (RBC) [Entitic mass] 30.8 pg 27.0-32.0 [facility] Nucleated RBC/100 WBC (Bld) [Ratio] 0 % 0-5 [facility] MCHC Auto (RBC) [Mass/Vol]Or dered By: Candice Song on 06-26-2023 MCHC (RBC) [Mass/Vol] 33.2 g/dL 32-36 [facility] No Panel InformationOrdered By: Candice Song on 06-26-2023 Estimated GFR (MDRD) Amer 99 mL/min >60 [facility] Comment on above: GFR Calc Estimated GFR (MDRD) Non-Af Amer 82 mL/min >60 [facility] Comment on above: Non- GFR Calc Percent Free Prostate Specific Ag 0.93 ng/mL N/A [facility] Comment on above: [employer] ECLIA methodol ogy. Prostate Specific Ag, Ultra-Sensitv 7.630 ng/mL 0.000-4.000 [facility] Comment on above: [employer] ECLIA methodol ogy.According to the [place] [employer], Serum PSAshould decrease and remain [...] 06-26-2023 Platelets (Bld) [#/Vol] 252 10*3/uL 150-450 [facility] Serum or plasma albumin harrison urement (mass/volume)Ordered By: Candice Song on 06-26-2023 Albumin [Mass/Vol] 3.4 g/dL 3.2-5.0 [facility] Serum or plasma albumin/glob ulin mass ratioOrdered By: Candice Song on 06-26-2023 Albumin/Globulin [Mass ratio] 0.9 {ratio} 0.9-2.4 [facility] Serum or plasma calcium harrison urement (mass/volume)Ordered By: Candice Song on 06-26-2023 Calcium [Mass/Vol] 9.1 mg/dL 8.5-10.1 [facility] Serum or plasma cholesterol in HDL measurement (mass/volume)Ordered By: Candice Song on 06-26-2023 Cholesterol in HDL [Mass/Vol] 46 mg/dL >40 [facility] Comment on above: The drugs N-Acetylcy steine and Metamizole may falsely depress this assay. Reference Range HDL <40 mg/dL Low HDL Cholesterol HDL >or= 60 mg/dL High HDL Cholesterol Serum or plasma cholesterol in VLDL measurement (mass/volume)Ordered By: Candice Song on 06-26-2023 Cholesterol in VLDL [Mass/Vol] 15 mg/dL 5-40 [facility] Serum or plasma creatinine m easurement (mass/volume)Ordered By: Candice Song on 06-26-2023 Creatinine [Mass/Vol] 0.94 mg/dL 0.70-1.30 [facility] Comment on above: The validity of the calculated GFR & GFRAA in patients over 70 years has not been determined. Clinical correlation is essential. Serum or plasma free prostat e specific antigen/total prostate specific antigen ratioOrdered By: Candice Song on 06-26-2023 Free PSA/Total PSA [Mass fraction] 12.2 % . [facility] Comment on above: The table below [...] for any other population of men.Performed at: [facility] [id number] Director: Robinson Mendoza PhD, Phone: [phone] Serum or plasma low density lipoprotein (LDL) cholesterol measurement (mass/volume)Ordered By: Candice Song on 06-26-2023 Cholesterol in LDL [Mass/Vol] 69 mg/dL 0-130 [facility] Serum or plasma urea nitroge n measurement (mass/volume)Ordered By: Candice Song on 06-26-2023 Urea nitrogen [Mass/Vol] 22 mg/dL 7-18 [facility] Serum or plasma uric acid me asurement (mass/volume)Ordered By: Candice Song on 06-26-2023 Urate [Mass/Vol] 5.2 mg/dL 3.5-7.2 [facility] Comment on above: The drugs N-Acetylcy steine and Metamizole may falsely depress this assay. Thin prep Papanicolaou smear with manual screeningOrdered By: Candice Song on 06-26-2023 Thin prep Papanicolaou smear with manual screening 32 U/L 15-37 [facility] Thin prep Papanicolaou smear with manual screening 2 5-15 [facility] No Panel InformationOrdered By: Tevin Lopez on 05-20-2023 Estimated GFR (MDRD) Amer 75 mL/min >60 [facility] Comment on above: GFR Calc Estimated GFR (MDRD) Non-Af Amer 62 mL/min >60 [facility] Comment on above: Non- GFR Calc Serum or plasma creatinine m easurement (mass/volume)Ordered By: Tevin Lopez on 05-20-2023 Creatinine [Mass/Vol] 1.20 mg/dL 0.70-1.30 [facility] Comment on above: The validity of the calculated GFR & GFRAA in patients over 70 years has not been determined. Clinical correlation is essential. Basophil percentageOrdered B y: Dr. Lopez on 04-01-2023 Chloride [Moles/Vol] 110 mmol/L 98-107 [facility] Glucose [Mass/Vol] 98 mg/dL 74-106 [facility] Potassium [Moles/Vol] 4.4 mmol/L 3.5-5.1 [facility] Sodium [Moles/Vol] 139 mmol/L 136-145 [facility] WBC (Bld) [#/Vol] 9.8 10*3/uL 4.4-11.0 [facility] Blood erythrocytes count (nu mber/volume)Ordered By: Dr. Lopez on 04-01-2023 RBC (Bld) [#/Vol] 4.39 10*6/uL 4.6-6.2 [facility] Blood hemoglobin measurement (mass/volume)Ordered By: Dr. Lopez on 04-01-2023 Hemoglobin (Bld) [Mass/Vol] 13.5 g/dL 13.0-16.5 [facility] Blood platelet mean volumeOr dered By: Dr. Lopez on 04-01-2023 Platelet mean volume (Bld) [Entitic vol] 11.0 fL 6.2-12.0 [facility] Determination of erythrocyte mean corpuscular volume (MCV)Ordered By: Dr. Lopez on 04-01-2023 MCV (RBC) [Entitic vol] 94.1 fL 80-94 [facility] Hematocrit Auto (Bld) [Volum e fraction]Ordered By: Dr. Lopez on 04-01-2023 Hematocrit (Bld) [Volume fraction] 41.3 % 40-54 [facility] - Chemistry and C hemistry - challengeOrdered By: Dr. Lopez on 04-01-2023 CO2 [Moles/Vol] 27.0 mmol/L 21.0-32.0 [facility] Urea nitrogen/Creatinine [Mass ratio] 26.4 mg/mg 10-20 [facility] - Hematology and Cell countsOrdered By: Dr. Lopez on 04-01-2023 Erythrocyte distribution width (RBC) [Entitic vol] 44.7 fL 35.1-43.9 [facility] Erythrocyte distribution width (RBC) [Ratio] 13.2 % 11.6-14.6 [facility] MCH (RBC) [Entitic mass] 30.8 pg 27.0-32.0 [facility] MCHC Auto (RBC) [Mass/Vol]Or dered By: Dr. Lopez on 04-01-2023 MCHC (RBC) [Mass/Vol] 32.7 g/dL 32-36 [facility] No Panel InformationOrdered By: Dr. Lopez on 04-01-2023 Activated Clotting Time 263 sec 74-137 [facility] Estimated Creatinine Clearance Calc 66.94 ml/min [facility] Estimated GFR (MDRD) Amer 98 mL/min >60 [facility] Comment on above: GFR Calc Estimated GFR (MDRD) Non-Af Amer 81 mL/min >60 [facility] Comment on above: Non- GFR Calc Platelets bldOrdered By: Dr. Lopez on 04-01-2023 Platelets (Bld) [#/Vol] 299 10*3/uL 150-450 [facility] Serum or plasma calcium harrison urement (mass/volume)Ordered By: Dr. Lopez on 04-01-2023 Calcium [Mass/Vol] 9.3 mg/dL 8.5-10.1 [facility] Serum or plasma creatinine m easurement (mass/volume)Ordered By: Dr. Lopez on 04-01-2023 Creatinine [Mass/Vol] 0.95 mg/dL 0.70-1.30 [facility] Comment on above: The validity of the calculated GFR & GFRAA in patients over 70 years has not been determined. Clinical correlation is essential. Serum or plasma urea nitroge n measurement (mass/volume)Ordered By: Dr. Lopez on 04-01-2023 Urea nitrogen [Mass/Vol] 25 mg/dL 7-18 [facility] Thin prep Papanicolaou smear with manual screeningOrdered By: Dr. Lopez on 04-01-2023 Thin prep Papanicolaou smear with manual screening 2 5-15 [facility] No Panel InformationOrdered By: Kavitha Baca on 02-11-2023 Estimated GFR (MDRD) Amer 94 mL/min >60 [facility] Comment on above: GFR Calc Estimated GFR (MDRD) Non-Af Amer 78 mL/min >60 [facility] Comment on above: Non- GFR Calc Serum or plasma creatinine m easurement (mass/volume)Ordered By: Kavitha Baca on 02-11-2023 Creatinine [Mass/Vol] 0.98 mg/dL 0.70-1.30 [facility] Comment on above: The validity of the calculated GFR & GFRAA in patients over 70 years has not been determined. Clinical correlation is essential. Absolute lymphocyte counton 04-22-2022 Lymphocytes Auto (Unsp spec) [#/Vol] 3.76 10*3/uL 0.83-4.51 [facility] Work Phone: Basophil percentageon 2021 Basophils/100 WBC (Bld) 1.0 % 0-1 [facility] Work Phone: Bilirubin [Mass/Vol] 0.40 mg/dL 0.20-1.00 [facility] Work Phone: Comment on above: For patients on eltr ombopag therapy, use of Dimension [place] TBIL is not recommended. Chloride [Moles/Vol] 106 mmol/L 98-107 [facility] Work Phone: Cholesterol [Mass/Vol] 240 mg/dL <200 [facility] Work Phone: Comment on above: <200 mg/dL Desirable 200-240 mg/dL Borderline >240 mg/dL High Risk Eosinophils/100 WBC (Bld) 7.6 % 0-5 [facility] Work Phone: Glucose [Mass/Vol] 106 mg/dL 74-106 [facility] Work Phone: Comment on above: Fasting Glucose resu lt from 100 to 125 mg/dL suggests IMPAIRED HOMEOSTASIS per A.D.A. criteria. Neutrophils (Bld) [#/Vol] 2.2 10*3/uL 2.0-7.7 [facility] Work Phone: Neutrophils/100 WBC (Bld) 30.5 % 47-70 [facility] Work Phone: Potassium [Moles/Vol] 4.3 mmol/L 3.5-5.1 [facility] Work Phone: Protein [Mass/Vol] 7.2 g/dL 6.4-8.2 [facility] Work Phone: Sodium [Moles/Vol] 140 mmol/L 136-145 [facility] Work Phone: Triglyceride [Mass/Vol] 125 mg/dL <199 [facility] Work Phone: Comment on above: The drugs N-Acetylcy steine and Metamizole may falsely depress this assay.Serum Triglycerides Reference Interval Normal <150 mg/dL Borderline high 150 - 199 mg/dL High 200 - 499 mg/dL Very High > or = 500 mg/dL WBC (Bld) [#/Vol] 7.2 10*3/uL 4.4-11.0 [facility] Work Phone: Blood erythrocytes count (nu mber/volume)on 04-22-2022 RBC (Bld) [#/Vol] 4.45 10*6/uL 4.6-6.2 [facility] Work Phone: Blood hemoglobin measurement (mass/volume)on 04-22-2022 Hemoglobin (Bld) [Mass/Vol] 14.1 g/dL 13.0-16.5 [facility] Work Phone: Blood lymphocytes/100 leukoc yteson 04-22-2022 Lymphocytes/100 WBC (Bld) 52.0 % 19-41 [facility] Work Phone: Blood monocytes/100 leukocyt eson 04-22-2022 Monocytes/100 WBC (Bld) 8.6 % 0-10 [facility] Work Phone: Blood platelet mean volumeon 04-22-2022 Platelet mean volume (Bld) [Entitic vol] 11.5 fL 6.2-12.0 [facility] Work Phone: Determination of erythrocyte mean corpuscular volume (MCV)on 04-22-2022 MCV (RBC) [Entitic vol] 94.2 fL 80-94 [facility] Work Phone: Hematocrit Auto (Bld) [Volum e fraction]on 04-22-2022 Hematocrit (Bld) [Volume fraction] 41.9 % 40-54 [facility] Work Phone: Laboratory - Chemistry and C hemistry - challengeon 04-22-2022 ALP [Catalytic activity/Vol] 90 U/L 45-117 [facility] Work Phone: ALT [Catalytic activity/Vol] 22 U/L 16-61 [facility] Work Phone: CO2 [Moles/Vol] 28.0 mmol/L 21.0-32.0 [facility] Work Phone: Globulin (S) [Mass/Vol] 3.7 g/dL 2.2-4.2 [facility] Work Phone: Urea nitrogen/Creatinine [Mass ratio] 18.8 mg/mg 10-20 [facility] Work Phone: Laboratory - Hematology and Cell countson 04-22-2022 Erythrocyte distribution width (RBC) [Entitic vol] 47.4 fL 35.1-43.9 [facility] Work Phone: Erythrocyte distribution width (RBC) [Ratio] 13.7 % 11.6-14.6 [facility] Work Phone: Immature granulocytes/100 WBC (Bld) 0.300 % 0.0-0.9 [facility] Work Phone: [phone] Comment on above: IG% - Immature Granu locytes (promyelocytes, myelocytes and metamyelocytes) > 1% indicates that a LEFT SHIFT is Present. MCH (RBC) [Entitic mass] 31.7 pg 27.0-32.0 [facility] Work Phone: Nucleated RBC/100 WBC (Bld) [Ratio] 0 % 0-5 [facility] Work Phone: MCHC Auto (RBC) [Mass/Vol]on 04-22-2022 MCHC (RBC) [Mass/Vol] 33.7 g/dL 32-36 [facility] Work Phone: No Panel Informationon 04-22 Estimated GFR (MDRD) Amer 91 mL/min >60 [facility] Work Phone: Comment on above: GFR Calc Estimated GFR (MDRD) Non-Af Amer 76 mL/min >60 [facility] Work Phone: Comment on above: Non- GFR Calc Percent Free Prostate Specific Ag 0.70 ng/mL N/A [facility] Work Phone: Comment on above: [employer] ECLIA methodol ogy. Prostate Specific Antigen Total 6.1 ng/mL 0.0-4.0 [facility] Work Phone: Comment on above: [employer] ECLIA methodol ogy.According to the [place] [employer], Serum PSAshould decrease and remain [...] 04-22-2022 Platelets (Bld) [#/Vol] 240 10*3/uL 150-450 [facility] Work Phone: Serum or plasma albumin harrison urement (mass/volume)on 04-22-2022 Albumin [Mass/Vol] 3.5 g/dL 3.2-5.0 [facility] Work Phone: Serum or plasma albumin/glob ulin mass ratioon 04-22-2022 Albumin/Globulin [Mass ratio] 0.9 {ratio} 0.9-2.4 [facility] Work Phone: Serum or plasma calcium harrison urement (mass/volume)on 04-22-2022 Calcium [Mass/Vol] 9.0 mg/dL 8.5-10.1 [facility] Work Phone: Serum or plasma cholesterol in HDL measurement (mass/volume)on 04-22-2022 Cholesterol in HDL [Mass/Vol] 56 mg/dL >40 [facility] Work Phone: Comment on above: The drugs N-Acetylcy steine and Metamizole may falsely depress this assay. Reference Range HDL <40 mg/dL Low HDL Cholesterol HDL >or= 60 mg/dL High HDL Cholesterol Serum or plasma cholesterol in VLDL measurement (mass/volume)on 04-22-2022 Cholesterol in VLDL [Mass/Vol] 25 mg/dL 5-40 [facility] Work Phone: Serum or plasma creatinine m easurement (mass/volume)on 04-22-2022 Creatinine [Mass/Vol] 1.01 mg/dL 0.70-1.30 [facility] Work Phone: Comment on above: The validity of the calculated GFR & GFRAA in patients over 70 years has not been determined. Clinical correlation is essential. Serum or plasma free prostat e specific antigen/total prostate specific antigen ratioon 04-22-2022 Free PSA/Total PSA [Mass fraction] 11.5 % . [facility] Work Phone: Comment on above: The [...] for any other population of men.Performed at: [facility] [address] [id number] Director: Robinson Mendoza PhD, Phone: [phone] Serum or plasma low density lipoprotein (LDL) cholesterol measurement (mass/volume)on 04-22-2022 Cholesterol in LDL [Mass/Vol] 159 mg/dL 0-130 [facility] Work Phone: Serum or plasma urea nitroge n measurement (mass/volume)on 04-22-2022 Urea nitrogen [Mass/Vol] 19 mg/dL 7-18 [facility] Work Phone: Serum or plasma uric acid me asurement (mass/volume)on 04-22-2022 Urate [Mass/Vol] 6.2 mg/dL 3.5-7.2 [facility] Work Phone: Comment on above: The drugs N-Acetylcy steine and Metamizole may falsely depress this assay. Thin prep Papanicolaou smear with manual screeningon 04-22-2022 Thin prep Papanicolaou smear with manual screening 17 U/L 15-37 [facility] Work Phone: Thin prep Papanicolaou smear with manual screening 6 5-15 [facility] Work Phone: Vital Signs Date Time Vital Sign Value Performing Clinician Faci lity 06-11-2025 11:52-0400 Body height 182.[address] Candice Song MD Work Phone: [facility] 06-11-2025 11:52-0400 Body mass index (BMI) [Ratio] 26.8 kg/m2 Dr. Candice Song MD Work Phone: [facility] 06-11-2025 11:52-0400 Body temperature 98 [degF] Dr. Candice Song MD Work Phone: [facility] 06-11-2025 11:52-0400 Body weight 89.[address] Candice Song MD Work Phone: [facility] 06-11-2025 11:52-0400 Diastolic blood pressure 62 mm[Hg] Dr. Candice Song MD Work Phone: [facility] 06-11-2025 11:52-0400 Heart rate 75 /min Dr. Candice Song MD Work Phone: [facility] 06-11-2025 11:52-0400 SaO2% (BldA) [Mass fraction] 96 % Dr. Candice Song MD Work Phone: [facility] 06-11-2025 11:52-0400 Systolic blood pressure 140 mm[Hg] Dr. Candice Song MD Work Phone: [facility] 12-06-2024 13:50-0500 Body temperature 97 [degF] Dr. Candice Song MD Work Phone: [phone] [place] [address] 12-06-2024 13:50-0500 Diastolic blood pressure 66 mm[Hg] Dr. Candice Song MD Work Phone: [phone] [place] [address] 12-06-2024 13:50-0500 Heart rate 56 /min Dr. Candice Song MD Work Phone: [facility] 12-06-2024 13:50-0500 Respiratory rate 16 /min Dr. Candice Song MD Work Phone: [facility] 12-06-2024 13:50-0500 SaO2% (BldA) [Mass fraction] 97 % Dr. Candice Song MD Work Phone: [facility] 12-06-2024 13:50-0500 Systolic blood pressure 147 mm[Hg] Dr. Candice Song MD Work Phone: [facility] 12-06-2024 11:40-0500 Body height 182.[address] Candice Song MD Work Phone: [phone] [place] [address] 12-06-2024 11:40-0500 Body mass index (BMI) [Ratio] 25.1 kg/m2 Dr. Candice Song MD Work Phone: [phone])[phone] [place] [address] 12-06-2024 11:40-0500 Body weight [address] Candice Song MD Work Phone: [facility] 12-05-2024 09:32-0500 Body mass index (BMI) [Ratio] 25.9 kg/m2 Dr. Candice Song MD Work Phone: [facility] 12-05-2024 09:32-0500 Body weight 86.[address] Candice Song MD Work Phone: [facility] 12-05-2024 09:32-0500 Diastolic blood pressure 71 mm[Hg] Dr. Candice Song MD Work Phone: [facility] 12-05-2024 09:32-0500 Respiratory rate 16 /min Dr. Candice Song MD Work Phone: [facility] 12-05-2024 09:32-0500 Systolic blood pressure 180 mm[Hg] Dr. Candice Song MD Work Phone: [facility] 11-02-2024 11:35-0500 Body temperature 97.5 [degF] Dr. Candice Song MD Work Phone: [facility] 11-02-2024 11:35-0500 Body weight 87.[address] Candice Song MD Work Phone: [facility] 11-02-2024 11:35-0500 Diastolic blood pressure 66 mm[Hg] Dr. Candice Song MD Work Phone: [facility] 11-02-2024 11:35-0500 Heart rate 65 /min Dr. Candice Song MD Work Phone: [facility] 11-02-2024 11:35-0500 Respiratory rate 14 /min Dr. Candice Song MD Work Phone: [facility] 11-02-2024 11:35-0500 SaO2% (BldA) [Mass fraction] 99 % Dr. Candice Song MD Work Phone: [facility] 11-02-2024 11:35-0500 Systolic blood pressure 169 mm[Hg] Dr. Candice Song MD Work Phone: [facility] 10-21-2023 15:28-0500 Body temperature 97.7 [degF] Dr. Candice Song Work Phone: [facility] 10-21-2023 15:28-0500 Body weight 84.[address] Candice Song Work Phone: [facility] 10-21-2023 15:28-0500 Diastolic blood pressure 62 mm[Hg] Dr. Candice Song Work Phone: [facility] 10-21-2023 15:28-0500 Heart rate 75 /min Dr. Candice Song Work Phone: [facility] 10-21-2023 15:28-0500 Respiratory rate 16 /min Dr. Candice Song Work Phone: [facility] 10-21-2023 15:28-0500 SaO2% (BldA) [Mass fraction] 99 % Dr. Candice Song Work Phone: [facility] 10-21-2023 15:28-0500 Systolic blood pressure 107 mm[Hg] Dr. Candice Song Work Phone: [facility] 07-29-2023 09:00-0400 Body temperature 97.5 [degF] Dr. Candice Song Work Phone: [facility] 07-29-2023 09:00-0400 Body weight 89.[address] Candice Song Work Phone: [facility] 07-29-2023 09:00-0400 Diastolic blood pressure 61 mm[Hg] Dr. Candice Song Work Phone: [facility] 07-29-2023 09:00-0400 Heart rate 70 /min Dr. Candice Song Work Phone: [facility] 07-29-2023 09:00-0400 Respiratory rate 16 /min Dr. Candice Song Work Phone: [facility] 07-29-2023 09:00-0400 Systolic blood pressure 130 mm[Hg] Dr. Candice Song Work Phone: [facility] 07-15-2023 16:00-0400 Body temperature 97 [degF] Dr. Candice Song Work Phone: [facility] 07-15-2023 16:00-0400 Diastolic blood pressure 47 mm[Hg] Dr. Candice Song Work Phone: [facility] 07-15-2023 16:00-0400 Heart rate 56 /min Dr. Candice Song Work Phone: [facility] 07-15-2023 16:00-0400 Respiratory rate 14 /min Dr. Candice Song Work Phone: [facility] 07-15-2023 16:00-0400 SaO2% (BldA) [Mass fraction] 99 % Dr. Candice Song Work Phone: [facility] 07-15-2023 16:00-0400 Systolic blood pressure 122 mm[Hg] Dr. Candice Song Work Phone: [facility] 07-15-2023 09:44-0400 Body height 182.[address] Candice Song Work Phone: [facility] 07-15-2023 09:44-0400 Body weight 90.[address] Candice Song Work Phone: [facility] 07-15-2023 06:00-0400 Body mass index (BMI) [Ratio] 27.1 kg/m2 Dr. Candice Song Work Phone: [facility] 07-15-2023 03:06-0400 Inhaled oxygen flow rate 2 L/min Dr. Candice Song Work Phone: [facility] 05-20-2023 14:28-0400 Body temperature 98 [degF] Dr. Candice Song Work Phone: [facility] 05-20-2023 14:28-0400 Body weight 89.[address] Candice Song Work Phone: [facility] 05-20-2023 14:28-0400 Diastolic blood pressure 62 mm[Hg] Dr. Candice Song Work Phone: [facility] 05-20-2023 14:28-0400 Heart rate 75 /min Dr. Candice Song Work Phone: [facility] 05-20-2023 14:28-0400 Respiratory rate 16 /min Dr. Candice Song Work Phone: [facility] 05-20-2023 14:28-0400 SaO2% (BldA) [Mass fraction] 99 % Dr. Candice Song Work Phone: [facility] 05-20-2023 14:28-0400 Systolic blood pressure 113 mm[Hg] Dr. Candice Song Work Phone: [facility] 04-23-2023 13:32-0400 Body temperature 98.8 [degF] Dr. Candice Song Work Phone: [facility] 04-23-2023 13:32-0400 Body weight 90.[address] Candice Song Work Phone: [facility] 04-23-2023 13:32-0400 Diastolic blood pressure 61 mm[Hg] Dr. Candice Song Work Phone: [facility] 04-23-2023 13:32-0400 Heart rate 70 /min Dr. Candice Song Work Phone: [facility] 04-23-2023 13:32-0400 Respiratory rate 16 /min Dr. Candice Song Work Phone: [facility] 04-23-2023 13:32-0400 SaO2% (BldA) [Mass fraction] 98 % Dr. Candice Song Work Phone: [facility] 04-23-2023 13:32-0400 Systolic blood pressure 122 mm[Hg] Dr. Candice Song Work Phone: [facility] 04-01-2023 17:27-0400 Diastolic blood pressure 59 mm[Hg] Dr. Candice Song Work Phone: [facility] 04-01-2023 17:27-0400 Heart rate 63 /min Dr. Candice Song Work Phone: [facility] 04-01-2023 17:27-0400 Respiratory rate 16 /min Dr. Candice Song Work Phone: [facility] 04-01-2023 17:27-0400 SaO2% (BldA) [Mass fraction] 99 % Dr. Candice Song Work Phone: [facility] 04-01-2023 17:27-0400 Systolic blood pressure 123 mm[Hg] Dr. Candice Song Work Phone: [facility] 04-01-2023 13:30-0400 Body temperature 97.7 [degF] Dr. Candice Song Work Phone: [facility] 04-01-2023 09:13-0400 Body height 182.[address] Candice Song Work Phone: [facility] 04-01-2023 09:13-0400 Body weight 92.[address] Candice Song Work Phone: [facility] 03-31-2023 08:04-0400 Body mass index (BMI) [Ratio] 27.5 kg/m2 Dr. Candice Song Work Phone: [facility] 03-05-2023 15:09-0400 Body weight 92.[address] Candice Song Work Phone: [facility] 03-05-2023 15:09-0400 Diastolic blood pressure 67 mm[Hg] Dr. Candice Song Work Phone: [facility] 03-05-2023 15:09-0400 Heart rate 64 /min Dr. Candice Song Work Phone: [facility] 03-05-2023 15:09-0400 Respiratory rate 18 /min Dr. Candice Song Work Phone: [facility] 03-05-2023 15:09-0400 SaO2% (BldA) [Mass fraction] 99 % Dr. Candice Song Work Phone: [facility] 03-05-2023 15:09-0400 Systolic blood pressure 138 mm[Hg] Dr. Candice Song Work Phone: [facility] 02-11-2023 09:02-0400 Body weight 92.[address] Candice Song Work Phone: [facility] 02-11-2023 09:02-0400 Diastolic blood pressure 77 mm[Hg] Dr. Candice Song Work Phone: [facility] 02-11-2023 09:02-0400 Heart rate 58 /min Dr. Candice Song Work Phone: [facility] 02-11-2023 09:02-0400 Respiratory rate 16 /min Dr. Candice Song Work Phone: [facility] 02-11-2023 09:02-0400 Systolic blood pressure 155 mm[Hg] Dr. Candice Song Work Phone: [facility] Encounters Encounter Date Encounter Type Care Provider Facility Start: 07-31-2025 ambulatory [facility] Facility: [facility] Start: 07-25-2025 ambulatory [facility] Facility: [facility] Start: 06-11-2025 End: 06-11-2025 Patient encounter procedure Lennie Adrienne Lanny RIV[facility] -[facility] Work Phone: Start: 06-11-2025 End: 06-11-[address] Candice Song MD Work Phone: [facility] Start: 05-26-2025 End: 05-26-[address] Candice Song MD Work Phone: -Laboratory Start: 05-26-2025 End: 05-26-[address] Candice Song MD -Laboratory Work Phone: Start: 05-26-2025 End: 05-26-2025 ambulatory Candice [facility] Facility:[facility] Start: 12-20-2024 End: 12-20-[address] Rikki Clemente MD -[facility] Work Phone: Start: 12-20-2024 End: 12-20-2024 ambulatory Candice Miveronica Facility:[facility] Start: 12-15-2024 End: 12-15-[address] Candice Song MD Work Phone: [facility] Work Phone: Start: 12-15-2024 End: 12-15-[address] Candice Song MD -Laboratory, [place] Work Phone: Start: 12-15-2024 End: 12-15-2024 [facility] Start: 12-06-2024 ambulatory Candice Nohemi Facility: [facility] Start: 12-06-2024 Non-patient / Non-visit Dr. Rikki Clemente MD -[facility] Start: 12-06-2024 End: 12-06-2024 Admission to same day surgery center Dr. Rikki Clemente MD -[facility] Start: 12-06-2024 End: 12-06-2024 ambulatory Candice Nohemi Facility:[facility] Start: 12-05-2024 End: 12-05-[address] Rikki Clemente MD -[facility] Work Phone: Start: 12-05-2024 End: 12-05-2024 ambulatory Candice Mikhushi Facility:[facility] Start: 11-29-2024 End: 11-29-[address] [facility] Start: 11-29-2024 End: 11-29-2024 ambulatory Candice Song Facility:[facility] Start: 11-02-2024 End: 11-02-2024 Patient encounter procedure Kavitha SOLORZANO -[facility] Work Phone: Start: 11-02-2024 End: 11-02-2024 ambulatory Candice Song Facility:[facility] Start: 09-29-2024 ambulatory Tevin Lopez Facility:[facility] Start: 09-29-2024 Non-patient / Non-visit Dr. Tevin Lopez MD -[facility] Start: 09-29-2024 End: 09-29-2024 Patient encounter procedure Kavitha SOLORZANO -Cardi[facility] Services Work Phone: Start: 09-29-2024 End: 09-29-2024 ambulatory Candice Patricia Facility:[facility] Start: 07-29-2024 ambulatory Tevin Lopez Facility:[facility] Start: 07-29-2024 End: 07-29-2024 ambulatory [facility] Facility:[facility] Start: 01-25-2024 Non-patient / Non-visit Dr. Candice Song Work Phone: [facility] Start: 01-25-2024 End: 01-25-[address] Candice Song Work Phone: [facility] Work Phone: Start: 01-25-2024 End: 01-25-[address] [facility] Start: 10-21-2023 End: 10-21-[address] Candice Song Work Phone: [facility] Work Phone: Start: 09-30-2023 Non-patient / Non-visit Dr. Candice Song Work Phone: [facility] Start: 09-30-2023 End: 09-30-[address] Candice Song Work Phone: [facility] Work Phone: Start: 09-30-2023 End: 09-30-[address] [facility] Start: 07-29-2023 End: 07-29-[address] Candice Song Work Phone: [facility] Work Phone: Start: 07-15-2023 Non-patient / Non-visit Dr. Candice Song Work Phone: [facility] Start: 07-14-2023 Non-patient / Non-visit Dr. Candice Song Work Phone: [facility] Start: 07-14-2023 End: 07-15-2023 Evaluation and management of inpatient Dr. Candice Song Work Phone: [facility]-Intensive Care Unit Work Phone: Start: 06-26-2023 End: 06-26-[address] Candice Song Work Phone: [facility] Work Phone: Start: 06-26-2023 End: 06-26-[address] Candice Song Work Phone: [facility]-Laboratory Work Phone: Start: 05-28-2023 End: 05-28-[address] Candice Song Work Phone: [facility] Work Phone: Start: 05-28-2023 End: 05-28-[address] Candice Song Work Phone: [facility] Work Phone: Start: 05-20-2023 End: 05-20-[address] Candice Song Work Phone: [facility] Work Phone: Start: 05-20-2023 End: 05-20-[address] Candice Song Work Phone: [facility] Work Phone: Start: 04-28-2023 Non-patient / Non-visit Dr. Candice Song Work Phone: [facility] Start: 04-28-2023 End: 04-28-[address] Candice Song Work Phone: [facility] Work Phone: Start: 04-28-2023 End: 04-28-[address] [facility] Start: 04-23-2023 End: 04-23-[address] Candice Song Work Phone: [facility] Work Phone: Start: 04-01-2023 Non-patient / Non-visit Dr. Candice Song Work Phone: [facility] Start: 04-01-2023 End: 04-01-2023 Admission to same day surgery center Dr. Candice Song Work Phone: [facility]-[employer]/Special Procedures Start: 04-01-2023 End: 04-01-[address] Candice Song Work Phone: [facility] Work Phone: Start: 03-05-2023 End: 03-05-[address] Candice Song Work Phone: [facility] Start: 02-25-2023 End: 02-25-[address] Candice Song Work Phone: [facility] Start: 02-11-2023 End: 02-11-[address] Candice Song Work Phone: [facility] Work Phone: Start: 02-11-2023 End: 02-11-[address] Candice Song Work Phone: [facility]-Laboratory Start: 02-11-2023 End: 02-11-[address] Candice Song Work Phone: [facility] Start: 01-27-2023 Non-patient / Non-visit Dr. Candice Song Work Phone: [facility] Start: 01-27-2023 End: 01-27-[address] Candice Song Work Phone: [facility] Work Phone: Start: 01-27-2023 End: 01-27-[address] Candice Song Work Phone: [facility]-Cardiovascular Services Start: 04-22-2022 End: 04-22-2022 Patient encounter procedure [facility]-Laboratory Procedures Date Procedure Procedure Detail Performing Clinician Start: 05-26-2025 Free prostate specif ic antigen level Dr. Candice Song MD Work Phone: Comment on above: [employer] methodol [employer]gy. Start: 05-26-2025 Prostate specific an tigen measurement Dr. Candice Song MD Work Phone: Comment on above: [employer] method[employer].According to the [place] [employer], Serum PSAshould decrease and remain at undetectable levels afterradical prostatectomy. The AUA defines biochemicalrecurrence as an initial PSA value 0.200 ng/mL or greaterfollowed by a subsequent confirmatory PSA value 0.200 ng/mLor greater. Values obtained with different assay methods orkits cannot be used interchangeably. Results cannot beinterpreted as absolute evidence of the presence or absenceof malignant disease. Start: 07-14-[address] Candice Song Work Phone: Start: 05-28-2023 CT angiography of head and neck Dr. Candice Song Work Phone: Start: 02-25-2023 CT of abdominal aort a with contrast Dr. Candice Song Work Phone: Plan of Treatment Date Care Activity Detail Author Start: 12-06-2024 Anesthesia major vessels neck simple ligation ANESTH NECK VESSEL SURGERY [facility] Start: 12-06-2024 Ligation/biopsy temporal artery LIGATION/BX TEMPORAL ARTERY [facility] Start: 12-06-2024 Patient discharge [facility] Start: 07-15-2023 Patient discharge [facility] Start: 07-15-2023 End: 07-15-2023 [facility] Start: 07-15-2023 [facility] Start: 07-14-2023 Ambulation without limitation [facility] Start: 07-14-2023 Assessment of risk of venous thromboembolism [facility] Start: 07-14-2023 Catheterization of vein [facility] Start: 07-14-2023 Continuous pulse oximetry [facility] Start: 07-14-2023 Deep breathing and coughing exercises [facility] Start: 07-14-2023 Elevation of head of bed [facility] Start: 07-14-2023 Incentive spirometry [facility] Start: 07-14-2023 Insertion of catheter into peripheral vein [facility] Start: 07-14-2023 Measuring intake and output [facility] Start: 07-14-2023 Notification of physician [facility] Start: 07-14-2023 Oxygen therapy [facility] Start: 07-14-2023 Patient referral to dietitian [facility] Start: 07-14-2023 Providing care according to standard [facility] Start: 07-14-2023 Provision of activity privileges [facility] Start: 07-14-2023 Referral to occupational therapist [facility] Start: 07-14-2023 Referral to service [facility] Start: 07-14-2023 Vital signs measurements [facility] Start: 07-14-2023 [facility] Start: 07-14-2023 Following clinical pathway protocol [facility] Start: 07-14-2023 Admission procedure [facility] Start: 07-14-2023 Insertion of catheter into artery [facility] Start: 07-14-2023 Maintenance of invasive device [facility] Start: 04-01-2023 Admission procedure [facility] Start: 04-01-2023 Bedrest [facility] Start: 04-01-2023 Notification of physician [facility] Start: 04-01-2023 Patient discharge [facility] Start: 04-01-2023 Provision of activity privileges [facility] Start: 04-01-2023 Scheduling [facility] Start: 04-01-2023 Taking patient vital signs [facility] Start: 04-01-2023 Vascular disease risk assessment [facility] Start: 04-01-2023 [facility] Ankle brachial pressure index [facility] CT of abdominal aort a with contrast [facility] CTA Head vessels and Neck vessels W contrast IV [facility] Electrocardiographic procedure [facility] Patient referral [facility] Work Phone: [place] Carotid arteries [facility] US Lower extremity artery [facility] Immunizations Immunization Date Immunization Notes Care Provider Fa cility 06-11-2025 tetanus toxoid, redu cristian diphtheria toxoid, and acellular pertussis vaccine, adsorbed Dr. Candice Song MD Work Phone: [facility] 01-07-2021 Covid ([facility]) [facility] 12-10-2020 Covid ([facility]) [facility] Payers Date Payer Category Payer Self-pay [id number] 2016 Unknown [id number] 2006 Medicare [id number] Unknown [id number] 2.16.8 [id number] Unknown [id number] 2.16.8 [id number] Unknown [id number] 2.16.8 [id number] Unknown [id number] 2.16.8 40.1.516671.3.579.2.462 Unknown [id number] 2.16.8 40.1.086605.3.579.2.462 Unknown [id number] 2.16.8 40.1.983153.3.579.2.462 Unknown [id number] 2.16.8 40.1.136393.3.579.2.462 Unknown [id number] 2.16.8 40.1.799846.3.579.2.462 Unknown [id number] 2.16.8 40.1.112460.3.579.2.462 Unknown [id number] 2.16.8 40.1.931966.3.579.2.462 Unknown [id number] 2.16.8 40.1.756240.3.579.2.462 Unknown [id number] 2.16.8 40.1.269007.3.579.2.462 Unknown [id number] 2.16.8 40.1.085907.3.579.2.462 Unknown [id number] 2.16.8 40.1.095093.3.579.2.462 Unknown [id number] 2.16.8 40.1.400223.3.579.2.462 Unknown [id number] 2.16.8 40.1.034925.3.579.2.462 Social History Date Type Detail Facility Start: 03-15-2017 End: 10-21-2023 Tobacco smoking status [facility] Unknown if ever smoked [facility] Start: 1940 Sex Assigned At Male [facility] Start: 12-01-2024 End: 06-11-2025 Tobacco smoking status NEIS Ex-smoker (finding) [facility] Start: 12-29-2024 Sex Male (finding) [facility] Medical Equipment Procedure Code Equipment Code Equipment Origin al Text Equipment Identifier Dates Endarterectomy, carotid Cardiovascular patch, animal-derived [id number] FDA Start: 07-14-2023 Endarterectomy, carotid Ligation clip, metallic ()[id number] FDA Start: 07-14-2023 Endarterectomy, carotid Ligation clip, metallic ()[id number] FDA Start: 07-14-2023 Biopsy, artery, temporal Ligation clip, metallic ()[id number] FDA Start: 12-06-2024 Biopsy, artery, temporal Ligation clip, metallic ()[id number] FDA Start: 12-06-2024 ([id number]) Wound hydrogel dressing, non-antimicrobial ()[id number] FDA Start: 04-01-2023 Goals Date Patient Goal Desired Activity /State Functional Status Date Assessment Result Facility 07-15-2023 Functional status Chair [facility] Work Phone: Mental Status Date Assessment Result Facility 12-06-2024 Cognitive function Level Of Cons ciousness Awake;Alert;Appropriate [facility] Work Phone: 07-15-2023 Cognitive function Voice/Name [facility] Work Phone: Clinical Notes 11-02-2024 to 06-11-2025 Note Date & Type Note Facility 06-11-2025 Progress note [facility] 06-11-2025 Progress note Note Date/Time June 11, 2025 12:34pm [facility] [address], [address] [place] [address] OFFICE VISIT Date of Service: 06/11/25 MR#: [id number] Acct: [id number] Name: LENNIE MAXWELL Rep #: [id number] : 1940 Provider: ROB Ca Age/Sex: 84/M Location: [facility] Status: Signed with Addenda ADDENDUM by Liza Smith on 06/11/25 at 1236 Office Procedure Documentation entered by Liza Smith MA 06/11/25 12:36: Immunizations Boostrix Tdap 2.5 Lf unit-8 mcg-5 Lf/0.5 mL intramuscular syringe Performing Provider: ROB Jc NP Performing Location: [facility] Administered by: Liza Smith MA on 06/11/25 12:35 Dose Route Admin Location Dispensed Lot Number Expiration Date NDC Space Engineer 0.5 mL IM Left Deltoid 0.5 mL [id number] 12/02/26 [id number] [employer] VIS Given Date VIS Provided VIS Publication Date 06/11/25 Single Vaccine 24 Eligibility Eligibility Date Funding Source Not Applicable Date _ cc: Dr. Candice Song MD ~* Signed Intake Vital Signs 12/06/24 11:40 06/11/25 11:52 Height 6 ft 6 ft Weight: 198 lb BMI 26.8 BP 140/62 H Blood Pressure Location Rt brachial Position Sitting Pulse 75 Pulse Source Monitor Temp 98.0 F Temp Source Oral Pulse Oximetry (%) 96 Oxygen Delivery Method room air Intake Visit Reasons: STEPPED ON ANGUS PIN L FOOT Chief Complaint: Stepped on Angus Pin Accompanied by: Self Allergies No Known Allergies Allergy (Verified 06/11/25 12:09) Medications 3 ?Medication ?Instructions ?Recorded ?Confirmed ?Type lisinopril 10 mg tablet 10 mg PO DAILY HYPERTENSION 02/17/14 06/11/25 History aspirin 81 mg chewable tablet 81 mg PO DAILY@0800 [facility] 03/15/17 06/11/25 History multivitamin (Multiple Vitamins 1 ea PO DAILY SUPPLEME NT 03/15/17 06/11/25 History tablet) allopurinol 100 mg tablet 100 mg PO DAILY GOUT 3 06/11/25 History vitamins A,C,O-sner-imsvzd 2,148 1 tab PO BID 11/02/24 06/11/25 History mcg-113 mg-45 mg-17.4 mg tablet (PreserVision AREDS) prednisone 20 mg tablet 20 mg PO DAILY 12/01/2405/14 History rosuvastatin 40 mg tablet 40 mg PO QDAY #90 tabs 12/1306/11/25 Rx Have you fallen in the past year?: No Nurse's Note: Stepped on a angus pin with left foot. Happened today. [facility] Medical History (Updated 06/11/25 @ 12:33 by Lennie H Roof COMPLIANCE ANALYST, COMPLIANCE ANALYST-C) Alcohol use History of steroid therapy Back pain History of pain when walking Wears glasses Cancer Prostate disease High cholesterol History of diverticulitis Former smoker Carotid stenosis, left Carotid bruit Atherosclerosis 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, left leg Claudication of left lower extremity Basal cell carcinoma Elevated PSA (~2020) Anemia (~2018) Raynaud disease (~2018) Gout Hyperlipemia Hypertension Surgical History (Updated 12/20/24 @ 13:09 by Blanca Burch) History of biopsy of temporal artery History of carotid endarterectomy History of angioplasty (~2020) H/O hernia repair History of appendectomy Hx of tonsillectomy Family History Mother Cancer Father Myocardial infarction Heart disease Brother Afib DVT (deep venous thrombosis) Sister Afib Social History Smoking Status: Former smoker HPI HPI Chief Complaint: Stepped on Angus Pin Details: LENNIE MAXWELL, is a 84 M who presents to the office today for concerns stepping on a angus pin. He denies fever or chills. He states he able to walk on his foot without significant issue. He denies numbness or tingling. He denies any decrease in range of motion. ROS Const Constitutional: No body ache, chills, fatigue, fever(s) or headache(s) ENT ENT: No headache(s) Skin Skin: No redness Neuro Neurology: No headache(s) Endo Endocrine: No fatigue Exam Const General: cooperative, healthy appearing, comfortable and no acute distress Orientation: alert and awake Skin General: no ecchymosis, no erythema, no petechiae and other (left bottom of foot) Coding Level of Care Code Off vis,est,level 2 Diagnoses Need for Tdap vaccination Z23 Assessment and Plan Assessment and Plan (1) Need for Tdap vaccination: Status: Acute Plan: He stepped on a angus pin. There is no obvious signs of infection on his right bottom of his foot. There is no indication for antibiotics. Will give Tdap vaccination. Encouraged to get plenty of rest, drink lots of clear liquids, and use Tylenol or Ibuprofen (unless contraindicated) for fever and comfort. Patientalso educated on other symptomatic management techniques. To be seen in 7-10 days if no improvement; sooner if worsening of symptoms.? Patient advised of potential red flags and when appropriate to report to the ED.? Patient verbalized understanding and agreement with all the above. Orders: Orders Tdap Immunization Today Z23 - Encounter for immunization Medications: New Boostrix Tdap (diphth,pertus(acell),tetanus) 0.5 mL IM ONCE 1 mL 0RF NS Z23 - Encounter for immunization Clinical Quality Measures Falls Risk Screening/Assistive Devices Have you fallen in the past year?: No 06/11/25 1234 <Electronically signed by Lennie Covington NP-C> Date _ Lennie Ca NP COMPLIANCE ANALYST-C Cosigner Signature: Date (if applicable) CC: Dr. Candice Song MD ~ [facility] Work Phone: 1(597) 574-655502-25-2025 [facility] Medical Records Department [address] [place] [address] History Physical Exam 12/06/24 1231 MR#: [id number] Acct: [id number] Name: LENNIE MAXWELL Rep #: [id number] : 1940 83 From: Rikki Clemente MD PCP: Dr. Candice Song MD Status:[facility] Location: [place] [address] History and Physical Date of Admission: 12/06/24 Intake Vital Signs 02/26/2408:55 12/05/2508:32 Height 6 ft 6 ft Weight: 191 lb BMI 25.9 BP 180/71 H Blood Pressure Location Rt brachial Position Sitting Respiration 16 Intake Visit Reasons: TEMPORAL ARTERY Chief Complaint: temporal artery biopsy Campaign Director Required: No Is patient in pain?: No [...] PO DAILY GOUT 07/01/23 12/05/24 History vitamins A,C,K-cmjv-exkoog 2,148 1 tab PO BID 11/02/24 12/05/24 [...] Carotid stenosis, left Carotid bruit Atherosclerosis 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, left [...] Chest Chest palpation ins (more content not included)...[facility] 11-02-2024 Evaluation note* Diagnosis Onset Date Resolution Status Admit Date Carotid artery disease acute Ja [facility] 2024 11:15am PAD (peripheral artery disease) acute November 02 11:15am Polymyalgia rheumatica acute Fe [facility] 2024 9:20am Polymyalgia rheumatica acute [facility] 2024 1:05pm [facility] Work Phone: Evaluation noteNo assessment information available [facility] Work Phone: evaluation note* Diagnosis Onset Date Resolution Status Arterial insufficiency acute Claudication of left lower extremity acute [facility] Work Phone: evaluation note* Diagnosis Onset Date Resolution Status Arterial insufficiency acute Claudication of left lower extremity acute Atherosclerosis of [place] ar teries of extremities with rest pain, left leg chronic [facility] Work Phone: Evaluation note* Diagnosis Onset Date Resolution Status Arterial insufficiency acute Claudication of left lower extremity acute Atherosclerosis of [place] ar teries of extremities with rest pain, left leg chronic Carotid bruit acute Atherosclerosis of [place] ar teries of extremities with rest pain, left leg chronic [facility] Work Phone: Evaluation note* Diagnosis Onset Date Resolution Status Arterial insufficiency acute Claudication of left lower extremity acute Atherosclerosis of [place] ar teries of extremities with rest pain, left leg chronic Carotid bruit acute Atherosclerosis of [place] ar teries of extremities with rest pain, left leg chronic Carotid stenosis, left chron ic [facility] Work Phone: Evaluation note* Diagnosis Onset Date Resolution Status Atherosclerosis of [place] ar teries of extremities with rest pain, left leg chronic Carotid bruit acute Atherosclerosis of [place] ar teries of extremities with rest pain, left leg chronic Carotid stenosis, left chron ic [facility] Work Phone: Evaluation note* Diagnosis Onset Date Resolution Status Arterial insufficiency acute [facility] Work Phone: Evaluation note* Diagnosis Onset Date Resolution Status Atherosclerosis of [place] ar teries of extremities with rest pain, left leg chronic [facility] Work Phone: Evaluation note* Diagnosis Onset Date Resolution Status Admit Date Need for Tdap vaccination acute June 11, 2025 12:10pm [facility] Work Phone: Reason for referral (narrative)No reason for referral information available[facility] Work Phone: Advance Directives No Advanced Directives Records Found Advance Directive Response Recorded Date/ Time Living Will Yes March 15, 2017 3 :01am Power of Office Systems Technology Instructor Yes March 15, 2017 3:01am Advance Directive Response Recorded Date/ Time Advance Directives on File No April 01, 2023 9:13am Advance Directives Yes April 01 9:13am Living Will Yes April 01, 2023 9:13am Power of Office Systems Technology Instructor Yes April 01 9:13am Advance Directive Response Recorded Date/ Time Advance Directives on File No April 01, 2023 9:13am Advance Directives Yes April 01 9:13am Living Will Yes July 01, 2023 10:38am Power of Office Systems Technology Instructor Yes June 10:38am Advance Directive Response Recorded Date/ Time Name of Medical Power of Office Systems Technology Instructor Darlene Sotelo on, July 14, 2023 4:19pm Advance Directives Yes April 01 8:13am Living Will No July 14 4:19pm Power of Office Systems Technology Instructor Yes July 14, 2 023 4:19pm Advance Directive Response Recorded Date/ Time Advance Directives Yes April 01 9:13am Living Will No July 14 5:19pm Power of Office Systems Technology Instructor Yes July 14, 2 023 5:19pm Advance Directive Response Recorded Date/ Time Living Will No July 14 5:19pm Do you have a Healthcare Pow er of Office Systems Technology Instructor? Yes July 14, 2023 5:19pm Living Will Yes December 01, 2 025 4:29pm Do you have a Healthcare Pow er of Office Systems Technology Instructor? Yes December 01, 2024 4:29pm Name of Medical Power of Office Systems Technology Instructor DARLENE SOTELO ON December 01, 2024 4:29pm Advance Directives Yes April 01 9:13am Advance Directive Response Recorded Date/ Time Advance Directives Yes April 01 9:13am Advance Directive Response Recorded Date/ Time Advance Directives Yes June 11, 2025 11:52am Chief Complaint and Reason for Visit Chief Complaint CALF PAIN LEFT Chief Complaint CALF PAIN LEFT L ARTERIAL INSUFFICIENCY E-ORDER Reason for Visit Arterial insufficien cy Claudication of left lower extremity Chief Complaint CALF PAIN LEFT L ARTERIAL INSUFFICIENCY E-ORDER CLAUDICATION OF LEFT LOWER EXTREMITY DISCUSS RESULTS STRICTURE OF ARTERY Reason for Visit Arterial insufficien cy Claudication of left lower extremity Atherosclerosis 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, left leg Chief Complaint CALF PAIN LEFT L ARTERIAL INSUFFICIENCY E-ORDER CLAUDICATION OF LEFT LOWER EXTREMITY DISCUSS RESULTS STRICTURE OF ARTERY STRICTURE OF ARTERY 3 WK POST OP Other specified symptoms and signs involving the c Reason for Visit Arterial insufficien cy Claudication of left lower extremity Atherosclerosis 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, left leg Carotid bruit Atherosclerosis 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, left leg Chief Complaint CALF PAIN LEFT L ARTERIAL INSUFFICIENCY E-ORDER CLAUDICATION OF LEFT LOWER EXTREMITY DISCUSS RESULTS STRICTURE OF ARTERY STRICTURE OF ARTERY 3 WK POST OP Other specified symptoms and signs involving the c TEST RESULTS/CAROTID Reason for Visit Arterial insufficien cy Claudication of left lower extremity Atherosclerosis 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, left leg Carotid bruit Atherosclerosis 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, left leg Carotid stenosis, left Chief Complaint L ARTERIAL INSUFFICI ENCY E-ORDER CLAUDICATION OF LEFT LOWER EXTREMITY DISCUSS RESULTS STRICTURE OF ARTERY STRICTURE OF ARTERY 3 WK POST OP Other specified symptoms and signs involving the c TEST RESULTS/CAROTID OCCLUSION/STENOSIS OF CAROTID ARTERY Reason for Visit Arterial insufficien cy Claudication of left lower extremity Atherosclerosis 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, left leg Carotid bruit Atherosclerosis 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, left leg Carotid stenosis, left Chief Complaint DISCUSS RESULTS STRICTURE OF ARTERY STRICTURE OF ARTERY 3 WK POST OP Other specified symptoms and signs involving the c TEST RESULTS/CAROTID OCCLUSION/STENOSIS OF CAROTID ARTERY Reason for Visit Atherosclerosis of n ative arteries of extremities with rest pain, left leg Carotid bruit Atherosclerosis 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, left [...] 9:20am Polymyalgia rheumatica December 20, 2024 1:05pm Chief Complaint Admit Date STEPPED ON ANGUS PIN L FOOT June 11, 2025 12:10pm Reason for Visit Admit Date Need for Tdap vaccination June 11 12:10pm Family History No Family History Records Found Relationship Condition Age at Onset Recorded Date/T [...] December 20, 2024 End: December 20, 2024 Team Status: Active Member Role/Relationship Status Dates Dr. Candice Song MD Primary Care Provider Active Team Status: Inactive Member Role/Relationship Status Dates Dr. Candice Song MD Primary Care Provider Active Start: May 26, 2025 End: May 26, 2025 Dr. Candice Song MD Attending Provider Active Start: May 26, 2025 End: May 26, 2025 Dr. Candice Song MD Referring Provider Active Start: May 26, 2025 End: May 26, 2025 Team Status: Inactive Member Role/Relationship Status Dates Dr. Candice Song MD Primary Care Provider Active Start: June 11, 2025 End: June 11, 2025 Dr. Candice Song MD Referring Provider Active Start: June 11, 2025 End: June 11, 2025 Lennie Ca NP, COMPLIANCE ANALYST-C Attending Provider Active S tart: June 11, 2025 End: June 11, 2025 (unrecognized sect ion and content) No Status Records Found INFORMATION SOURCE (unrecogn ized section and content) DATE CREATED AUTHOR 07/26/2025 [facility] FOR RECORDS PERTAINING TO PATIENTS WHO ARE [...] BE BASED ON THE PRIMARY CLINICAL RECORDS. [employer] [facility]. provides no warranty or guarantee of the accuracy or completeness of information in this document.
== END | disposition home or self-care (01) ==
LOC: CVS 07:43
PROVIDERS: PCP Family Medicine; Referring Provider Physician Assistant; Visit Provider Physician Assistant
DX: Z48.812 Encounter for surgical aftercare following surgery on the circulatory system (principal)
CPT/HCPCS: 93880; 93922; 93926

== ENCOUNTER → 2025-08-22 | Outpatient (CLI) | payer MEDICARE, BC, SELFPAY ==
--- NOTE | 2025-08-22 08:00 | PROSBIL_PTH ---
PATIENT: LENNIE MAXWELL LOC: [facility] U#:[id number] AGE/SX: 84/M ROOM: RE08/22/[address]: Dr. José Manuel Dunn MD : 1940 BED: DIS: 08/22/2025 SPEC #: [id number] RECD: 08/22/25 15:07 STATUS: MINNIE REDilan #: [id number] JONATHAN: 08/22/25 08:[address]: José Manuel Dunn DEPT: SURGICAL PATHOLOGY RECD BY: Kelby Dukes ENTERED: 08/23/25 10:21 SP TYPE: PROST BX DENISE DR: Dr. Candice Snog MD Tissues: A - PROSTATE RIGHT B - PROSTATE RIGHT C - PROSTATE RIGHT D - PROSTATE LEFT E - PROSTATE LEFT F - PROSTATE LEFT Procedures: PROSTATE BX HEADER OPERATION: Prostate biopsy PRE-OP DIAGNOSIS: Elevated PSA TISSUE SUBMITTED: A - Right apex, B - Right mid, C - Right base, D - Left apex, E - Left mid, F - Left base MICROSCOPIC DIAGNOSIS A. Prostate, right apex, transrectal and ultrasound needle biopsies: - Prostatic adenocarcinoma, [place]'s score of 3 + 4 (25%) = 7 (group 2), involving 2 of 2 cores and 75% of the specimen B. Prostate, right mid: * Prostatic adenocarcinoma, [place]'s score of 3 + 4 (30%) = 7 (group 2), involving 2 of 2 cores and core fragments and 41% of the specimen C. Prostate, right base: - Prostatic adenocarcinoma, [place]ore[place]'s score of 3 + 4 (10%) = 7 (group 2), involving 1 of 2 cores and core fragments and 27% of the specimen D. Prostate, left, apex: * Benign prostatic tissue E. Prostate, left, mid: - Benign prostatic tissue F. Prostate, left, base: * Benign prostatic tissue MICROSCOPIC DESCRIPTION Slides are reviewed. GROSS DESCRIPTION Received in 6 formalin containers labeled with the patient's name and date of . Designated as: A. RA are 2 olguin tissue cores, 1.1 cm and 1.6 cm in length by 0.1 cm in diameter. Entirely submitted in 1 cassette. B. RM are 2 olguin tissue cores, 1.1 cm and 1.6 cm in length by 0.1 cm in diameter. Entirely submitted in 1 cassette. C. RB are 2 ogluin tissue cores, 1.6 cm and 1.8 cm in length by 0.1 cm in diameter. Entirely submitted in 1 cassette. D. LA is a olguin tissue core, 1.9 cm in length by 0.1 cm in diameter. Entirely submitted in 1 cassette. E. LM are 2 olguin tissue cores, each measuring 1.9 cm in length by 0.1 cm in diameter. Entirely submitted in 1 cassette. F. LB are 3 olguin fragmented tissue cores, 0.6 cm to 1.9 cm in length by 0.1 cm in diameter. Entirely submitted in 1 cassette. [place] 08/23/2025 CPT:32433m8
--- OUTSIDE RECORDS SUMMARY | 2025-08-22 16:55 | XMS RPT_ITS | CCD ---
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 Candice Song Primary Care Provider [phone] Dr. Tevin Lopez Attending Provider [phone] Dr. Candice Song Referring Provider [phone] RASHAD Baca Attending Provider Dr. Candice Song Referring Provider [phone] Tevin Lopez Referring Provider 1([facility]) [phone] Dr. Tevin Lopez Other Provider Dr. Candice Song Primary Care Provider [phone] Dr. Tevin Lopez Attending Provider [phone] RASHAD Baca Referring Provider Dr. Candice Song Primary Care Provider [phone] Dr. Candice Song Referring Provider RASHAD Benitez Attending Provider [phone] RASHAD Benitez Referring Provider [phone] Dr. Candice Song Primary Care Provider [phone] Dr. Tevin Lopez Admit Provider Dr. Tevin Lopez Attending Provider [phone] Dr. Tevin Lopez Referring Provider [phone] Tevin Lopez Other Provider RASHAD Benitez Attending Provider [phone]([phone] Candice Song Referring Provider [phone] Candice Song Primary Care Provider [phone] Dr. Candice Song Referring Provider Dr. Tevin Lopez Attending Provider Nohemi BURNS, Dr. Harvey Primary Care Provider Benitezpuneet SOLORZANO, Kavitha Attending Provider [phone] Dia SOLORZANO, Kavitha Referring Provider [phone] John BURNS, Dr. Abarca Attending Provider [phone] Noheim BURNS, Dr. Harvey Referring Provider Nohemi BURNS, Dr. Harvey Attending Provider [phone] Chyna BURNS, Dr. Brandt Attending Provider [phone] Chyna BURNS, Dr. Brandt Referring Provider Chyna BURNS, Dr. Brandt Other Provider Nohemi BURNS, Dr. Harvey Primary Care Provider Nohemi BURNS, Dr. Harvey Attending Provider Nohemi BURNS, Dr. Harvey Referring Provider [phone] Lanny BRAR-Lennie Madrid Attending Provider Miedel, Candice Primary Care Unavailable Benitez, Kavitha Referring Unavailable Benitez, Kavitha Attending Unavailable Miedel, Candice Primary Care Unavailable Benitez, Kavitha Attending Unavailable Benitez, Kavitha Referring Unavailable Miedel, Candice Attending Unavailable Miedel, Candice Primary Care Unavailable Miedel, Candice Referring Unavailable Miedel, Candice Primary Care Unavailable Irmaedel, Candice Referring Unavailable Rikki Clemente Attending Unavailable Miedel, Candice Primary Care Unavailable Miedel, Candice Referring Unavailable Lennie Ca NP Attending Unavailable Miedel, Candice Primary Care Unavailable Benitez, Kavitha Referring Unavailable Tevin Lopez Attending Unavailable Miedel, Candice Primary Care Unavailable Rikki Clemente Referring Unavailable Rikki Clemente Attending Unavailable Rikki Clemente Consulting Unavailable Miedel, Candice Primary Care Unavailable Miedel, Candice Referring Unavailable Kavitha Benitez Attending Unavailable Miedel, Candice Primary Care Unavailable Miedel, Candice Referring Unavailable Rikki Clemente Attending Unavailable Miedel, Candice Primary Care Unavailable Kavitha Benitez Attending Unavailable Benitez, Kavitha Referring Unavailable Miedel, Candice Primary Care Unavailable Miedel, Candice Attending Unavailable Miedel, Candice Primary Care Unavailable Rikki Clemente Referring Unavailable Rikki Clemente Attending Unavailable Miedel, Candice Primary Care Unavailable Kavitha Benitez Referring Unavailable Tevin Lopez Attending Unavailable Miedel, Candice Attending Unavailable Miedel, Candice Primary Care Unavailable Miedel, Candice Referring Unavailable Miedel, Candice Primary Care Unavailable José Manuel Dunn Referring Unavailable José Manuel Dunn Attending Unavailable Medications Current Medications Medication Drug Class(es) [...] (3 sources) Vitamin C Start: 11-02-2024 Vitamins A,C,S-Mvtv-Oawdzx (Preservision Areds) 2,148 mcg-113 mg-45 mg-17.4mg tablet Active 1 {tbl} PO TWICE A DAY November 02, 2024 1:00am administer with AM and PM meals aspirin 81 mg chewable tablet (13 sources) Platelet Aggregation Inhibitor, Nonsteroidal Anti-inflammatory Drug Start: 03-15-2017 take 1 tablet by mouth once daily Aspirin 81 MG tablet,chewable Active 81 mg PO DAILY@0800 March 15, 2017 12:00am [facility] lisinopril 10 mg oral tablet [...] SUPPLEMENT Start: 03-15-2017 take 1 tablet by lili [...] following surgery on the circulatory system] Onset: 07-16-2025 Episodic Other circulatory disease (11 sources) Arterial [...] Translations: [Elevated prostate specific antigen [PSA]] Onset: 08-07-2025 Episodic Peripheral and visceral atherosclerosis (20 sources) Intermittent claudication; Translations: [Peripheral vascular disease, unspecified] 02-11-2023 Chronic Results Test Name Value Interpretation Reference Range Facility Ankle Brachial Indexon 07-31 Ankle Brachial Index [facility] [address] [place] [address] Ankle Brachial Index 07/31/25 1014 MR#: [id number] Acct: [id number] Name: LENNIE MAXWELL Rep #: [id number] : 1940 84 From: Tevin Lopez MD Attending Dr: RASHAD Albright Status: REG CLI Ordering Dr: Kavitha Benitez Date: 07/31/25 Location: [facility] Sex: M C Admitted: Reason For Study Reason For Study: S/P L Pop Angioplasty Procedure A bilateral lower extremity continuous wave Doppler with analog waveform analysis and ankle brachial indexes. Left Segmental Pressures Left brachial= 191mmHg. Left posterior tibial artery = 201mmHg. Left dorsalis pedis artery = 212mmHg. Left digit = 116 mmHg. The left dorsalis pedis waveforms are biphasic. The left posterior tibial artery waveforms are triphasic. Right Segmental Pressures Right brachial= 200mmHg. Right posterior tibial artery = 208mmHg. Right dorsalis pedis artery = 232mmHg. Right digit = 109 mmHg. The right dorsalis pedis waveforms are triphasic. The right posterior tibial artery waveforms are triphasic. Indices The right ankle brachial index by the dorsalis pedis is 1.16. The right ankle brachial index by the posterior tibial artery is 1.04. The right digital-brachial index is 0.55. The left ankle brachial index by the dorsalis pedis is 1.06. The left ankle brachial index by the posterior tibial artery is 1.01. The left digital-brachial index is 0.58. VL/Ankle Brachial Index Interpretation Summary Right BIMAL 1.16, normal. Doppler/PVR waveforms of the right leg normal at rest. 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 Left BIMAL 1.06, normal. Doppler/PVR waveforms of the left leg normal at rest. 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 Ordering Physician: Kavitha Benitez Referring Physician: KAVITHA BENITEZ Performed By: BRANDEE MOFFETT RVT 07/31/251726 Date Tevin Lopez MD CC: RASHAD Albright; Dr. Candice Song MD Date Dictated: 07/31/25 1014 Date Transcribed: 07/31/251726 Digital X Ray Service Engineer: Signed Normal [facility] Carotid Duplex Ultrasoundon 07-31-2025 Carotid Duplex Ultrasound [facility] [place] [address] Carotid Duplex Ultrasound 07/31/25 0807 MR#: [id number] Acct: [id number] Name: LENNIE MAXWELL Rep #: [id number] : 1940 84 From: Tevin Lopez MD Attending Dr: RASHAD Albright Status: REG CLI Ordering Dr: Kavitha Benitez Date: 07/31/25 Location: [facility] Sex: M C Admitted: Reason For Study Reason For Study: S/P L CEA Rt. Velocities/BP Lt. Velocities/BP Prox CCA 67.4/6.9 cm/sec. Prox CCA 92.8/10.6 cm/sec. Mid CCA 61.0/11.9 cm/sec. Mid CCA 86.7/11.8 cm/sec. Dist CCA 56.3/11.0 cm/sec. Dist CCA 72.0/11.8 cm/sec. Prox ICA 83.3/13.9 cm/sec. Prox ICA 93.2/18.1 cm/sec. Mid ICA 108.9/23.0 cm/sec. Mid ICA 126.4/23.3 cm/sec. Dist ICA 61.1/12.7 cm/sec. Dist ICA 90.4/16.7 cm/sec. Rt. ICA/CCA = 1.8. Lt. ICA/CCA = 1.5. Prox ECA 285.1/0.0 cm/sec. Prox ECA 177.8/0.0 cm/sec. Rt. Vert. 55.6/9.5 cm/sec. Lt. Vert. 97.9/19.4 cm/sec. Right Extracranial There is homogeneous, smooth [...] the left common carotid artery. There is heterogeneous, irregular atherosclerotic plaque noted in the left internal carotid artery. There is homogeneous, smooth atherosclerotic plaque noted in the left external carotid artery. Antegrade flow is noted in the left vertebral artery. Procedure Carotid Duplex 31643. This is a Carotid Duplex examination using B-mode, color flow and specral Doppler. Exam performed in department. VL/Carotid Duplex Ultrasound Interpretation Summary Mild (<50%) stenosis right extracranial internal carotid. Moderate (50-69%) stenosis left extracranial internal carotid. Patent and antegrade vertebrals bilaterally. Ordering Physician: Kavitha Benitez Referring Physician: Kavitha Benitez Performed By: Brandee Moffett and Student, T 07/31/25 4788 Date Tevin Lopez MD CC: RASHAD Albright; Dr. Candice Song MD Date Dictated: 07/31/25 08 Date Transcribed: 07/31/251712 Digital X Ray Service Engineer: Signed Normal [facility] Art Duplex Unilat Lower E xton 07-31-2025 US Art Duplex Unilat Lower Ext [facility] Cardi[facility] Services [address] [place] [address] Art Duplex Unilat Lower Ext 07/31/25 0920 MR#: [id number] Acct: [id number] Name: LENNIE MAXWELL Rep #: [id number] : 1940 84 From: Tevin Lopez MD Attending Dr: RASHAD Albright Status: REG CLI Ordering Dr: Kavitha Benitez Date: 07/31/25 Location: [facility] Sex: M C Admitted: Reason For Study Reason For Study: S/P L Pop Angioplasty Left Velocities Ext Iliac Artery, dist = 94.5 cm./sec. Common Femoral Artery, mid = 109.5 cm./sec. Supf. Femoral Artery, prox = 87.5 cm./sec. Supf. Femoral Artery, mid = 209.8 cm./sec. Supf. Femoral Artery, dist = 85.5 cm./sec. Profunda Femoral Artery = 73.6 cm./sec. Popliteal Artery, mid = 45.1 cm./sec. Post. Tibial Artery, prox = 38.0 cm./sec. Post Tibial Artery, mid = 425.4 cm./sec. Post Tibial Artery, dist. = 57.0 cm./sec. Peroneal Artery, prox = 41.7 cm./sec. Peroneal Artery, mid = 41.2 cm./sec. Peroneal Artery,dist. = 55.4 cm./sec. Ant.Tibial Artery, prox = 64.5 cm./sec. Ant Tibial Artery, mid = 389.9 cm./sec. Ant. Tibial Artery, distal = 29.6 cm./sec. Procedure Exam performed in department. /US Art Duplex Unilat Lower Ext Interpretation Summary Left superficial femoral artery with >50% stenosis. Left anterior tibial artery with >50% stenosis Ordering Physician: Kavitha Benitez Referring Physician: Candice Song MD Performed By: Brandee Moffett and Student, RVT 07/31/251729 Date Tevin Lopez MD CC: RASHAD Albright; Dr. Candice Song MD Date Dictated: 07/31/25919 Date Transcribed: 07/31/251729 Digital X Ray Service Engineer: Signed Normal [facility] Pelvis W/WO Contraston 07-25 Pelvis W/WO Contrast [facility] Services [address] [place] [address] Pelvis W/WO Contrast MR#: [id number] Acct: [id number] Name: LENNIE MAXWELL Rep #: [id number] : 1940 M 84 From: Myke Gomes MD PCP: Dr. Candice Song MD Status: REG CLI Study: Pelvis W/WO Contrast Date of Exam: 07/25/25 Exam# [id number] Ordering Dr: José Manuel Dunn MD PROCEDURE: [...] 5. Additional description as above. Reading Location: [id number] CC: Dr. Candice Song MD; Dr. José Manuel Dunn MD Digital X Ray Service Engineer: Signed Normal [facility] Urgent Care Visit Reporton 0 06-11-2025 Urgent Care Visit Report [facility] [address] [facility], [address] [place] [address] OFFICE VISIT Date of Service: 06/11/25 MR#: [id number] Acct: [id number] Name: LENNIE MAXWELL Rep #: [id number] : 1940 Provider: ROB love Age/Sex: 84/M Location: [facility] Status: Signed with Addenda ADDENDUM by Liza Smith on 06/11/25 at 1236 Office Procedure Documentation entered by Liza Smith MA 06/11/25 12:36: Immunizations Boostrix Tdap 2.5 Lf unit-8 mcg-5 Lf/0.5 mL intramuscular syringe Performing Provider: Lennie Ca TRANSMISSION CALIBRATION ENGINEER, ROB Performing Location: Now [facility] Administered by: Liza Smith MA on 06/11/25 12:35 Dose Route Admin Location Dispensed Lot Number Expiration Date [facility] Man ufacturer 0.5 mL IM Left Deltoid 0.5 mL [id number] 12/02/26 30992-160-22 [id number] THKLINE VIS Given Date VIS Provided VIS Publication [...] tablet 100 mg PO DAILY GOUT 07/01/23 08/3 11/05 History vitamins A,C,C-mazt-dcxccg 2,148 1 tab PO BID 11/02/24 06/11/25 His tory mcg-113 mg-45 mg-17.4 mg tablet (PreserVision AREDS) prednisone 20 mg tablet 20 mg PO DAILY 12/01/24 06/11/25 H istory rosuvastatin 40 mg tablet 40 mg PO QDAY #90 tabs 12/13/24 Rx Have you fallen in the past year?: No Nurse's Note: Stepped on a angus pin with left foot. Happened today. [facility] Medical History (Updated 06/11/25 @ 12:33 by Lennie Ca TRANSMISSION CALIBRATION ENGINEER, TRANSMISSION CALIBRATION ENGINEER-C) Alcohol use History of steroid therapy Back pain History of pain when walking Wears glasses Cancer Prostate disease High cholesterol History of diverticulitis Former smoker Carotid stenosis, left Carotid bruit 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 of extremities with rest pain, left [...] management technique (more content not included)... Normal [facility] PSA Total+%Freeon 05-28-2025 PSA, FREE 0.73 ng/mL Normal N/A [facility] Comment on above: Result Comment: Marino DYER methodology. Performed By: #### L 501.1400, L501.6710, L101.9900, L500.4050, L500.4100, L3110.0500, L100.0100 ####[facility] [address] [place], [place], [phone] PSA, FREE % 5.3 Normal . [facility] Comment on above: Result Comment: The table [...] any other population of men. Performed at: [address] [id number] Cnc Service Engineer: Robinson Mendoza PhD, Phone: [phone] Performed By: #### L 501.1400, L501.6710, L101.9900, L500.4050, L500.4100, L3110.0500, L100.0100 ####[facility] [address] [place], [place], [phone] PSA, TOTAL ULTR 13.700 ng/mL Abnormal 0.000-4.000 [facility] Comment on above: Result Comment: Marino walter ECLIA methodology. According to the [place] [employer], Serum PSA should decrease and [...] malignant disease. Performed By: #### L 501.1400, L501.6710, L101.9900, L500.4050, L500.4100, L3110.0500, L100.0100 ####[facility] [address] [place], [place], [phone] Absolute lymphocyte countOrd ered By: Candice Song on 05-26-2025 Lymphocytes Auto (Unsp spec) [#/Vol] 4.26 10*3/uL 0.83-4.51 [facility] Absolute neutrophil countOrd ered By: Candice Song on 05-26-2025 Neutrophils (Bld) [#/Vol] 4.4 10*3/uL 2.0-7.7 [facility] Anion gap in Serum or Plasma Ordered By: Candice Song on 05-26-2025 Anion gap [Moles/Vol] 11 mmol/L 02-23 [facility] Automated lymphocyte count a s percentage of total leukocytesOrdered By: Candice Song on 05-26-2025 Lymphocytes/100 WBC Auto (Unsp spec) 43.6 % High 19- [facility] BUN/creatinine ratioOrdered By: Candice Song on 05-26-2025 Urea nitrogen/Creatinine [Mass ratio] 19.9 mg/mg 07-31 [facility] Basophil percentageOrdered B y: Candice Song on 05-26-2025 Basophils/100 WBC (Bld) 0.5 % 0-1 [facility] Bilirubin, totalOrdered By: Candice Song on 05-26-2025 Bilirubin [Mass/Vol] 0.74 mg/dL 0.00-1.30 [facility] CBC W/Diff, Automatedon 05-12 Absolute Lymph 4.26 X10 3/uL Normal 0.83-4.51 [facility] Comment on above: Performed By: #### L 501.1400, L501.6710, L101.9900, L500.4050, L500.4100, L3110.0500, L100.0100 ####[facility] [address] [facility] [place], [address] Absolute Neut 4.4 X10 3/uL Normal 2.0-7.7 [facility] Comment on above: Performed By: #### L 501.1400, L501.6710, L101.9900, L500.4050, L500.4100, L3110.0500, L100.0100 ####[facility] [address] [place], [address] Basophils/100 WBC (Bld) 0.5 % Normal 0-1 [facility] Comment on above: Performed By: #### L 501.1400, L501.6710, L101.9900, L500.4050, L500.4100, L3110.0500, L100.0100 ####[facility] [address] [place], [address] Eosinophils/100 WBC (Bld) 3.4 % Normal 0-5 [facility] Comment on above: Performed By: #### L 501.1400, L501.6710, L101.9900, L500.4050, L500.4100, L3110.0500, L100.0100 ####[facility] [address] [place], [address] Erythrocyte distribution width (RBC) [Ratio] 13.5 % Normal 11.6-14.6 [facility] Comment on above: Performed By: #### L 501.1400, L501.6710, L101.9900, L500.4050, L500.4100, L3110.0500, L100.0100 ####[facility] [address] [place], [address] Hematocrit (Bld) [Volume fraction] 39.0 % Low 40-54 [facility] Comment on above: Performed By: #### L 501.1400, L501.6710, L101.9900, L500.4050, L500.4100, L3110.0500, L100.0100 ####[facility] [address] [place], [address] Hemoglobin (Bld) [Mass/Vol] 13.5 g/dL Normal 13.0-16.5 [facility] Comment on above: Performed By: #### L 501.1400, L501.6710, L101.9900, L500.4050, L500.4100, L3110.0500, L100.0100 ####[facility] [address] [place], [address] IG% 0.300 Normal 0.0-0.9 [facility] Comment on above: Result Comment: IG% - Immature Granulocytes (promyelocytes, myelocytes and metamyelocytes) > 1% indicates that a LEFT SHIFT is Present. Performed By: #### L 501.1400, L501.6710, L101.9900, L500.4050, L500.4100, L3110.0500, L100.0100 ####[facility] [address] [place], [address] Lymphocytes/100 WBC (Bld) 43.6 % High 19-41 [facility] Comment on above: Performed By: #### L 501.1400, L501.6710, L101.9900, L500.4050, L500.4100, L3110.0500, L100.0100 ####[facility] [address] [place], [address] MCH (RBC) [Entitic mass] 32.6 pg High 27.0-32.0 [facility] Comment on above: Performed By: #### L 501.1400, L501.6710, L101.9900, L500.4050, L500.4100, L3110.0500, L100.0100 ####[facility] [address] [place], [address] MCHC (RBC) [Mass/Vol] 34.6 g/dL Normal 32-36 [facility] Comment on above: Performed By: #### L 501.1400, L501.6710, L101.9900, L500.4050, L500.4100, L3110.0500, L100.0100 ####[facility] [address] [place], [address] MCV (RBC) [Entitic vol] 94.2 fL High 80-94 [facility] Comment on above: Performed By: #### L 501.1400, L501.6710, L101.9900, L500.4050, L500.4100, L3110.0500, L100.0100 ####[facility] [address] [place], [address] Monocytes/100 WBC (Bld) 6.8 % Normal 0-10 [facility] Comment on above: Performed By: #### L 501.1400, L501.6710, L101.9900, L500.4050, L500.4100, L3110.0500, L100.0100 ####[facility] [address] [place], [address] Neutrophils/100 WBC (Bld) 45.4 % Low 47-70 [facility] Comment on above: Performed By: #### L 501.1400, L501.6710, L101.9900, L500.4050, L500.4100, L3110.0500, L100.0100 ####[facility] [address] [place], [address] Nucleated RBC (Bld) [#/Vol] 0 10*3/uL Normal 0-5 [facility] Comment on above: Performed By: #### L 501.1400, L501.6710, L101.9900, L500.4050, L500.4100, L3110.0500, L100.0100 ####[facility] [address] [place], [address] Platelet mean volume (Bld) [Entitic vol] 10.5 fL Normal 6.2-12.0 [facility] Comment on above: Performed By: #### L 501.1400, L501.6710, L101.9900, L500.4050, L500.4100, L3110.0500, L100.0100 ####[facility] [address] [place], [address] Platelets (Bld) [#/Vol] 223 10*3/uL Normal 150-450 [facility] Comment on above: Performed By: #### L 501.1400, L501.6710, L101.9900, L500.4050, L500.4100, L3110.0500, L100.0100 ####[facility] [address] [place], [place], [address] RBC (Bld) [#/Vol] 4.14 10*6/uL Low 4.6-6.2 [facility] Comment on above: Performed By: #### L 501.1400, L501.6710, L101.9900, L500.4050, L500.4100, L3110.0500, L100.0100 ####[facility] [address] [place], [place], [phone] RDW SD 47.2 fl High 35.1-43.9 [facility] Comment on above: Performed By: #### L 501.1400, L501.6710, L101.9900, L500.4050, L500.4100, L3110.0500, L100.0100 ####[facility] [address] [place], [place], [phone] WBC (Bld) [#/Vol] 9.8 10*3/uL Normal 4.4-11.0 [facility] Comment on above: Performed By: #### L 501.1400, L501.6710, L101.9900, L500.4050, L500.4100, L3110.0500, L100.0100 ####[facility] [address] [place], [place], [phone] CRPon 05-26-2025 C-REACTIVE PROT 3.17 mg/L High 0.0-3.0 [facility] Comment on above: Performed By: #### L 501.1400, L501.6710, L101.9900, L500.4050, L500.4100, L3110.0500, L100.0100 ####[facility] [address] [place], [place], [phone] Calculated very low density lipoprotein (VLDL) cholesterol measurementOrdered By: Candice Song on 05-26-2025 Calculated very low density lipoprotein (VLDL) cholesterol measurement 35 mg/dL 5-40 [facility] Carbon dioxide, total [Moles /volume] in Central venous bloodOrdered By: Candice Song on 05-26-2025 CO2 [Moles/Vol] 25.6 mmol/L 21.0-32.0 [facility] Chloride assayOrdered By: Cuba Song on 05-26-2025 Chloride [Moles/Vol] 103 mmol/L 98-108 [facility] Comprehensive Metabolic Prof ilon 05-26-2025 Albumin [Mass/Vol] 4.1 g/dL Normal 3.4-4.8 [facility] Comment on above: Performed By: #### L 501.1400, L501.6710, L101.9900, L500.4050, L500.4100, L3110.0500, L100.0100 ####[facility] [address] [place], [place], [phone] Albumin/Globulin [Mass ratio] 1.5 {ratio} Normal 0.9-2.4 [facility] Comment on above: Performed By: #### L 501.1400, L501.6710, L101.9900, L500.4050, L500.4100, L3110.0500, L100.0100 ####[facility] [address] [place], [place], [phone] ALK PHOS 79 U/L Normal 40-129 [facility] Comment on above: Performed By: #### L 501.1400, L501.6710, L101.9900, L500.4050, L500.4100, L3110.0500, L100.0100 ####[facility] [address] [place], [place], [phone] ALT [Catalytic activity/Vol] 23 U/L Normal <=46 [facility] Comment on above: Performed By: #### L 501.1400, L501.6710, L101.9900, L500.4050, L500.4100, L3110.0500, L100.0100 ####[facility] [address] [place], [address] AST [Catalytic activity/Vol] 26 U/L Normal <=37 [facility] Comment on above: Performed By: #### L 501.1400, L501.6710, L101.9900, L500.4050, L500.4100, L3110.0500, L100.0100 ####[facility] [address] [place], [address] Bilirubin [Mass/Vol] 0.74 mg/dL Normal 0.00-1.30 [facility] Comment on above: Performed By: #### L 501.1400, L501.6710, L101.9900, L500.4050, L500.4100, L3110.0500, L100.0100 ####[facility] [address] [place], [address] BUN/CRE 19.9 RATIO Normal 10-20 [facility] Comment on above: Performed By: #### L 501.1400, L501.6710, L101.9900, L500.4050, L500.4100, L3110.0500, L100.0100 ####[facility] [address] [place], [address] Calcium [Mass/Vol] 9.1 mg/dL Normal 7.6-11.0 [facility] Comment on above: Performed By: #### L 501.1400, L501.6710, L101.9900, L500.4050, L500.4100, L3110.0500, L100.0100 ####[facility] [address] [place], [address] Chloride [Moles/Vol] 103 mmol/L Normal 98-108 [facility] Comment on above: Performed By: #### L 501.1400, L501.6710, L101.9900, L500.4050, L500.4100, L3110.0500, L100.0100 ####[facility] [address] [place], [place], [phone] CO2 [Moles/Vol] 25.6 mmol/L Normal 21.0-32.0 [facility] Comment on above: Performed By: #### L 501.1400, L501.6710, L101.9900, L500.4050, L500.4100, L3110.0500, L100.0100 ####[facility] [address] [place], [address] Creatinine [Mass/Vol] 0.93 mg/dL Normal 0.70-1.20 [facility] Comment on above: Performed By: #### L 501.1400, L501.6710, L101.9900, L500.4050, L500.4100, L3110.0500, L100.0100 ####[facility] [address] [place], [place], [id number] GAP 11 Normal 5-15 [facility] Comment on above: Performed By: #### L 501.1400, L501.6710, L101.9900, L500.4050, L500.4100, L3110.0500, L100.0100 ####[facility] [address] [place], [place], [id number] GFR/1.73 sq M.predicted among non-blacks MDRD (S/P/Bld) [Vol rate/Area] 81 mL/min/{1.73_m2} Normal >60 [facility] Comment on above: Result Comment: mL/m in/1.73m2 CKD-EPI Creatinine Equation (2020) Performed By: #### L 501.1400, L501.6710, L101.9900, L500.4050, L500.4100, L3110.0500, L100.0100 ####[facility] [address] [place], [address] Globulin (S) [Mass/Vol] 2.7 g/dL Normal 2.2-4.2 [facility] Comment on above: Performed By: #### L 501.1400, L501.6710, L101.9900, L500.4050, L500.4100, L3110.0500, L100.0100 ####[facility] [address] [place], [address] Glucose [Mass/Vol] 96 mg/dL Normal 70-99 [facility] Comment on above: Performed By: #### L 501.1400, L501.6710, L101.9900, L500.4050, L500.4100, L3110.0500, L100.0100 ####[facility] [address] [place], [address] Potassium [Moles/Vol] 3.9 mmol/L Normal 3.3-5.1 [facility] Comment on above: Performed By: #### L 501.1400, L501.6710, L101.9900, L500.4050, L500.4100, L3110.0500, L100.0100 ####[facility] [address] [place], [address] Sodium [Moles/Vol] 139 mmol/L Normal 133-145 [facility] Comment on above: Performed By: #### L 501.1400, L501.6710, L101.9900, L500.4050, L500.4100, L3110.0500, L100.0100 ####[facility] [address] [place], [address] T PROT 6.8 g/dL Normal 5.9-8.4 [facility] Comment on above: Performed By: #### L 501.1400, L501.6710, L101.9900, L500.4050, L500.4100, L3110.0500, L100.0100 ####[facility] [address] [place], [place], [phone] Urea nitrogen [Mass/Vol] 19 mg/dL Normal 4-19 [facility] Comment on above: Performed By: #### L 501.1400, L501.6710, L101.9900, L500.4050, L500.4100, L3110.0500, L100.0100 ####[facility] [address] [place], [place], [phone] Eosinophil percentageOrdered By: Candice Song on 05-26-2025 Eosinophils/100 WBC (Bld) 3.4 % 0-5 [facility] Erythrocyte Sed Rateon 05-26 SED RATE 6 mm/hr Normal 0-20 [facility] Comment on above: Performed By: #### L 501.1400, L501.6710, L101.9900, L500.4050, L500.4100, L3110.0500, L100.0100 ####[facility] [address] [place], [place], [phone] Erythrocyte distribution wid th ratioOrdered By: Candice Song on 05-26-2025 Erythrocyte distribution width (RBC) [Ratio] 13.5 % 11.6-14.6 [facility] Erythrocyte distribution wid th standard deviationOrdered By: Candice Song on 05-26-2025 Erythrocyte distribution width (RBC) [Ratio] 47.2 fl High 35.1-43.9 [facility] Erythrocyte sedimentation ra teOrdered By: Candice Song on 05-26-2025 ESR (Bld) [Velocity] 6 mm/h 0-20 [facility] Glomerular filtration rate ( GFR) estimation/1.73 sq m using serum, plasma, or whole bOrdered By: Candice Song on 05-26-2025 GFR/1.73 sq M.predicted among non-blacks MDRD (S/P/Bld) [Vol rate/Area] 81 mL/min/{1.73_m2} >60 [facility] Comment on above: mL/min/1.73m2 CKD-EP I Creatinine Equation (2020) Hematocrit Auto (Bld) [Volum e fraction]Ordered By: Candice Song on 05-26-2025 Hematocrit (Bld) [Volume fraction] 39.0 % Low 40-54 [facility] Hemoglobin measurementOrdere d By: Candice Song on 05-26-2025 Hemoglobin (Bld) [Mass/Vol] 13.5 g/dL 13.0-16.5 [facility] Immature granulocytes/100 WB C Auto (Bld)Ordered By: Candice Song on 05-26-2025 Immature granulocytes/100 WBC (Bld) 0.300 % 0.0-0.9 [facility] Comment on above: IG% - Immature Granu locytes (promyelocytes, myelocytes and metamyelocytes) > 1% indicates that a LEFT SHIFT is Present. LDL calc ser/plasOrdered By: Candice Song on 05-26-2025 Cholesterol in LDL [Mass/Vol] 67 mg/dL [facility] Comment on above: Dedefkqreo=841-451 m g/dL & Higher Sxal=528 mg/dL or greaterFriedwald Equation for LDL-C Laboratory - Chemistry and C hemistry - challengeOrdered By: Candice Song on 05-26-2025 AST [Catalytic activity/Vol] 26 U/L <38 [facility] Lipid Profileon 05-26-2025 CHOL:HDL 2.29 Normal [facility] Comment on above: Performed By: #### L 501.1400, L501.6710, L101.9900, L500.4050, L500.4100, L3110.0500, L100.0100 ####[facility] [address] [place], [place], [phone] Cholesterol [Mass/Vol] 181 mg/dL Normal <=200 [facility] Comment on above: Result Comment: Chol esterol level, Desirable <200 mg/dL Borderline high cholesterol 200-239 mg/dL High cholesterol >=240 mg/dL Recommendations of the NCEP Adult Treatment Panel for the following risk-cutoff thresholds for the [place] population. Performed By: #### L 501.1400, L501.6710, L101.9900, L500.4050, L500.4100, L3110.0500, L100.0100 ####[facility] [address] [place], [address] Cholesterol in HDL [Mass/Vol] 79 mg/dL Normal [facility] Comment on above: Result Comment: [place] onal Cholesterol Education Program (NCEP) guidelines: <40 mg/dL: Low HDL-cholesterol (major risk factor for CHD) >= 60 mg/dL: High HDL-cholesterol (negative risk factor for CHD) HDL-cholesterol is affected by a number of factors, e.g. smoking, exercise, hormones, sex and age. Performed By: #### L 501.1400, L501.6710, L101.9900, L500.4050, L500.4100, L3110.0500, L100.0100 ####[facility] [address] [place], [address] Cholesterol in LDL [Mass/Vol] 67 mg/dL Normal [facility] Comment on above: Result Comment: Bord nfljdf=235-814 mg/dL Higher Evxd=619 mg/dL or greater Friedwald Equation for LDL-C Performed By: #### L 501.1400, L501.6710, L101.9900, L500.4050, L500.4100, L3110.0500, L100.0100 ####[facility] [address] [place], [address] Cholesterol in VLDL [Mass/Vol] 35 mg/dL Normal 5-40 [facility] Comment on above: Performed By: #### L 501.1400, L501.6710, L101.9900, L500.4050, L500.4100, L3110.0500, L100.0100 ####[facility] [address] [place], [address] Triglyceride [Mass/Vol] 177 mg/dL Normal [facility] Comment on above: Result Comment: The drugs N-Acetylcysteine and Metamizole may falsely depress this assay. Normal range: <150 mg/dL Borderline High: 150-199 mg/dL High: 200-499 mg/dL Very High: >500 mg/dL Performed By: #### L 501.1400, L501.6710, L101.9900, L500.4050, L500.4100, L3110.0500, L100.0100 ####[facility] [address] [place], [address] MCV (mean corpuscular volume ) determinationOrdered By: Candice Song on 05-26-2025 MCV (RBC) [Entitic vol] 94.2 fL High 80-94 [facility] Mean corpuscular hemoglobin (MCH) determinationOrdered By: Candice Song on 05-26-2025 MCH (RBC) [Entitic mass] 32.6 pg High 27.0-32.0 [facility] Mean corpuscular hemoglobin concentration (MCHC) determinationOrdered By: Candice Song on 05-26-2025 MCHC (RBC) [Mass/Vol] 34.6 g/dL 32-36 [facility] Mean platelet volume determi nationOrdered By: Candice Song on 05-26-2025 Platelet mean volume (Bld) [Entitic vol] 10.5 fL 6.2-12.0 [facility] Monocyte percentageOrdered B y: Candice Song on 05-26-2025 Monocytes/100 WBC (Bld) 6.8 % 0-10 [facility] Neutrophil percentageOrdered By: Candice Song on 05-26-2025 Neutrophils/100 WBC (Bld) 45.4 % Low 47-70 [facility] Nucleated red blood cell per centageOrdered By: Candice Song on 05-26-2025 Nucleated RBC/100 WBC (Bld) [Ratio] 0 % 0-5 [facility] Platelet countOrdered By: Cuba Song on 05-26-2025 Platelets (Bld) [#/Vol] 223 10*3/uL 150-450 [facility] Potassium measurement (mass/ volume)Ordered By: Candice Song on 05-26-2025 Potassium (Unsp spec) [Mass/Vol] 3.9 mmol/L 3.3-5.1 [facility] RBC Auto (Bld) [#/Vol]Ordere d By: Candice Song on 05-26-2025 RBC (Bld) [#/Vol] 4.14 10*6/uL Low 4.6-6.2 [facility] Screening total cholesterol/ high density lipoprotein (HDL) cholesterol ratioOrdered By: Candice Song on 05-26-2025 Cholesterol.total/Maren sterol in HDL [Mass ratio] 2.29 {ratio} [facility] Serum creatinine measurement (mass/volume)Ordered By: Candice Song on 05-26-2025 Creatinine [Mass/Vol] 0.93 mg/dL 0.70-1.20 [facility] Serum globulin measurementOr dered By: Candice Song on 05-26-2025 Globulin (S) [Mass/Vol] 2.7 g/dL 2.2-4.2 [facility] Serum glucose measurement (m ass/volume)Ordered By: Candice Song on 05-26-2025 Glucose [Mass/Vol] 96 mg/dL 70-99 [facility] Serum or plasma C reactive p rotein measurement (mass/volume)Ordered By: Candice Song on 05-26-2025 CRP [Mass/Vol] 3.17 mg/L High 0.0-3.0 [facility] Serum or plasma alanine pickett otransferase (ALT) measurementOrdered By: Candice Song on 05-26-2025 ALT [Catalytic activity/Vol] 23 U/L <47 [facility] Serum or plasma albumin harrison urement (mass/volume)Ordered By: Candice Song on 05-26-2025 Albumin [Mass/Vol] 4.1 g/dL 3.4-4.8 [facility] Serum or plasma albumin/glob ulin mass ratioOrdered By: Candice Song on 05-26-2025 Albumin/Globulin [Mass ratio] 1.5 {ratio} 0.9-2.4 [facility] Serum or plasma alkaline roseanne sphatase measurementOrdered By: Candice Song on 05-26-2025 ALP [Catalytic activity/Vol] 79 U/L 40-129 [facility] Serum or plasma calcium harrison urement (mass/volume)Ordered By: Candice Song on 05-26-2025 Calcium [Mass/Vol] 9.1 mg/dL 7.6-11.0 [facility] Serum or plasma cholesterol in HDL measurement (mass/volume)Ordered By: Candice Song on 05-26-2025 Cholesterol in HDL [Mass/Vol] 79 mg/dL >40 [facility] Comment on above: National Cholesterol Education Program (NCEP) guidelines:<40 mg/dL: Low HDL-cholesterol (major risk factor for CHD)>= 60 mg/dL: High HDL-cholesterol (negative risk factor for CHD)HDL-cholesterol is affected by a number of factors, e.g. smoking, exercise, hormones, sex and age. Serum or plasma cholesterol measurement (mass/volume)Ordered By: Candice Song on 05-26-2025 Cholesterol [Mass/Vol] 181 mg/dL <201 [facility] Comment on above: Cholesterol level, D esirable <200 mg/dLBorderline high cholesterol 200-239 mg/dLHigh cholesterol >=240 mg/dLRecommendations of the NCEP Adult Treatment Panel for the following risk-cutoff thresholds for the [place] population. Serum or plasma free prostat e specific antigen (PSA)/total PSA mass ratioOrdered By: Candice Song on 05-26-2025 Free PSA/Total PSA [Mass fraction] 5.3 % . [facility] Comment on above: The table below list [...] for any other population of men.Performed at: [facility] [id number] Director: Robinson Mendoza PhD, Phone: [phone] Serum or plasma urea nitroge n measurement (mass/volume)Ordered By: Candice Song on 05-26-2025 Urea nitrogen [Mass/Vol] 19 mg/dL 4-19 [facility] Serum or plasma uric acid me asurement (mass/volume)Ordered By: Candice Song on 05-26-2025 Urate [Mass/Vol] 5.2 mg/dL 3.5-7.2 [facility] Comment on above: The drugs N-Acetylcy steine and Metamizole may falsely depress this assay. Sodium levelOrdered By: Nadeem Song on 05-26-2025 Sodium [Moles/Vol] 139 mmol/L 133-145 [facility] Total proteinOrdered By: Kendell Song on 05-26-2025 Protein [Mass/Vol] 6.8 g/dL 5.9-8.4 [facility] Triglycerides measurementOrd ered By: Candice Song on 05-26-2025 Triglyceride [Mass/Vol] 177 mg/dL <199 [facility] Comment on above: The drugs N-Acetylcy steine and Metamizole may falsely depress this assay. Normal range: <150 mg/dLBorderline High: 150-199 mg/dLHigh: 200-499 mg/dLVery High: >500 mg/dL Uric Acidon 05-26-2025 URIC 5.2 mg/dL Normal 3.5-7.2 [facility] Comment on above: Result Comment: The drugs N-Acetylcysteine and Metamizole may falsely depress this assay. Performed By: #### L 501.1400, L501.6710, L101.9900, L500.4050, L500.4100, L3110.0500, L100.0100 ####[facility] [address] [place], [address] White blood cell (WBC) count Ordered By: Candice Song on 05-26-2025 WBC (Bld) [#/Vol] 9.8 10*3/uL 4.4-11.0 [facility] Surgery Visit Reporton 12-20 Surgery Visit Report [facility] [address] [place], [place] [address] OFFICE VISIT Date of Service: 12/20/24 MR#: [id number] Acct: [id number] Name: LENNIE MAXWELL Rep #: [id number] : 1940 Provider: Dr. 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 Rikki Clemente MD Pager: [facility] [address] [place] [address], [address] [place] [phone] Office: 12/20/24 1320 Date Rikki Clemente MD Cosigner Signature: Date (if applicable) CC: Normal [facility] CRPon 12-15-2024 C-REACTIVE PROT 5.38 mg/L High 0.0-3.0 [facility] Comment on above: Performed By: #### L 501.6710, L101.9900 #### [facility] [address] [place], [address] CRP [Mass/Vol]Ordered By: Cuba Song on 12-15-2024 C-Reactive Protein Extended Range 5.38 mg/L High 0.0-3.0 [facility] Erythrocyte Sed Rateon 12-15 SED RATE 10 mm/hr Normal 0-20 [facility] Comment on above: Performed By: #### L 501.6710, L101.9900 #### [facility] [address] [place], [address] Erythrocyte sedimentation ra teOrdered By: Candice Song on 12-15-2024 ESR (Bld) [Velocity] 10 mm/h 0-20 [facility] Discharge Instructionon 11-13 Discharge Instruction [facility] Medical Records Department [address] [place] [address] Instructions for Home/Discharge Instructions 12/06/24 1336 MR#: [id number] Acct: [id number] Name: LENNIE MAXWELL Rep #: [id number] : 1940 83 From: Rikki Clemente MD PCP: Dr. Candice Song MD Status:REG [facility] Discharge Instructions Diet Discharge Diet: Light diet [...] to schedule 2 week follow up appointment. [phone] Test Results: Test results from this visit [...] can be placed): Home, Self Care 12/06/24 7896 Rikki Clemente MD CC: Dr. Candice Song MD Signed Normal [facility] Elastin Stain (control)on Elastin Stain (control) -------- Patient Age/Sex Location Account Attending Physician LENNIE MAXWELL 83/M [facility] [id number] Dr. Rkiki Clemente MD Specimen: [id number] Received: 12/06/24 Status: MINNIE Padgett Num: [id number] Spec Type: TEMPORAL Subm Dr: Dr. Rikki Clemente MD HEADER OPERATION: Temporal artery biopsy PRE-OP DIAGNOSIS: Polymyalgia rheumatica TISSUE SUBMITTED: Right temporal artery segment MICROSCOPIC DIAGNOSIS Right temporal artery segment, biopsy: Negative for giant cell arteritis. Mild intimal hyperplasia and medial calcifications. See comment. [facility] 12/08/2024 COMMENT Elastic stain with matched control [...] specimen is totally submitted in one cassette. [facility] 12/07/2024 TC:5 CPT:78912,80552 Patient Age/Sex Location Account Attending Physician LENNIE MAXWELL 83/M [facility] [id number] Dr. Rikki Clemente MD Signed (signature on file) Dr. Kumar Charles MD 12/08/24 1318 Normal [facility] Comment on above: Performed By: #### P ELASTIC ####[facility] [address] [place], [place], [id number] MR/POSTOP.ANEevelyne 12-06-2024 MR/POSTOP.[facility] Medical Records Department [address] [place] [address] Anesthesia Postop Eval I 12/06/24 1342 MR#: [id number] Acct: [id number] Name: LENNIE MAXWELL Rep #: [id number] : 1940 83 From: Theresa King PCP: Dr. Candice Song MD Status:REG [facility] Y Race: C Location: [place] [address] Anesthesia: Postop Eval I Current Vital Signs [...] 1 completed: Yes 12/06/24 1343 Date Theresa Dotterer Cosigner Signature: Date CC: Signed Normal [facility] MR/[id number] 12-06-2024 [facility] Medical Records Department [address] [place] [address] Anesthesia Postop Eval II 12/06/24 1902 MR#: [id number] Acct: [id number] Name: LENNIE MAXWELL Rep #: [id number] : 1940 83 From: Meng Ware MD PCP: Dr. Candice Song MD Status:[facility] Y Race: C Location: [facility] Anesthesia Postop Eval I Sum Postop Eval Completion status Anesthesia document: Postop Eval 1 completed: Yes Anesthesia Postop Eval I Summary Anesthesia Postop Eval I Summary: Anesthesia Postop Eval I: Assessment Summary Airway patent Yes 12/06/24 13:43 POTLINE MONITOR.GDOTT Spontaneous unlabored Yes 12/06/24 13:43 POTLINE MONITOR.GDOTT respirations Mental status Awake,Calm 12/06/24 13:43 POTLINE MONITOR.GDOTT nausea No 12/06/24 13:43 POTLINE MONITOR.GDOTT Vomiting No 12/06/24 13:43 POTLINE MONITOR.GDOTT Anesthesia Postop Eval I: Fluid Summary Crystalloid volume administer 10 12/06/24 13:43 POTLINE MONITOR.GDOTT (ml) Colloids volume administered ( ml) Blood Product volume administered (ml) Total IV fluid infused 10 12/06/24 13:43 POTLINE MONITOR.GDOTT Anesthesia Postop Eval I: Summary Notes Anesthesia Complication No 12/06/24 13:43 POTLINE MONITOR.GDOTT Anesthesia Complication Comment: Post-operative progress note Anesthesia: Postop Eval II Evaluation Mental status: Awake and Calm Pain Level: 1 nausea: No Vomiting: No Complications Anesthesia Complication: No 12/06/24 1902 Date Meng Ware MD Cosigner Signature: Date CC: Signed Normal [facility] Operative Reporton Operative Report [facility] Medical Records Department [address] [place] [address] Operative Report 12/06/24 1334 MR#: [id number] Acct: [id number] Name: LENNIE MAXWELL Rep #: [id number] : 1940 83 From: Rikki Clemente MD PCP: Dr. Candice Song MD Status:[facility] Location: [place] [address] Operative Report (Standard) Operative Information Date of Procedure: 12/06/24 Pre-Operative Diagnosis: Polymyalgia rheumatica Post-Operative Diagnosis: Same Surgery/Procedure Performed: Right temporal artery biopsy asic design engineer: Yes Stonemason Helper: Stephy Diaz Tasks completed by prosthetics assistant: Opening, Closing and Retracting Type of [...] and MAC anesthesia was induced. The right cheondoism was inspected and shaved of hair. The ultrasound was used to localize the right temporal artery and it was marked along its course. Next the right cheondoism was prepped and draped in usual sterile [...] MD; Dr. Ernst Burrows MD Signed Normal [facility] Surgery Visit Reporton 12-05 Surgery Visit Report [facility] [address] [place] [address]. [address] [place] [address] OFFICE VISIT Date of Service: 12/05/24 MR#: [id number] Acct: [id number] Name: LENNIE MAXWELL Rep #: [id number] : 1940 Provider: Dr. 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 Normal [facility] MR/PAT.ANEon 12-01-2024 MR/PAT.[facility] Medical Records Department [address] [place] [address] PAT - Anesthesia 12/01/24 1549 MR#: [id number] Acct: [id number] Name: LENNIE MAXWELL Rep #: [id number] : 1940 83 From: Everton Hand MD PCP: Dr. 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 captain Female No 12/01/24 15:29 HX of Motion Sickness No 12/01/24 15:29 HX of N/V After Surgery No 12/01/24 15:29 Non-Smoker Yes 12/01/24 15:29 Duration of Surgery greater No 12/01/24 15:29 than 60 minutes Number of Risk Factors 1 12/01/24 15:29 PONV Score Low Risk 12/01/24 15:29 Height Weight Height Weight: Anesthesia: Height Weight Height 6 ft 02/26/24 08:55 Respiratory Assessment Respiratory Assessment - patrol captain: Respiratory Tract Infection Hx - patrol captain Hx Respiratory Tract Infection No 12/01/24 15:29 STOP Sleep Apnea STOP Sleep Apnea - patrol captain: STOP Sleep Apnea - patrol captain Hx Hypertension Yes: CONTROLLED ON MED 12/01/24 [...] Tobacco Use History Tobacco Use History - patrol captain: Tobacco Use History - patrol captain Tobacco Use Smoking Status Former smoker 12/01/24 15:29 Hx Tobacco Use No 12/01/24 15:29 Years Smoking Packs Smoked per Day Smoking Cessation Date was No - quit smoking greater 12/01/24 15:29 within the last 15 years than 15 years ago Hx Smoking Cessation Date 10/12/74 12/01/24 15:29 Hx Smoking Cessation Counseling Hematologic Medial History Hematologic Hx - patrol captain: Hematologic Medical Hx - counter former Hx of Blood Transfusion No 12/01/24 15:29 [...] confused, unrespo /Reproduction History /Reproductive History - patrol captain: /Reproductive Hx- patrol captain Hx Now Gestational Age (in weeks): EDC: Hx Hx Para Hx Section SAB PFSH Medical History (Updated 12/01/24 @ 15:29 by Iram Haddad) Alcohol use History of steroid therapy Back pain History of pain when walking Wears glasses Cancer Prostate disease High cholesterol History of diverticulitis Former smoker Carotid stenosis, left Carotid bruit 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 Normal [facility] Absolute neutrophil countOrd ered By: Candice Song on 11-29-2024 Neutrophils (Bld) [#/Vol] 7.3 10*3/uL 2.0-7.7 [facility] Basophil percentageOrdered B y: Candice Song on 11-29-2024 Basophils/100 WBC (Bld) 0.4 % 0-1 [facility] C-reactive protein measureme nt by high sensitivity methodOrdered By: Candice Song on 11-29-2024 C-Reactive Protein Extended Range 24.50 mg/L High 0.0-3.0 [facility] Comment on above: C-Reactive Protein ( CRP) provides useful information for thediagnosis, therapy and monitoring of inflammatory processesand associated diseases. For the evaluation of Relative Riskfor Cardiovascular Disease, a High Sensitivity CRP (HSCRP)should be ordered. CBC W/Diff, Automatedon 11-12 Absolute Lymph 2.97 X10 3/uL Normal 0.83-4.51 [facility] Comment on above: Performed By: #### L 100.0100, L101.9900, L501.6710 ####[facility] [address] [place], [address] Absolute Neut 7.3 X10 3/uL Normal 2.0-7.7 [facility] Comment on above: Performed By: #### L 100.0100, L101.9900, L501.6710 ####[facility] [address] [place], [address] Basophils/100 WBC (Bld) 0.4 % Normal 0-1 [facility] Comment on above: Performed By: #### L 100.0100, L101.9900, L501.6710 ####[facility] [address] [place], [address] Eosinophils/100 WBC (Bld) 4.6 % Normal 0-5 [facility] Comment on above: Performed By: #### L 100.0100, L101.9900, L501.6710 ####[facility] [address] [place], [address] Erythrocyte distribution width (RBC) [Ratio] 13.7 % Normal 11.6-14.6 [facility] Comment on above: Performed By: #### L 100.0100, L101.9900, L501.6710 ####[facility] [address] [place], [address] Hematocrit (Bld) [Volume fraction] 40.6 % Normal 40-54 [facility] Comment on above: Performed By: #### L 100.0100, L101.9900, L5.6710 ####[facility] [address] [place], [address] Hemoglobin (Bld) [Mass/Vol] 12.9 g/dL Low 13.0-16.5 [facility] Comment on above: Performed By: #### L 100.0100, L101.9900, L5.6710 ####[facility] [address] [place], [address] IG% 0.300 Normal 0.0-0.9 [facility] Comment on above: Result Comment: IG% - Immature Granulocytes (promyelocytes, myelocytes and metamyelocytes) > 1% indicates that a LEFT SHIFT is Present. Performed By: #### L 100.0100, L101.9900, L501.6710 ####[facility] [address] [place], [address] Lymphocytes/100 WBC (Bld) 25.0 % Normal 19-41 [facility] Comment on above: Performed By: #### L 100.0100, L101.9900, L501.6710 ####[facility] [address] [place], [address] MCH (RBC) [Entitic mass] 30.1 pg Normal 27.0-32.0 [facility] Comment on above: Performed By: #### L 100.0100, L101.9900, L501.6710 ####[facility] [address] [place], [address] MCHC (RBC) [Mass/Vol] 31.8 g/dL Low 32-36 [facility] Comment on above: Performed By: #### L 100.0100, L101.9900, L501.6710 ####[facility] [address] [place], [address] MCV (RBC) [Entitic vol] 94.9 fL High 80-94 [facility] Comment on above: Performed By: #### L 100.0100, L101.9900, L501.6710 ####[facility] [address] [place], [address] Monocytes/100 WBC (Bld) 8.2 % Normal 0-10 [facility] Comment on above: Performed By: #### L 100.0100, L101.9900, L501.6710 ####[facility] [address] [place], [address] Neutrophils/100 WBC (Bld) 61.5 % Normal 47-70 [facility] Comment on above: Performed By: #### L 100.0100, L101.9900, L501.6710 ####[facility] [address] [place], [address] Nucleated RBC (Bld) [#/Vol] 0 10*3/uL Normal 0-5 [facility] Comment on above: Performed By: #### L 100.0100, L101.9900, L501.6710 ####[facility] [address] [place], [address] Platelet mean volume (Bld) [Entitic vol] 11.3 fL Normal 6.2-12.0 [facility] Comment on above: Performed By: #### L 100.0100, L101.9900, L501.6710 ####[facility] [address] [place], [address] Platelets (Bld) [#/Vol] 293 10*3/uL Normal 150-450 [facility] Comment on above: Performed By: #### L 100.0100, L101.9900, L501.6710 ####[facility] [address] [place], [address] RBC (Bld) [#/Vol] 4.28 10*6/uL Low 4.6-6.2 [facility] Comment on above: Performed By: #### L 100.0100, L101.9900, L501.6710 ####[facility] [address] [place], [address] RDW SD 48.0 fl High 35.1-43.9 [facility] Comment on above: Performed By: #### L 100.0100, L101.9900, L501.6710 ####[facility] [address] [place], [address] WBC (Bld) [#/Vol] 11.9 10*3/uL High 4.4-11.0 [facility] Comment on above: Performed By: #### L 100.0100, L101.9900, L501.6710 ####[facility] [address] [place], [address] CRPon 11-29-2024 C-REACTIVE PROT 24.50 mg/L High 0.0-3.0 [facility] Comment on above: Result Comment: C-Re active Protein (CRP) provides useful information for the diagnosis, therapy and monitoring of inflammatory processes and associated diseases. For the evaluation of Relative Risk for Cardiovascular Disease, a High Sensitivity CRP (HSCRP) should be ordered. Performed By: #### L 100.0100, L101.9900, L501.6710 ####[facility] [address] [place], [place], [address] Eosinophil percentageOrdered By: Candice Song on 11-29-2024 Eosinophils/100 WBC (Bld) 4.6 % 0-5 [facility] Erythrocyte Sed Rateon 11-29 SED RATE 26 mm/hr High 0-20 [facility] Comment on above: Performed By: #### L 100.0100, L101.9900, L501.6710 ####[facility] [address] [place], [place], [address] Erythrocyte distribution wid th ratioOrdered By: Candice Song on 11-29-2024 Erythrocyte distribution width (RBC) [Ratio] 13.7 % 11.6-14.6 [facility] Erythrocyte distribution wid th standard deviationOrdered By: Candice Song on 11-29-2024 Erythrocyte distribution width (RBC) [Entitic vol] 48.0 fL High 35.1-43.9 [facility] Erythrocyte sedimentation ra teOrdered By: Candice Song on 11-29-2024 ESR (Bld) [Velocity] 26 mm/h High 0-20 [facility] Hematocrit Auto (Bld) [Volum e fraction]Ordered By: Candice Song on 11-29-2024 Hematocrit (Bld) [Volume fraction] 40.6 % 40-54 [facility] Hemoglobin measurementOrdere d By: Candice Song on 11-29-2024 Hemoglobin (Bld) [Mass/Vol] 12.9 g/dL Low 13.0-16.5 [facility] Immature granulocytes/100 WB C Auto (Bld)Ordered By: Candice Song on 11-29-2024 Immature granulocytes/100 WBC (Bld) 0.300 % 0.0-0.9 [facility] Comment on above: IG% - Immature Granu locytes (promyelocytes, myelocytes and metamyelocytes) > 1% indicates that a LEFT SHIFT is Present. Lymphocytes Auto (Unsp spec) [#/Vol]Ordered By: Candice Song on 11-29-2024 Lymphocytes (Bld) [#/Vol] 2.97 10*3/uL 0.83-4.51 [facility] Lymphocytes/100 WBC Auto (Un sp spec)Ordered By: Candice Song on 11-29-2024 Lymphocytes/100 WBC (Bld) 25.0 % 19-41 [facility] MCV (mean corpuscular volume ) determinationOrdered By: Candice Song on 11-29-2024 MCV (RBC) [Entitic vol] 94.9 fL High 80-94 [facility] Mean corpuscular hemoglobin (MCH) determinationOrdered By: Candice Song on 11-29-2024 MCH (RBC) [Entitic mass] 30.1 pg 27.0-32.0 [facility] Mean corpuscular hemoglobin concentration (MCHC) determinationOrdered By: Candice Song on 11-29-2024 MCHC (RBC) [Mass/Vol] 31.8 g/dL Low 32-36 [facility] Mean platelet volume determi nationOrdered By: Candice Song on 11-29-2024 Platelet mean volume (Bld) [Entitic vol] 11.3 fL 6.2-12.0 [facility] Monocyte percentageOrdered B y: Candice Song on 11-29-2024 Monocytes/100 WBC (Bld) 8.2 % 0-10 [facility] Neutrophil percentageOrdered By: Candice Song on 11-29-2024 Neutrophils/100 WBC (Bld) 61.5 % 47-70 [facility] Nucleated red blood cell per centageOrdered By: Candice Song on 11-29-2024 Nucleated RBC/100 WBC (Bld) [Ratio] 0 % 0-5 [facility] Platelet countOrdered By: [place] Song on 11-29-2024 Platelets (Bld) [#/Vol] 293 10*3/uL 150-450 [facility] RBC Auto (Bld) [#/Vol]Ordere d By: Candice Song on 11-29-2024 RBC (Bld) [#/Vol] 4.28 10*6/uL Low 4.6-6.2 [facility] White blood cell (WBC) count Ordered By: Candice Song on 11-29-2024 WBC (Bld) [#/Vol] 11.9 10*3/uL High 4.4-11.0 [facility] MR/BMS.José 11-02-2024 MR/BMS.BVS [facility] [address] [place] [address] OFFICE VISIT Date of Service: 11/02/24 MR#: [id number] Acct: [id number] Name: LENNIE MAXWELL Rep #: [id number] : 1940 Provider: RASHAD Albright Age/Sex: 83/M Location: [facility] Status: Signed Intake Vital Signs 02/26/24 08:55 [...] hydrocortisone 2.5 % topical cream 1 applic NE BID-QID PRN 02/26/24 11/02/24 Rx with perineal applicator hemorrhoids #30 grams (Proctozone-HC) vitamins A,C,O-oqtb-jygqex 2,148 2 tab PO BID 11/02/24 11/02/24 History mcg-113 mg-45 mg-17.4 mg tablet (PreserVision AREDS) Have you fallen in the past year?: No PFSH Medical History (Updated 11/02/24 @ 12:47 by RASHAD Albright) Carotid bruit 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 Normal [facility] Ankle Brachial Indexon 09-29 Ankle Brachial Index [facility] [address] [place] [address] Ankle Brachial Index 09/29/24 0848 MR#: [id number] Acct: [id number] Name: LENNIE MAXWELL Rep #: [id number] : 1940 83 From: Tevin Lopez MD Attending Dr: RASHAD Albright Status: REG CLI Ordering Dr: Kavitha Benitez Date: 09/29/24 Location: [facility] Sex: M C Admitted: Reason [...] ankle normal at rest. Ordering Physician: Kavitha Benitez Referring Physician: Candice Song MD Performed By: Michelle Nova RVT and Student 09/29/241852 Date Tevin Lopez MD CC: RASHAD Albright; Dr. Candice Song MD Date Dictated: 09/29/2448 Date Transcribed: 09/29/241852 Digital X Ray Service Engineer: Signed Normal [facility] US Art Duplex Unilat Lower E xton 09-29-2024 US Art Duplex Unilat Lower Ext [facility] [address] [facility] [place] [address] US Art Duplex Unilat Lower Ext 09/29/24 0901 MR#: [id number] Acct: [id number] Name: LENNIE MAXWELL Rep #: [id number] : 1940 83 From: Tevin Lopez MD Attending Dr: RASHAD Albright Status: REG CLI Ordering Dr: Kavitha Benitez Date: 09/29/24 Location: [facility] Sex: M C [...] no focal stenosis identified. Ordering Physician: Kavitha Benitez Referring Physician: Kavitha Benitez Performed By: Michelle Nova RVT and Student 09/29/241855 Date Tevin Lopez MD CC: RASHAD Albright; Dr. Candice Song MD Date Dictated: 09/29/24900 Date Transcribed: 09/29/241855 Digital X Ray Service Engineer: Signed Normal [facility] Absolute lymphocyte countOrd ered By: Tevin Lopez on 07-15-2023 Lymphocytes Auto (Unsp spec) [#/Vol] 1.25 10*3/uL 0.83-4.51 [facility] Basophil percentageOrdered B y: Tevin Lopez on 07-15-2023 Basophils/100 WBC (Bld) 0.2 % 0-1 [facility] Eosinophils/100 WBC (Bld) 0.2 % 0-5 [facility] Lymphocytes/100 WBC (Bld) 22.0 % 19-41 [facility] Monocytes/100 WBC (Bld) 2.6 % 0-10 [facility] Neutrophils (Bld) [#/Vol] 4.2 10*3/uL 2.0-7.7 [facility] Neutrophils/100 WBC (Bld) 74.8 % 47-70 [facility] WBC (Bld) [#/Vol] 5.7 10*3/uL 4.4-11.0 [facility] Blood erythrocytes count (nu mber/volume)Ordered By: Tevin Lopez on 07-15-2023 RBC (Bld) [#/Vol] 3.67 10*6/uL 4.6-6.2 [facility] Blood hemoglobin measurement (mass/volume)Ordered By: Tevin Lopez on 07-15-2023 Hemoglobin (Bld) [Mass/Vol] 11.6 g/dL 13.0-16.5 [facility] Blood platelet mean volumeOr dered By: Tevin Lopez on 07-15-2023 Platelet mean volume (Bld) [Entitic vol] 11.1 fL 6.2-12.0 [facility] Determination of erythrocyte mean corpuscular volume (MCV)Ordered By: Tevin Lopez on 07-15-2023 MCV (RBC) [Entitic vol] 91.8 fL 80-94 [facility] Hematocrit Auto (Bld) [Volum e fraction]Ordered By: Tevin Lopez on 07-15-2023 Hematocrit (Bld) [Volume fraction] 33.7 % 40-54 [facility] Laboratory - Hematology and Cell countsOrdered By: Tevin Lopez on 07-15-2023 Erythrocyte distribution width (RBC) [Entitic vol] 46.2 fL 35.1-43.9 [facility] Erythrocyte distribution width (RBC) [Ratio] 13.6 % 11.6-14.6 [facility] Immature granulocytes/100 WBC (Bld) 0.200 % 0.0-0.9 [facility] Comment on above: IG% - Immature Granu locytes (promyelocytes, myelocytes and metamyelocytes) > 1% indicates that a LEFT SHIFT is Present. MCH (RBC) [Entitic mass] 31.6 pg 27.0-32.0 [facility] Nucleated RBC/100 WBC (Bld) [Ratio] 0 % 0-5 [facility] MCHC Auto (RBC) [Mass/Vol]Or dered By: Tevin Lopez on 07-15-2023 MCHC (RBC) [Mass/Vol] 34.4 g/dL 32-36 [facility] Platelets bldOrdered By: Taniya Lopez on 07-15-2023 Platelets (Bld) [#/Vol] 179 10*3/uL 150-450 [facility] No Panel InformationOrdered By: Tevin Lopez on 07-14-2023 Activated Clotting Time 233 sec 74-137 [facility] INR in Blood by Coagulation assayOrdered By: Meng Ware on 07-02-2023 INR Coag (Bld) [Relative time] 1.0 {INR} [facility] Laboratory - CoagulationOrde red By: Meng Ware on 07-02-2023 aPTT Coag (Bld) [Time] 29.3 s 24.1-36.2 [facility] PT Coag (PPP) [Time] 13.7 s 11.7-14.9 [facility] Absolute lymphocyte countOrd ered By: Candice Song on 06-26-2023 Lymphocytes Auto (Unsp spec) [#/Vol] 3.58 10*3/uL 0.83-4.51 [facility] Basophil percentageOrdered B y: Candice Song on 06-26-2023 Basophils/100 WBC (Bld) 0.5 % 0-1 [facility] Bilirubin [Mass/Vol] 0.40 mg/dL 0.20-1.00 [facility] Comment on above: For patients on eltr ombopag therapy, use of Dimension [place] TBIL is not recommended. Chloride [Moles/Vol] 109 mmol/L 98-107 [facility] Cholesterol [Mass/Vol] 130 mg/dL <200 [facility] Comment on above: <200 mg/dL Desirable 200-240 mg/dL Borderline >240 mg/dL High Risk Eosinophils/100 WBC (Bld) 5.9 % 0-5 [facility] Glucose [Mass/Vol] 103 mg/dL 74-106 [facility] Comment on above: Fasting Glucose resu lt from 100 to 125 mg/dL suggests IMPAIRED HOMEOSTASIS per A.D.A. criteria. Neutrophils (Bld) [#/Vol] 3.2 10*3/uL 2.0-7.7 [facility] Neutrophils/100 WBC (Bld) 40.9 % 47-70 [facility] Potassium [Moles/Vol] 4.1 mmol/L 3.5-5.1 [facility] Protein [Mass/Vol] 7.0 g/dL 6.4-8.2 [facility] Sodium [Moles/Vol] 139 mmol/L 136-145 [facility] Triglyceride [Mass/Vol] 77 mg/dL <199 [facility] Comment on above: The drugs N-Acetylcy steine and Metamizole may falsely depress this assay.Serum Triglycerides Reference Interval Normal <150 mg/dL Borderline high 150 - 199 mg/dL High 200 - 499 mg/dL Very High > or = 500 mg/dL WBC (Bld) [#/Vol] 7.9 10*3/uL 4.4-11.0 [facility] Blood erythrocytes count (nu mber/volume)Ordered By: Candice Song on 06-26-2023 RBC (Bld) [#/Vol] 4.19 10*6/uL 4.6-6.2 [facility] Blood hemoglobin measurement (mass/volume)Ordered By: Candice Song on 06-26-2023 Hemoglobin (Bld) [Mass/Vol] 12.9 g/dL 13.0-16.5 [facility] Blood lymphocytes/100 leukoc ytesOrdered By: Candice Song on 06-26-2023 Lymphocytes/100 WBC (Bld) 45.2 % 19-41 [facility] Blood monocytes/100 leukocyt esOrdered By: Candice Song on 06-26-2023 Monocytes/100 WBC (Bld) 7.2 % 0-10 [facility] Blood platelet mean volumeOr dered By: Candice Song on 06-26-2023 Platelet mean volume (Bld) [Entitic vol] 11.3 fL 6.2-12.0 [facility] Determination of erythrocyte mean corpuscular volume (MCV)Ordered By: Candice Song on 06-26-2023 MCV (RBC) [Entitic vol] 92.6 fL 80-94 [facility] Hematocrit Auto (Bld) [Volum e fraction]Ordered By: Candice Nohemi on 06-26-2023 Hematocrit (Bld) [Volume fraction] 38.8 % 40-54 [facility] Laboratory - Chemistry and C hemistry - challengeOrdered By: Candice Song on 06-26-2023 ALP [Catalytic activity/Vol] 99 U/L 45-117 [facility] ALT [Catalytic activity/Vol] 53 U/L 16-61 [facility] CO2 [Moles/Vol] 28.0 mmol/L 21.0-32.0 [facility] Globulin (S) [Mass/Vol] 3.6 g/dL 2.2-4.2 [facility] Urea nitrogen/Creatinine [Mass ratio] 23.5 mg/mg 10-20 [facility] Laboratory - Hematology and Cell countsOrdered By: Candice Song on 06-26-2023 Erythrocyte distribution width (RBC) [Entitic vol] 45.6 fL 35.1-43.9 [facility] Erythrocyte distribution width (RBC) [Ratio] 13.4 % 11.6-14.6 [facility] Immature granulocytes/100 WBC (Bld) 0.300 % 0.0-0.9 [facility] Comment on above: IG% - Immature Granu locytes (promyelocytes, myelocytes and metamyelocytes) > 1% indicates that a LEFT SHIFT is Present. MCH (RBC) [Entitic mass] 30.8 pg 27.0-32.0 [facility] Nucleated RBC/100 WBC (Bld) [Ratio] 0 % 0[facility]5 [facility] [Mass/Vol]Or dered By: Candice Song on 06-26-2023 MCHC (RBC) [Mass/Vol] 33.2 g/dL 32-36 [facility] No Panel InformationOrdered By: Candice Song on 06-26-2023 Estimated GFR (MDRD) Amer 99 mL/min >60 [facility] Comment on above: GFR Calc Estimated GFR (MDRD) Non-Af Amer 82 mL/min >60 [facility] Comment on above: Non- GFR Calc Percent Free Prostate Specific Ag 0.93 ng/mL N/A [facility] Comment on above: Credit Coach ECLIA methodol ogy. Prostate Specific Ag, Ultra-Sensitv 7.630 ng/mL 0.000-4.000 [facility] Comment on above: [employer] Coach ECLIA methodol ogy.According to the [place] [employer], Serum PSAshould decrease and remain [...] 06-26-2023 Platelets (Bld) [#/Vol] 252 10*3/uL 150-450 [facility] Serum or plasma albumin harrison urement (mass/volume)Ordered By: Candice Song on 06-26-2023 Albumin [Mass/Vol] 3.4 g/dL 3.2-5.0 [facility] Serum or plasma albumin/glob ulin mass ratioOrdered By: Candice Song on 06-26-2023 Albumin/Globulin [Mass ratio] 0.9 {ratio} 0.9-2.4 [facility] Serum or plasma calcium harrison urement (mass/volume)Ordered By: Candice Song on 06-26-2023 Calcium [Mass/Vol] 9.1 mg/dL 8.5-10.1 [facility] Serum or plasma cholesterol in HDL measurement (mass/volume)Ordered By: Candice Song on 06-26-2023 Cholesterol in HDL [Mass/Vol] 46 mg/dL >40 [facility] Comment on above: The drugs N-Acetylcy steine and Metamizole may falsely depress this assay. Reference Range HDL <40 mg/dL Low HDL Cholesterol HDL >or= 60 mg/dL High HDL Cholesterol Serum or plasma cholesterol in VLDL measurement (mass/volume)Ordered By: Candice Song on 06-26-2023 Cholesterol in VLDL [Mass/Vol] 15 mg/dL 5-40 [facility] Serum or plasma creatinine m easurement (mass/volume)Ordered By: Candice Song on 06-26-2023 Creatinine [Mass/Vol] 0.94 mg/dL 0.70-1.30 [facility] Comment on above: The validity of the calculated GFR & GFRAA in patients over 70 years has not been determined. Clinical correlation is essential. Serum or plasma free prostat e specific antigen/total prostate specific antigen ratioOrdered By: Candice Song on 06-26-2023 Free PSA/Total PSA [Mass fraction] 12.2 % . [facility] Comment on above: The table below list [...] for any other population of men.Performed at: [facility] [id number] Director: Robinson Mendoza PhD, Phone: [phone] Serum or plasma low density lipoprotein (LDL) cholesterol measurement (mass/volume)Ordered By: Candice Song on 06-26-2023 Cholesterol in LDL [Mass/Vol] 69 mg/dL 0-130 [facility] Serum or plasma urea nitroge n measurement (mass/volume)Ordered By: Candice Song on 06-26-2023 Urea nitrogen [Mass/Vol] 22 mg/dL 7-18 [facility] Serum or plasma uric acid me asurement (mass/volume)Ordered By: Candice Song on 06-26-2023 Urate [Mass/Vol] 5.2 mg/dL 3.5-7.2 [facility] Comment on above: The drugs N-Acetylcy steine and Metamizole may falsely depress this assay. Thin prep Papanicolaou smear with manual screeningOrdered By: Candice Song on 06-26-2023 Thin prep Papanicolaou smear with manual screening 32 U/L 15-37 [facility] Thin prep Papanicolaou smear with manual screening 2 5-15 [facility] No Panel InformationOrdered By: Tevin Lopez on 05-20-2023 Estimated GFR (MDRD) Amer 75 mL/min >60 [facility] Comment on above: GFR Calc Estimated GFR (MDRD) Non-Af Amer 62 mL/min >60 [facility] Comment on above: Non- GFR Calc Serum or plasma creatinine m easurement (mass/volume)Ordered By: Tevin Lopez on 05-20-2023 Creatinine [Mass/Vol] 1.20 mg/dL 0.70-1.30 [facility] Comment on above: The validity of the calculated GFR & GFRAA in patients over 70 years has not been determined. Clinical correlation is essential. Basophil percentageOrdered B y: Dr. Lopez on 04-01-2023 Chloride [Moles/Vol] 110 mmol/L 98-107 [facility] Glucose [Mass/Vol] 98 mg/dL 74-106 [facility] Potassium [Moles/Vol] 4.4 mmol/L 3.5-5.1 [facility] Sodium [Moles/Vol] 139 mmol/L 136-145 [facility] WBC (Bld) [#/Vol] 9.8 10*3/uL 4.4-11.0 [facility] Blood erythrocytes count (nu mber/volume)Ordered By: Dr. Lopez on 04-01-2023 RBC (Bld) [#/Vol] 4.39 10*6/uL 4.6-6.2 [facility] Blood hemoglobin measurement (mass/volume)Ordered By: Dr. Lopez on 04-01-2023 Hemoglobin (Bld) [Mass/Vol] 13.5 g/dL 13.0-16.5 [facility] Blood platelet mean volumeOr dered By: Dr. Lopez on 04-01-2023 Platelet mean volume (Bld) [Entitic vol] 11.0 fL 6.2-12.0 [facility] Determination of erythrocyte mean corpuscular volume (MCV)Ordered By: Dr. Lopez on 04-01-2023 MCV (RBC) [Entitic vol] 94.1 fL 80-94 [facility] Hematocrit Auto (Bld) [Volum e fraction]Ordered By: Dr. Lopez on 04-01-2023 Hematocrit (Bld) [Volume fraction] 41.3 % 40-54 [facility] Laboratory - Chemistry and C hemistry - challengeOrdered By: Dr. Lopez on 04-01-2023 CO2 [Moles/Vol] 27.0 mmol/L 21.0-32.0 [facility] Urea nitrogen/Creatinine [Mass ratio] 26.4 mg/mg 10-20 [facility] Laboratory - Hematology and Cell countsOrdered By: Dr. Lopez on 04-01-2023 Erythrocyte distribution width (RBC) [Entitic vol] 44.7 fL 35.1-43.9 [facility] Erythrocyte distribution width (RBC) [Ratio] 13.2 % 11.6-14.6 [facility] MCH (RBC) [Entitic mass] 30.8 pg 27.0-32.0 [facility] MCHC Auto (RBC) [Mass/Vol]Or dered By: Dr. Lopez on 04-01-2023 MCHC (RBC) [Mass/Vol] 32.7 g/dL 32-36 [facility] No Panel InformationOrdered By: Dr. Lopez on 04-01-2023 Activated Clotting Time 263 sec 74-137 [facility] Estimated Creatinine Clearance Calc 66.94 ml/min [facility] Estimated GFR (MDRD) Amer 98 mL/min >60 [facility] Comment on above: GFR Calc Estimated GFR (MDRD) Non-Af Amer 81 mL/min >60 [facility] Comment on above: Non- GFR Calc Platelets bldOrdered By: Dr. Lopez on 04-01-2023 Platelets (Bld) [#/Vol] 299 10*3/uL 150-450 [facility] Serum or plasma calcium harrison urement (mass/volume)Ordered By: Dr. Lopez on 04-01-2023 Calcium [Mass/Vol] 9.3 mg/dL 8.5-10.1 [facility] Serum or plasma creatinine m easurement (mass/volume)Ordered By: Dr. Lopez on 04-01-2023 Creatinine [Mass/Vol] 0.95 mg/dL 0.70-1.30 [facility] Comment on above: The validity of the calculated GFR & GFRAA in patients over 70 years has not been determined. Clinical correlation is essential. Serum or plasma urea nitroge n measurement (mass/volume)Ordered By: Dr. Lopez on 04-01-2023 Urea nitrogen [Mass/Vol] 25 mg/dL 7-18 [facility] Thin prep Papanicolaou smear with manual screeningOrdered By: Dr. Lopez on 04-01-2023 Thin prep Papanicolaou smear with manual screening 2 5-15 [facility] No Panel InformationOrdered By: Kavitha Baca on 02-11-2023 Estimated GFR (MDRD) Amer 94 mL/min >60 [facility] Comment on above: GFR Calc Estimated GFR (MDRD) Non-Af Amer 78 mL/min >60 [facility] Comment on above: Non- GFR Calc Serum or plasma creatinine m easurement (mass/volume)Ordered By: Kavitha Baca on 02-11-2023 Creatinine [Mass/Vol] 0.98 mg/dL 0.70-1.30 [facility] Comment on above: The validity of the calculated GFR & GFRAA in patients over 70 years has not been determined. Clinical correlation is essential. Absolute lymphocyte counton 04-22-2022 Lymphocytes Auto (Unsp spec) [#/Vol] 3.76 10*3/uL 0.83-4.51 [facility] Work Phone: Basophil percentageon 2021 Basophils/100 WBC (Bld) 1.0 % 0-1 [facility] Work Phone: Bilirubin [Mass/Vol] 0.40 mg/dL 0.20-1.00 [facility] Work Phone: Comment on above: For patients on eltr ombopag therapy, use of Dimension [place] TBIL is not recommended. Chloride [Moles/Vol] 106 mmol/L 98-107 [facility] Work Phone: Cholesterol [Mass/Vol] 240 mg/dL <200 [facility] Work Phone: Comment on above: <200 mg/dL Desirable 200-240 mg/dL Borderline >240 mg/dL High Risk Eosinophils/100 WBC (Bld) 7.6 % 0-5 [facility] Work Phone: Glucose [Mass/Vol] 106 mg/dL 74-106 [facility] Work Phone: Comment on above: Fasting Glucose resu lt from 100 to 125 mg/dL suggests IMPAIRED HOMEOSTASIS per A.D.A. criteria. Neutrophils (Bld) [#/Vol] 2.2 10*3/uL 2.0-7.7 [facility] Work Phone: Neutrophils/100 WBC (Bld) 30.5 % 47-70 [facility] Work Phone: Potassium [Moles/Vol] 4.3 mmol/L 3.5-5.1 [facility] Work Phone: Protein [Mass/Vol] 7.2 g/dL 6.4-8.2 [facility] Work Phone: Sodium [Moles/Vol] 140 mmol/L 136-145 [facility] Work Phone: Triglyceride [Mass/Vol] 125 mg/dL <199 [facility] Work Phone: Comment on above: The drugs N-Acetylcy steine and Metamizole may falsely depress this assay.Serum Triglycerides Reference Interval Normal <150 mg/dL Borderline high 150 - 199 mg/dL High 200 - 499 mg/dL Very High > or = 500 mg/dL WBC (Bld) [#/Vol] 7.2 10*3/uL 4.4-11.0 [facility] Work Phone: Blood erythrocytes count (nu mber/volume)on 04-22-2022 RBC (Bld) [#/Vol] 4.45 10*6/uL 4.6-6.2 [facility] Work Phone: Blood hemoglobin measurement (mass/volume)on 04-22-2022 Hemoglobin (Bld) [Mass/Vol] 14.1 g/dL 13.0-16.5 [facility] Work Phone: Blood lymphocytes/100 leukoc yteson 04-22-2022 Lymphocytes/100 WBC (Bld) 52.0 % 19-41 [facility] Work Phone: Blood monocytes/100 leukocyt eson 04-22-2022 Monocytes/100 WBC (Bld) 8.6 % 0-10 [facility] Work Phone: Blood platelet mean volumeon 04-22-2022 Platelet mean volume (Bld) [Entitic vol] 11.5 fL 6.2-12.0 [facility] Work Phone: Determination of erythrocyte mean corpuscular volume (MCV)on 04-22-2022 MCV (RBC) [Entitic vol] 94.2 fL 80-94 [facility] Work Phone: Hematocrit Auto (Bld) [Volum e fraction]on 04-22-2022 Hematocrit (Bld) [Volume fraction] 41.9 % 40-54 [facility] Work Phone: Laboratory - Chemistry and C hemistry - challengeon 04-22-2022 ALP [Catalytic activity/Vol] 90 U/L 45-117 [facility] Work Phone: ALT [Catalytic activity/Vol] 22 U/L 16-61 [facility] Work Phone: CO2 [Moles/Vol] 28.0 mmol/L 21.0-32.0 [facility] Work Phone: Globulin (S) [Mass/Vol] 3.7 g/dL 2.2-4.2 [facility] Work Phone: Urea nitrogen/Creatinine [Mass ratio] 18.8 mg/mg 10-20 [facility] Work Phone: Laboratory - Hematology and Cell countson 04-22-2022 Erythrocyte distribution width (RBC) [Entitic vol] 47.4 fL 35.1-43.9 [facility] Work Phone: Erythrocyte distribution width (RBC) [Ratio] 13.7 % 11.6-14.6 [facility] Work Phone: Immature granulocytes/100 WBC (Bld) 0.300 % 0.0-0.9 [facility] Work Phone: Comment on above: IG% - Immature Granu locytes (promyelocytes, myelocytes and metamyelocytes) > 1% indicates that a LEFT SHIFT is Present. MCH (RBC) [Entitic mass] 31.7 pg 27.0-32.0 [facility] Work Phone: Nucleated RBC/100 WBC (Bld) [Ratio] 0 % 0-5 [facility] Work Phone: MCHC Auto (RBC) [Mass/Vol]on 04-22-2022 MCHC (RBC) [Mass/Vol] 33.7 g/dL 32-36 [facility] Work Phone: No Panel Informationon 04-22 Estimated GFR (MDRD) Amer 91 mL/min >60 [facility] Work Phone: Comment on above: GFR Calc Estimated GFR (MDRD) Non-Af Amer 76 mL/min >60 [facility] Work Phone: Comment on above: Non- GFR Calc Percent Free Prostate Specific Ag 0.70 ng/mL N/A [facility] Work Phone: Comment on above: Cindy ECLIA methodol ogy. Prostate Specific Antigen Total 6.1 ng/mL 0.0-4.0 [facility] Work Phone: Comment on above: Cindy ECLIA methodol ogy.According to the [place] [employer], Serum PSAshould decrease and remain [...] 04-22-2022 Platelets (Bld) [#/Vol] 240 10*3/uL 150-450 [facility] Work Phone: Serum or plasma albumin harrison urement (mass/volume)on 04-22-2022 Albumin [Mass/Vol] 3.5 g/dL 3.2-5.0 [facility] Work Phone: Serum or plasma albumin/glob ulin mass ratioon 04-22-2022 Albumin/Globulin [Mass ratio] 0.9 {ratio} 0.9-2.4 [facility] Work Phone: Serum or plasma calcium harrison urement (mass/volume)on 04-22-2022 Calcium [Mass/Vol] 9.0 mg/dL 8.5-10.1 [facility] Work Phone: Serum or plasma cholesterol in HDL measurement (mass/volume)on 04-22-2022 Cholesterol in HDL [Mass/Vol] 56 mg/dL >40 [facility] Work Phone: Comment on above: The drugs N-Acetylcy steine and Metamizole may falsely depress this assay. Reference Range HDL <40 mg/dL Low HDL Cholesterol HDL >or= 60 mg/dL High HDL Cholesterol Serum or plasma cholesterol in VLDL measurement (mass/volume)on 04-22-2022 Cholesterol in VLDL [Mass/Vol] 25 mg/dL 5-40 [facility] Work Phone: Serum or plasma creatinine m easurement (mass/volume)on 04-22-2022 Creatinine [Mass/Vol] 1.01 mg/dL 0.70-1.30 [facility] Work Phone: Comment on above: The validity of the calculated GFR & GFRAA in patients over 70 years has not been determined. Clinical correlation is essential. Serum or plasma free prostat e specific antigen/total prostate specific antigen ratioon 04-22-2022 Free PSA/Total PSA [Mass fraction] 11.5 % . [facility] Work Phone: Comment on above: The table [...] for any other population of men.Performed at: [facility] [id number] Director: Robinson Mendoza PhD, Phone: [phone] Serum or plasma low density lipoprotein (LDL) cholesterol measurement (mass/volume)on 04-22-2022 Cholesterol in LDL [Mass/Vol] 159 mg/dL 0-130 [facility] Work Phone: Serum or plasma urea nitroge n measurement (mass/volume)on 04-22-2022 Urea nitrogen [Mass/Vol] 19 mg/dL 7-18 [facility] Work Phone: Serum or plasma uric acid me asurement (mass/volume)on 04-22-2022 Urate [Mass/Vol] 6.2 mg/dL 3.5-7.2 [facility] Work Phone: Comment on above: The drugs N-Acetylcy steine and Metamizole may falsely depress this assay. Thin prep Papanicolaou smear with manual screeningon 04-22-2022 Thin prep Papanicolaou smear with manual screening 17 U/L 15-37 [facility] Work Phone: Thin prep Papanicolaou smear with manual screening 6 5-15 [facility] Work Phone: Vital Signs Date Time Vital Sign Value Performing Clinician Faci lity 06-11-2025 11:52-0400 Body height 182.[address] Candice Song MD Work Phone: [facility] 06-11-2025 11:52-0400 Body mass index (BMI) [Ratio] 26.8 kg/m2 Dr. Candice Song MD Work Phone: [facility] 06-11-2025 11:52-0400 Body temperature 98 [degF] Dr. Candice Song MD Work Phone: [facility] 06-11-2025 11:52-0400 Body weight 89.[address] Candice Song MD Work Phone: [facility] 06-11-2025 11:52-0400 Diastolic blood pressure 62 mm[Hg] Dr. Candice Song MD Work Phone: [facility] 06-11-2025 11:52-0400 Heart rate 75 /min Dr. Candice Song MD Work Phone: [facility] 06-11-2025 11:52-0400 SaO2% (BldA) [Mass fraction] 96 % Dr. Candice Song MD Work Phone: [facility] 06-11-2025 11:52-0400 Systolic blood pressure 140 mm[Hg] Dr. Candice Song MD Work Phone: [facility] 12-06-2024 13:50-0500 Body temperature 97 [degF] Dr. Candice Song MD Work Phone: [facility] 12-06-2024 13:50-0500 Diastolic blood pressure 66 mm[Hg] Dr. Candice Song MD Work Phone: [facility] 12-06-2024 13:50-0500 Heart rate 56 /min Dr. Candice Song MD Work Phone: [facility] 12-06-2024 13:50-0500 Respiratory rate 16 /min Dr. Candice Song MD Work Phone: [facility] 12-06-2024 13:50-0500 SaO2% (BldA) [Mass fraction] 97 % Dr. Candice Song MD Work Phone: [facility] 12-06-2024 13:50-0500 Systolic blood pressure 147 mm[Hg] Dr. Candice Song MD Work Phone: [facility] 12-06-2024 11:40-0500 Body height 182.[address] Candice Song MD Work Phone: [facility] 12-06-2024 11:40-0500 Body mass index (BMI) [Ratio] 25.1 kg/m2 Dr. Candice Song MD Work Phone: [facility] 12-06-2024 11:40-0500 Body weight [address] Candice Song MD Work Phone: [facility] 12-05-2024 09:32-0500 Body mass index (BMI) [Ratio] 25.9 kg/m2 Dr. Candice Song MD Work Phone: [facility] 12-05-2024 09:32-0500 Body weight 86.[address] Candice Song MD Work Phone: [facility] 12-05-2024 09:32-0500 Diastolic blood pressure 71 mm[Hg] Dr. Candice Song MD Work Phone: [facility] 12-05-2024 09:32-0500 Respiratory rate 16 /min Dr. Candice Song MD Work Phone: [facility] 12-05-2024 09:32-0500 Systolic blood pressure 180 mm[Hg] Dr. Candice Song MD Work Phone: [facility] 11-02-2024 11:35-0500 Body temperature 97.5 [degF] Dr. Candice Song MD Work Phone: [facility] 11-02-2024 11:35-0500 Body weight 87.[address] Candice Song MD Work Phone: [facility] 11-02-2024 11:35-0500 Diastolic blood pressure 66 mm[Hg] Dr. Candice Song MD Work Phone: [facility] 11-02-2024 11:35-0500 Heart rate 65 /min Dr. Candice Song MD Work Phone: [facility] 11-02-2024 11:35-0500 Respiratory rate 14 /min Dr. Candice Song MD Work Phone: [facility] 11-02-2024 11:35-0500 SaO2% (BldA) [Mass fraction] 99 % Dr. Candice Song MD Work Phone: [facility] 11-02-2024 11:35-0500 Systolic blood pressure 169 mm[Hg] Dr. Candice Song MD Work Phone: [facility] 10-21-2023 15:28-0500 Body temperature 97.7 [degF] Dr. Candice Song Work Phone: [facility] 10-21-2023 15:28-0500 Body weight 84.[address] Candice Song Work Phone: [facility] 10-21-2023 15:28-0500 Diastolic blood pressure 62 mm[Hg] Dr. Candice Song Work Phone: [facility] 10-21-2023 15:28-0500 Heart rate 75 /min Dr. Candice Song Work Phone: [facility] 10-21-2023 15:28-0500 Respiratory rate 16 /min Dr. Candice Song Work Phone: [facility] 10-21-2023 15:28-0500 SaO2% (BldA) [Mass fraction] 99 % Dr. Candice Song Work Phone: [facility] 10-21-2023 15:28-0500 Systolic blood pressure 107 mm[Hg] Dr. Candice Song Work Phone: [facility] 07-29-2023 09:00-0400 Body temperature 97.5 [degF] Dr. Candice Song Work Phone: [facility] 07-29-2023 09:00-0400 Body weight 89.[address] Candice Song Work Phone: [facility] 07-29-2023 09:00-0400 Diastolic blood pressure 61 mm[Hg] Dr. Candice Song Work Phone: [facility] 07-29-2023 09:00-0400 Heart rate 70 /min Dr. Candice Song Work Phone: [facility] 07-29-2023 09:00-0400 Respiratory rate 16 /min Dr. Candice Song Work Phone: [facility] 07-29-2023 09:00-0400 Systolic blood pressure 130 mm[Hg] Dr. Candice Song Work Phone: [facility] 07-15-2023 16:00-0400 Body temperature 97 [degF] Dr. Candice Song Work Phone: [facility] 07-15-2023 16:00-0400 Diastolic blood pressure 47 mm[Hg] Dr. Candice Song Work Phone: [facility] 07-15-2023 16:00-0400 Heart rate 56 /min Dr. Candice Song Work Phone: [facility] 07-15-2023 16:00-0400 Respiratory rate 14 /min Dr. Candice Song Work Phone: [facility] 07-15-2023 16:00-0400 SaO2% (BldA) [Mass fraction] 99 % Dr. Candice Song Work Phone: [facility] 07-15-2023 16:00-0400 Systolic blood pressure 122 mm[Hg] Dr. Candice Song Work Phone: [facility] 07-15-2023 09:44-0400 Body height 182.[address] Candice Song Work Phone: [facility] 07-15-2023 09:44-0400 Body weight 90.[address] Candice Song Work Phone: [facility] 07-15-2023 06:00-0400 Body mass index (BMI) [Ratio] 27.1 kg/m2 Dr. Candice Song Work Phone: [facility] 07-15-2023 03:06-0400 Inhaled oxygen flow rate 2 L/min Dr. Candice Song Work Phone: [facility] 05-20-2023 14:28-0400 Body temperature 98 [degF] Dr. Candice Song Work Phone: [facility] 05-20-2023 14:28-0400 Body weight 89.[address] Candice Song Work Phone: [facility] 05-20-2023 14:28-0400 Diastolic blood pressure 62 mm[Hg] Dr. Candice Song Work Phone: [facility] 05-20-2023 14:28-0400 Heart rate 75 /min Dr. Candice Song Work Phone: [facility] 05-20-2023 14:28-0400 Respiratory rate 16 /min Dr. Candice Song Work Phone: [facility] 05-20-2023 14:28-0400 SaO2% (BldA) [Mass fraction] 99 % Dr. Candice Song Work Phone: [facility] 05-20-2023 14:28-0400 Systolic blood pressure 113 mm[Hg] Dr. Candice Song Work Phone: [facility] 04-23-2023 13:32-0400 Body temperature 98.8 [degF] Dr. Candice Song Work Phone: [facility] 04-23-2023 13:32-0400 Body weight 90.[address] Candice Song Work Phone: [facility] 04-23-2023 13:32-0400 Diastolic blood pressure 61 mm[Hg] Dr. Candice Song Work Phone: [facility] 04-23-2023 13:32-0400 Heart rate 70 /min Dr. Candice Song Work Phone: [facility] 04-23-2023 13:32-0400 Respiratory rate 16 /min Dr. Candice Song Work Phone: [facility] 04-23-2023 13:32-0400 SaO2% (BldA) [Mass fraction] 98 % Dr. Candice Song Work Phone: [facility] 04-23-2023 13:32-0400 Systolic blood pressure 122 mm[Hg] Dr. Candice Song Work Phone: [facility] 04-01-2023 17:27-0400 Diastolic blood pressure 59 mm[Hg] Dr. Candice Song Work Phone: [facility] 04-01-2023 17:27-0400 Heart rate 63 /min Dr. Candice Song Work Phone: [facility] 04-01-2023 17:27-0400 Respiratory rate 16 /min Dr. Candice Song Work Phone: [facility] 04-01-2023 17:27-0400 SaO2% (BldA) [Mass fraction] 99 % Dr. Candice Song Work Phone: [facility] 04-01-2023 17:27-0400 Systolic blood pressure 123 mm[Hg] Dr. Candice Song Work Phone: [facility] 04-01-2023 13:30-0400 Body temperature 97.7 [degF] Dr. Candice Song Work Phone: [facility] 04-01-2023 09:13-0400 Body height 182.[address] Candice Song Work Phone: [facility] 04-01-2023 09:13-0400 Body weight 92.[address] Candice Song Work Phone: [facility] 03-31-2023 08:04-0400 Body mass index (BMI) [Ratio] 27.5 kg/m2 Dr. Candice Song Work Phone: [facility] 03-05-2023 15:09-0400 Body weight 92.[address] Candice Song Work Phone: [facility] 03-05-2023 15:09-0400 Diastolic blood pressure 67 mm[Hg] Dr. Candice Song Work Phone: [facility] 03-05-2023 15:09-0400 Heart rate 64 /min Dr. Candice Song Work Phone: [facility] 03-05-2023 15:09-0400 Respiratory rate 18 /min Dr. Candice Song Work Phone: [facility] 03-05-2023 15:09-0400 SaO2% (BldA) [Mass fraction] 99 % Dr. Candice Song Work Phone: [facility] 03-05-2023 15:09-0400 Systolic blood pressure 138 mm[Hg] Dr. Candice Song Work Phone: [facility] 02-11-2023 09:02-0400 Body weight 92.[address] Candice Song Work Phone: [facility] 02-11-2023 09:02-0400 Diastolic blood pressure 77 mm[Hg] Dr. Candice Song Work Phone: [facility] 02-11-2023 09:02-0400 Heart rate 58 /min Dr. Candice Song Work Phone: [facility] 02-11-2023 09:02-0400 Respiratory rate 16 /min Dr. Candice Song Work Phone: [facility] 02-11-2023 09:02-0400 Systolic blood pressure 155 mm[Hg] Dr. Candice Song Work Phone: [facility] Encounters Encounter Date Encounter Type Care Provider Facility Start: 07-31-2025 ambulatory Candice Song [place] [facility] [place] Start: 07-31-2025 End: 07-31-2025 ambulatory Candice Song Facility:[facility] Start: 07-25-2025 End: 07-25-2025 ambulatory Candice Song Facility:[facility] Start: 06-11-2025 End: 06-11-2025 Patient encounter procedure Lennie Deleon Lanny RIVAS [facility] Work Phone: Start: 06-11-2025 End: 06-11-[address] Candice Song MD Work Phone: [facility] Start: 05-26-2025 End: 05-26-[address] Candice Song MD Work Phone: -Laboratory Start: 05-26-2025 End: 05-26-[address] Candice Song MD -Laboratory Work Phone: Start: 05-26-2025 End: [facility] Start: 12-20-2024 End: 12-20-[address] Rikki Clemente MD -[facility] Work Phone: Start: 12-20-2024 End: 12-20-2024 ambulatory Candice Mikhushi Facility:[facility] Start: 12-15-2024 End: 12-15-[address] Candice Song MD Work Phone: [facility] Work Phone: Start: 12-15-2024 End: 12-15-[address] Candice Song MD -Laboratory, [place] Work Phone: Start: 12-15-2024 End: 12-15-2024 ambulatory [facility] Facility:[facility] Start: 12-06-2024 ambulatory [facility] Facility: [facility] Start: 12-06-2024 Non-patient / Non-visit Dr. Rikki Clemente MD -[facility] Start: 12-06-2024 End: 12-06-2024 Admission to same day surgery center Dr. Rikki Clemente MD -[facility] Start: 12-06-2024 End: 12-06-2024 ambulatory [facility] Facility:[facility] Start: 12-05-2024 End: 12-05-[address] Rikki Clemente MD -[facility] Work Phone: Start: 12-05-2024 End: 12-05-2024 ambulatory Candice Mikhushi Facility:[facility] Start: 11-29-2024 End: 11-29-[address] Candice Song MD -[facility] Start: 11-29-2024 End: 11-29-20[facility] Start: 11-02-2024 End: 11-02-2024 Patient encounter procedure Kavitha SOLORZANO -[facility] Work Phone: Start: 11-02-2024 End: 11-02-2024 ambulatory Candice Patricia Facility:[facility] Start: 09-29-2024 ambulatory Candice [facility] Facility: [facility] Start: 09-29-2024 Non-patient / Non-visit Dr. Tevin Lopez MD -[facility] Start: 09-29-2024 End: 09-29-2024 Patient encounter procedure Kavitha SOLORZANO -[facility] Work Phone: Start: 09-29-2024 End: 09-29-2024 ambulatory Candice Song Facility:[facility] Start: 01-25-2024 Non-patient / Non-visit Dr. Candice Song Work Phone: [facility] Start: 01-25-2024 End: 01-25-[address] Candice Song Work Phone: [facility] Work Phone: Start: 01-25-2024 End: 01-25-[address] [facility] Start: 10-21-2023 End: 10-21-[address] Candice Song Work Phone: [facility] Work Phone: Start: 09-30-2023 Non-patient / Non-visit Dr. Candice Song Work Phone: [facility] Start: 09-30-2023 End: 09-30-[address] Candice Song Work Phone: [facility] Work Phone: Start: 09-30-2023 End: 09-30-[address] [facility] Start: 07-29-2023 End: 07-29-[address] Candice Song Work Phone: [facility] Work Phone: Start: 07-15-2023 Non-patient / Non-visit Dr. Candice Song Work Phone: [facility] Start: 07-14-2023 Non-patient / Non-visit Dr. Candice Song Work Phone: [facility] Start: 07-14-2023 End: 07-15-2023 Evaluation and management of inpatient Dr. Candice Song Work Phone: [facility]-Intensive Care Unit Work Phone: Start: 06-26-2023 End: 06-26-[address] Candice Song Work Phone: [facility] Work Phone: Start: 06-26-2023 End: 06-26-[address] Candice Song Work Phone: [facility]-Laboratory Work Phone: Start: 05-28-2023 End: 05-28-[address] Candice Song Work Phone: [facility] Work Phone: Start: 05-28-2023 End: 05-28-[address] Candice Song Work Phone: [facility] Work Phone: Start: 05-20-2023 End: 05-20-[address] Candice Song Work Phone: [facility] Work Phone: Start: 05-20-2023 End: 05-20-[address] Candice Song Work Phone: [facility] Surgery Work Phone: Start: 04-28-2023 Non-patient / Non-visit Dr. Candice Song Work Phone: [facility] Start: 04-28-2023 End: 04-28-[address] Candice Song Work Phone: [facility] Work Phone: Start: 04-28-2023 End: 04-28-[address] Candice Song Work Phone: [facility] Work Phone: Start: 04-23-2023 End: 04-23-[address] Candice Song Work Phone: [facility] Vascular Surgery Work Phone: Start: 04-01-2023 Non-patient / Non-visit Dr. Candice Song Work Phone: [facility] Start: 04-01-2023 End: 04-01-2023 Admission to same day surgery center Dr. Candice Song Work Phone: [facility]/Special Procedures Start: 04-01-2023 End: 04-01-[address] Candice Song Work Phone: [facility] Work Phone: Start: 03-05-2023 End: 03-05-[address] Candice Song Work Phone: [facility] V[facility] Surgery Start: 02-25-2023 End: 02-25-[address] Candice Song Work Phone: [facility] Start: 02-11-2023 End: 02-11-[address] Candice Song Work Phone: [facility] Work Phone: Start: 02-11-2023 End: 02-11-[address] Candice Song Work Phone: [facility]-Laboratory Start: 02-11-2023 End: 02-11-[address] Candice Song Work Phone: [facility] Vascular Surgery Start: 01-27-2023 Non-patient / Non-visit Dr. Candice Song Work Phone: [facility] Start: 01-27-2023 End: 01-27-[address] Candice Song Work Phone: [facility] Work Phone: Start: 01-27-2023 End: 01-27-[address] Candice Song Work Phone: [facility]-Cardi[facility] Services Start: 04-22-2022 End: 04-22-2022 Patient encounter procedure [facility] Procedures Date Procedure Procedure Detail Performing Clinician Start: 08-15-2025 Free prostate specif ic antigen level Dr. Candice Song MD Work Phone: Comment on above: [facility]. Start: 05-26-2025 Prostate specific an tigen measurement Dr. Candice Song MD Work Phone: Comment on above: [facility]indy [employer].According to the [place] [employer], Serum PSAshould decrease and remain [...] neck simple ligation ANESTH NECK VESSEL SURGERY [facility] Start: 12-06-2024 Ligation/biopsy temporal artery LIGATION/BX TEMPORAL ARTERY [facility] Start: 12-06-2024 Patient discharge [facility] Start: 07-15-2023 Patient discharge [facility] Start: 07-15-2023 End: 07-15-2023 [facility] Start: 07-15-2023 [facility] Start: 07-14-2023 Ambulation without limitation [facility] Start: 07-14-2023 Assessment of risk of venous thromboembolism [facility] Start: 07-14-2023 Catheterization of vein [facility] Start: 07-14-2023 Continuous pulse oximetry [facility] Start: 07-14-2023 Deep breathing and coughing exercises [facility] Start: 07-14-2023 Elevation of head of bed [facility] Start: 07-14-2023 Incentive spirometry [facility] Start: 07-14-2023 Insertion of catheter into peripheral vein [facility] Start: 07-14-2023 Measuring intake and output [facility] Start: 07-14-2023 Notification of physician [facility] Start: 07-14-2023 Oxygen therapy [facility] Start: 07-14-2023 Patient referral to dietitian [facility] Start: 07-14-2023 Providing care according to standard [facility] Start: 07-14-2023 Provision of activity privileges [facility] Start: 07-14-2023 Referral to occupational therapist [facility] Start: 07-14-2023 Referral to service [facility] Start: 07-14-2023 Vital signs measurements [facility] Start: 07-14-2023 [facility] Start: 07-14-2023 Following clinical pathway protocol [facility] Start: 07-14-2023 Admission procedure [facility] Start: 07-14-2023 Insertion of catheter into artery [facility] Start: 07-14-2023 Maintenance of invasive device [facility] Start: 04-01-2023 Admission procedure [facility] Start: 04-01-2023 Bedrest [facility] Start: 04-01-2023 Notification of physician [facility] Start: 04-01-2023 Patient discharge [facility] Start: 04-01-2023 Provision of activity privileges [facility] Start: 04-01-2023 Scheduling [facility] Start: 04-01-2023 Taking patient vital signs [facility] Start: 04-01-2023 Vascular disease risk assessment [facility] Start: 04-01-2023 [facility] Ankle brachial pressure index [facility] CT of abdominal aort a with contrast [facility] CTA Head vessels and Neck vessels W contrast IV [facility] Electrocardiographic procedure [facility] Patient referral [facility] Work Phone: US Carotid arteries [facility] US Lower extremity artery [facility] Immunizations Immunization Date Immunization Notes Care Provider Maritza chaves 06-11-2025 tetanus toxoid, redu cristian diphtheria toxoid, and acellular pertussis vaccine, adsorbed Dr. Candice Song MD Work Phone: [facility] 01-07-2021 [facility]) [facility] 12-10-2020 [facility] Payers Date Payer Category Payer Self-pay [id number] 2016 Unknown [id number] 2006 Medicare [id number] [facility] [id number] Unknown [id number] 2.16.8 [id number] Unknown [id number] 2.16.8 [id number] Unknown [id number] 2.16.8 [id number] Unknown [id number] 2.16.8 [id number] Unknown [id number] 2.16.8 40.1.929846.3.579.2.462 Unknown [id number] 2.16.8 40.1.754302.3.579.2.462 Unknown [id number] 2.16.8 40.1.740485.3.579.2.462 Unknown [id number] 2.16.8 40.1.696133.3.579.2.462 Unknown [id number] 2.16.8 40.1.484794.3.579.2.462 Unknown [id number] 2.16.8 40.1.869972.3.579.2.462 Unknown [id number] 2.16.8 40.1.640935.3.579.2.462 Unknown [id number] 2.16.8 [id number] Unknown [id number] 2.16.8 [id number] Unknown [id number] 2.16.8 [id number] Unknown [id number] 2.16.8 [id number] Social History Date Type Detail Facility Start: 03-15-2017 End: 10-21-2023 Tobacco smoking status NJIS Unknown if ever smoked [facility] Start: 1940 Sex Assigned At Male [facility] Start: 12-01-2024 End: 06-11-2025 Tobacco smoking status NHIS Ex-smoker (finding) [facility] Start: 12-29-2024 Sex Male (finding) [facility] Medical Equipment Procedure Code Equipment Code Equipment Origin al Text Equipment Identifier Dates Endarterectomy, carotid Cardiovascular patch, animal-derived ()[id number] FDA Start: 07-14-2023 Endarterectomy, carotid Ligation clip, metallic ()[id number] FDA Start: 07-14-2023 Endarterectomy, carotid Ligation clip, metallic ()[id number] FDA Start: 07-14-2023 Biopsy, artery, temporal Ligation clip, metallic ()[id number] FDA Start: 12-06-2024 Biopsy, artery, temporal Ligation clip, metallic ()[id number] ([id number] FDA Start: 12-06-2024 ([id number]) Wound hydrogel dressing, non-antimicrobial ()[id number] FDA Start: 04-01-2023 Goals Date Patient Goal Desired Activity /State Functional Status Date Assessment Result Facility 07-15-2023 Functional status Chair [facility] Work Phone: Mental Status Date Assessment Result Facility 12-06-2024 Cognitive function Level Of Cons ciousness Awake;Alert;Appropriate [facility] Work Phone: 07-15-2023 Cognitive function Voice/Name [facility] Work Phone: Clinical Notes 11-02-2024 to 06-11-2025 Note Date & Type Note Facility 06-11-2025 Progress note [facility] 06-11-2025 Progress note Note Date/Time June 11, 2025 12:34pm [facility] [address], [address] [place] [address] OFFICE VISIT Date of Service: 06/11/25 MR#: [id number] Acct: [id number] Name: LENNIE MAXWELL Rep #: [id number] : 1940 Provider: ROB Ca Age/Sex: 84/M Location[place] [facility] Status: Signed with Addenda ADDENDUM by Liza Smith on 06/11/25 at 1236 Office Procedure Documentation entered by Liza Smith MA 06/11/25 12:36: Immunizations Boostrix Tdap 2.5 Lf unit-8 mcg-5 Lf/0.5 mL intramuscular syringe Performing Provider: Lennie Ca NP, ROB Performing Location: [facility] Administered by: Liza Smith MA on 06/11/25 12:35 Dose Route Admin Location Dispensed Lot Number Expiration Date NDC Nurse Rn Bsn 0.5 mL IM Left Deltoid 0.5 mL [id number] 12/02/26 [id number] [employer] VIS Given Date VIS Provided VIS Publication [...] PO DAILY GOUT 3 06/11/25 History vitamins A,C,J-ebkm-fyyvyk 2,148 1 tab PO BID 11/02/24 06/11/25 History mcg-113 mg-45 mg-17.4 mg tablet (PreserVision AREDS) prednisone 20 mg tablet 20 mg PO DAILY 12/01/2405/14 History rosuvastatin 40 mg tablet 40 mg PO QDAY #90 tabs 12/1306/11/25 Rx Have you fallen in the past year?: No Nurse's Note: Stepped on a angus pin with left foot. Happened today. [facility] Medical History (Updated 06/11/25 @ 12:33 by Lennie Ca TRANSMISSION CALIBRATION ENGINEER, TRANSMISSION CALIBRATION ENGINEER-C) Alcohol use History of steroid therapy Back pain History of pain when walking Wears glasses Cancer Prostate disease High cholesterol History of diverticulitis Former smoker Carotid stenosis, left Carotid bruit 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 of extremities with rest pain, left [...] No 06/11/25 1234 <Electronically signed by Lennie RIVAS> Date _ Lennie Ca NP TRANSMISSION CALIBRATION ENGINEER-C Ronaldo Signature: Date (if applicable) CC: Dr. Candice Song MD ~ [facility] Work Phone: 1(300) 392-959502-25-2025 [facility] Medical Records Department [address] [place] [address] History Physical Exam 12/06/24 1231 MR#: [id number] Acct: [id number] Name: LENNIE MAXWELL Rep #: [id number] : 1940 83 From: Rikki Clemente MD PCP: Dr. Candice Song MD Status: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 Required: No Is patient in pain?: No [...] PO DAILY GOUT 07/01/23 12/05/24 History vitamins A,C,W-qtvp-ksjvmo 2,148 1 tab PO BID 11/02/24 12/05/24 [...] Carotid stenosis, left Carotid bruit 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 of extremities with rest pain, left [...] Chest Chest palpation ins (more content not included)...[facility] 11-02-2024 Evaluation note* Diagnosis Onset Date Resolution Status Admit Date Carotid artery disease acute [facility] 2024 11:15am PAD (peripheral artery disease) acute November 02 11:15am Polymyalgia rheumatica acute [facility] 2024 9:20am Polymyalgia rheumatica acute [facility] 2024 1:05pm [facility] Work Phone: evaluation noteNo assessment information available [facility] Work Phone: evaluation note* Diagnosis Onset Date Resolution Status Arterial insufficiency acute Claudication of left lower extremity acute [facility] Work Phone: Evaluation note* Diagnosis Onset Date Resolution Status Arterial insufficiency acute Claudication of left lower extremity acute 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, left leg chronic [facility] Work Phone: Evaluation note* Diagnosis Onset Date Resolution Status Arterial insufficiency acute Claudication of left lower extremity acute 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, left leg chronic Carotid bruit acute 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, left leg chronic [facility] Work Phone: Evaluation note* Diagnosis Onset Date Resolution Status Arterial insufficiency acute Claudication of left lower extremity acute 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, left leg chronic Carotid bruit acute 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, left leg chronic Carotid stenosis, left chron ic [facility] Work Phone: Evaluation note* Diagnosis Onset Date Resolution Status 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, left leg chronic Carotid bruit acute 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, left leg chronic Carotid stenosis, left chron ic [facility] Work Phone: Evaluation note* Diagnosis Onset Date Resolution Status Arterial insufficiency acute [facility] Work Phone: Evaluation note* Diagnosis Onset Date Resolution Status 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, left leg chronic [facility] Work Phone: Evaluation note* Diagnosis Onset Date Resolution Status Admit Date Need for Tdap vaccination acute June 11, 2025 12:10pm [facility] Work Phone: Reason for referral (narrative)[facility] for [facility] Work Phone: Advance Directives No Advanced Directives Records Found Advance Directive Response Recorded Date/ Time Living Will Yes March 15, 2017 3 :01am Power of Stonemason Helper Yes March 15, 2017 3:01am Advance Directive Response Recorded Date/ Time Advance Directives on File No April 01, 2023 9:13am Advance Directives Yes April 01 9:13am Living Will Yes April 01, 2023 9:13am Power of Stonemason Helper Yes April 01 9:13am Advance Directive Response Recorded Date/ Time Advance Directives on File No April 01, 2023 9:13am Advance Directives Yes April 01 9:13am Living Will Yes July 01, 2023 10:38am Power of Stonemason Helper Yes June 10:38am Advance Directive Response Recorded Date/ Time Name of Medical Power of Stonemason Helper Darlene Sotelo on, July 14, 2023 4:19pm Advance Directives Yes April 01 8:13am Living Will No July 14 4:19pm Power of Stonemason Helper Yes July 14 023 4:19pm Advance Directive Response Recorded Date/ Time Advance Directives Yes April 01 9:13am Living Will No July 14 5:19pm Power of Stonemason Helper Yes July 14 023 5:19pm Advance Directive Response Recorded Date/ Time Living Will No July 14 3 5:19pm Do you have a Healthcare Pow er of Stonemason Helper? Yes July 14, 2023 5:19pm Living Will Yes December 01 025 4:29pm Do you have a Healthcare Pow er of Stonemason Helper? 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, left leg Carotid bruit 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 of extremities with rest pain, left leg Chief Complaint CALF PAIN LEFT L ARTERIAL INSUFFICIENCY E-ORDER CLAUDICATION OF LEFT LOWER EXTREMITY DISCUSS RESULTS STRICTURE OF ARTERY STRICTURE OF ARTERY 3 WK POST OP Other specified symptoms and signs involving the c TEST RESULTS/CAROTID Reason for Visit Arterial insufficien cy Claudication of left lower 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, left leg Carotid bruit 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 of extremities with rest pain, left leg Carotid stenosis, left Chief Complaint L ARTERIAL INSUFFICI ENCY E-ORDER CLAUDICATION OF LEFT LOWER EXTREMITY DISCUSS RESULTS STRICTURE OF ARTERY STRICTURE OF ARTERY 3 WK POST OP Other specified symptoms and signs involving the c TEST RESULTS/CAROTID OCCLUSION/STENOSIS OF CAROTID ARTERY Reason for Visit Arterial insufficien cy Claudication of left lower 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, left leg Carotid bruit 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 of extremities with rest pain, left leg Carotid stenosis, left Chief Complaint DISCUSS RESULTS STRICTURE OF ARTERY STRICTURE OF ARTERY 3 WK POST OP Other specified symptoms and signs involving the c TEST RESULTS/CAROTID OCCLUSION/STENOSIS OF CAROTID ARTERY Reason for Visit Atherosclerosis of n ative arteries of extremities with rest pain, left leg Carotid bruit 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 of extremities with rest pain, left [...] 29, 2024 8:41am DISCUSS CHOLESTEROL MEDS November 02 025 11:15am TEMPORAL ARTERY December 05, 2024 9:20am [...] Date Need for Tdap vaccination June 11 025 12:10pm Family History No Family History Records [...] 2025 End: June 11, 2025 Lennie Ca TRANSMISSION CALIBRATION ENGINEER, TRANSMISSION CALIBRATION ENGINEER-C Attending Provider Active S tart: June 11, 2025 End: June 11, 2025 (unrecognized sect ion and content) No Status Records Found INFORMATION SOURCE (unrecogn ized section and content) DATE CREATED AUTHOR 08/16/2025 [facility] FOR RECORDS PERTAINING TO PATIENTS WHO [...] BE BASED ON THE PRIMARY CLINICAL RECORDS. [employer] provides no warranty or guarantee of the accuracy or completeness of information in this document.
== END | disposition home or self-care (01) ==
LOC: LABSPEC 15:20
PROVIDERS: PCP Family Medicine; Referring Provider Urology; Visit Provider Urology
DX: R97.20 Elevated prostate specific antigen [PSA] (principal)
CPT/HCPCS: 88305; G0416

== ENCOUNTER → 2025-09-12 | Outpatient (CLI) | payer MEDICARE, BC, SELFPAY ==
--- NOTE | 2025-09-12 08:30 | PET_ITS ---
PROCEDURE: PET/CT TUMOR BASE -THIGH INIT 09/12/2025 REASON FOR EXAM: 84 y/o M with PYLARIFY TECHNIQUE: Procedure Code: PETPTCTINIT Modality: PT Procedure: PET/CT TUMOR BASE -THIGH INIT After intravenous injection of millicuries of PSMA Ga-68 Illuccix Pylarify and a standard uptake period, a noncontrast CT scan, followed by a PET scan were acquired along the length of the body from the top of the skull to the mid thighs. The noncontrast helical CT imaging was performed without breath hold, for attenuation correction of PET images and anatomic correlation, but not for primary interpretation, as it is not of the standard diagnostic quality. Images were reviewed in the axial, coronal and sagittal planes. RADIATION DOSE SUMMARY: CTDI: 10.39 mGy. DLP: 1107.98 mGy cm COMPARISON: COMPARISON FROM CT, PET OR OTHER PERTINENT EXAMS: Pelvic MRI with and without contrast, 07/25/2025.. FINDINGS: Examination of the 3D tomographic PET images demonstrates expected uptake in the lacrimal glands, salivary glands, liver, spleen, kidneys, bowel and bladder. There is calcific vascular disease of the intracranial portion of both internal carotid arteries. The intracranial contents appear otherwise unremarkable. There is calcific vascular disease of both carotid bifurcations. There are no pleural effusions. 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 There is no abnormal activity within the pulmonary parenchyma. The heart is enlarged. There is no pericardial effusion. There is moderate calcific vascular disease of the coronary arteries particularly the LAD. The mitral valve is heavily calcified. There is moderate calcific vascular disease of the thoracic aorta. There is moderate calcific vascular disease of the abdominal aorta. There is an 8.4 cm in diameter cortical cyst in the lower pole of the left kidney. The kidney has an average density of 6 HU consistent with a Bosniak 1 cyst. There is severe diverticulosis of the sigmoid colon. The prostate gland measures 5.9 cm in transverse dimension and contains coarse calcifications. Status post left inguinal hernia repair. Prostate bed: There are multiple foci of increased activity in the prostate gland: -in the apex, peripherally, 7 x 7 mm, max SUV, 5.3. Can not exclude extension into the seminal vesicles. -in the midgland, peripheral zone, right posterolaterally, measuring 1.5 x 1.1 cm, max SUV 6.2. Can not exclude extension beyond the capsule into the right neurovascular bundle. -in the base, right laterally, anterior and posterior peripheral zone, measuring 1.8 x 1.1 cm, max SUV, 14.0. Lymph nodes: There is no abnormal lymph node activity. Skeleton: There is no abnormal skeletal activity. Uptake time: 60 minutes. Mediastinal blood pool: Max SUV, 2.2 BMI: 26.0 PET/PET/CT Tumor Base -Thigh Init IMPRESSION: 1. 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 Note that there is possible extracapsular extension as described. 2. There is no evidence of lymph node or skeletal involvement. 3. Other findings as noted. E- PSMA score: 5 E- PSMA scoring: Score = 1: Benign lesion without abnormal PSMA uptake. Score = 2: Probably benign lesion: Faint PSMA uptake (equal to or lower than ba ckground) in the site atypical for prostate cancer. Score = 3: Equivocal finding: Faint uptake in a site typical for prostate cance r or intense uptake in a site atypical prostate cancer. Score = 4: Probably prostate cancer: Intense uptake and a site typical for pros paul cancer, but without definitive findings on CT. Score = 5: Definitive evidence of prostate cancer: Intense uptake in a typical site of prostate cancer with definitive findings on CT. Reading Location: [id number]
== END | disposition home or self-care (01) ==
LOC: ONC 08:08
PROVIDERS: PCP Family Medicine; Referring Provider Urology; Visit Provider Urology
DX: C61 Malignant neoplasm of prostate (principal)
CPT/HCPCS: 78815; A9595